=== PATIENT | female | born 1960 | race Caucasian/White ===

== ENCOUNTER 2017-12-20 10:04 | Emergency (ER) | payer MEDICARE, MEDICAID, SELFPAY ==
[2017-12-20 10:05] VITALS: BP 147/84; PULSE 77; RESP 14; TEMP 36.7; O2SAT 94; BMI 29.2
--- NOTE | 2017-12-20 10:15 | RAD_ITS ---
STUDY: X-RAY CHEST REASON FOR EXAM: Female, 57 years old. Chest and back pain TECHNIQUE: Single AP portable view of the chest. COMPARISON: 07/24/2016 FINDINGS: Cardiac monitoring leads overlie the chest. The lungs are clear and expanded. There is no demonstrated pleural abnormality. Normal size heart. Normal mediastinum and jigna. Normal visualized pulmonary arteries. Normal visualized aortic arch and descending thoracic aorta. There are diffuse degenerative changes of the visualized thoracic spine. Normal visualized ribs, clavicles, and shoulders. There is no demonstrated abnormality of the visualized soft tissue structures of the upper abdomen. RAD/Chest 1 View (Portable) IMPRESSION: Degenerative changes, as described above. No demonstrated acute cardiopulmonary process. Electronically Signed: Dante Smith DO at 11:38 EDT Tel , Service support ,
--- NOTE | 2017-12-20 10:21 | ED.VISSUMM ---
- ER Visit Summary Date of Service: 12/20/17 Chief Complaint: Chest pain History of Present Illness: The patient is a 57 F who presents with chest pain. She states that in the middle the night she had pain that is in the right side of her chest. She states that nothing made it worse but she took a couple of aspirin and made the pain better. She has no pain at this time. Denies any shortness of breath, nausea or vomiting. She has no cardiac history or risk factors. She has schizoaffective disorder. She then told me that she called the counseling center and told them about her pain and that she should call 911. She then tells me that somebody she knows and that made her more upset. Physical Examination: Vital signs reviewed. HEENT exam unremarkable. Heart is regular rate and rhythm without murmurs. Lungs are clear to auscultation. Abdomen is soft and nontender. Extremities reveal no edema. Peripheral pulses are equal. Skin exam normal. Neurologic exam normal. Test Results: EKG, labs and chest x-ray are all unremarkable Emergency Department Course and Treatment: Patient had no pain at this time. I feel she can be discharged home. She will need to follow-up with her PCP Treatment Plan: [] Disposition: Discharge Impression: Chest pain, resolved This note was generated with AVdirect dictation software. It may contain incorrect words, spelling, and punctuation that were not noted in review of the chart prior to signing ED Disposition - Plan for ED Patient: Chief Complaint: Chest Pain Referrals: Antonio Irwin MD [Primary Care Provider] -
[2017-12-20 10:28] LABS: Absolute Neutrophil Count 2.7 X10^3/uL (2.0-7.7); Basophil# 0.03 X10^3/uL; Basophil% 0.6 % (0-1); Eosinophil# 0.16 X10^3/uL; Eosinophils% 3.3 % (0-5); Hematocrit 41.1 % (37-47); Hemoglobin 13.7 g/dl (12.0-15.0); Lymphocyte % 32.7 % (19-41); Mean Corp Hgb Conc 33.3 g/gl (32-36); Mean Corpuscular Hgb 30.4 pg (27.0-32.0); Mean Corpuscular Volume 91.3 fL (81-99); Mean Platelet Vol. 10.6 fl (6.2-12.0); Monocyte# 0.36 X10^3/uL; Monocyte% 7.4 % (0-10); Neutrophil # 2.73 X10^3/uL (2.7-7.7); Neutrophil % 55.8 % (47-70); Platelet Count 224 K/mm3 (150-450); RBC Distribution Width CV 12.4 % (11.6-14.6); RBC Distribution Width SD 40.7 fl (35.1-43.9); White Blood Count 4.9 K/mm3 (4.4-11.0)
[2017-12-20 10:34] LABS: POSITIVE COUNT NO; POSITIVE DIFFERENTIAL NO; POSITIVE MORPHOLOGY NO
[2017-12-20 10:41] LABS: Anion Gap 7 (5-15); BUN 16 mg/dL (7-18); BUN/Creat Ratio 25.8 RATIO (10-20); Calcium,Total 8.4 mg/dL (8.5-10.1); Chloride 107 mmol/L (98-107); Creatinine, Serum 0.62 mg/dL (0.55-1.02); EST Glomerular Filtration Rate 105 mL/min (>60); Est Glom Filt Rate - Afr Amer 128 mL/min (>60); Estimated Creatinine Clearance 93.72 ml/min; Glucose 112 mg/dL (74-106); Potassium 3.6 mmol/L (3.5-5.1); Sodium Level 141 mmol/L (136-145)
[2017-12-20 10:52] VITALS: BP 125/79; PULSE 67; RESP 13; O2SAT 94
[2017-12-20 11:21] VITALS: BP 137/99; PULSE 63; RESP 20; O2SAT 94
--- NOTE | 2017-12-20 11:43 | ED.DEP ---
ED Disposition - Plan for ED Patient: Disposition: Home or Assisted Living Chief Complaint: Chest Pain Instructions: ED Chest Pain NonCardiac Referrals: Antonio Irwin MD [Primary Care Provider] -
[2017-12-20 11:54] VITALS: BP 154/90; PULSE 66; RESP 16; O2SAT 99
== END 2017-12-20 12:00 | disposition home or self-care (01) ==
PROVIDERS: Emergency Provider Emergency Medicine; Family Provider Family Medicine; PCP Family Medicine
DX: R07.9 Chest pain, unspecified (principal); F25.9 Schizoaffective disorder, unspecified; Z79.899 Other long term (current) drug therapy
CPT/HCPCS: 36415; 71045; 80048; 84484; 85025; 93005; 99285; J7030; A4216

== ENCOUNTER 2018-07-16 10:30 | Day surgery (SDC) | payer MEDICARE, MEDICAID, SELFPAY ==
[2018-07-16 11:18] VITALS: BP 127/93; PULSE 64; RESP 16; TEMP 36.6; O2SAT 94; BMI 30.4
--- NOTE | 2018-07-16 12:30 | COLBX_PTH ---
PATIENT: GINNY CASTRO LOC: EN U#:[id number] AGE/SX: 58/F ROOM: RE07/16/[address]: Dr. Nini Ribera MD : 1960 BED: DIS: 07/16/2018 SPEC #: [id number] RECD: 07/16/18 13:25 STATUS: KAMINI KAIT #: [id number] ALBER: 07/16/18 12:[address]: Nini Ribera DEPT: SURGICAL PATHOLOGY RECD BY: Pipo Artis ENTERED: 07/16/18 14:23 SP TYPE: COLON BX OTHR DR: Dr. Yovany Omalley MD Tissues: A - Gastric mucous membrane B - COLON BIOPSY C - Transverse colon Procedures: Surgery Specimen Level IV HEADER OPERATION: [place] [place] DIAGNOSIS: Abdomen bloating and positive IFOBT, diarrhea TISSUE SUBMITTED: A - Antrum for H. pylori and path, B - Random colon biopsies, C - Transverse colon polyp MICROSCOPIC DIAGNOSIS A. Gastric antrum, biopsy: Mild chronic gastritis. See comment. B. Colon, random biopsy: No pathologic diagnosis. See comment. C. Transverse colon polyp, biopsy: Fragments of tubular adenoma. AM:linda 07/17/18 COMMENT A. The results of immunohistochemistry for Helicobacter pylori will be reported separately ([id number]). B. Mild architectural change is identified. MICROSCOPIC DESCRIPTION Slides are reviewed. GROSS DESCRIPTION A - Received in fixative is one container labeled with the patient's name and designated antrum biopsy. The specimen consists of one irregular fragment of light mahmood soft tissue that measures 0.2 x 0.2 x .1 cm. The specimen is totally submitted in one cassette. B - Received in fixative is one container labeled with the patient's name and designated random colon biopsy. The specimen consists of multiple irregular fragments of light mahmood soft tissue that in aggregate measure 2 x 0.7 x 0.1 cm. The specimen is totally submitted in one cassette. C - Received in fixative is one container labeled with the patient's name and designated transverse colon polyp. The specimen consists of multiple irregular fragments of light mahmood soft tissue that in aggregate measure 1 x 0.3 x 0.1 cm. The specimen is totally submitted in one cassette. / BOLIVAR:linda 07/16/18 TC:5 CPT: 08029 x3
--- NOTE | 2018-07-16 12:30 | IMM_PTH ---
PATIENT: GINNY CASTRO LOC: EN U#:[id number] AGE/SX: 58/F ROOM: RE07/16/[address]: Dr. Nini Ribera MD : 1960 BED: DIS: 07/16/2018 SPEC #: [id number] RECD: 07/16/18 14:42 STATUS: KAMINI REBrigette #: [id number] ALBER: 07/16/18 12:[address]: Nini Ribera DEPT: IMMUNOHISTOCHEMISTRY RECD BY: Kathryn Tovar ENTERED: 07/16/18 14:42 SP TYPE: IMMUNO OTHR DR: Dr. Yovany Omalley MD Tissues: A - Stomach, NOS Procedures: H Pylori (initial) PHYSICIAN & INSTITUTION [place] [address] SPECIMEN INFORMATION: Tissue Source: A - Antrum biopsy Clinical Info: Abdomen bloating and positive IFOBT, diarrhea Specimen Number: [id number] CPT code: 12016 METHODOLOGY: Deparaffinized sections of prefer/formalin-fixed tissue or PAP/DQ stained slides are incubated with monoclonal/polyclonal antibodies/oligonucleotide probes. Localization is made via biotin free immunoperoxidase method. Appropriate controls are performed and reacted as expected. Results on target cell population are indicated in the following table: RESULTS: ANTIBODY / CLONE RESULT Block A H Pylori (polyclonal) negative These tests were developed and their performance characteristics determined by [facility]. They may not have been cleared or approved by the U.S. Food and Drug Administration. The FDA has determined that such clearance or approval is not necessary. INTERPRETATION: A. Antrum, biopsy: Negative for Helicobacter pylori organisms. AM:linda 07/18/18
--- NOTE | 2018-07-16 12:53 | OP.ENDO_ITS ---
07/16/2018 Antonio Irwin [address] [place] [address] Re : Upper GI endoscopy procedure for Lisa Sherrie Dear Dr. Irwin This procedure was performed on Monday, July 16, 2018. My impressions and recommendations are as follows: Impressions : - Normal esophagus. - Normal stomach. Biopsied. - Normal first portion of the duodenum and second portion of the duodenum. Recommendations : - Discharge patient to home (ambulatory). - Resume previous diet. - Continue present medications. - Await pathology results. - Follow up with GI medicine in 1-2 weeks for results. My findings are described in the full procedure note, which is enclosed. If I can be of further assistance, please feel free to contact me at Doctor phone number(s): , Work: . Sincerely, MD Nini Campbell MD 07/16/2018 12:52:55 PM This report has been signed electronically.
[2018-07-16 13:16] VITALS: BP 127/98; BP 148/89; PULSE 69; RESP 18; TEMP 36.4; O2SAT 96
--- NOTE | 2018-07-16 13:16 | OP.ENDO_ITS ---
07/16/2018 Antonio Irwin [address] [place] [address] Re : Colonoscopy procedure for Lisa Balderas Dear Dr. Irwin This procedure was performed on Monday, July 16, 2018. My impressions and recommendations are as follows: Impressions : - One 5 to 10 mm polyp in the transverse colon, removed with a cold snare. Resected and retrieved. - Biopsies were taken with a cold forceps from the entire colon for evaluation of microscopic colitis. Recommendations : - Discharge patient to home (ambulatory). - Resume previous diet. - Continue present medications. - My office will telephone with pathology results in 1-2 weeks - Repeat colonoscopy is recommended per protocol. The colonoscopy date will be determined after pathology results from today's exam become available for review. My findings are described in the full procedure note, which is enclosed. If I can be of further assistance, please feel free to contact me at Doctor phone number(s): , Work: . Sincerely, MD Nini Campbell MD 07/16/2018 1:16:35 PM This report has been signed electronically.
[2018-07-16 13:20] VITALS: BP 127/98; BP 154/90; PULSE 68; RESP 16; O2SAT 96
[2018-07-16 13:25] VITALS: BP 127/98; BP 146/82; PULSE 66; RESP 16; O2SAT 94
[2018-07-16 13:30] VITALS: BP 127/98; BP 144/74; PULSE 63; RESP 16; O2SAT 96
[2018-07-16 13:35] VITALS: BP 127/98; BP 154/93; PULSE 63; RESP 16; TEMP 36.4; O2SAT 96
== END 2018-07-16 14:19 | disposition home or self-care (01) ==
LOC: EN 10:31 → AC 10:40
PROVIDERS: Family Provider Family Medicine; PCP Family Medicine; Referring Provider Surgery; Visit Provider Surgery
PROC: 0DJD8ZZ Inspection of Lower Intestinal Tract, Via Natural or Artificial Opening Endoscopic (ICD-10-PCS; CPT 45378; principal; 2018-07-16 12:25)
DX: K29.50 Unspecified chronic gastritis without bleeding (principal); D12.3 Benign neoplasm of transverse colon; E03.9 Hypothyroidism, unspecified; K76.0 Fatty (change of) liver, not elsewhere classified; E78.2 Mixed hyperlipidemia; F25.9 Schizoaffective disorder, unspecified; F41.9 Anxiety disorder, unspecified; F32.9 Major depressive disorder, single episode, unspecified; Z79.899 Other long term (current) drug therapy; Z87.891 Personal history of nicotine dependence
CPT/HCPCS: 43239; 45380; 88305; 88342; J7120; J2405

== ENCOUNTER → 2018-10-24 | Outpatient (CLI) | payer MEDICARE, MEDICAID, SELFPAY ==
[2018-10-24 15:13] LABS: Hematocrit 42.2 % (37-47); Mean Corp Hgb Conc 33.2 g/gl (32-36); Mean Corpuscular Volume 90.6 fL (81-99); Mean Platelet Vol. 10.4 fl (6.2-12.0); Platelet Count 252 K/mm3 (150-450); RBC Distribution Width CV 13.4 % (11.6-14.6); RBC Distribution Width SD 43.6 fl (35.1-43.9); Red Blood Count 4.66 M/mm3 (4.2-5.4); White Blood Count 6.6 K/mm3 (4.4-11.0)
[2018-10-24 15:19] LABS: Scan Indicated on CBC? Y/N NO
[2018-10-24 15:37] LABS: Hemoglobin A1c 5.4 % (4.2-6.3)
[2018-10-24 15:42] LABS: ALB/GLOB Ratio 0.8 RATIO (0.9-2.4); AST(SGOT) 98 U/L (15-37); Alanine Aminotransfer ALT/SGPT 224 U/L (13-56); Albumin, Serum 3.4 g/dL (3.2-5.0); Alkaline Phosphatase 147 U/L (45-117); Anion Gap 1 (5-15); BUN 15 mg/dL (7-18); BUN/Creat Ratio 23.7 RATIO (10-20); Calcium,Total 8.7 mg/dL (8.5-10.1); Chloride 106 mmol/L (98-107); Creatinine, Serum 0.63 mg/dL (0.55-1.02); EST Glomerular Filtration Rate 102 mL/min (>60); Est Glom Filt Rate - Afr Amer 124 mL/min (>60); Globulin 4.1 g/dL (2.2-4.2); Glucose 92 mg/dL (74-106); Prolactin 9.1 ng/mL; Protein, Total 7.5 g/dL (6.4-8.2); Sodium Level 137 mmol/L (136-145); Thyroid Stim Hormone (TSH) 1.11 uIU/mL (0.358-3.74)
== END | disposition home or self-care (01) ==
PROVIDERS: Family Provider Family Medicine; PCP Family Medicine; Referring Provider Psychiatry & Neurology Psychiatry; Visit Provider Psychiatry & Neurology Psychiatry
DX: Z79.899 Other long term (current) drug therapy (principal)
CPT/HCPCS: 80053; 82140; 83036; 84146; 84443; 85027

== ENCOUNTER → 2018-10-29 | Outpatient (CLI) | payer MEDICARE, MEDICAID, SELFPAY | END | disposition home or self-care (01) | LOC: LAB 11:37 | PROVIDERS: Family Provider Family Medicine; PCP Family Medicine; Referring Provider Psychiatry & Neurology Psychiatry; Visit Provider Psychiatry & Neurology Psychiatry | DX: Z79.899 Other long term (current) drug therapy (principal) | CPT/HCPCS: 36415 ==

== ENCOUNTER 2019-03-13 09:24 | Emergency (ER) | payer MEDICARE, MEDICAID, SELFPAY ==
[2019-03-13 09:25] VITALS: BP 113/84; PULSE 87; RESP 16; TEMP 36.4; O2SAT 96; BMI 28.3
--- NOTE | 2019-03-13 09:45 | ED.VISSUMM ---
- ER Visit Summary Date of Service: 03/13/19 Chief Complaint: Nausea, vomiting, diarrhea History of Present Illness: The patient is a 58 F who presents with nausea, vomiting, and diarrhea that began yesterday. Patient states she had several episodes of vomiting yesterday. Patient denies any vomiting today. Patient states her diarrhea is loose and watery. Patient denies any melena or hematochezia. Patient denies any abdominal pain. Patient denies any dysuria or hematuria. Patient states she does feel lightheaded when she stands up. Patient denies any shortness of breath or cough. Patient denies any chest pain. Physical Examination: Vital signs are stable. Patient is afebrile. Patient is in no acute distress. Oral mucosa is pink and moist. Neck is supple. Trachea is midline. There is no JVD noted. Heart was regular rate and rhythm. Lungs are clear and equal bilaterally. Abdomen is soft. Bowel sounds are normal. There is no tenderness. There is no guarding noted. Skin is warm dry. Cranial nerves II through XII are intact. There are no focal motor or sensory deficits noted. Test Results: CBC showed a mild leukocytosis of 12.4. BUN and creatinine were slightly elevated at 19 and 1.19. Urinalysis does not show any evidence of urinary tract infection. Emergency Department Course and Treatment: Patient was given IV fluids and Zofran here. Patient was feeling better on reevaluation. Patient was advised that this is most likely a viral gastroenteritis. Patient was instructed to start with liquids and advance her diet as tolerated. Patient was instructed to follow-up with her primary care physician in 5 to 7 days. Patient understood and was agreeable with the plan. All questions were answered. Disposition: Discharge home Impression: 1. Nausea, vomiting, and diarrhea This note was generated with F[employer] Sk[employer] dictation software. It may contain incorrect words, spelling, and punctuation that were not noted in review of the chart prior to signing ED Disposition - Plan for ED Patient: Disposition: Home or Assisted Living Diagnosis: Nausea, vomiting, and diarrhea Instructions: DIET, Vomiting or Diarrhea [6yr-Adult] Referrals: Yovany Omalley MD [Primary Care Provider] - 5-7 Days
[2019-03-13] MEDS: Ondansetron 4 MG/2 ML Vial IV (09:57)
[2019-03-13] MEDS: 0.9% Normal Saline 1,000 ML 1000 ML IV ×2 (09:57→11:30)
[2019-03-13 10:02] LABS: Absolute Lymphocyte Count 2.31 X10^3/uL (0.83-4.51); Absolute Neutrophil Count 8.8 X10^3/uL (2.0-7.7); Basophil# 0.04 X10^3/uL; Basophil% 0.3 % (0-1); Eosinophil# 0.57 X10^3/uL; Eosinophils% 4.6 % (0-5); Hemoglobin 14.9 g/dL (12.0-15.0); Lymphocyte # 2.31 X10^3/ul (4.0); Lymphocyte % 18.6 % (19-41); Mean Corp Hgb Conc 32.4 g/dL (32-36); Mean Corpuscular Hgb 30.2 pg (27.0-32.0); Mean Corpuscular Volume 93.3 fL (81-99); Mean Platelet Vol. 10.7 fl (6.2-12.0); Monocyte# 0.69 X10^3/uL; Monocyte% 5.5 % (0-10); NRBC Flagged by Analyzer 0 % (0-5); Neutrophil # 8.79 X10^3/uL (2.7-7.7); Neutrophil % 70.7 % (47-70); Platelet Count 271 K/mm3 (150-450); RBC Distribution Width CV 12.9 % (11.6-14.6); RBC Distribution Width SD 44.6 fl (35.1-43.9); Red Blood Count 4.93 M/mm3 (4.2-5.4); White Blood Count 12.4 K/mm3 (4.4-11.0)
--- NOTE | 2019-03-13 10:07 | ED.RN ---
Steady gait to bathroom.
[2019-03-13 10:17] LABS: AST(SGOT) 20 U/L (15-37); Alanine Aminotransfer ALT/SGPT 46 U/L (13-56); Alkaline Phosphatase 111 U/L (45-117); Anion Gap 9 (5-15); BUN 19 mg/dL (7-18); Chloride 113 mmol/L (98-107); Creatinine, Serum 1.19 mg/dL (0.55-1.02); EST Glomerular Filtration Rate 49 mL/min (>60); Est Glom Filt Rate - Afr Amer 60 mL/min (>60); Estimated Creatinine Clearance 46.37 ml/min; Glucose 116 mg/dL (74-106); Lipase 137 U/L (73-393); Potassium 3.5 mmol/L (3.5-5.1); Sodium Level 142 mmol/L (136-145)
[2019-03-13 11:35] VITALS: BP 128/67; PULSE 68; RESP 15; O2SAT 96
[2019-03-13 11:43] LABS: Mucous, Urine 0 SEEN /hpf (<or=2+)
[2019-03-13 11:56] LABS: Color, Urine Yellow (Yellow); Glucose, Dipstick Normal (Normal); Ketone-Dipstick 5 mg/dl (Negative); Leukocyte Esterase-Dipstick 25 /ul (Negative); Nitrite-Dipstick Negative (Negative); Occult Blood-Urine 25 /ul (Negative); Protein-Dipstick 100 mg/dl (Negative); Urine Clarity Sl. Cloudy (Clear); Urine Urobilinogen Normal (Normal)
[2019-03-13 11:59] LABS: Urine Bilirubin Dipstick 1 mg/dL (Negative)
[2019-03-13 12:05] LABS: Bacteria 1+ /hpf (None Seen); Hyaline Cast 0-5 SEEN /lpf (0-5); Red Blood Cells-Urine 0-5 SEEN /hpf (0-5); Squamous Epithelial Cells - UA 0-5 SEEN /hpf (5-10); White Blood Cells 0-5 SEEN /hpf (0-5)
[2019-03-13 12:33] VITALS: BP 115/76; PULSE 83; RESP 14; O2SAT 97
== END 2019-03-13 12:34 | disposition home or self-care (01) ==
PROVIDERS: Emergency Provider Emergency Medicine; Family Provider Family Medicine; PCP Family Medicine
DX: R19.7 Diarrhea, unspecified (principal); R11.2 Nausea with vomiting, unspecified; E03.9 Hypothyroidism, unspecified; E78.00 Pure hypercholesterolemia, unspecified; Z79.899 Other long term (current) drug therapy
CPT/HCPCS: 80053; 81001; 83690; 85025; 96361; 96374; 99285; J7030; A4216; J2405

== ENCOUNTER 2019-06-13 10:00 | Emergency (ER) | payer MEDICARE, MEDICAID, SELFPAY ==
[2019-06-13 10:03] VITALS: BP 129/69; PULSE 95; RESP 16; TEMP 37.2; O2SAT 93; BMI 28.9
[2019-06-13 10:06] VITALS: BP 129/69; PULSE 95; RESP 16; TEMP 37.2; O2SAT 93
--- NOTE | 2019-06-13 11:05 | EKG12_ITS ---
Test Reason : GENERAL ILLNESS Blood Pressure : / mmHG Vent. Rate : 085 BPM Atrial Rate : 085 BPM P-R Int : 168 ms QRS Dur : 096 ms QT Int : 392 ms P-R-T Axes : 028 -05 010 degrees QTc Int : 466 ms Normal sinus rhythm Incomplete right bundle branch block Poor R-wave progression Borderline ECG Confirmed by BRISEIDA XAVIER, JAMIE ([id number]), video editor NICHOLAS BAZZI ([id number]) on 06/18/2019 7:56:38 AM Referred By: CHIQUITA Confirmed By:JAMIE GOINS MD
--- NOTE | 2019-06-13 11:05 | RAD_ITS ---
STUDY: X-RAY CHEST REASON FOR EXAM: Female, 59 years old. CHEST PAIN X YESTERDAY. TECHNIQUE: Single AP portable view of the chest. COMPARISON: Comparison is made with prior study dated December 20, 2017. FINDINGS: EKG electrodes are seen. The lungs are clear and expanded. There is no demonstrated pleural abnormality. Normal size heart. Normal mediastinum and jigna. Normal visualized pulmonary arteries. Normal visualized aortic arch and descending thoracic aorta. There are diffuse degenerative changes of the visualized thoracic spine. Normal visualized ribs, clavicles, and shoulders. There is no demonstrated abnormality of the visualized soft tissue structures of the upper abdomen. RAD/Chest 1 View (Portable) IMPRESSION: No acute abnormality is present. Electronically Signed: Jeremy Mittal, at 12:05 EST , Service support ,
--- NOTE | 2019-06-13 11:06 | ED.DCSUM_ITS ---
- ER Visit Summary Date of Service: 06/13/19 Chief Complaint: Chest pain and diarrhea History of Present Illness: The patient is a 59 F history of underlying mental illness. Patient states that she has had diarrhea last several days. Took Imodium. States after taking 1 of the Imodium she had 5 an episode of chest pain. Midsternal. Did not radiate. Lasted 5 minutes resolved. This occurred last night. No history of cardiac disease or chest pain. No history of DVT or PE. No recent travel, surgery or immobilization. No leg pain or swelling. No hemoptysis. Is not pleuritic. Patient denies recent exertional chest pain or exertional dyspnea. Currently she is pain-free and symptom-free. Physical Examination: Middle-aged female no acute distress vital signs are stable. She is afebrile. H EENT exam unremarkable. Also is 90% room air no signs hypoxia. H EENT exam unremarkable. Neck nontender. Lungs clear to auscultation. Heart regular rhythm no murmur. Abdomen soft nontender normal bowel sounds no peritoneal signs. Extremities moves all 4. Calves are nonte nder without edema or cords. Equal symmetrical radial pulses. Back nontender. Chest wall nontender. Neurologically she is awake and alert with no focal motor deficits. Test Results: CBC white count of 12. Hemoglobin 15. Chemistries unremarkable normal creatinine and gap. Troponin normal. EKG normal sinus rhythm rate 85 no signs of IL or ischemia. Incomplete right bundle branch block. Chest x-ray portable 1 view read by myself the radiologist shows no acute abnormality. Normal cardiac silhouette mediastinum. Emergency Department Course and Treatment: Patient with atypical nonexertional presentation of chest pain lasted 5 minutes. She undergo cardiac work-up but clinically I doubt this is cardiac. If her work-up is negative she will be discharged home with outpatient follow-up. Zackary exam at 1533 patient is doing well. To be discharged to home. Treatment Plan: Return if worse. Follow-up with your doctor. Disposition: Discharge Impression: Acute transient chest pain resolved of uncertain etiology This note was generated with ThirdSpaceLearningation software. It may contain incorrect words, spelling, and punctuation that were not noted in review of the chart prior to signing ED Disposition - Plan for ED Patient: Referrals: Yovany Omalley MD [Primary Care Provider] -
[2019-06-13 11:41] LABS: Absolute Lymphocyte Count 0.33 X10^3/uL (0.83-4.51); Absolute Neutrophil Count 11.4 X10^3/uL (2.0-7.7); Basophil# 0.02 X10^3/uL; Basophil% 0.2 % (0-1); Eosinophil# 0.01 X10^3/uL; Eosinophils% 0.1 % (0-5); Hematocrit 44.9 % (37-47); Hemoglobin 15.2 g/dL (12.0-15.0); Lymphocyte # 0.33 X10^3/ul (4.0); Lymphocyte % 2.7 % (19-41); Mean Corp Hgb Conc 33.9 g/dL (32-36); Mean Corpuscular Volume 91.4 fL (81-99); Mean Platelet Vol. 10.1 fl (6.2-12.0); Monocyte# 0.26 X10^3/uL; Monocyte% 2.2 % (0-10); NRBC Flagged by Analyzer 0 % (0-5); Neutrophil # 11.41 X10^3/uL (2.7-7.7); Neutrophil % 94.5 % (47-70); POSITIVE DIFFERENTIAL YES; Platelet Count 261 K/mm3 (150-450); RBC Distribution Width CV 12.7 % (11.6-14.6); RBC Distribution Width SD 42.2 fl (35.1-43.9); Red Blood Count 4.91 M/mm3 (4.2-5.4); White Blood Count 12.1 K/mm3 (4.4-11.0)
[2019-06-13 11:46] LABS: Differential Indicated SCAN CRITERIA MET
[2019-06-13 11:58] LABS: Anion Gap 5 (5-15); BUN 21 mg/dL (7-18); BUN/Creat Ratio 23.9 RATIO (10-20); Calcium,Total 9.3 mg/dL (8.5-10.1); Chloride 107 mmol/L (98-107); Creatinine, Serum 0.88 mg/dL (0.55-1.02); EST Glomerular Filtration Rate 70 mL/min (>60); Est Glom Filt Rate - Afr Amer 85 mL/min (>60); Estimated Creatinine Clearance 61.94 ml/min; Glucose 110 mg/dL (74-106); Potassium 4.4 mmol/L (3.5-5.1); Sodium Level 139 mmol/L (136-145)
[2019-06-13 12:11] VITALS: BP 120/72; PULSE 91; RESP 20; O2SAT 95
[2019-06-13 14:15] VITALS: BP 119/69; PULSE 81; RESP 18; O2SAT 97
--- NOTE | 2019-06-13 15:34 | ED.DEP ---
ED Disposition - Plan for ED Patient: Disposition: Home or Assisted Living Diagnosis: Chest pain Instructions: CHEST PAIN, Uncertain Cause Referrals: Yovany Omalley MD [Primary Care Provider] - 3-5 Days if not improving
[2019-06-13 15:41] VITALS: BP 107/61; PULSE 79; RESP 16; O2SAT 99
== END 2019-06-13 15:41 | disposition home or self-care (01) ==
PROVIDERS: Emergency Provider Emergency Medicine; PCP Family Medicine
DX: R07.9 Chest pain, unspecified (principal); E78.00 Pure hypercholesterolemia, unspecified; Z79.899 Other long term (current) drug therapy
CPT/HCPCS: 36415; 71045; 80048; 84484; 85025; 93005; 99285; A4216

== ENCOUNTER → 2019-10-29 | Outpatient (CLI) | payer MEDICARE, MEDICAID, SELFPAY ==
--- NOTE | 2019-10-29 14:42 | STRESSREP_ITS ---
Stress Test Report Date: 10-29-2019 Procedure: Exercise tolerance test Indications: Chest pain Consent: Per the patient Procedure: The patient exercised on a Kofi protocol for 3 minutes completing Stage I achieving a peak heart rate of 122 bpm (75 % predicted maximal heart rate) with a peak blood pressure 164/84 mmHg and a peak MET capacity of approximately 4 mET's. The baseline ECG demonstrated normal sinus rhythm; low voltage QRS; poor R wave progression. The peak exercise ECG demonstrated no obvious ECG changes. There were no cardiac dysrhythmias pretest, during exercise, or recovery. The functional capacity was considered decreased. The patient had no complaint of chest discomfort during exercise or recovery. The examination was discontinued secondary to dyspnea. Impression: 1. Technically adequate (percent predicted maximal heart rate greater than 85%) exercise tolerance test 2. Peak exercise ECG with no obvious ECG changes 3. There were no cardiac dysrhythmias during exercise or recovery This note was generated with i-Nalysisation software. It may contain incorrect words, spelling, and punctuation that were not noted in checking the note before signing.
--- OUTSIDE RECORDS SUMMARY | 2020-03-01 14:14 | XMS RPT_ITS | CCD ---
:1960 External Reference #:[id number] Author Organization [facility] Care Team Providers Name Role Phone [facility] Castle Primary Care Provider Allergies Reported Allergen Reaction(s) Severity Date of Onset Location atorvastatin Other: See Comments Low 10-08-2014 - [facility] ([id number]) Caffeine Other: See Comments Low 03-04-2009 [facility] ([id number]) Certain Deordorants Unknown Low 09-11-2008 [facility] [Other] (13001) Chocolate Other: See Comments Low 03-04-2009 [facility] ([id number]) Fragrances Rash Low 08-30-2005 - [facility] ([id number]) gabapentin Rash Low 07-11-2006 [facility] ([id number]) Haloperidol Other: See Comments Moderate 05-31-2018 - [facility] (24949) lamoTRIgine Intolerance Low 10-25-2006 - [facility] (40908) levETIRAcetam Rash Low 07-11-2006 [facility] (03239) peanut Itching Low 09-11-2008 [facility] (34982) Phenergan Plain Unknown Low 03-04-2009 - [facility] (34365) Phenytoin Rash Low 07-11-2006 [facility] (81354) Medications Medication Name Sig Date Prescriber Location ARIPiprazole lauroxil ARISTADA 662 mg/2.4 05-31-2018 Yovany mae [facility] mL injection 2.4 mL (17627) q 4 WEEKS. [facility] 0 05/31/2018 Active Comment: 2.4 mL q 4 WEEKS. Per [facility] Benztropine benztropine (COGENTIN) 1 05-31-2018 Yovany Castle [facility] mg tablet Take 1 tablet (441 95) by mouth once daily. [facility] 0 05/31/2018 Active Comment: Take 1 tablet by mouth once daily. [facility] Chlorhexidine Chlorhexidine Gluconate 02-22-2019 [facility] Provider [facility] (PERIDEX) 0.12 % (55162) solution Citalopram citalopram (CELEXA) 20 05-31-2018 Yovany Castle [facility] mg tablet Take 1 tablet (441 95) by mouth once daily. [facility] 0 05/31/2018 Active Comment: Take 1 tablet by mouth once daily. [facility] fluticasone fluticasone (FLONASE) 50 08-08-2019 Anju Campos [facility] mcg/actuation nasal Loyd (92748) spray Use 2 Sprays in each nostril once daily. Rinse mouth after use. 1 Bottle 11 08/08/2019 Active Comment: Use 2 Sprays in each nostril once daily. Rinse mouth after use. levothyroxine levothyroxine 11-25-2019 [facility] (SYNTHROID) 75 mcg Loyd (97460) tablet Take 1 tablet by mouth once daily. 90 tablet 1 11/25/2019 Active Comment: Take 1 tablet by mouth once daily. LORazepam LORazepam (ATIVAN) 1 mg 05-31-2018 Yovany Avila Shahram [facility] tablet Indications: Schizo ( 14250) affective schizophrenia (HCC) Take 1 tablet by mouth once daily for 30 days. Twice daily, [facility]. 30 tablet 0 05/31/2018 Active Comment: Take 1 tablet by mouth once daily for 30 days. Twice daily, [facility]. miSOPROStol miSOPROStol (CYTOTEC) 02-17-2020 - Sagrario (Cnm) [facility] 200 mcg tablet Insert 02-25-2020 [facility] (97081 ) one tablet vaginally the night before procedure. Take one tablet orally the morning of procedure. 2 tablet 0 02/17/2020 02/25/2020 Discontinued Comment: Insert one tablet vaginally the night before procedure. Take one tablet orally the morning of proced ure. risperiDONE risperiDONE (RISPERDAL) 05-31-2018 Yovany Castle [facility] 4 mg tablet Take 1 (59574) tablet by mouth once daily. [facility] 0 05/31/2018 Active Comment: Take 1 tablet by mouth once daily. Per [facility] Center Problems Active Problems Category Problem Name Status Date Location Anxiety disorders Obsessive-compulsive Active [facility] disorder (97616) Conduction disorders Right bundle branch Active 02-21-2019 - [facility] block (63754) Disorders of lipid Mixed hyperlipidemia Active 06-28-2005 [facility] metabolism (62232) Genitourinary symptoms Female stress Active 02-19-2010 - [facility] and ill-defined incontinence (98781) conditions Menopausal disorders Postmenopausal bleeding Active [facility] (35219) Mood disorders Bipolar I disorder Active [facility] (83787) Other liver diseases Steatosis of liver Active 06-01-2018 [facility] (48351) Schizophrenia and other Schizoaffective Active 12-16-2014 [facility] psychotic disorders schizophrenia (20854) Thyroid disorders Acquired hypothyroidism Active 06-28-2005 - [facility] (29560) Unclassified Patient encounter status Active 05-19-2015 - [facility] (25989) Unclassified History of clinical Active 08-15-2005 - [facility] finding in subject (44171) Past or Other Problems Category Problem Name Status Date Location Other diseases of Other specified Completed 02-19-2010 - [facility] bladder and urethra disorders of urethra (83720) Other infections; History of sexually Completed 04-03-2014 - [facility] including parasitic transmitted disease ( 01523) Other nutritional; H/O: endocrine Completed 03-10-2009 - [facility] endocrine; and disorder (94462) metabolic disorders Other screening for Liver function tests Completed 10-29-2018 - [facility] suspected conditions abnormal (62967) (not mental disorders or infectious disease) Screening and history Ex-smoker Completed 05-31-2018 - [facility] of mental health and (66735) substance abuse codes Results Result Name Value Range Unit Interpretation Flag Date Location [facility] on 2020-02-28 CNPN Telephone (OBGYWM) Normal 02-28-2020 [facility] LISA CASTRO ([id number]) 1960 [facility] Date Time Provider Department ([id number]) 02/28/20 MARY VALDES ([facility]) OBGYWJose During your visit today, we recorded the following informati on about you: Mary Valdes APRN.CNP 02/28/2020 11:22 AM Signed Please let the pt know that her EMB was normal. If she has anymore bleeding she will need to see one of the doctors for an Endosee. MOY Benites RN 02/28/2020 11:27 AM Signed Patient notified. Voiced understanding. Nona Reich RN Allergies As of Date: 02/28/2020 Noted Allergy Reaction HALDOL (HALOPERIDOL LACTATE) 05/31/2018 14 - Other: See Comm ents Comments: seizures CAFFEINE 03/04/2009 14 - Other: See Comments Comments: Patient states can have in moderation. Excess amou nts can cause seizures. Certain Deordorants [Other] 09/11/2008 16 - Unknown CHOCOLATE 03/04/2009 14 - Other: See Comments Comments: Patient states she can have in moderation. DILANTIN (PHENYTOIN SODIUM EXTEND*07/11/2006 2 - Rash Comments: GI upset FRAGRANCES 08/30/2005 2 - Rash GABAPENTIN 07/11/2006 2 - Rash Comments: GI upset KEPPRA (LEVETIRACETAM) 07/11/2006 2 - Rash Comments: GI upset LAMICTAL (LAMOTRIGINE) 10/25/2006 5 - Intolerance Comments: too drowsey LIPITOR (ATORVASTATIN) 10/08/2014 14 - Other: See Comments Comments: Dry mouth, upset stomach, elevated LFT's PEANUTS 09/11/2008 9 - Itching PHENERGAN PLAIN 03/04/2009 16 - Unknown Date Reviewed: 02/25/2020 Reviewed by: Eboni Carter LPN - Fully Assessed Reason for Visit: Results [95] Prescriptions as of 02/28/2020 Sig: LEVOTHYROXINE 75 MCG TABLET Take 1 tablet by mouth once d* FLUTICASONE PROPIONATE 50 MCG* Use 2 Sprays in each nostril * CHLORHEXIDINE GLUCONATE 0.12 * LORAZEPAM 1 MG TABLET Take 1 tablet by mouth once d* BENZTROPINE 1 MG TABLET Take 1 tablet by mouth once d* RISPERIDONE 4 MG TABLET Take 1 tablet by mouth once d* CITALOPRAM 20 MG TABLET Take 1 tablet by mouth once d* ARISTADA 662 MG/2.4 ML SUSPEN* 2.4 mL q 4 WEEKS. Per [employer] * Problem List As Of Date 02/28/2020 Noted Resolved Acquired hypothyroidism [E03.9] 06/28/2005 Mixed hyperlipidemia [E78.2] 06/28/2005 History of seizures [Z87.898] 08/15/2005 More... Sebaceous cyst [L72.3] 07/17/2006 10/21/2010 Other Fall [R29.6] 06/07/2007 07/17/2009 History of hyperprolactinemia [Z86.39] 03/10/2009 Urethrocele(618.03) [N36.8] 02/19/2010 Female stress incontinence [N39.3] 02/19/2010 Screening for colon cancer [Z12.11] 06/01/2010 10/21/2010 Herpes [B00.9] 06/14/2010 06/14/2010 Sebaceous cyst [L72.3] 11/03/2010 09/13/2014 History of herpes genitalis [Z86.19] 04/03/2014 Schizo affective schizophrenia (HCC) [F25.9] 12/16/2014 More... Encounter for screening mammogram for breast ca*05/19/2015 Bipolar 1 disorder (HCC) [F31.9] OCD (obsessive compulsive disorder) [F42.9] Ex-smoker [Z87.891] 05/31/2018 More... Encounter for gynecological examination [Z01.41*05/31/2018 More... Colon cancer screening [Z12.11] 05/31/2018 Medicare annual wellness visit, subsequent [Z00*05/31/2018 More... Fatty liver [K76.0] 06/01/2018 More... Elevated LFTs [R79.89] 10/29/2018 More... RBBB [I45.10] 02/21/2019 Encounter Status:Closed by NONA REICH RN on 02/28/20 surgical pathology on 2020-02-25 SURGICAL Specimen originated from [facility] Normal 02-25-2020 [facility] Specimen #: [id number] Clinic Submitting Physician: MARY VALDES [facility]ell[facility] ([id number]) FINAL DIAGNOSIS Endometrium, biopsy - Superficial sample of inactive endomet rium. KD/teodoro 02/26/2020 Ceci Vazquez MD (Electronic Signature) SPECIMEN SUBMITTED A: ENDOMETRIAL LINING, BIOPSY CLINICAL DATA POSTMENOPAUSAL GROSS DESCRIPTION A. Received in formalin are multiple mahmood, soft feathery segm ents of tissue admixed with gelatinous material aggregating to 2.0 x 1.0 x 0.1 cm. Totally submitted in one cassette. Gross examination performed at [facility], [address] [place] [address] 02/25/2020 10:12:44 PM Date of Report: 02/26/2020 Date of Procedure: 02/25/2020 Date of Receipt: 02/25/2020 Submitted by: MARY VALDES Location: [facility] Diagnostic interpretation performed at [place] [address]. CLIA Number: [id number] progress on 2020-02 PROGRESS HNO ID: [id number] Normal 02-25-2020 [facility] Author: aMry Castellano ([id number]) Service: ? Author Type: Nurse Practitioner Type: Progress Notes Filed: 02/25/2020 1:47 PM Note Text: Lisa Castro is a 59 year old female who presents today f or an endometrial biopsy for post menopausal bleeding. test: n/a UNIVERSAL PROTOCOL / SAFETY CHECKLIST Procedure to be performed: EMB Sign in Communication: Completed Time Out: Team Confirms the Correct Patient, Correct Procedu re, Correct Site and Site Marking, Correct Position (if applicable), Pre p and Dry Time (if applicable). Time: 1335 Affirmation of Time Out: YES Sign Out Discussion: Completed PROCEDURE: EXTERNAL GENITALIA: Normal in appearance without lesions VAGINA: Normal in appearance without lesions BIOPSY: Speculum placed into the vagina with excellent visua lization of the cervix. Cervix cleaned with betadine. Anterior lip of ce rvix grasped with single toothed tenaculum. Uterus sounded to 6.5 cm. Pip geoff inserted into the uterus without difficulty and endometrial biopsy ob tained. Specimen labeled and sent to pathology. Hemostasis achieved. Procedure Summary: Patient tolerated procedure well. ASSESSMENT: post menopausal bleeding PLAN: Specimens labeled and sent to Pathology. Will notify patient of results in 1-2 weeks. Post-procedure instructions reviewed and writt en material given to the patient. Mary Valdes APRN.RALPH watson on 2020-02-25 RALPHN Telephone (OBGYWM) Normal 02-25-2020 [facility] LISA CASTRO ([id number]) 1960 [facility] Time Provider Department ([id number]) 02/25/20 MARY VALDES ([facility]) OBGYWM During your visit today, we recorded the following informati on about you: Alize Newby RN 02/25/2020 4:48 PM Signed Patient calling regarding bleeding. States she started aga in this afternoon after EMB. Advised this can be normal. She is not currently wearing a pad, only noticed a little on underwear. Encouraged to wea r maxi pad and reviewed heavy bleeding precautions with her. She also was ques tioning hysterectomy. Advised once results come back from EMB we will call her with those and recommendations at that point. Patient agreed. FYI. Alize Newby RN Allergies As of Date: 02/25/2020 Noted Allergy Reaction HALDOL (HALOPERIDOL LACTATE) 05/31/2018 14 - Other: See Comm ents Comments: seizures CAFFEINE 03/04/2009 14 - Other: See Comments Comments: Patient states can have in moderation. Excess amou nts can cause seizures. Certain Deordorants [Other] 09/11/2008 16 - Unknown CHOCOLATE 03/04/2009 14 - Other: See Comments Comments: Patient states she can have in moderation. DILANTIN (PHENYTOIN SODIUM EXTEND*07/11/2006 2 - Rash Comments: GI upset FRAGRANCES 08/30/2005 2 - Rash GABAPENTIN 07/11/2006 2 - Rash Comments: GI upset KEPPRA (LEVETIRACETAM) 07/11/2006 2 - Rash Comments: GI upset LAMICTAL (LAMOTRIGINE) 10/25/2006 5 - Intolerance Comments: too drowsey LIPITOR (ATORVASTATIN) 10/08/2014 14 - Other: See Comments Comments: Dry mouth, upset stomach, elevated LFT's PEANUTS 09/11/2008 9 - Itching PHENERGAN PLAIN 03/04/2009 16 - Unknown Date Reviewed: 02/25/2020 Reviewed by: Eboni Carter LPN - Fully Assessed Reason for Visit: Patient Update [1234] Prescriptions as of 02/25/2020 Sig: LEVOTHYROXINE 75 MCG TABLET Take 1 tablet by mouth once d* FLUTICASONE PROPIONATE 50 MCG* Use 2 Sprays in each nostril * CHLORHEXIDINE GLUCONATE 0.12 * LORAZEPAM 1 MG TABLET Take 1 tablet by mouth once d* BENZTROPINE 1 MG TABLET Take 1 tablet by mouth once d* RISPERIDONE 4 MG TABLET Take 1 tablet by mouth once d* CITALOPRAM 20 MG TABLET Take 1 tablet by mouth once d* ARISTADA 662 MG/2.4 ML SUSPEN* 2.4 mL q 4 WEEKS. Per [employer] * Problem List As Of Date 02/25/2020 Noted Resolved Acquired hypothyroidism [E03.9] 06/28/2005 Mixed hyperlipidemia [E78.2] 06/28/2005 History of seizures [Z87.898] 08/15/2005 More... Sebaceous cyst [L72.3] 07/17/2006 10/21/2010 Other Fall [R29.6] 06/07/2007 07/17/2009 History of hyperprolactinemia [Z86.39] 03/10/2009 Urethrocele(618.03) [N36.8] 02/19/2010 Female stress incontinence [N39.3] 02/19/2010 Screening for colon cancer [Z12.11] 06/01/2010 10/21/2010 Herpes [B00.9] 06/14/2010 06/14/2010 Sebaceous cyst [L72.3] 11/03/2010 09/13/2014 History of herpes genitalis [Z86.19] 04/03/2014 Schizo affective schizophrenia (HCC) [F25.9] 12/16/2014 More... Encounter for screening mammogram for breast ca*05/19/2015 Bipolar 1 disorder (HCC) [F31.9] OCD (obsessive compulsive disorder) [F42.9] Ex-smoker [Z87.891] 05/31/2018 More... Encounter for gynecological examination [Z01.41*05/31/2018 More... Colon cancer screening [Z12.11] 05/31/2018 Medicare annual wellness visit, subsequent [Z00*05/31/2018 More... Fatty liver [K76.0] 06/01/2018 More... Elevated LFTs [R79.89] 10/29/2018 More... RBBB [I45.10] 02/21/2019 Encounter Status:Closed by ALIZE NEWBY RN on 02/27/20 cnov on 2020-02-25 CNOV Office Visit (OBGYWM) Normal 02-25-[address] [place] [address] LISA Garcia ([id number]) 1960 F [facility] Date Time Provider Department ([id number]) 02/25/20 1:30 PM MARY VALDES ([facility]) OBGYWM During your visit today, we recorded the following informati on about you: Blood pressure Weight 120/78 84.2 kg Mary Valdes APRN.RALPH 02/25/2020 1:47 PM Signed Lisa Castro is a 59 year old female who pres ents today for an endometrial biopsy for post menopausal bleeding. test: n/a UNIVERSAL PROTOCOL / SAFETY CHECKLIST Procedure to be performed: EMB Sign in Communication: Completed Time Out: Team Confirms the Correct Patient, Correct P rocedure, Correct Site and Site Marking, Correct Position (if applicable), Prep and Dry Time (if applicable). Time: 1335 Affirmation of Time Out: YES Sign Out Discussion: Completed PROCEDURE: EXTERNAL GENITALIA: Normal in appearance without lesions VAGINA: Normal in appearance without lesions BIOPSY: Speculum placed into the vagina with excellent vis ualization of the cervix. Cervix cleaned with betadine. Anterior lip of cervix grasped with single toothed tenaculum. Uterus sounded to 6.5 cm. Pipelle inserted into the uterus without difficulty an d endometrial biopsy obtained. Specimen labeled and sent to pathology. Hemostasis achieved. Procedure Summary: Patient tolerated procedure well. ASSESSMENT: post menopausal bleeding PLAN: Specimens labeled and sent to Pathology. Will notify patient of results in 1-2 weeks. Post-procedure instructions reviewed and written material given to the patient. MOY Benites LPN 02/25/2020 1:17 PM Signed YOUR RECOVERY After your biopsy you may have: ? Vaginal bleeding (less than a normal menstrual period) ? Mild cramping Do NOT put anything in the vagina for 1 week after your en dometrial biopsy. This includes: ? tampons ? douches ? and refraining from having sexual intercourse If you have any discomfort, you may take an over the c ounter pain medication (motrin, advil, ibuprofen, tylenol, etc). If this does not r elieve your discomfort, contact the office. It is okay to wear a sanitary pad until the discharge and sp otting stops. RISKS Although problems seldom occur with endometrial biopsies, there can be some complications. You may feel faint during and shortly after the procedure as well as have some bleeding after the procedure. There is als o a risk of infection after the procedure. These complicatio ns are rare and can be easily treated. You should contact you doctor is you have any of the followi ng: ? Heavy bleeding (more than your normal period) ? Bleeding with clots ? Severe abdominal pain ? Fever (more than 100.4F) ? Foul smelling vaginal discharge RESULTS We will have the results of your biopsy in 1-2 weeks. If you do not hear the results of your biopsy after 2 weeks, please contact the off ice for the results. If you have any additional questions or concerns please do n ot hesitate to contact the office. Referring Provider: SELF [[id number]] Allergies As of Date: 02/25/2020 Noted Allergy Reaction HALDOL (HALOPERIDOL LACTATE) 05/31/2018 14 - Other: See Comm ents Comments: seizures CAFFEINE 03/04/2009 14 - Other: See Comments Comments: Patient states can have in moderation. Excess amou nts can cause seizures. Certain Deordorants [Other] 09/11/2008 16 - Unknown CHOCOLATE 03/04/2009 14 - Other: See Comments Comments: Patient states she can have in moderation. DILANTIN (PHENYTOIN SODIUM EXTEND*07/11/2006 2 - Rash Comments: GI upset FRAGRANCES 08/30/2005 2 - Rash GABAPENTIN 07/11/2006 2 - Rash Comments: GI upset KEPPRA (LEVETIRACETAM) 07/11/2006 2 - Rash Comments: GI upset LAMICTAL (LAMOTRIGINE) 10/25/2006 5 - Intolerance Comments: too drowsey LIPITOR (ATORVASTATIN) 10/08/2014 14 - Other: See Comments Comments: Dry mouth, upset stomach, elevated LFT's PEANUTS 09/11/2008 9 - Itching PHENERGAN PLAIN 03/04/2009 16 - Unknown Date Reviewed: 02/25/2020 Reviewed by: Eboni Carter LPN - Fully Assessed Reason for Visit: Endometrial Biopsy [7501] Primary Visit Diagnosis:Postmenopausal bleeding [N95.0] Order(s):ENDOMETRIAL BIOPSY [2368723] Order #: [id number] SURGICAL PATHOLOGY [8203059] Order #: [id number] Prescriptions as of 02/25/2020 Sig: LEVOTHYROXINE 75 MCG TABLET Take 1 tablet by mouth once d* FLUTICASONE PROPIONATE 50 MCG* Use 2 Sprays in each nostril * CHLORHEXIDINE GLUCONATE 0.12 * LORAZEPAM 1 MG TABLET Take 1 tablet by mouth once d* BENZTROPINE 1 MG TABLET Take 1 tablet by mouth once d* RISPERIDONE 4 MG TABLET Take 1 tablet by mouth once d* CITALOPRAM 20 MG TABLET Take 1 tablet by mouth once d* ARISTADA 662 MG/2.4 ML SUSPEN* 2.4 mL q 4 WEEKS. Per [employer] Technician * Problem List As Of Date 02/25/2020 Noted Resolved Acquired hypothyroidism [E03.9] 06/28/2005 Mixed hyperlipidemia [E78.2] 06/28/2005 History of seizures [Z87.898] 08/15/2005 More... Sebaceous cyst [L72.3] 07/17/2006 10/21/2010 Other Fall [R29.6] 06/07/2007 07/17/2009 History of hyperprolactinemia [Z86.39] 03/10/2009 Urethrocele(618.03) [N36.8] 02/19/2010 Female stress incontinence [N39.3] 02/19/2010 Screening for colon cancer [Z12.11] 06/01/2010 10/21/2010 Herpes [B00.9] 06/14/2010 06/14/2010 Sebaceous cyst [L72.3] 11/03/2010 09/13/2014 History of herpes genitalis [Z86.19] 04/03/2014 Schizo affective schizophrenia (HCC) [F25.9] 12/16/2014 More... Encounter for screening mammogram for breast ca*05/19/2015 Bipolar 1 disorder (HCC) [F31.9] OCD (obsessive compulsive disorder) [F42.9] Ex-smoker [Z87.891] 05/31/2018 More... Encounter for gynecological examination [Z01.41*05/31/2018 More... Colon cancer screening [Z12.11] 05/31/2018 Medicare annual wellness visit, subsequent [Z00*05/31/2018 More... Fatty liver [K76.0] 06/01/2018 More... Elevated LFTs [R79.89] 10/29/2018 More... RBBB [I45.10] 02/21/2019 Other instructions from your clinician: YOUR RECOVERY After your biopsy you may have: ? Vaginal bleeding (less than a normal menstrual period) ? Mild cramping Do NOT put anything in the vagina for 1 week after your endo metrial biopsy. This includes: ? tampons ? douches ? and refraining from having sexual intercourse If you have any discomfort, you may take an over the counter pain medication (motrin, advil, ibuprofen, tylenol, etc). If this does not relieve your discomfort, contact the office. It is okay to wear a sanitary pad until the discharge and sp otting stops. RISKS Although problems seldom occur with endometrial biopsies, th ere can be some complications. You may feel faint during and shortly af ter the procedure as well as have some bleeding after the procedure. There is also a risk of infection after the procedure. These complica tions are rare and can be easily treated. You should contact you doctor is you have any of the followi ng: ? Heavy bleeding (more than your normal period) ? Bleeding with clots ? Severe abdominal pain ? Fever (more than 100.4F) ? Foul smelling vaginal discharge RESULTS We will have the results of your biopsy in 1-2 weeks. If you do not hear the results of your biopsy after 2 weeks, please contact the office for the results. If you have any additional questions or concerns please do n ot hesitate to contact the office. Medications Discontinued During This Encounter Prescriptions - miSOPROStol (CYTOTEC) 200 mcg tablet (Discontinued) Reported on 02/25/2020 Disposition: Return if symptoms worsen or fail to improve, f or Will Follow Up Results By Phone Call. Follow-up and Disposition History Recorded Encounter Status:Closed by [facility] Telephone (OBGYWM) Normal 02-17-2020 [facility] LISA Garcia ([id number]) 1960 F [facility] Date Time Provider Department ([id number]) 02/17/20 SAGRARIO CABELLO (KELL[facility]) OBGYWM During your visit today, we recorded the following informati on about you: Alize Newby RN 02/17/2020 9:24 AM Signed Patient of . [facility] 02/14/20 because she had some spotting with wiping once. Last saw RM 01/13/20 for PMB. Had u/s on 01/23/20 an RM stated after the u/s No need currently for any follow-up unless she has more episodes of bleedingspotting. If that does occur she will need an EMB along with Cytotec prior to procedure. She has not had any further bleeding sin ce Monday. ER records to [facility] to review. Please advise in RM absence. Alize Cabello APRN.CNM 02/17/2020 2:46 PM Signed Records reviewed. Please mirella edule patient for EMB with Mary upon her return if she wishes to have done with her. Please assist in scheduling. Cytotec 200mcg intravaginally the night before procedure and 200mcg PO the morning of procedure. Unable to send Rx, no pharmac y listed. Please find out pharmacy and I can send medication. Thank you, Sagrario Cabello APRN.ESTELA Carter LPN 02/17/2020 3:32 PM Signed Pt is scheduled for 02/25/20 with . Pt uses pharmacy listed below. Call only if problems. Eboni Cabello APRN.CNM 02/17/2020 3:39 PM Signed Order signed. Thank you, Sagrario Cabello APRN.ESTELA Carter LPN 02/17/2020 3:39 PM Signed Noted. Eboni Carter LPN Allergies As of Date: 02/17/2020 Noted Allergy Reaction HALDOL (HALOPERIDOL LACTATE) 05/31/2018 14 - Other: See Comm ents Comments: seizures CAFFEINE 03/04/2009 14 - Other: See Comments Comments: Patient states can have in moderation. Excess amou nts can cause seizures. Certain Deordorants [Other] 09/11/2008 16 - Unknown CHOCOLATE 03/04/2009 14 - Other: See Comments Comments: Patient states she can have in moderation. DILANTIN (PHENYTOIN SODIUM EXTEND*07/11/2006 2 - Rash Comments: GI upset FRAGRANCES 08/30/2005 2 - Rash GABAPENTIN 07/11/2006 2 - Rash Comments: GI upset KEPPRA (LEVETIRACETAM) 07/11/2006 2 - Rash Comments: GI upset LAMICTAL (LAMOTRIGINE) 10/25/2006 5 - Intolerance Comments: too drowsey LIPITOR (ATORVASTATIN) 10/08/2014 14 - Other: See Comments Comments: Dry mouth, upset stomach, elevated LFT's PEANUTS 09/11/2008 9 - Itching PHENERGAN PLAIN 03/04/2009 16 - Unknown Date Reviewed: 01/13/2020 Reviewed by: Eboni Carter LPN - Fully Assessed Reason for Visit: ER F/U [41] Primary Visit Diagnosis:Postmenopausal bleeding [N95.0] Order(s):miSOPROStol (CYTOTEC) 200 mcg tabletInsert on e tablet vaginally the night before procedure. Take one tablet orally the morning o f procedure.Disp: 2 tabletRfl: 0 ENDOMETRIAL BIOPSY [[id number]] Order #: [id number] Prescriptions as of 02/17/2020 Sig: MISOPROSTOL 200 MCG TABLET Insert one tablet vaginally t* LEVOTHYROXINE 75 MCG TABLET Take 1 tablet by mouth once d* FLUTICASONE PROPIONATE 50 MCG* Use 2 Sprays in each nostril * CHLORHEXIDINE GLUCONATE 0.12 * LORAZEPAM 1 MG TABLET Take 1 tablet by mouth once d* BENZTROPINE 1 MG TABLET Take 1 tablet by mouth once d* RISPERIDONE 4 MG TABLET Take 1 tablet by mouth once d* CITALOPRAM 20 MG TABLET Take 1 tablet by mouth once d* ARISTADA 662 MG/2.4 ML SUSPEN* 2.4 mL q 4 WEEKS. Per Internetworking Technician * Problem List As Of Date 02/17/2020 Noted Resolved Acquired hypothyroidism [E03.9] 06/28/2005 Mixed hyperlipidemia [E78.2] 06/28/2005 History of seizures [Z87.898] 08/15/2005 More... Sebaceous cyst [L72.3] 07/17/2006 10/21/2010 Other Fall [R29.6] 06/07/2007 07/17/2009 History of hyperprolactinemia [Z86.39] 03/10/2009 Urethrocele(618.03) [N36.8] 02/19/2010 Female stress incontinence [N39.3] 02/19/2010 Screening for colon cancer [Z12.11] 06/01/2010 10/21/2010 Herpes [B00.9] 06/14/2010 06/14/2010 Sebaceous cyst [L72.3] 11/03/2010 09/13/2014 History of herpes genitalis [Z86.19] 04/03/2014 Schizo affective schizophrenia (HCC) [F25.9] 12/16/2014 More... Encounter for screening mammogram for breast ca*05/19/2015 Bipolar 1 disorder (HCC) [F31.9] OCD (obsessive compulsive disorder) [F42.9] Ex-smoker [Z87.891] 05/31/2018 More... Encounter for gynecological examination [Z01.41*05/31/2018 More... Colon cancer screening [Z12.11] 05/31/2018 Medicare annual wellness visit, subsequent [Z00*05/31/2018 More... Fatty liver [K76.0] 06/01/2018 More... Elevated LFTs [R79.89] 10/29/2018 More... RBBB [I45.10] 02/21/2019 Prescriptions ordered this encounter Disp Refills Start End MISOPROSTOL 200 MCG TABLET 2 ta* 0 02/17/2020 Sig: Insert one tablet vaginally the night before proc edure. Take one tablet orally the morning of procedure. Encounter Status:Closed by EBONI CARTER LPN on 02/17/20 shirley on 2020-01-24 RALPHN Telephone (OBGYWM) Normal 01-24-2020 [place] LISA Garcia ([id number]) 1960 F [place] Date Time Provider Department ([id number]) 01/24/20 MARY VALDES (RALPH) OBGYWJose During your visit today, we recorded the following informati on about you: Mary Valdes APRN.CNP 01/24/2020 10:58 AM Signed Please let the patient know that her ultrasound shows a ut erine fibroid. No need currently for any follow-up unless she has more episode s of bleedingspotting. If that does occur she will need an EMB along with Cytotec prior to procedure. Mary Valdes APRN.RALPH Gtz RN 01/24/2020 11:05 AM Signed Patient notified of results, verbalizes understanding of ins tructions. Calista Gtz RN Allergies As of Date: 01/24/2020 Noted Allergy Reaction HALDOL (HALOPERIDOL LACTATE) 05/31/2018 14 - Other: See Comm ents Comments: seizures CAFFEINE 03/04/2009 14 - Other: See Comments Comments: Patient states can have in moderation. Excess amou nts can cause seizures. Certain Deordorants [Other] 09/11/2008 16 - Unknown CHOCOLATE 03/04/2009 14 - Other: See Comments Comments: Patient states she can have in moderation. DILANTIN (PHENYTOIN SODIUM EXTEND*07/11/2006 2 - Rash Comments: GI upset FRAGRANCES 08/30/2005 2 - Rash GABAPENTIN 07/11/2006 2 - Rash Comments: GI upset KEPPRA (LEVETIRACETAM) 07/11/2006 2 - Rash Comments: GI upset LAMICTAL (LAMOTRIGINE) 10/25/2006 5 - Intolerance Comments: too drowsey LIPITOR (ATORVASTATIN) 10/08/2014 14 - Other: See Comments Comments: Dry mouth, upset stomach, elevated LFT's PEANUTS 09/11/2008 9 - Itching PHENERGAN PLAIN 03/04/2009 16 - Unknown Date Reviewed: 01/13/2020 Reviewed by: Eboni Carter LPN - Fully Assessed Reason for Visit: Results [95] Prescriptions as of 01/24/2020 Sig: LEVOTHYROXINE 75 MCG TABLET Take 1 tablet by mouth once d* FLUTICASONE PROPIONATE 50 MCG* Use 2 Sprays in each nostril * CHLORHEXIDINE GLUCONATE 0.12 * LORAZEPAM 1 MG TABLET Take 1 tablet by mouth once d* BENZTROPINE 1 MG TABLET Take 1 tablet by mouth once d* RISPERIDONE 4 MG TABLET Take 1 tablet by mouth once d* CITALOPRAM 20 MG TABLET Take 1 tablet by mouth once d* ARISTADA 662 MG/2.4 ML SUSPEN* 2.4 mL q 4 WEEKS. Per Internetworking Technician * Problem List As Of Date 01/24/2020 Noted Resolved Acquired hypothyroidism [E03.9] 06/28/2005 Mixed hyperlipidemia [E78.2] 06/28/2005 History of seizures [Z87.898] 08/15/2005 More... Sebaceous cyst [L72.3] 07/17/2006 10/21/2010 Other Fall [R29.6] 06/07/2007 07/17/2009 History of hyperprolactinemia [Z86.39] 03/10/2009 Urethrocele(618.03) [N36.8] 02/19/2010 Female stress incontinence [N39.3] 02/19/2010 Screening for colon cancer [Z12.11] 06/01/2010 10/21/2010 Herpes [B00.9] 06/14/2010 06/14/2010 Sebaceous cyst [L72.3] 11/03/2010 09/13/2014 History of herpes genitalis [Z86.19] 04/03/2014 Schizo affective schizophrenia (HCC) [F25.9] 12/16/2014 More... Encounter for screening mammogram for breast ca*05/19/2015 Bipolar 1 disorder (HCC) [F31.9] OCD (obsessive compulsive disorder) [F42.9] Ex-smoker [Z87.891] 05/31/2018 More... Encounter for gynecological examination [Z01.41*05/31/2018 More... Colon cancer screening [Z12.11] 05/31/2018 Medicare annual wellness visit, subsequent [Z00*05/31/2018 More... Fatty liver [K76.0] 06/01/2018 More... Elevated LFTs [R79.89] 10/29/2018 More... RBBB [I45.10] 02/21/2019 Encounter Status:Closed by CALISTA GTZ RN on 01/24/20 female pelvis transvag on 2020-01-23 FEMALE PELVIS * * *Final Report* * * Normal 01-23-2020 [facility] TRANSVAG DATE OF EXAM: Jan 23 2020 2:13PM [place] ([id number]) WRU [id number] - US FEMALE PELVIS TRANSVAG / PROCEDURE REASON: PMB (postmenopausal bleeding) * * * * Physician Interpretation * * * * EXAM TITLE: US FEMALE PELVIS TRANSVAG HISTORY: Postmenopausal bleeding. TECHNIQUE: Sonography of the pelvis was performed by transva ginal and transabdominal (limited) techniques. Images were obtained an d stored in a permanent archive. MQ: UFP_1 COMPARISON: None RESULT: Uterus size: 6.4 x 4.0 x 3.0 cm -Orientation: Anteverted -Myometrium: There is a 1.8 x 1.8 x 1.4 cm fundal fibroid, previously 1.3 x 1.6 x 1.0 cm. Also seen is a 3 x 5 x 7 mm o void hypoechoic area anterior to the endometrial canal. -Endometrial echo complex: 2 mm Right ovary: 2.0 x 1.8 x 1.5 cm Normal sonographic appearance. Left ovary: 2.0 x 1.5 x 1.5 cm Normal sonographic appearance. Pelvis free fluid: No significant free fluid in the cul-de-s ac. IMPRESSION: Interval increase in size of uterine fibroid. Subcentimeter hypoechoic area anterior to the endometrial ca nal. Consider follow-up. Warehouse Record Clerk: PSCJimmy Transcribe Date/Time: Jan 23 2020 3:45P Dictated by : MOHSEN DODGE MD This examination was interpreted and the report reviewed and electronically signed by: MOHSEN DODGE MD on Jan 23 2020 3:49PM EST [id number] progress on 2020-01 PROGRESS HNO ID: [id number] Normal 01-23-2020 [facility] Author: Sagrario ([facility]) Lydia [place]ena ([id number]) Service: ? Author Type: Tester Armature Or Fields Type: Progress Notes Filed: 01/23/2020 2:15 PM Note Text: Radiology Service Progress Note PATIENT NAME: Lisa Castro DATE OF SERVICE: January 23, 2020 TIME: 2:14 PM PATIENT IDENTITY VERIFICATION COMPLETED USING TWO (2) IDENTI FIERS: Name and Date of confirmed by patient verbally. FALL SCREENING: Has the patient had 2 falls in the last year or 1 fall with injury or currently using an Ambulatory Assistive Devic e (Walker, Cane, Wheelchair, Crutches, etc.)? No PATIENT GENDER DATA: Female. status: : No status: N/A PATIENT RELEVANT IMPLANT DATA REVIEWED: Not Applicable RADIOLOGY DEPARTMENT: Ultrasound PERIPHERAL IV DATA: Not applicable SIGNED BY: SAGRARIO CAPONE RDMS RVSarah January 23, 2020 2:14 PM No panel information on 2020-01-23 [facility] ([id number]) progress on 2019-12 PROGRESS HNO ID: [id number] Normal 01-13-2020 [facility] Author: Mary (Ralph) Reynaldo Castellano ([id number]) Service: ? Author Type: Nurse Practitioner Type: Progress Notes Filed: 01/13/2020 2:49 PM Note Text: Lisa Castro is a 59 year old female who presents for pro blem visit PMB x 2 episodes. HPI: pt states that a few weeks ago she noticed some spottin g when wiping and a small amount on her underwear. Then had another episod e last week. She states that she does not have any concerns for STD today , she has not been with anyone. Pt denies any pain. PAST MEDICAL HISTORY Diagnosis Date - Acquired hypothyroidism 06/28/2005 - Bipolar 1 disorder (HCC) - Elevated LFTs 10/29/2018 - [facility] - Ex-smoker 05/31/2018 Started at age 20 up to 3-4 cigs a day. Quit in early 20's ( september of smoked 1-2 yrs only. - Fatty liver 06/01/2018 Elevated LFT's - Female stress incontinence 02/19/2010 - History of herpes genitalis 04/03/2014 - History of hyperprolactinemia 03/10/2009 - History of seizures 08/15/2005 Has not had an episode since and felt to be related t o the haldol she was on. - Hoarseness of voice 05/31/2018 - Medicare annual wellness visit, subsequent 05/31/2018 Medicare Part B: 08/13/2005 Last Done: 06/06/2019 - Mixed hyperlipidemia 06/28/2005 - OCD (obsessive compulsive disorder) - RBBB 02/21/2019 - Schizo affective schizophrenia (HCC) 12/16/2014 - Urethrocele(618.03) 02/19/2010 PAST SURGICAL HISTORY Procedure Laterality Date - COLONOSCOP W/ OR W/O BRSH SPEC 07/02/10 - COLONOSCOPY 07/16/2018 - EGD 07/16/2018 - EXERCISE ECG STRESS TEST 10/29/2019 negative - LIGATE FALLOPIAN TUBE Tubal ligation - REM LESIO TRUNK,ARM,LEG 1.1 -2.0CM 09/13/06 Exc. 4 separate chad cysts - REM LESION FACE,EAR,EYE 0.6-1CM 11/03/10 FAMILY HISTORY Problem Relation Age of Onset - Coronary Artery Disease Mother - Breast Cancer Sister - Diabetes Sister - Diabetes Paternal Grandmother - Colon Cancer No Family History - Ovarian cancer No Family History - Uterine Cancer No Family History - Prostate Cancer No Family History - Hypertension No Family History - Hyperlipidemia No Family History - Kidney Disease No Family History - Seizures No Family History - Stroke No Family History Social History Tobacco Use - Smoking status: Former Smoker - Smokeless tobacco: Never Used - Tobacco comment: Quit in Substance Use Topics - Alcohol use: No - Drug use: No Current Outpatient Medications Medication Sig - levothyroxine (SYNTHROID) 75 mcg tablet Take 1 tablet by m outh once daily. - fluticasone (FLONASE) 50 mcg/actuation nasal spray Use 2 S prays in each nostril once daily. Rinse mouth after use. - Chlorhexidine Gluconate (PERIDEX) 0.12 % solution - LORazepam (ATIVAN) 1 mg tablet Take 1 tablet by mouth once daily for 30 days. Twice daily, [facility] - benztropine (COGENTIN) 1 mg tablet Take 1 tablet by mouth once daily. [facility] - risperiDONE (RISPERDAL) 4 mg tablet Take 1 tablet by mouth once daily. [facility] - citalopram (CELEXA) 20 mg tablet Take 1 tablet by mouth on ce daily. [facility] - ARISTADA 662 mg/2.4 mL injection 2.4 mL q 4 WEEKS. Per [facility] No current facility-administered medications for this visit. Allergies As of Date: 01/13/2020 Allergen Noted Reaction HALDOL [HALOPERIDOL LACTATE] 05/31/2018 Other: See Comments CAFFEINE 03/04/2009 Other: See Comments CERTAIN DEORDORANTS [OTHER] 09/11/2008 Unknown CHOCOLATE 03/04/2009 Other: See Comments DILANTIN [PHENYTOIN SODIUM EXTEND*07/11/2006 Rash FRAGRANCES 08/30/2005 Rash GABAPENTIN 07/11/2006 Rash KEPPRA [LEVETIRACETAM] 07/11/2006 Rash LAMICTAL [LAMOTRIGINE] 10/25/2006 Intolerance LIPITOR [ATORVASTATIN] 10/08/2014 Other: See Comments PEANUTS 09/11/2008 Itching PHENERGAN PLAIN 03/04/2009 Unknown Fully Assessed 01/13/2020 REVIEW OF SYSTEMS Abdomen: No bloating, early satiety, indigestion, or increas ed flatulence. No abdominal pain, nausea, vomiting, diarrhea, or constipati on. Bladder: No dysuria, gross hematuria, urinary frequency, uri nary urgency, or incontinence. Expanded ROS: N/A Allergies and current medication updated:Yes EXAM: Wt 176 lb 9.6 oz (80.1kg) LMP 01/31/2012 GENERAL: pleasant, female in no apparent distress HEENT: Normocephalic, atraumatic, mucus membranes moist and no lesions CHEST: Normal inspiratory effort ABDOMEN: soft, non-tender and no masses PELVIC: external genitalia normal, normal Bartholin's glands , urethra, Williamson's glands, no vulvar lesions, no cervical lesions, phys iologic discharge present, normal appearing perineal body and perian al region, atrophic changes BIMANUAL: uterus normal size, shape and consistency, no adne xal masses, non-tender and no cervical motion tenderness NEURO: alert and oriented x3,exam grossly non-focal EXTREMITIES: normal ASSESSMENT/PLAN: 1. PMB (postmenopausal bleeding) - ICD9: 627.1, ICD10: N95.0 - US FEMALE PELVIS TRANSVAG Mary Valdes APRN.WELL TENDER PROGRESS HNO ID: [id number] Normal 01-13-2020 [facility] Author: Maggie Steele ([facility] ([id number]) Service: ? Author Type: Radio Time Buyer Type: Progress Notes Filed: 01/13/2020 1:33 PM Note Text: Radiology Service Progress Note PATIENT NAME: Lisa Castro DATE OF SERVICE: January 13, 2020 TIME: 1:18 PM PATIENT IDENTITY VERIFICATION COMPLETED USING TWO (2) IDENTI FIERS: Name and Date of confirmed by patient verbally. FALL SCREENING: Has the patient had 2 falls in the last year or 1 fall with injury or currently using an Ambulatory Assistive Devic e (Walker, Cane, Wheelchair, Crutches, etc.)? No PATIENT GENDER DATA: Female. status: : No status: NO. PATIENT RELEVANT IMPLANT DATA REVIEWED: Not Applicable RADIOLOGY DEPARTMENT: Mammography PERIPHERAL IV DATA: Not applicable SIGNED BY: Ga York January 13, 2020 1:18 PM freddie screening on 01-01-31 [facility] SCREENING * * *Final Report* * * Normal [facility] DATE OF EXAM: Jan 13 2020 1:40PM [place] ([id number]) WRW [id number] - [facility] SCREENING / PROCEDURE REASON: Screening mammogram, encounter for * * * * Physician Interpretation * * * * RESULT: #[id number] - [facility] SCREENING BILATERAL DIGITAL SCREENING MAMMOGRAM WITH CAD: 01/13/2020 HISTORY: Screening Mammogram, Encounter For /Screening Mammo gram-patient reports no symptoms. /priors available for comparison. RESULT: TECHNIQUE: The study was acquired using full field digital t echnology and interpreted from soft copy. Current study was also evaluated with a Computer Aided Detec tion (CAD). Comparison is made to exams dated: 01/11/2019 mammogram, 01/08 mammogram, 06/09/2016 mammogram, and 06/08/2015 mammogram - [facility]. There are scattered fibroglandular elements i n both breasts. No significant masses, calcifications, or other findings are seen in either breast. There has been no significant interval change. IMPRESSION: NEGATIVE There is no mammographic evidence of malignancy. A 1 year sc reening mammogram is recommended. Nanette avilez/linda:01/13/2020 15:43:31 Casing Wringer Operator(s): RT Keiht(R)(M), [facility] letter sent: Normal over 40 Mammogram BI-RADS: 1 Negative Multiple national specialty organizations have released aliya st cancer screening guidelines for women at average risk for developin g breast cancer - guidelines that are based on both evidence and opin ion, yet differ on when to start and how often to screen for breast c ancer. With representation from Breast Imaging, Internal Medicine, Women 's Health, Family Medicine, and Medical/Surgical Oncology, the [facility] has carefully reviewed the data and reached the following consen michelle: 1) All women should engage in shared decision-making with eir providers to decide when to start and how often to screen; 2) All women should have the opportunity to start screening mammography at age 40; 3) For women ages 45-55, we recommend annual screening mammo grams; 4) For women ages 55 and over, we support both the transitio n from an annual to a biennial interval if this aligns more with patie nt's values and preferences, or continuation with annual screening; 5) All women should discuss with their providers when to sto p screening mammograms. Warehouse Record Clerk: Linda Transcribe Date/Time: Jan 13 2020 1:23P Dictated by: NANETTE DONNELLY MD This examination was interpreted and the report reviewed and electronically signed by: NANETTE DONNELLY MD on Jan 13 2020 3:43PM EST [id number] [facility] Normal 01-13-2020 [facility] LISA CASTRO ([id number]) 1960 [facility] Date Time Provider Department ([id number]) 01/13/20 [facility] your visit today, we recorded the following informati on about you: Caitlin Alejandro LPN 01/13/2020 3:53 PM Signed Patient got an over the coun ter medication Neuriva which is a brain performance enhancer. She would like to know your opinion on this. Please advise patient. Caitlin Castle MD 01/13/2020 4:19 PM Signed Let patient know I do not kn ow anything in particular about this med especially if it works or if it doesn't. I have a few patient's that ta ke it and they feel it has been beneficial. I have no idea if this may interact with the prescript ion meds she takes and would therefore advise her to review this with a pharmacis t at the pharmacy where she gets her prescription meds. Melisa Lermamarcelo Vazquez 01/14/2020 8:44 AM Signed Patient was notified Melisa Mayberry Taylor Allergies As of Date: 01/13/2020 Noted Allergy Reaction HALDOL (HALOPERIDOL LACTATE) 05/31/2018 14 - Other: See Comm ents Comments: seizures CAFFEINE 03/04/2009 14 - Other: See Comments Comments: Patient states can have in moderation. Excess amou nts can cause seizures. Certain Deordorants [Other] 09/11/2008 16 - Unknown CHOCOLATE 03/04/2009 14 - Other: See Comments Comments: Patient states she can have in moderation. DILANTIN (PHENYTOIN SODIUM EXTEND*07/11/2006 2 - Rash Comments: GI upset FRAGRANCES 08/30/2005 2 - Rash GABAPENTIN 07/11/2006 2 - Rash Comments: GI upset KEPPRA (LEVETIRACETAM) 07/11/2006 2 - Rash Comments: GI upset LAMICTAL (LAMOTRIGINE) 10/25/2006 5 - Intolerance Comments: too drowsey LIPITOR (ATORVASTATIN) 10/08/2014 14 - Other: See Comments Comments: Dry mouth, upset stomach, elevated LFT's PEANUTS 09/11/2008 9 - Itching PHENERGAN PLAIN 03/04/2009 16 - Unknown Date Reviewed: 01/13/2020 Reviewed by: Eboni Carter LPN - Fully Assessed Reason for Visit: Medication Question [1478] Prescriptions as of 01/13/2020 Sig: LEVOTHYROXINE 75 MCG TABLET Take 1 tablet by mouth once d* FLUTICASONE PROPIONATE 50 MCG* Use 2 Sprays in each nostril * CHLORHEXIDINE GLUCONATE 0.12 * BENZTROPINE 1 MG TABLET Take 1 tablet by mouth once d* RISPERIDONE 4 MG TABLET Take 1 tablet by mouth once d* CITALOPRAM 20 MG TABLET Take 1 tablet by mouth once d* ARISTADA 662 MG/2.4 ML SUSPEN* 2.4 mL q 4 WEEKS. Per Internetworking Technician * Problem List As Of Date 01/13/2020 Noted Resolved Acquired hypothyroidism [E03.9] 06/28/2005 Mixed hyperlipidemia [E78.2] 06/28/2005 History of seizures [Z87.898] 08/15/2005 More... Sebaceous cyst [L72.3] 07/17/2006 10/21/2010 Other Fall [R29.6] 06/07/2007 07/17/2009 History of hyperprolactinemia [Z86.39] 03/10/2009 Urethrocele(618.03) [N36.8] 02/19/2010 Female stress incontinence [N39.3] 02/19/2010 Screening for colon cancer [Z12.11] 06/01/2010 10/21/2010 Herpes [B00.9] 06/14/2010 06/14/2010 Sebaceous cyst [L72.3] 11/03/2010 09/13/2014 History of herpes genitalis [Z86.19] 04/03/2014 Schizo affective schizophrenia (HCC) [F25.9] 12/16/2014 More... Encounter for screening mammogram for breast ca*05/19/2015 Bipolar 1 disorder (HCC) [F31.9] OCD (obsessive compulsive disorder) [F42.9] Ex-smoker [Z87.891] 05/31/2018 More... Encounter for gynecological examination [Z01.41*05/31/2018 More... Colon cancer screening [Z12.11] 05/31/2018 Medicare annual wellness visit, subsequent [Z00*05/31/2018 More... Fatty liver [K76.0] 06/01/2018 More... Elevated LFTs [R79.89] 10/29/2018 More... RBBB [I45.10] 02/21/2019 Encounter Status:Closed by MELISA MAYBERRY MA on 01/14/20 CNPN Telephone ([facility]) Normal 01-13-2020 [place] LISA Garcia ([id number]) 1960 [facility] Date Time Provider Department ([id number]) 01/13/20 YOVANY CASTLE During your visit today, we recorded the following informati on about you: Yovany Castle MD 01/13/2020 4:30 PM Signed Let patient know mammogram was normal. Allergies As of Date: 01/13/2020 Noted Allergy Reaction HALDOL (HALOPERIDOL LACTATE) 05/31/2018 14 - Other: See Comm ents Comments: seizures CAFFEINE 03/04/2009 14 - Other: See Comments Comments: Patient states can have in moderation. Excess amou nts can cause seizures. Certain Deordorants [Other] 09/11/2008 16 - Unknown CHOCOLATE 03/04/2009 14 - Other: See Comments Comments: Patient states she can have in moderation. DILANTIN (PHENYTOIN SODIUM EXTEND*07/11/2006 2 - Rash Comments: GI upset FRAGRANCES 08/30/2005 2 - Rash GABAPENTIN 07/11/2006 2 - Rash Comments: GI upset KEPPRA (LEVETIRACETAM) 07/11/2006 2 - Rash Comments: GI upset LAMICTAL (LAMOTRIGINE) 10/25/2006 5 - Intolerance Comments: too drowsey LIPITOR (ATORVASTATIN) 10/08/2014 14 - Other: See Comments Comments: Dry mouth, upset stomach, elevated LFT's PEANUTS 09/11/2008 9 - Itching PHENERGAN PLAIN 03/04/2009 16 - Unknown Date Reviewed: 01/13/2020 Reviewed by: Eboni Carter LPN - Fully Assessed Reason for Visit: Results [95] Prescriptions as of 01/13/2020 Sig: LEVOTHYROXINE 75 MCG TABLET Take 1 tablet by mouth once d* FLUTICASONE PROPIONATE 50 MCG* Use 2 Sprays in each nostril * CHLORHEXIDINE GLUCONATE 0.12 * LORAZEPAM 1 MG TABLET Take 1 tablet by mouth once d* BENZTROPINE 1 MG TABLET Take 1 tablet by mouth once d* RISPERIDONE 4 MG TABLET Take 1 tablet by mouth once d* CITALOPRAM 20 MG TABLET Take 1 tablet by mouth once d* ARISTADA 662 MG/2.4 ML SUSPEN* 2.4 mL q 4 WEEKS. Per Internetworking Technician * Problem List As Of Date 01/13/2020 Noted Resolved Acquired hypothyroidism [E03.9] 06/28/2005 Mixed hyperlipidemia [E78.2] 06/28/2005 History of seizures [Z87.898] 08/15/2005 More... Sebaceous cyst [L72.3] 07/17/2006 10/21/2010 Other Fall [R29.6] 06/07/2007 07/17/2009 History of hyperprolactinemia [Z86.39] 03/10/2009 Urethrocele(618.03) [N36.8] 02/19/2010 Female stress incontinence [N39.3] 02/19/2010 Screening for colon cancer [Z12.11] 06/01/2010 10/21/2010 Herpes [B00.9] 06/14/2010 06/14/2010 Sebaceous cyst [L72.3] 11/03/2010 09/13/2014 History of herpes genitalis [Z86.19] 04/03/2014 Schizo affective schizophrenia (HCC) [F25.9] 12/16/2014 More... Encounter for screening mammogram for breast ca*05/19/2015 Bipolar 1 disorder (HCC) [F31.9] OCD (obsessive compulsive disorder) [F42.9] Ex-smoker [Z87.891] 05/31/2018 More... Encounter for gynecological examination [Z01.41*05/31/2018 More... Colon cancer screening [Z12.11] 05/31/2018 Medicare annual wellness visit, subsequent [Z00*05/31/2018 More... Fatty liver [K76.0] 06/01/2018 More... Elevated LFTs [R79.89] 10/29/2018 More... RBBB [I45.10] 02/21/2019 Encounter Status:Closed by YOVANY CASTLE on 01/13/20 cnkathrine on 2020-01-13 CNOV Office Visit (OBGYWM) Normal 01-13-[address] [place] [address] Clinic LISA CASTRO ([id number]) 1960 F [place] Date Time Provider Department ([id number]) 01/13/20 4:00 PM MARY VALDES (RALPH) OBGYWJose During your visit today, we recorded the following informati on about you: Blood pressure Weight 140/60 80.1 kg Mary Valdes APRN.CNP 01/13/2020 2:49 PM Signed Lisa Castro is a 59 year old female who presents for problem visit PMB x 2 episodes. HPI: pt states that a few we eks ago she noticed some spotting when wiping and a small amount on her underwear. Then had another episode last week. She states that she does not have any concerns for STD today, she has n ot been with anyone. Pt denies any pain. PAST MEDICAL HISTORY Diagnosis Date - Acquired hypothyroidism 06/28/2005 - Bipolar 1 disorder (HCC) - Elevated LFTs 10/29/2018 - [facility] - Ex-smoker 05/31/2018 Started at age 20 up to 3-4 cigs a day. Quit in early ' (september of smoked 1-2 yrs only. - Fatty liver 06/01/2018 Elevated LFT's - Female stress incontinence 02/19/2010 - History of herpes genitalis 04/03/2014 - History of hyperprolactinemia 03/10/2009 - History of seizures 08/15/2005 Has not had an episode since and felt to be rel ated to the haldol she was on. - Hoarseness of voice 05/31/2018 - Medicare annual wellness visit, subsequent 05/31/2018 Medicare Part B: 08/13/2005 Last Done: 06/06/2019 - Mixed hyperlipidemia 06/28/2005 - OCD (obsessive compulsive disorder) - RBBB 02/21/2019 - Schizo affective schizophrenia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 states can have in moderation. Excess amou nts can cause seizures. Certain Deordorants [Other] 09/11/2008 16 - Unknown CHOCOLATE 03/04/2009 14 - Other: See Comments Comments: Patient states she can have in moderation. DILANTIN (PHENYTOIN SODIUM EXTEND*07/11/2006 2 - Rash Comments: GI upset FRAGRANCES 08/30/2005 2 - Rash GABAPENTIN 07/11/2006 2 - Rash Comments: GI upset KEPPRA (LEVETIRACETAM) 07/11/2006 2 - Rash Comments: GI upset LAMICTAL (LAMOTRIGINE) 10/25/2006 5 - Intolerance Comments: too drowsey LIPITOR (ATORVASTATIN) 10/08/2014 14 - Other: See Comments Comments: Dry mouth, upset stomach, elevated LFT's PEANUTS 09/11/2008 9 - Itching PHENERGAN PLAIN 03/04/2009 16 - Unknown Date Reviewed: 11/19/2019 Reviewed by: Mary Leon) Reynaldo - Fully Assessed Reason for Visit: Refill Request [94] Order(s):levothyroxine (SYNTHROID) 75 mcg tabletTake 1 tab let by mouth once daily.Disp: 90 tabletRfl: 1 Prescriptions as of 11/25/2019 Sig: LEVOTHYROXINE 75 MCG TABLET Take 1 tablet by mouth once d* FLUTICASONE PROPIONATE 50 MCG* Use 2 Sprays in each nostril * CHLORHEXIDINE GLUCONATE 0.12 * LORAZEPAM 1 MG TABLET Take 1 tablet by mouth once d* BENZTROPINE 1 MG TABLET Take 1 tablet by mouth once d* RISPERIDONE 4 MG TABLET Take 1 tablet by mouth once d* CITALOPRAM 20 MG TABLET Take 1 tablet by mouth once d* ARISTADA 662 MG/2.4 ML SUSPEN* 2.4 mL q 4 WEEKS. Per Internetworking Technician * Problem List As Of Date 11/25/2019 Noted Resolved Acquired hypothyroidism [E03.9] 06/28/2005 Mixed hyperlipidemia [E78.2] 06/28/2005 History of seizures [Z87.898] 08/15/2005 More... Sebaceous cyst [L72.3] 07/17/2006 10/21/2010 Other Fall [R29.6] 06/07/2007 07/17/2009 History of hyperprolactinemia [Z86.39] 03/10/2009 Urethrocele(618.03) [N36.8] 02/19/2010 Female stress incontinence [N39.3] 02/19/2010 Screening for colon cancer [Z12.11] 06/01/2010 10/21/2010 Herpes [B00.9] 06/14/2010 06/14/2010 Sebaceous cyst [L72.3] 11/03/2010 09/13/2014 History of herpes genitalis [Z86.19] 04/03/2014 Schizo affective schizophrenia (HCC) [F25.9] 12/16/2014 More... Encounter for screening mammogram for breast ca*05/19/2015 Bipolar 1 disorder (HCC) [F31.9] OCD (obsessive compulsive disorder) [F42.9] Ex-smoker [Z87.891] 05/31/2018 More... Encounter for gynecological examination [Z01.41*05/31/2018 More... Colon cancer screening [Z12.11] 05/31/2018 Medicare annual wellness visit, subsequent [Z00*05/31/2018 More... Hoarseness of voice [R49.0] 05/31/2018 Fatty liver [K76.0] 06/01/2018 More... Elevated LFTs [R79.89] 10/29/2018 More... RBBB [I45.10] 02/21/2019 Prescriptions ordered this encounter Disp Refills Start End LEVOTHYROXINE 75 MCG TABLET 90 t* 1 11/25/2019 Route: ORAL Sig: Take 1 tablet by mouth once daily. Medications Discontinued During This Encounter levothyroxine (SYNTHROID) 75 mcg tab* 90 t* 1 05/16/20192019 Route: ORAL Sig: Take 1 tablet by mouth once daily. Disc: Reason for discontinue is not on file. Encounter Status:Closed by ANJU CORTES on 11/25/19 progress on 2019-11 PROGRESS HNO ID: [id number] Normal 11-19-2019 [facility] Author: Mary Leon) Reynaldo Castellano ([id number]) Service: ? Author Type: Nurse Practitioner Type: Progress Notes Filed: 11/19/2019 1:07 PM Note Text: Lisa Castro is a 59 year old female who presents for pro blem visit Vulvar lump for few week(s). HPI: Patient states that she noticed a lump on her labia a f ew weeks ago. States that it was slightly tender and swollen but has not s een any drainage from the lump. States that the lump has gotten smal ler but just concerned and thought she should have it checked out. PAST MEDICAL HISTORY Diagnosis Date - Acquired hypothyroidism 06/28/2005 - Bipolar 1 disorder (HCC) - Elevated LFTs 10/29/2018 - Encounter for gynecological examination 05/31/2018 [facility]. - Ex-smoker 05/31/2018 Started at age 20 up to 3-4 cigs a day. Quit in early ( september of smoked 1-2 yrs only. - Fatty liver 06/01/2018 Elevated LFT's - Female stress incontinence 02/19/2010 - History of herpes genitalis 04/03/2014 - History of hyperprolactinemia 03/10/2009 - History of seizures 08/15/2005 Has not had an episode since and felt to be related t o the haldol she was on. - Medicare annual wellness visit, subsequent 05/31/2018 Medicare Part B: 08/13/2005 Last Done: 06/06/2019 - Mixed hyperlipidemia 06/28/2005 - OCD (obsessive compulsive disorder) - Schizo affective schizophrenia (HCC) 12/16/2014 - Urethrocele(618.03) 02/19/2010 PAST SURGICAL HISTORY Procedure Laterality Date - COLONOSCOP W/ OR W/O [facility] SPEC 07/02/10 - COLONOSCOPY 07/16/2018 - EGD 07/16/2018 - EXERCISE ECG STRESS TEST 10/29/2019 negative - LIGATE FALLOPIAN TUBE Tubal ligation - REM LESIO TRUNK,ARM,LEG 1.1 -2.0CM 09/13/06 Exc. 4 separate chad cysts - REM LESION FACE,EAR,EYE 0.6-1CM 11/03/10 FAMILY HISTORY Problem Relation Age of Onset - Coronary Artery Disease Mother - Breast Cancer Sister - Diabetes Sister - Diabetes Paternal Grandmother - Colon Cancer No Family History - Ovarian cancer No Family History - Uterine Cancer No Family History - Prostate Cancer No Family History - Hypertension No Family History - Hyperlipidemia No Family History - Kidney Disease No Family History - Seizures No Family History - Stroke No Family History Social History Tobacco Use - Smoking status: Former Smoker - Smokeless tobacco: Never Used - Tobacco comment: Quit in Substance Use Topics - Alcohol use: No - Drug use: No Current Outpatient Medications Medication Sig - fluticasone (FLONASE) 50 mcg/actuation nasal spray Use 2 S prays in each nostril once daily. Rinse mouth after use. - levothyroxine (SYNTHROID) 75 mcg tablet Take 1 tablet by m outh once daily. - Chlorhexidine Gluconate (PERIDEX) 0.12 % solution - LORazepam (ATIVAN) 1 mg tablet Take 1 tablet by mouth once daily for 30 days. Twice daily, Per [facility]. - benztropine (COGENTIN) 1 mg tablet Take 1 tablet by mouth once daily. Per [facility] - risperiDONE (RISPERDAL) 4 mg tablet Take 1 tablet by mouth once daily. Per [facility] - citalopram (CELEXA) 20 mg tablet Take 1 tablet by mouth on ce daily. Per [facility] - ARISTADA 662 mg/2.4 mL injection 2.4 mL q 4 WEEKS. Per [facility] No current facility-administered medications for this visit. Allergies As of Date: 11/19/2019 Allergen Noted Reaction HALDOL [HALOPERIDOL LACTATE] 05/31/2018 Other: See Comments CAFFEINE 03/04/2009 Other: See Comments CERTAIN DEORDORANTS [OTHER] 09/11/2008 Unknown CHOCOLATE 03/04/2009 Other: See Comments DILANTIN [PHENYTOIN SODIUM EXTEND*07/11/2006 Rash FRAGRANCES 08/30/2005 Rash GABAPENTIN 07/11/2006 Rash KEPPRA [LEVETIRACETAM] 07/11/2006 Rash LAMICTAL [LAMOTRIGINE] 10/25/2006 Intolerance LIPITOR [ATORVASTATIN] 10/08/2014 Other: See Comments PEANUTS 09/11/2008 Itching PHENERGAN PLAIN 03/04/2009 Unknown Fully Assessed 10/18/2019 REVIEW OF SYSTEMS Abdomen: No bloating, early satiety, indigestion, or increas ed flatulence. No abdominal pain, nausea, vomiting, diarrhea, or constipati on. Bladder: No dysuria, gross hematuria, urinary frequency, uri nary urgency, or incontinence. Expanded ROS: N/A Allergies and current medication updated:Yes EXAM: LMP 01/31/2012 GENERAL: pleasant, female in no apparent distress HEENT: Normocephalic, atraumatic, mucus membranes moist and no lesions CHEST: Normal inspiratory effort PELVIC: external genitalia normal, normal Bartholin's glands , urethra, Williamson's glands, physiologic discharge present, normal appear ing perineal body and perianal region, resolving ingrown hair on the left labia majora NEURO: alert and oriented x3,exam grossly non-focal EXTREMITIES: normal ASSESSMENT/PLAN: 1. Ingrown hair - ICD9: 704.8, ICD10: L73.1 - Continue with warm compresses to area - Follow up if any changes MOY Benites on 2019-11-19 CNOV Office Visit (OBGYWM) Normal 11-19-19 [facility] LISA CASTRO ([id number]) 1960 [facility] Date Time Provider Department ([id number]) 11/19/19 12:45 PM MARY VALDES (RALPH) OBGYWM During your visit today, we recorded the following informati on about you: Blood pressure Weight 120/80 80.5 kg Mary Valdes APRN.CNP 11/19/2019 1:07 PM Signed Lisa Castro is a 59 year old female who pres ents for problem visit Vulvar lump for few week(s). HPI: Patient states that she noticed a lump on her labia a f ew weeks ago. States that it was slightly tender and swollen but has not seen any drainage from the lump. States that the lump has gotten s maller but just concerned and thought she should have it checked out. PAST MEDICAL HISTORY Diagnosis Date - Acquired hypothyroidism 06/28/2005 - Bipolar 1 disorder (HCC) - Elevated LFTs 10/29/2018 - Encounter for gynecological examination 05/31/2018 [facility] - Ex-smoker 05/31/2018 Started at age 20 up to 3-4 cigs a day. Quit in early (september of smoked 1-2 yrs only. - Fatty liver 06/01/2018 Elevated LFT's - Female stress incontinence 02/19/2010 - History of herpes genitalis 04/03/2014 - History of hyperprolactinemia 03/10/2009 - History of seizures 08/15/2005 Has not had an episode since s and felt to be rel ated to the haldol she was on. - Medicare annual wellness visit, subsequent 05/31/2018 Medicare Part B: 08/13/2005 Last Done: 06/06/2019 - Mixed hyperlipidemia 06/28/2005 - OCD (obsessive compulsive disorder) - Schizo affective schizophrenia (HCC) 12/16/2014 - Urethrocele(618.03) 02/19/2010 PAST SURGICAL HISTORY Procedure Laterality Date - COLONOSCOP W/ OR W/O [facility] SPEC 07/02/10 - COLONOSCOPY 07/16/2018 - EGD 07/16/2018 - EXERCISE ECG STRESS TEST 10/29/2019 negative - LIGATE FALLOPIAN TUBE Tubal ligation - REM LESIO TRUNK,ARM,LEG 1.1 -2.0CM 09/13/06 Exc. 4 separate chad cysts - REM LESION FACE,EAR,EYE 0.6-1CM 11/03/10 FAMILY HISTORY Problem Relation Age of Onset - Coronary Artery Disease Mother - Breast Cancer Sister - Diabetes Sister - Diabetes Paternal Grandmother - Colon Cancer No Family History - Ovarian cancer No Family History - Uterine Cancer No Family History - Prostate Cancer No Family History - Hypertension No Family History - Hyperlipidemia No Family History - Kidney Disease No Family History - Seizures No Family History - Stroke No Family History Social History Tobacco Use - Smoking status: Former Smoker - Smokeless tobacco: Never Used - Tobacco comment: Quit in Substance Use Topics - Alcohol use: No - Drug use: No Current Outpatient Medications Medication Sig - fluticasone (FLONASE) 50 mcg/actuation nasal spray Use 2 S prays in each nostril once daily. Rinse mouth after use. - levothyroxine (SYNTHROID) 75 mcg tablet Take 1 table t by mouth once daily. - Chlorhexidine Gluconate (PERIDEX) 0.12 % solution - LORazepam (ATIVAN) 1 mg ta blet Take 1 tablet by mouth once daily for 30 days. Twice daily, Per [facility]. - benztropine (COGENTIN) 1 mg tablet Take 1 tablet by mout h once daily. [facility] - risperiDONE (RISPERDAL) 4 mg tablet Take 1 tablet by mouth once daily. [facility] - citalopram (CELEXA) 20 mg tablet Take 1 tablet by mouth on ce daily. Per [facility] - ARISTADA 662 mg/2.4 mL injection 2.4 mL q 4 WEEKS. Per [facility] No current facility-administered medications for this visit. Allergies As of Date: 11/19/2019 Allergen Noted Reaction HALDOL [HALOPERIDOL LACTATE] 05/31/2018 Other: See Comments CAFFEINE 03/04/2009 Other: See Comments CERTAIN DEORDORANTS [OTHER] 09/11/2008 Unknown CHOCOLATE 03/04/2009 Other: See Comments DILANTIN [PHENYTOIN SODIUM EXTEND*07/11/2006 Rash FRAGRANCES 08/30/2005 Rash GABAPENTIN 07/11/2006 Rash KEPPRA [LEVETIRACETAM] 07/11/2006 Rash LAMICTAL [LAMOTRIGINE] 10/25/2006 Intolerance LIPITOR [ATORVASTATIN] 10/08/2014 Other: See Comments PEANUTS 09/11/2008 Itching PHENERGAN PLAIN 03/04/2009 Unknown Fully Assessed 10/18/2019 REVIEW OF SYSTEMS Abdomen: No bloating, early satiety, indigestion , or increased flatulence. No abdominal pain, nausea, vomiting, diarrhea, or constipation. Bladder: No dysuria, gross hematuria, urinary frequenc y, urinary urgency, or incontinence. Expanded ROS: N/A Allergies and current medication updated:Yes EXAM: LMP 01/31/2012 GENERAL: pleasant, female in no apparent distress HEENT: Normocephalic, atraumatic, mucus membranes moist and no lesions CHEST: Normal inspiratory effort PELVIC: external genitalia normal, majo l Bartholin's glands, urethra, Williamson's glands, physiologic discharge present, normal appearing tim jose body and perianal region, resolving ingrown hair on the left labia ma suhail NEURO: alert and oriented x3,exam grossly non-focal EXTREMITIES: normal ASSESSMENT/PLAN: 1. Ingrown hair - ICD9: 704.8, ICD10: L73.1 - Continue with warm compresses to area - Follow up if any changes Mary Valdes APRN.WELL TENDER Referring Provider: SELF [[id number]] Allergies As of Date: 11/19/2019 Noted Allergy Reaction HALDOL (HALOPERIDOL LACTATE) 05/31/2018 14 - Other: See Comm ents Comments: seizures CAFFEINE 03/04/2009 14 - Other: See Comments Comments: Patient states can have in moderation. Excess amou nts can cause seizures. Certain Deordorants [Other] 09/11/2008 16 - Unknown CHOCOLATE 03/04/2009 14 - Other: See Comments Comments: Patient states she can have in moderation. DILANTIN (PHENYTOIN SODIUM EXTEND*07/11/2006 2 - Rash Comments: GI upset FRAGRANCES 08/30/2005 2 - Rash GABAPENTIN 07/11/2006 2 - Rash Comments: GI upset KEPPRA (LEVETIRACETAM) 07/11/2006 2 - Rash Comments: GI upset LAMICTAL (LAMOTRIGINE) 10/25/2006 5 - Intolerance Comments: too drowsey LIPITOR (ATORVASTATIN) 10/08/2014 14 - Other: See Comments Comments: Dry mouth, upset stomach, elevated LFT's PEANUTS 09/11/2008 9 - Itching PHENERGAN PLAIN 03/04/2009 16 - Unknown Date Reviewed: 11/19/2019 Reviewed by: Mary ([facility]) Reynaldo - Fully Assessed Reason for Visit: Vaginal Problem [117] Primary Visit Diagnosis:Ingrown hair [L73.1] Prescriptions as of 11/19/2019 Sig: FLUTICASONE PROPIONATE 50 MCG* Use 2 Sprays in each nostril * LEVOTHYROXINE 75 MCG TABLET Take 1 tablet by mouth once d* CHLORHEXIDINE GLUCONATE 0.12 * BENZTROPINE 1 MG TABLET Take 1 tablet by mouth once d* RISPERIDONE 4 MG TABLET Take 1 tablet by mouth once d* CITALOPRAM 20 MG TABLET Take 1 tablet by mouth once d* ARISTADA 662 MG/2.4 ML SUSPEN* 2.4 mL q 4 WEEKS. Per [employer]working Technician * LORAZEPAM 1 MG TABLET Take 1 tablet by mouth once d* Problem List As Of Date 11/19/2019 Noted Resolved Acquired hypothyroidism [E03.9] 06/28/2005 Mixed hyperlipidemia [E78.2] 06/28/2005 History of seizures [Z87.898] 08/15/2005 More... Sebaceous cyst [L72.3] 07/17/2006 10/21/2010 Other Fall [R29.6] 06/07/2007 07/17/2009 History of hyperprolactinemia [Z86.39] 03/10/2009 Urethrocele(618.03) [N36.8] 02/19/2010 Female stress incontinence [N39.3] 02/19/2010 Screening for colon cancer [Z12.11] 06/01/2010 10/21/2010 Herpes [B00.9] 06/14/2010 06/14/2010 Sebaceous cyst [L72.3] 11/03/2010 09/13/2014 History of herpes genitalis [Z86.19] 04/03/2014 Schizo affective schizophrenia (HCC) [F25.9] 12/16/2014 More... Encounter for screening mammogram for breast ca*05/19/2015 Bipolar 1 disorder (HCC) [F31.9] OCD (obsessive compulsive disorder) [F42.9] Ex-smoker [Z87.891] 05/31/2018 More... Encounter for gynecological examination [Z01.41*05/31/2018 More... Colon cancer screening [Z12.11] 05/31/2018 Medicare annual wellness visit, subsequent [Z00*05/31/2018 More... Hoarseness of voice [R49.0] 05/31/2018 Fatty liver [K76.0] 06/01/2018 More... Elevated LFTs [R79.89] 10/29/2018 More... RBBB [I45.10] 02/21/2019 Encounter Status:Closed by MARY VALDES on 11/19/19 cnpn on 2019-11-11 CNPN Telephone (FAMPWS) Normal 11-11-2019 [facility] LISA CASTRO ([id number]) 1960 [facility] Date Time Provider Department ([id number]) 11/11/19 ANJU LOYD) FAMJorge LWS During your visit today, we recorded the following informati on about you: ANJU LOYD PA-C 11/11/2019 9:40 AM Signed Hepatitis negative. WHITNEY Cho Ma 11/11/2019 11:11 AM Signed Patient notified and voiced understanding. Ashlee Hathaway Ma Allergies As of Date: 11/11/2019 Noted Allergy Reaction HALDOL (HALOPERIDOL LACTATE) 05/31/2018 14 - Other: See Comm ents Comments: seizures CAFFEINE 03/04/2009 14 - Other: See Comments Comments: Patient states can have in moderation. Excess amou nts can cause seizures. Certain Deordorants [Other] 09/11/2008 16 - Unknown CHOCOLATE 03/04/2009 14 - Other: See Comments Comments: Patient states she can have in moderation. DILANTIN (PHENYTOIN SODIUM EXTEND*07/11/2006 2 - Rash Comments: GI upset FRAGRANCES 08/30/2005 2 - Rash GABAPENTIN 07/11/2006 2 - Rash Comments: GI upset KEPPRA (LEVETIRACETAM) 07/11/2006 2 - Rash Comments: GI upset LAMICTAL (LAMOTRIGINE) 10/25/2006 5 - Intolerance Comments: too drowsey LIPITOR (ATORVASTATIN) 10/08/2014 14 - Other: See Comments Comments: Dry mouth, upset stomach, elevated LFT's PEANUTS 09/11/2008 9 - Itching PHENERGAN PLAIN 03/04/2009 16 - Unknown Date Reviewed: 10/18/2019 [facility]ed by: [facility] - Fully Assessed Reason for Visit: Results [95] Prescriptions as of 11/11/2019 Sig: FLUTICASONE PROPIONATE 50 MCG* Use 2 Sprays in each nostril * LEVOTHYROXINE 75 MCG TABLET Take 1 tablet by mouth once d* CHLORHEXIDINE GLUCONATE 0.12 * LORAZEPAM 1 MG TABLET Take 1 tablet by mouth once d* BENZTROPINE 1 MG TABLET Take 1 tablet by mouth once d* RISPERIDONE 4 MG TABLET Take 1 tablet by mouth once d* CITALOPRAM 20 MG TABLET Take 1 tablet by mouth once d* ARISTADA 662 MG/2.4 ML SUSPEN* 2.4 mL q 4 WEEKS. Per [employer] Technician * Problem List As Of Date 11/11/2019 Noted Resolved Acquired hypothyroidism [E03.9] 06/28/2005 Mixed hyperlipidemia [E78.2] 06/28/2005 History of seizures [Z87.898] 08/15/2005 More... Sebaceous cyst [L72.3] 07/17/2006 10/21/2010 Other Fall [R29.6] 06/07/2007 07/17/2009 History of hyperprolactinemia [Z86.39] 03/10/2009 Urethrocele(618.03) [N36.8] 02/19/2010 Female stress incontinence [N39.3] 02/19/2010 Screening for colon cancer [Z12.11] 06/01/2010 10/21/2010 Herpes [B00.9] 06/14/2010 06/14/2010 Sebaceous cyst [L72.3] 11/03/2010 09/13/2014 History of herpes genitalis [Z86.19] 04/03/2014 Schizo affective schizophrenia (HCC) [F25.9] 12/16/2014 More... Encounter for screening mammogram for breast ca*05/19/2015 Bipolar 1 disorder (HCC) [F31.9] OCD (obsessive compulsive disorder) [F42.9] Ex-smoker [Z87.891] 05/31/2018 More... Encounter for gynecological examination [Z01.41*05/31/2018 More... Colon cancer screening [Z12.11] 05/31/2018 Medicare annual wellness visit, subsequent [Z00*05/31/2018 More... Hoarseness of voice [R49.0] 05/31/2018 Fatty liver [K76.0] 06/01/2018 More... Elevated LFTs [R79.89] 10/29/2018 More... RBBB [I45.10] 02/21/2019 Encounter Status:Closed by ASHLEE HATHAWAY MA on 11/11/19 hepatitis acute rna on 2019-11-08 HBsAg Negative Negative Normal 11-08-2019 [facility] ([id number]) Comment: Performed By: #### HACRNA ## ##[facility] [address] [place], [place] [phone] Hep B Core Ab, IgM Negative Negative Normal 11-08-2019 [facility] ([id number]) Comment: Performed By: #### HACRNA ## ##[facility] [address] [place], [place] [phone] Hepatitis A Ab IgM Negative Negative Normal 11-08-2019 [facility] ([id number]) Comment: Performed By: #### HACRNA ## ##[facility] [address] [place], [place] [phone] Hepatitis C RNA HCV RNA not detected by Normal 11-08-2019 [facility] PCR. [place] ([id number]) Comment: Result Comment: Reference Ra nge: Negative for HCV RNA The Linear Range of this ass ay is 15 IU/mL to 100,000,000 IU/mL. Performed By: #### HACRNA ## ##[facility] [address] [place], [place] [phone] cnpn on 2019-11-07 CNPN Telephone (FAMPWS) Normal 11-07-2019 [facility] LISA CASTRO ([id number]) 1960 [facility] Date Time Provider Department ([id number]) [facility]07[facility] visit today, we recorded the following informati on about you: Oly Montiel LPN 11/07/2019 1:19 PM Signed Pt calls to report that a few women where she lives sn eak into her place and use her personal things. Pt is asking to be tested for Hep B and C because she is not sure what all they us e and she is nervous she could contact that through their use of her things. Please review and advise. Oly Castle MD 11/07/2019 4:22 PM Signed Lab order placed for hepatitis olvin Vera LPN 11/07/2019 4:41 PM Signed Patient notified with understanding. States she heard people talking about breaking in and using her things such as lipstick, toothbrus h, clippers, tweezers and makeup, she nev er found people in her apartment actually using her personal items. States she has called e police but they dont do anything: Allergies As of Date: 11/07/2019 Noted Allergy Reaction HALDOL (HALOPERIDOL LACTATE) 05/31/2018 14 - Other: See Comm ents Comments: seizures CAFFEINE 03/04/2009 14 - Other: See Comments Comments: Patient states can have in moderation. Excess amou nts can cause seizures. Certain Deordorants [Other] 09/11/2008 16 - Unknown CHOCOLATE 03/04/2009 14 - Other: See Comments Comments: Patient states she can have in moderation. DILANTIN (PHENYTOIN SODIUM EXTEND*07/11/2006 2 - Rash Comments: GI upset FRAGRANCES 08/30/2005 2 - Rash GABAPENTIN 07/11/2006 2 - Rash Comments: GI upset KEPPRA (LEVETIRACETAM) 07/11/2006 2 - Rash Comments: GI upset LAMICTAL (LAMOTRIGINE) 10/25/2006 5 - Intolerance Comments: too drowsey LIPITOR (ATORVASTATIN) 10/08/2014 14 - Other: See Comments Comments: Dry mouth, upset stomach, elevated LFT's PEANUTS 09/11/2008 9 - Itching PHENERGAN PLAIN 03/04/2009 16 - Unknown Date Reviewed: 10/18/2019 Reviewed by: Jeanie GuptaManager IntelShon Rodriguez - Fully Assessed Reason for Visit: Lab Orders [0518] Primary Visit Diagnosis:Exposure to hepatitis [Z20.5] Order(s):HEP ACUTE PANEL/RNA [SQHACRNA] Order #: [id number] FUTURE Prescriptions as of 11/07/2019 Sig: FLUTICASONE PROPIONATE 50 MCG* Use 2 Sprays in each nostril * LEVOTHYROXINE 75 MCG TABLET Take 1 tablet by mouth once d* CHLORHEXIDINE GLUCONATE 0.12 * LORAZEPAM 1 MG TABLET Take 1 tablet by mouth once d* BENZTROPINE 1 MG TABLET Take 1 tablet by mouth once d* RISPERIDONE 4 MG TABLET Take 1 tablet by mouth once d* CITALOPRAM 20 MG TABLET Take 1 tablet by mouth once d* ARISTADA 662 MG/2.4 ML SUSPEN* 2.4 mL q 4 WEEKS. Per Internetworking Technician * Problem List As Of Date 11/07/2019 Noted Resolved Acquired hypothyroidism [E03.9] 06/28/2005 Mixed hyperlipidemia [E78.2] 06/28/2005 History of seizures [Z87.898] 08/15/2005 More... Sebaceous cyst [L72.3] 07/17/2006 10/21/2010 Other Fall [R29.6] 06/07/2007 07/17/2009 History of hyperprolactinemia [Z86.39] 03/10/2009 Urethrocele(618.03) [N36.8] 02/19/2010 Female stress incontinence [N39.3] 02/19/2010 Screening for colon cancer [Z12.11] 06/01/2010 10/21/2010 Herpes [B00.9] 06/14/2010 06/14/2010 Sebaceous cyst [L72.3] 11/03/2010 09/13/2014 History of herpes genitalis [Z86.19] 04/03/2014 Schizo affective schizophrenia (HCC) [F25.9] 12/16/2014 More... Encounter for screening mammogram for breast ca*05/19/2015 Bipolar 1 disorder (HCC) [F31.9] OCD (obsessive compulsive disorder) [F42.9] Ex-smoker [Z87.891] 05/31/2018 More... Encounter for gynecological examination [Z01.41*05/31/2018 More... Colon cancer screening [Z12.11] 05/31/2018 Medicare annual wellness visit, subsequent [Z00*05/31/2018 More... Hoarseness of voice [R49.0] 05/31/2018 Fatty liver [K76.0] 06/01/2018 More... Elevated LFTs [R79.89] 10/29/2018 More... RBBB [I45.10] 02/21/2019 Encounter Status:Closed by MAURICE VERA LPN on 11/07/19 shirley on 2019-11-04 CNPN Telephone (FAMPWS) Normal 11-04-2019 Gray LISA Garcia ([id number]) 1960 [facility] Date Time Provider Department ([id number]) 11/04/19 YOVANY CASTLE During your visit today, we recorded the following informati on about you: Yovany Castle MD 11/04/2019 12:46 PM Signed Let patient know her stress test was normal. Lisa Pierson MA, TAYLOR 11/04/2019 12:49 PM Signed Patient informed of results, verbalized understanding. Lisa Pierson MA Allergies As of Date: 11/04/2019 Noted Allergy Reaction HALDOL (HALOPERIDOL LACTATE) 05/31/2018 14 - Other: See Comm ents Comments: seizures CAFFEINE 03/04/2009 14 - Other: See Comments Comments: Patient states can have in moderation. Excess amou nts can cause seizures. Certain Deordorants [Other] 09/11/2008 16 - Unknown CHOCOLATE 03/04/2009 14 - Other: See Comments Comments: Patient states she can have in moderation. DILANTIN (PHENYTOIN SODIUM EXTEND*07/11/2006 2 - Rash Comments: GI upset FRAGRANCES 08/30/2005 2 - Rash GABAPENTIN 07/11/2006 2 - Rash Comments: GI upset KEPPRA (LEVETIRACETAM) 07/11/2006 2 - Rash Comments: GI upset LAMICTAL (LAMOTRIGINE) 10/25/2006 5 - Intolerance Comments: too drowsey LIPITOR (ATORVASTATIN) 10/08/2014 14 - Other: See Comments Comments: Dry mouth, upset stomach, elevated LFT's PEANUTS 09/11/2008 9 - Itching PHENERGAN PLAIN 03/04/2009 16 - Unknown Date Reviewed: 10/18/2019 Reviewed by: Jeanie GuptaTruesdale HospitalShon Rodriguez - Fully Assessed Reason for Visit: Results [95] Prescriptions as of 11/04/2019 Sig: FLUTICASONE PROPIONATE 50 MCG* Use 2 Sprays in each nostril * LEVOTHYROXINE 75 MCG TABLET Take 1 tablet by mouth once d* CHLORHEXIDINE GLUCONATE 0.12 * LORAZEPAM 1 MG TABLET Take 1 tablet by mouth once d* BENZTROPINE 1 MG TABLET Take 1 tablet by mouth once d* RISPERIDONE 4 MG TABLET Take 1 tablet by mouth once d* CITALOPRAM 20 MG TABLET Take 1 tablet by mouth once d* ARISTADA 662 MG/2.4 ML SUSPEN* 2.4 mL q 4 WEEKS. Per Internetworking Technician * Problem List As Of Date 11/04/2019 Noted Resolved Acquired hypothyroidism [E03.9] 06/28/2005 Mixed hyperlipidemia [E78.2] 06/28/2005 History of seizures [Z87.898] 08/15/2005 More... Sebaceous cyst [L72.3] 07/17/2006 10/21/2010 Other Fall [R29.6] 06/07/2007 07/17/2009 History of hyperprolactinemia [Z86.39] 03/10/2009 Urethrocele(618.03) [N36.8] 02/19/2010 Female stress incontinence [N39.3] 02/19/2010 Screening for colon cancer [Z12.11] 06/01/2010 10/21/2010 Herpes [B00.9] 06/14/2010 06/14/2010 Sebaceous cyst [L72.3] 11/03/2010 09/13/2014 History of herpes genitalis [Z86.19] 04/03/2014 Schizo affective schizophrenia (HCC) [F25.9] 12/16/2014 More... Encounter for screening mammogram for breast ca*05/19/2015 Bipolar 1 disorder (HCC) [F31.9] OCD (obsessive compulsive disorder) [F42.9] Ex-smoker [Z87.891] 05/31/2018 More... Encounter for gynecological examination [Z01.41*05/31/2018 More... Colon cancer screening [Z12.11] 05/31/2018 Medicare annual wellness visit, subsequent [Z00*05/31/2018 More... Hoarseness of voice [R49.0] 05/31/2018 Fatty liver [K76.0] 06/01/2018 More... Elevated LFTs [R79.89] 10/29/2018 More... RBBB [I45.10] 02/21/2019 Encounter Status:Closed by LISA PIERSON on 11/04/19 cnpn on 2019-10-22 CNPN Telephone (FAMPWS) Normal 10-22-2019 [facility] LISA CASTRO ([id number]) 1960 [facility] Date Time Provider Department ([id number]) 10/22/19 YOVANY CASTLE During your visit today, we recorded the following informati on about you: Maurice Lyons, RN, RN 10/22/2019 9:06 AM Signed Pt calls, stating she had sharp chest pain yesterday t hat lasted approx 5-10 minutes and then resolved. Pt states she had intermittent SO B during this time. States pain was in the left chest and middle chest. De nies any radiation or numbness to arms. Pt reports this has happene d before. Has not yet had a stress test done yet due to having to schedule in [place]. Pt states she feels well now. Does PCP want to see pt? Yovany Castle MD 10/22/2019 10:53 AM Signed No I do not need to see her in the office. I need her to get her stress test completed. My suspicion is this is anxie ty related but still need stress trest to r/o heart issues. If pain is brought on by activity and not resolving in 5-10 min needs to go to ER. Melisa Mayberry Ma 10/22/2019 11:30 AM Signed Spoke to patient and faxed stress test order to [facility] Transferred patient to them and gave number fo scheduling Melisa Mayberry Ma Allergies As of Date: 10/22/2019 Noted Allergy Reaction HALDOL (HALOPERIDOL LACTATE) 05/31/2018 14 - Other: See Comm ents Comments: seizures CAFFEINE 03/04/2009 14 - Other: See Comments Comments: Patient states can have in moderation. Excess amou nts can cause seizures. Certain Deordorants [Other] 09/11/2008 16 - Unknown CHOCOLATE 03/04/2009 14 - Other: See Comments Comments: Patient states she can have in moderation. DILANTIN (PHENYTOIN SODIUM EXTEND*07/11/2006 2 - Rash Comments: GI upset FRAGRANCES 08/30/2005 2 - Rash GABAPENTIN 07/11/2006 2 - Rash Comments: GI upset KEPPRA (LEVETIRACETAM) 07/11/2006 2 - Rash Comments: GI upset LAMICTAL (LAMOTRIGINE) 10/25/2006 5 - Intolerance Comments: too drowsey LIPITOR (ATORVASTATIN) 10/08/2014 14 - Other: See Comments Comments: Dry mouth, upset stomach, elevated LFT's PEANUTS 09/11/2008 9 - Itching PHENERGAN PLAIN 03/04/2009 16 - Unknown Date Reviewed: 10/18/2019 Reviewed by: Jeanie GuptaTruesdale HospitalShon Rodriguez - Fully Assessed Reason for Visit: Chest Pain Yesterday [Other] Prescriptions as of 10/22/2019 Sig: FLUTICASONE PROPIONATE 50 MCG* Use 2 Sprays in each nostril * LEVOTHYROXINE 75 MCG TABLET Take 1 tablet by mouth once d* CHLORHEXIDINE GLUCONATE 0.12 * LORAZEPAM 1 MG TABLET Take 1 tablet by mouth once d* BENZTROPINE 1 MG TABLET Take 1 tablet by mouth once d* RISPERIDONE 4 MG TABLET Take 1 tablet by mouth once d* CITALOPRAM 20 MG TABLET Take 1 tablet by mouth once d* ARISTADA 662 MG/2.4 ML SUSPEN* 2.4 mL q 4 WEEKS. Per Internetworking Technician * Problem List As Of Date 10/22/2019 Noted Resolved Acquired hypothyroidism [E03.9] 06/28/2005 Mixed hyperlipidemia [E78.2] 06/28/2005 History of seizures [Z87.898] 08/15/2005 More... Sebaceous cyst [L72.3] 07/17/2006 10/21/2010 Other Fall [R29.6] 06/07/2007 07/17/2009 History of hyperprolactinemia [Z86.39] 03/10/2009 Urethrocele(618.03) [N36.8] 02/19/2010 Female stress incontinence [N39.3] 02/19/2010 Screening for colon cancer [Z12.11] 06/01/2010 10/21/2010 Herpes [B00.9] 06/14/2010 06/14/2010 Sebaceous cyst [L72.3] 11/03/2010 09/13/2014 History of herpes genitalis [Z86.19] 04/03/2014 Schizo affective schizophrenia (HCC) [F25.9] 12/16/2014 More... Encounter for screening mammogram for breast ca*05/19/2015 Bipolar 1 disorder (HCC) [F31.9] OCD (obsessive compulsive disorder) [F42.9] Ex-smoker [Z87.891] 05/31/2018 More... Encounter for gynecological examination [Z01.41*05/31/2018 More... Colon cancer screening [Z12.11] 05/31/2018 Medicare annual wellness visit, subsequent [Z00*05/31/2018 More... Hoarseness of voice [R49.0] 05/31/2018 Fatty liver [K76.0] 06/01/2018 More... Elevated LFTs [R79.89] 10/29/2018 More... RBBB [I45.10] 02/21/2019 Encounter Status:Closed by MELISA MAYBERRY MA on 10/22/19 progress on 2019-10 PROGRESS HNO ID: [id number] Normal 10-18-2019 [facility] Author: Jeanie (Manager Intel) Marianne Castellano ([id number]) Service: ? Author Type: Nurse Practitioner Type: Progress Notes Filed: 10/18/2019 1:31 PM Note Text: Lisa Castro is a 59 year old who presents for [facility] annual gynecologic exam without complaints. Doing well, plans to do a lot of reading this summer. Edgardo Stoddard book. Postmenopausal: Yes since age 50 HRT use: No. Last Pap: 06/24/2017 normal HPV: 08/12/2008 N/A History of abnormal pap: No Last mammogram: 2018 normal History of abnormal mammogram: Yes Sexually active: no OB History T1 L1 SAB0 TAB0 Ectopic0 Multiple0 Live Births0 Comment: 1 vaginal delivery PAST MEDICAL HISTORY Diagnosis Date - Acquired hypothyroidism 06/28/2005 - Bipolar 1 disorder (HCC) - Elevated LFTs 10/29/2018 - Encounter for gynecological examination 05/31/2018 [facility]. - Ex-smoker 05/31/2018 Started at age 20 up to 3-4 cigs a day. Quit in early ( september of smoked 1-2 yrs only. - Fatty liver 06/01/2018 Elevated LFT's - Female stress incontinence 02/19/2010 - History of herpes genitalis 04/03/2014 - History of hyperprolactinemia 03/10/2009 - History of seizures 08/15/2005 Has not had an episode since and felt to be related t o the haldol she was on. - Medicare annual wellness visit, subsequent 05/31/2018 Medicare Part B: 08/13/2005 Last Done: 06/06/2019 - Mixed hyperlipidemia 06/28/2005 - OCD (obsessive compulsive disorder) - Schizo affective schizophrenia (HCC) 12/16/2014 - Urethrocele(618.03) 02/19/2010 PAST SURGICAL HISTORY Procedure Laterality Date - COLONOSCOP W/ OR W/O [facility] SPEC 07/02/10 - COLONOSCOPY 07/16/2018 - EGD 07/16/2018 - LIGATE FALLOPIAN TUBE Tubal ligation - REM LESIO TRUNK,ARM,LEG 1.1 -2.0CM 09/13/06 Exc. 4 separate chad cysts - REM LESION FACE,EAR,EYE 0.6-1CM 11/03/10 FAMILY HISTORY Problem Relation Age of Onset - Coronary Artery Disease Mother - Breast Cancer Sister - Diabetes Sister - Diabetes Paternal Grandmother - Colon Cancer No Family History - Ovarian cancer No Family History - Uterine Cancer No Family History - Prostate Cancer No Family History - Hypertension No Family History - Hyperlipidemia No Family History - Kidney Disease No Family History - Seizures No Family History - Stroke No Family History SOCIAL HISTORY Social History Tobacco Use - Smoking status: Former Smoker - Smokeless tobacco: Never Used - Tobacco comment: Quit in Substance Use Topics - Alcohol use: No - Drug use: No REVIEW OF SYSTEMS Abdomen: No abdominal pain, nausea, vomiting, diarrhea, or c onstipation. No bloating, early satiety, indigestion, or increased flatul ence. Bladder: No dysuria, gross hematuria, urinary frequency, uri nary urgency, or incontinence Breast: No breast lumps, nipple d/c, overlying skin changes, redness or skin retraction Allergies and current medication updated:Yes EXAM: BP 126/80 Ht 5' 5 (1.65m) Wt 180 lb 3.2 oz (81.7k g) LMP 01/31/2012 BMI 29.99 kg/(m2). GENERAL: pleasant, female in no apparent distress HEENT: Normocephalic, atraumatic, mucus membranes moist and no lesions NECK: Supple, full range of motion, no adenopathy and thyroi d normal DERMATOLOGY: Normal, without lesions, non-icteric and non-hi rsute BREAST: soft, non-tender, symmetric, no dominant mass, majo l nipple-areolar complex, no lymphadenopathy and no nipple dis charge CHEST: Normal inspiratory effort ABDOMEN: soft, non-tender and no masses PELVIC: external genitalia normal, normal Bartholin's glands , urethra, Williamson's glands, no vulvar lesions, no cervical lesions, good vaginal support, physiologic discharge present, normal appearing per ineal body and perianal region BIMANUAL: uterus normal size, shape and consistency, no adne xal masses and non-tender RECTOVAGINAL: deferred. NEURO: alert and oriented x3,exam grossly non-focal EXTREMITIES: normal ASSESSMENT/PLAN: 1) Health maintenance: Pap/HPV up to date. Mammogram ordered Mammogram up to date Nutrition, exercise and routine health maintenance exams rev iewed. Calcium/Vitamin D supplementation information provided. Colon cancer screening: up to date with screening 2) Follow up one year or sooner as needed Jeanie Rodriguez APRN.CNP cnov on 2019-10-18 CNOV Office Visit (OBGYWM) Normal 10-18-19 [facility] LISA CASTRO ([id number]) [address] [facility] Time Provider Department ([id number]) 10/18/19 1:15 PM JEANIE RODRIGUEZ (RALPH) OBGYWM During your visit today, we recorded the following informati on about you: Blood pressure Weight Height 126/80 81.7 kg 1.651 m Jeanie Rodriguez APRN.CNP 10/18/2019 1:31 PM Zheng Sloan Gloria is a 59 year old who presents for [facility] annual gynecologic exam without complaints. Doing well, plans to do a lot of reading this summer. Edgardo Stoddard book. Postmenopausal: Yes since age 50 HRT use: No. Last Pap: 06/24/2017 normal HPV: 08/12/2008 N/A History of abnormal pap: No Last mammogram: 2018 normal History of abnormal mammogram: Yes Sexually active: no OB History T1 L1 SAB0 TAB0 Ectopic0 Multiple0 Live Births0 Comment: 1 vaginal delivery PAST MEDICAL HISTORY Diagnosis Date - Acquired hypothyroidism 06/28/2005 - Bipolar 1 disorder (HCC) - Elevated LFTs 10/29/2018 - Encounter for gynecological examination 05/31/2018 [facility]. - Ex-smoker 05/31/2018 Started at age 20 up to 3-4 cigs a day. Quit in early (september of smoked 1-2 yrs only. - Fatty liver 06/01/2018 Elevated LFT's - Female stress incontinence 02/19/2010 - History of herpes genitalis 04/03/2014 - History of hyperprolactinemia 03/10/2009 - History of seizures 08/15/2005 Has not had an episode since and felt to be rel ated to the haldol she was on. - Medicare annual wellness visit, subsequent 05/31/2018 Medicare Part B: 08/13/2005 Last Done: 06/06/2019 - Mixed hyperlipidemia 06/28/2005 - OCD (obsessive compulsive disorder) - Schizo affective schizophrenia (HCC) 12/16/2014 - Urethrocele(618.03) 02/19/2010 PAST SURGICAL HISTORY Procedure Laterality Date - COLONOSCOP W/ OR W/O [facility] SPEC 07/02/10 - COLONOSCOPY 07/16/2018 - EGD 07/16/2018 - LIGATE FALLOPIAN TUBE Tubal ligation - REM LESIO TRUNK,ARM,LEG 1.1 -2.0CM 09/13/06 Exc. 4 separate hcad cysts - REM LESION FACE,EAR,EYE 0.6-1CM 11/03/10 FAMILY HISTORY Problem Relation Age of Onset - Coronary Artery Disease Mother - Breast Cancer Sister - Diabetes Sister - Diabetes Paternal Grandmother - Colon Cancer No Family History - Ovarian cancer No Family History - Uterine Cancer No Family History - Prostate Cancer No Family History - Hypertension No Family History - Hyperlipidemia No Family History - Kidney Disease No Family History - Seizures No Family History - Stroke No Family History SOCIAL HISTORY Social History Tobacco Use - Smoking status: Former Smoker - Smokeless tobacco: Never Used - Tobacco comment: Quit in Substance Use Topics - Alcohol use: No - Drug use: No REVIEW OF SYSTEMS Abdomen: No abdominal pain, nausea, vomiting, diarrhea, or constipation. No bloating, early satiety, indigestion, or increased flatulenc e. Bladder: No dysuria, gross hematuria, urinary frequenc y, urinary urgency, or incontinence Breast: No breast lumps, nipple d/c, overlying skin ch anges, redness or skin retraction Allergies and current medication updated:Yes EXAM: BP 126/80 Ht 5' 5 ( 1.65m) Wt 180 lb 3.2 oz (81.7kg) LMP 01/31/2012 BMI 29.99 kg/(m2). GENERAL: pleasant, female in no apparent distress HEENT: Normocephalic, atraumatic, mucus membranes moist and no lesions NECK: Supple, full range of motion, no adenopathy and thyroi d normal DERMATOLOGY: Normal, without lesions, non-icteric and non-hi rsute BREAST: soft, non-tender, symmetric, no dominant mass, normal nipple-areolar complex, no lymphadenopathy and no nipple discharge CHEST: Normal inspiratory effort ABDOMEN: soft, non-tender and no masses PELVIC: external genitalia normal, majo l Bartholin's glands, urethra, Williamson's glands, no vulvar lesions, no cervical lesions, good vaginal support, physiologic discharge present, normal appearing perineal bod y and perianal region BIMANUAL: uterus normal size, shape and consistency, no adne xal masses and non-tender RECTOVAGINAL: deferred. NEURO: alert and oriented x3,exam grossly non-focal EXTREMITIES: normal ASSESSMENT/PLAN: 1) Health maintenance: Pap/HPV up to date. Mammogram ordered Mammogram up to date Nutrition, exercise and routine health maintenance exams rev iewed. Calcium/Vitamin D supplementation information provided. Colon cancer screening: up to date with screening 2) Follow up one year or sooner as needed Jeanie Rodriguez APRN.WELL TENDER Referring Provider: SELF [[id number]] Allergies As of Date: 10/18/2019 Noted Allergy Reaction HALDOL (HALOPERIDOL LACTATE) 05/31/2018 14 - Other: See Comm ents Comments: seizures CAFFEINE 03/04/2009 14 - Other: See Comments Comments: Patient states can have in moderation. Excess amou nts can cause seizures. Certain Deordorants [Other] 09/11/2008 16 - Unknown CHOCOLATE 03/04/2009 14 - Other: See Comments Comments: Patient states she can have in moderation. DILANTIN (PHENYTOIN SODIUM EXTEND*07/11/2006 2 - Rash Comments: GI upset FRAGRANCES 08/30/2005 2 - Rash GABAPENTIN 07/11/2006 2 - Rash Comments: GI upset KEPPRA (LEVETIRACETAM) 07/11/2006 2 - Rash Comments: GI upset LAMICTAL (LAMOTRIGINE) 10/25/2006 5 - Intolerance Comments: too drowsey LIPITOR (ATORVASTATIN) 10/08/2014 14 - Other: See Comments Comments: Dry mouth, upset stomach, elevated LFT's PEANUTS 09/11/2008 9 - Itching PHENERGAN PLAIN 03/04/2009 16 - Unknown Date Reviewed: 10/18/2019 Reviewed by: Jeanie GuptaTruesdale HospitalShon Rodriguez - Fully Assessed Reason for Visit: Yearly Exam [187] Primary Visit Diagnosis:Encounter for routine gynecologic ex amination in Medicare patient [Z01.419] Other Visit Diagnosis:Encounter for screening mammogram for breast cancer [Z12.31] Order(s):[facility] SCREENING [[id number]] Order #: [id number] FUTURE Prescriptions as of 10/18/2019 Sig: FLUTICASONE PROPIONATE 50 MCG* Use 2 Sprays in each nostril * LEVOTHYROXINE 75 MCG TABLET Take 1 tablet by mouth once d* CHLORHEXIDINE GLUCONATE 0.12 * LORAZEPAM 1 MG TABLET Take 1 tablet by mouth once d* BENZTROPINE 1 MG TABLET Take 1 tablet by mouth once d* RISPERIDONE 4 MG TABLET Take 1 tablet by mouth once d* CITALOPRAM 20 MG TABLET Take 1 tablet by mouth once d* ARISTADA 662 MG/2.4 ML SUSPEN* 2.4 mL q 4 WEEKS. Per Internetworking Technician * Problem List As Of Date 10/18/2019 Noted Resolved Acquired hypothyroidism [E03.9] 06/28/2005 Mixed hyperlipidemia [E78.2] 06/28/2005 History of seizures [Z87.898] 08/15/2005 More... Sebaceous cyst [L72.3] 07/17/2006 10/21/2010 Other Fall [R29.6] 06/07/2007 07/17/2009 History of hyperprolactinemia [Z86.39] 03/10/2009 Urethrocele(618.03) [N36.8] 02/19/2010 Female stress incontinence [N39.3] 02/19/2010 Screening for colon cancer [Z12.11] 06/01/2010 10/21/2010 Herpes [B00.9] 06/14/2010 06/14/2010 Sebaceous cyst [L72.3] 11/03/2010 09/13/2014 History of herpes genitalis [Z86.19] 04/03/2014 Schizo affective schizophrenia (HCC) [F25.9] 12/16/2014 More... Encounter for screening mammogram for breast ca*05/19/2015 Bipolar 1 disorder (HCC) [F31.9] OCD (obsessive compulsive disorder) [F42.9] Ex-smoker [Z87.891] 05/31/2018 More... Encounter for gynecological examination [Z01.41*05/31/2018 More... Colon cancer screening [Z12.11] 05/31/2018 Medicare annual wellness visit, subsequent [Z00*05/31/2018 More... Hoarseness of voice [R49.0] 05/31/2018 Fatty liver [K76.0] 06/01/2018 More... Elevated LFTs [R79.89] 10/29/2018 More... RBBB [I45.10] 02/21/2019 Disposition: Return in 1 year (on 10/17/2020) for Annual Exam. Follow-up and Disposition History Recorded Encounter Status:Closed by JEANIE RODRIGUEZ on 10/18/19 shirley on 2019-09-05 CNPN Telephone (FAMPWS) Normal 09-05-2019 [facility] LISA CASTRO ([id number]) 1960 [facility] Date Time Provider Department ([id number]) 09/05/19 YOVANY CASTLE During your visit today, we recorded the following informati on about you: Caitlin Alejandro LPN 09/05/2019 4:32 PM Signed Ronna with [facility] calling to see if you want patient to take s omething else instead of Ranitidine. Please advise. Caitlin Castle MD 09/05/2019 9:17 PM Signed Advise Ronna that the script of Zantac was a one time script for a short period. Does not need to sat on a acid inspector precision assembly. Melisa Mayberry Ma 09/06/2019 8:40 AM Signed Ronna was notified and verbalized understanding Melisa Mayberry Ma Allergies As of Date: 09/05/2019 Noted Allergy Reaction HALDOL (HALOPERIDOL LACTATE) 05/31/2018 14 - Other: See Comm ents Comments: seizures CAFFEINE 03/04/2009 14 - Other: See Comments Comments: Patient states can have in moderation. Excess amou nts can cause seizures. Certain Deordorants [Other] 09/11/2008 16 - Unknown CHOCOLATE 03/04/2009 14 - Other: See Comments Comments: Patient states she can have in moderation. DILANTIN (PHENYTOIN SODIUM EXTEND*07/11/2006 2 - Rash Comments: GI upset FRAGRANCES 08/30/2005 2 - Rash GABAPENTIN 07/11/2006 2 - Rash Comments: GI upset KEPPRA (LEVETIRACETAM) 07/11/2006 2 - Rash Comments: GI upset LAMICTAL (LAMOTRIGINE) 10/25/2006 5 - Intolerance Comments: too drowsey LIPITOR (ATORVASTATIN) 10/08/2014 14 - Other: See Comments Comments: Dry mouth, upset stomach, elevated LFT's PEANUTS 09/11/2008 9 - Itching PHENERGAN PLAIN 03/04/2009 16 - Unknown Date Reviewed: 06/18/2019 Reviewed by: Mary Leon) Reynaldo - Fully Assessed Reason for Visit: medication [Other] Cmt: question on znatac Prescriptions as of 09/05/2019 Sig: FLUTICASONE PROPIONATE 50 MCG* Use 2 Sprays in each nostril * LEVOTHYROXINE 75 MCG TABLET Take 1 tablet by mouth once d* CHLORHEXIDINE GLUCONATE 0.12 * LORAZEPAM 1 MG TABLET Take 1 tablet by mouth once d* BENZTROPINE 1 MG TABLET Take 1 tablet by mouth once d* RISPERIDONE 4 MG TABLET Take 1 tablet by mouth once d* CITALOPRAM 20 MG TABLET Take 1 tablet by mouth once d* ARISTADA 662 MG/2.4 ML SUSPEN* 2.4 mL q 4 WEEKS. Per Internetworking Technician * Problem List As Of Date 09/05/2019 Noted Resolved Acquired hypothyroidism [E03.9] 06/28/2005 Mixed hyperlipidemia [E78.2] 06/28/2005 History of seizures [Z87.898] 08/15/2005 More... Sebaceous cyst [L72.3] 07/17/2006 10/21/2010 Other Fall [R29.6] 06/07/2007 07/17/2009 History of hyperprolactinemia [Z86.39] 03/10/2009 Urethrocele(618.03) [N36.8] 02/19/2010 Female stress incontinence [N39.3] 02/19/2010 Screening for colon cancer [Z12.11] 06/01/2010 10/21/2010 Herpes [B00.9] 06/14/2010 06/14/2010 Sebaceous cyst [L72.3] 11/03/2010 09/13/2014 History of herpes genitalis [Z86.19] 04/03/2014 Schizo affective schizophrenia (HCC) [F25.9] 12/16/2014 More... Encounter for screening mammogram for breast ca*05/19/2015 Bipolar 1 disorder (HCC) [F31.9] OCD (obsessive compulsive disorder) [F42.9] Ex-smoker [Z87.891] 05/31/2018 More... Encounter for gynecological examination [Z01.41*05/31/2018 More... Colon cancer screening [Z12.11] 05/31/2018 Medicare annual wellness visit, subsequent [Z00*05/31/2018 More... Hoarseness of voice [R49.0] 05/31/2018 Fatty liver [K76.0] 06/01/2018 More... Elevated LFTs [R94.5] 10/29/2018 More... RBBB [I45.10] 02/21/2019 Encounter Status:Closed by MELISA MAYBERRY MA on 09/06/19 cnpn on 2019-08-16 CNPN Telephone (FAMPWS) Normal 08-16-2019 [place] [facility] LISA CASTRO ([id number]) 1960 [facility] Date Time Provider Department ([id number]) 08/16/19 YOVANY CASTLE FAMWS During your visit today, we recorded the following informati on about you: Zach Wolff RN 08/16/2019 3:31 PM Signed Telephone Nurse Triage for Flu-like symptoms Patient evaluated by telephone nursing triage. Lisa Castro is a female who presents with week days of symptoms that are staying the same.. Symptoms include: Lisa is unable to speak in complete sentences due to obvio us respiratory distress or audible wheezing No Lisa sounds very sick or weak to the triage nurse No If yes to any two of the above, send pat ient to the ED and assess need to call 911. Fever No Cough Yes slight Are you more out of breath or winded than usual? No Diarrhea No High Risk Category: No high risk factors FEVER (>100.4) must be present AND an additional sympt om above AND high risk category route to PCP/Provider pool for follow up. Body aches No Congestion / runny nose Yes- regardless Sore throat No If only symptoms are runny nose and sore throat, and body aches provide usual self-care advice and route to PCP for follow up. Other sick contacts: Strep: No Influenza: No Disposition/Patient Instructions: CARE ADVICE FOR COUGH: ? Drink warm fluids. Inhale warm mist. (Reason: both relax t he airway and loosen up the phlegm) ? Suck on cough drops or hard candy to coat the irritated th roat. OTC COUGH DROPS: Cough drops can help a lot, goldy ecially for mild coughs. They reduce coughing by soothing your irritated throat and removi ng that tickle sensation in the back of the throat. Cough drops also have the advantage of portability - you can carry them with you. HOME REMEDY - HARD CANDY: Hard candy works just as wel l as medicine-flavored OTC cough drops. People who have diabetes should use sugar-f ree candy. HOME REMEDY - HONEY: This old home remedy has been shown to help decrease coughing at night. The adult dosage is 2 teaspoons (10 ml) at bedtime. Honey should not be given to infants under one year of age. HUMIDIFIER: If the air is dry, use a humidifier in the bedroom. (Reason: dry air makes coughs worse) AVOID TOBACCO SMOKE: Smoking or being exposed to smoke makes coughs much worse. SORE THROAT For relief of sore throat: ? Sip warm chicken broth or apple juice ? Suck on hard candy or a throat lozenge (OTC) ? Gargle with warm salt water four times a day To make salt water, put 1/2 teaspoon of salt in 8 oz ( 240 ml) of warm water. ? Avoid cigarette smoke CALL BACK IF: ? Difficulty breathing occurs ? You develop any new or worsening symptoms ? You have any questions or concerns SIGNATURE: Zach Wolff RN PATIENT NAME: Lisa Castro DATE: August 16, 2019 TIME: 3:23 PM Allergies As of Date: 08/16/2019 Noted Allergy Reaction HALDOL (HALOPERIDOL LACTATE) 05/31/2018 14 - Other: See Comm ents Comments: seizures CAFFEINE 03/04/2009 14 - Other: See Comments Comments: Patient states can have in moderation. Excess amou nts can cause seizures. Certain Deordorants [Other] 09/11/2008 16 - Unknown CHOCOLATE 03/04/2009 14 - Other: See Comments Comments: Patient states she can have in moderation. DILANTIN (PHENYTOIN SODIUM EXTEND*07/11/2006 2 - Rash Comments: GI upset FRAGRANCES 08/30/2005 2 - Rash GABAPENTIN 07/11/2006 2 - Rash Comments: GI upset KEPPRA (LEVETIRACETAM) 07/11/2006 2 - Rash Comments: GI upset LAMICTAL (LAMOTRIGINE) 10/25/2006 5 - Intolerance Comments: too drowsey LIPITOR (ATORVASTATIN) 10/08/2014 14 - Other: See Comments Comments: Dry mouth, upset stomach, elevated LFT's PEANUTS 09/11/2008 9 - Itching PHENERGAN PLAIN 03/04/2009 16 - Unknown Date Reviewed: 06/18/2019 Reviewed by: Mary ([facility]) Reynaldo - Fully Assessed Reason for Visit: Covid19 Concern [3881] Prescriptions as of 08/16/2019 Sig: FLUTICASONE PROPIONATE 50 MCG* Use 2 Sprays in each nostril * LEVOTHYROXINE 75 MCG TABLET Take 1 tablet by mouth once d* CHLORHEXIDINE GLUCONATE 0.12 * LORAZEPAM 1 MG TABLET Take 1 tablet by mouth once d* BENZTROPINE 1 MG TABLET Take 1 tablet by mouth once d* RISPERIDONE 4 MG TABLET Take 1 tablet by mouth once d* CITALOPRAM 20 MG TABLET Take 1 tablet by mouth once d* ARISTADA 662 MG/2.4 ML SUSPEN* 2.4 mL q 4 WEEKS. Per Internetworking Technician * Problem List As Of Date 08/16/2019 Noted Resolved Acquired hypothyroidism [E03.9] 06/28/2005 Mixed hyperlipidemia [E78.2] 06/28/2005 History of seizures [Z87.898] 08/15/2005 More... Sebaceous cyst [L72.3] 07/17/2006 10/21/2010 Other Fall [R29.6] 06/07/2007 07/17/2009 History of hyperprolactinemia [Z86.39] 03/10/2009 Urethrocele(618.03) [N36.8] 02/19/2010 Female stress incontinence [N39.3] 02/19/2010 Screening for colon cancer [Z12.11] 06/01/2010 10/21/2010 Herpes [B00.9] 06/14/2010 06/14/2010 Sebaceous cyst [L72.3] 11/03/2010 09/13/2014 History of herpes genitalis [Z86.19] 04/03/2014 Schizo affective schizophrenia (HCC) [F25.9] 12/16/2014 More... Encounter for screening mammogram for breast ca*05/19/2015 Bipolar 1 disorder (HCC) [F31.9] OCD (obsessive compulsive disorder) [F42.9] Ex-smoker [Z87.891] 05/31/2018 More... Encounter for gynecological examination [Z01.41*05/31/2018 More... Colon cancer screening [Z12.11] 05/31/2018 Medicare annual wellness visit, subsequent [Z00*05/31/2018 More... Hoarseness of voice [R49.0] 05/31/2018 Fatty liver [K76.0] 06/01/2018 More... Elevated LFTs [R94.5] 10/29/2018 More... RBBB [I45.10] 02/21/2019 Encounter Status:Closed by ZACH WOLFF RN on 08/16/19 progress on 2019-07 PROGRESS HNO ID: [id number] Normal 08-08-2019 [facility] Author: Anita) Evert Castellano ([id number]) Service: ? Author Type: Physician Business Applications Manager Type: Progress Notes Filed: 08/08/2019 10:16 AM Note Text: DISTANCE HEALTH VISIT This Team Access Model visit is a phone encounter. It requir ed patient-provider interaction for the medical decision making as documented below. Lisa Castro is a 59 year old female seen via telephone f or dry cough. Patient states that she developed the cough on Monday. Cough is dry. But she states she otherwise feels fine. No fever or chills. She said some shortness of breath but this is stable for her chronically. Denies known exposure or recent travel She does report sinus symptoms. She has allergies. Shes no longer on flonase due to running out. Denies Sore throat. Denies GI symptoms. HISTORY REVIEWED (electronic chart updated): - medical history - medications - allergies REVIEW OF SYSTEMS: As noted in HPI PHYSICAL EXAMINATION: VIDEO EXAM: (if done, performed via video enabled technology ) GENERAL: cannot fully address over phone however pt sounds w ell and in good spirits. NAD RESPIRATORY: breathing non-labored and talking in full sente nces. ASSESSMENT: (R05) Cough (primary encounter diagnosis) PLAN: ASSESSMENT/PLAN: 1. Cough - ICD9: 786.2, ICD10: R05 May be allergy induced. Cannot rule out covid however withou t other symptoms, this is a low risk case. Recommend that if patient has to leave house, she wear a mas k. She is to monitor symptoms and call us back if worsening or changing. ANJU LOYD PA-C Patient Instructions Follow up as needed if not improving. ANJU LOYD PA-C Time with patient was 8 min cnpn on 2019-08-08 CNPN Telephone (OBGYWM) Normal 08-08-2019 [facility] LISA CASTRO ([id number]) 1960 [place] Date Time Provider Department ([id number]) 08/08/19 JEANIE RODRIGUEZ ([facility]) OBGYWM During your visit today, we recorded the following informati on about you: Alize Newby RN 08/08/2019 8:08 AM Signed Patient noticed dysuria and spotting with wiping first morni ng void today. Patient need appointment or is lab orders for ulysses de los santos to leave specimen okay? Alize Rodriguez APRN.RALPH 08/08/2019 8:30 AM Signed Orders signed - pt can go directly to lab. Jeanie Rodriguez APRN .RALPH Reich RN 08/08/2019 8:40 AM Signed Patient notified. Nona Reich RN Allergies As of Date: 08/08/2019 Noted Allergy Reaction HALDOL (HALOPERIDOL LACTATE) 05/31/2018 14 - Other: See Comm ents Comments: seizures CAFFEINE 03/04/2009 14 - Other: See Comments Comments: Patient states can have in moderation. Excess amou nts can cause seizures. Certain Deordorants [Other] 09/11/2008 16 - Unknown CHOCOLATE 03/04/2009 14 - Other: See Comments Comments: Patient states she can have in moderation. DILANTIN (PHENYTOIN SODIUM EXTEND*07/11/2006 2 - Rash Comments: GI upset FRAGRANCES 08/30/2005 2 - Rash GABAPENTIN 07/11/2006 2 - Rash Comments: GI upset KEPPRA (LEVETIRACETAM) 07/11/2006 2 - Rash Comments: GI upset LAMICTAL (LAMOTRIGINE) 10/25/2006 5 - Intolerance Comments: too drowsey LIPITOR (ATORVASTATIN) 10/08/2014 14 - Other: See Comments Comments: Dry mouth, upset stomach, elevated LFT's PEANUTS 09/11/2008 9 - Itching PHENERGAN PLAIN 03/04/2009 16 - Unknown Date Reviewed: 06/18/2019 Reviewed by: Mary ([facility]) Belden - Fully Assessed Reason for Visit: Patient Question [1477] Primary Visit Diagnosis:Dysuria [R30.0] Order(s):URINE CULTURE [SQURCUL] Order #: [id number] FUTURE URINALYSIS WITH MICROSCOPIC [SQUAWMIC] Order #: [id number] F UTURE Prescriptions as of 08/08/2019 Sig: LEVOTHYROXINE 75 MCG TABLET Take 1 tablet by mouth once d* CHLORHEXIDINE GLUCONATE 0.12 * LORAZEPAM 1 MG TABLET Take 1 tablet by mouth once d* BENZTROPINE 1 MG TABLET Take 1 tablet by mouth once d* RISPERIDONE 4 MG TABLET Take 1 tablet by mouth once d* CITALOPRAM 20 MG TABLET Take 1 tablet by mouth once d* ARISTADA 662 MG/2.4 ML SUSPEN* 2.4 mL q 4 WEEKS. Per Internetworking Technician * Problem List As Of Date 08/08/2019 Noted Resolved Acquired hypothyroidism [E03.9] 06/28/2005 Mixed hyperlipidemia [E78.2] 06/28/2005 History of seizures [Z87.898] 08/15/2005 More... Sebaceous cyst [L72.3] 07/17/2006 10/21/2010 Other Fall [R29.6] 06/07/2007 07/17/2009 History of hyperprolactinemia [Z86.39] 03/10/2009 Urethrocele(618.03) [N36.8] 02/19/2010 Female stress incontinence [N39.3] 02/19/2010 Screening for colon cancer [Z12.11] 06/01/2010 10/21/2010 Herpes [B00.9] 06/14/2010 06/14/2010 Sebaceous cyst [L72.3] 11/03/2010 09/13/2014 History of herpes genitalis [Z86.19] 04/03/2014 Schizo affective schizophrenia (HCC) [F25.9] 12/16/2014 More... Encounter for screening mammogram for breast ca*05/19/2015 Bipolar 1 disorder (HCC) [F31.9] OCD (obsessive compulsive disorder) [F42.9] Ex-smoker [Z87.891] 05/31/2018 More... Encounter for gynecological examination [Z01.41*05/31/2018 More... Colon cancer screening [Z12.11] 05/31/2018 Medicare annual wellness visit, subsequent [Z00*05/31/2018 More... Hoarseness of voice [R49.0] 05/31/2018 Fatty liver [K76.0] 06/01/2018 More... Elevated LFTs [R94.5] 10/29/2018 More... RBBB [I45.10] 02/21/2019 Encounter Status:Closed by NONA REICH RN on 08/08/19 progress on 2019-07 PROGRESS HNO ID: [id number] Normal 08-05-2019 [facility] Author: Yovany Castle [place] ([id number]) Service: ? Author Type: Physician Type: Progress Notes Filed: 08/05/2019 2:29 PM Note Text: This Team Access Model visit is a phone encounter. It requir ed patient-provider interaction for the medical decision making as documented below. Chief Complaint No chief complaint on file. HPI Lisa Castro is a 59 year old female who presents here to day for Complaint(s) of stomach and fatigue. Patient has felt warm and nauseated this AM. But not feeling this way any longer. Does not have a thermometer so can not take a temp. Right now says she feels great and no longer having the nausea, fatigu e or feeling warm. She did not go for her Aristada shot today and feels t his maybe the reason. Past medical history, appointments, medications, allergies r eviewed. Previous Medical History PAST MEDICAL HISTORY Diagnosis Date - Acquired hypothyroidism 06/28/2005 - Bipolar 1 disorder (HCC) - Elevated LFTs 10/29/2018 - Encounter for gynecological examination 05/31/2018 [facility]. - Ex-smoker 05/31/2018 Started at age 20 up to 3-4 cigs a day. Quit in early ( september of smoked 1-2 yrs only. - Fatty liver 06/01/2018 Elevated LFT's - Female stress incontinence 02/19/2010 - History of herpes genitalis 04/03/2014 - History of hyperprolactinemia 03/10/2009 - History of seizures 08/15/2005 Has not had an episode since and felt to be related t o the haldol she was on. - Medicare annual wellness visit, subsequent 05/31/2018 Medicare Part B: 08/13/2005 Last Done: 06/06/2019 - Mixed hyperlipidemia 06/28/2005 - OCD (obsessive compulsive disorder) - Schizo affective schizophrenia (HCC) 12/16/2014 - Urethrocele(618.03) 02/19/2010 Previous Surgical History PAST SURGICAL HISTORY Procedure Laterality Date - COLONOSCOP W/ OR W/O [facility] SPEC 07/02/10 - COLONOSCOPY 07/16/2018 - EGD 07/16/2018 - LIGATE FALLOPIAN TUBE Tubal ligation - REM LESIO TRUNK,ARM,LEG 1.1 -2.0CM 09/13/06 Exc. 4 separate chad cysts - REM LESION FACE,EAR,EYE 0.6-1CM 11/03/10 Family History FAMILY HISTORY Problem Relation Age of Onset - Coronary Artery Disease Mother - Breast Cancer Sister - Diabetes Sister - Diabetes Paternal Grandmother - Colon Cancer No Family History - Ovarian cancer No Family History - Uterine Cancer No Family History - Prostate Cancer No Family History - Hypertension No Family History - Hyperlipidemia No Family History - Kidney Disease No Family History - Seizures No Family History - Stroke No Family History Patient Allergies ALLERGIES Allergen Reactions - Haldol [Haloperidol* Other: See Comments seizures - Caffeine Other: See Comments Patient states can have in moderation. Excess amounts can ca use seizures. - Certain Deordorants* Unknown - Chocolate Other: See Comments Patient states she can have in moderation. - Dilantin [Phenytoin* Rash GI upset - Fragrances Rash - Gabapentin Rash GI upset - Keppra [Levetiracet* Rash GI upset - Lamictal [Lamotrigi* Intolerance too drowsey - Lipitor [Atorvastat* Other: See Comments Dry mouth, upset stomach, elevated LFT's - Peanuts Itching - Phenergan Plain Unknown Current Medications Current Outpatient Medications on File Prior to Visit Medication Sig - levothyroxine (SYNTHROID) 75 mcg tablet Take 1 tablet by m outh once daily. - Chlorhexidine Gluconate (PERIDEX) 0.12 % solution - fluticasone (FLONASE) 50 mcg/actuation nasal spray Use 1 S pray in each nostril once daily. - LORazepam (ATIVAN) 1 mg tablet Take 1 tablet by mouth once daily for 30 days. Twice daily, [facility] - benztropine (COGENTIN) 1 mg tablet Take 1 tablet by mouth once daily. [facility] - risperiDONE (RISPERDAL) 4 mg tablet Take 1 tablet by mouth once daily. [facility] - citalopram (CELEXA) 20 mg tablet Take 1 tablet by mouth on ce daily. Per [facility] - ARISTADA 662 mg/2.4 mL injection 2.4 mL q 4 WEEKS. Per [facility] No current facility-administered medications on file prior t o visit. Social History Social History Tobacco Use - Smoking status: Former Smoker - Smokeless tobacco: Never Used - Tobacco comment: Quit in Substance Use Topics - Alcohol use: No - Drug use: No Review of Symptoms REVIEW OF SYSTEMS See HPI EXAM: LMP 01/31/2012 Telephone encounter. Health Maintenance List SHINGRIX VACCINE(1 of 2) due on 2010 HPV TESTING due on 08/08/2013 MAMMOGRAM due on 01/12/2020 ANNUAL PCP TEAM CHRONIC DISEASE VISIT due on 06/12/2020 DTAP,TDAP,TD(2 - Td) due on 04/22/2021 DIABETES SCREEN due on 06/06/2022 PAP TESTING due on 06/13/2022 LIPID SCREEN due on 06/06/2024 COLORECTAL CANCER SCREENING,SEE MODIFIER due on 07/16/2028 HEPATITIS C SCREENING Completed HIV SCREENING Completed INFLUENZA Completed Data reviewed ASSESSMENT/PLAN: 1. Nausea - ICD9: 787.02, ICD10: R11.0 - This along with feeling fatigued and warm have resolved an d she is currently feeling good. Suggested this may have nothing to d o with the Aristada unless a withdraw like symptom since due for next s hot. Also it sounds like she has been on this medication for the past 3-4 years without issues. Advised her to discuss with her psychiatrist. Patient to call back if symptoms return. Time on phone was 7 min and 35 sec. MD shirley Cadena on 2019-07-31 RALPHN Telephone (FAMPWS) Normal 07-31-2019 [facility] LISA CASTRO ([id number]) 1960 [facility] Date Time Provider Department ([id number]) 07/31/19 12:20 PM [facility]AN[facility]RALPH[facility] During your visit today, we recorded the following informati on about you: Brian Dang DNP.RALPH, DIRECTOR OF STUDENT FINANCIAL AID.WELL TENDER 07/31/2019 1:00 PM Signed Chief Complaint Dry cough and shortness of breath This Team Access Model visit is a phone encounter. It requir ed patient-provider interaction for the medical decision making as documented below. Concerned about the brizuela virus HPI Lisa Castro is a 59 year old female who is contacted tokenna hassan for a telemedicine visit. This is an established patie nt of Dr. Yovany Castle MD. States a one-week history of dry cough t hat is intermittent and some shortness of breath when she is walking up to her dad's house. He li ves on a hill and she gets short of breath when she walks up to [facility] home. Denies any chest pain or difficulty breathing. States she has to walk 3 flights of stairs for her apartment and typically will get short of breath during th at time also. She states this is normal for her and has not changed. She ortiz s not exercise on regular basis. She is overweight. She has not coughed any today. Cough is not productive . No fever. No chills. No nausea vomiting or diarrhea. No sore throat or runn y nose. No earaches or sinus pain or pressure. He has not taken anythin g for her symptoms. No use of any skqi-kuc-[id number] cough medicines. Travel outside of the [place] in the past 14 days: no Known Exposure within the past 14 days t o a confirmed case of the COVID-19: no High Risk age >60 or <36 months and/or chronic medical condi tion: no Past medical history, appointments, medications, allergies reviewed 07/31/2019 Previous Medical History PAST MEDICAL HISTORY Diagnosis Date - Acquired hypothyroidism 06/28/2005 - Bipolar 1 disorder (HCC) - Elevated LFTs 10/29/2018 - Ex-smoker 05/31/2018 Started at age 20 up to 3-4 cigs a day. Quit in early (september of smoked 1-2 yrs only. - Fatty liver 06/01/2018 Elevated LFT's - Female stress incontinence 02/19/2010 - History of herpes genitalis 04/03/2014 - History of hyperprolactinemia 03/10/2009 - History of seizures 08/15/2005 Has not had an episode since and felt to be rel ated to the haldol she was on. - Mixed hyperlipidemia 06/28/2005 - OCD (obsessive compulsive disorder) - Petit mal seizures - Schizo affective schizophrenia (HCC) 12/16/2014 - Urethrocele(618.03) 02/19/2010 Previous Surgical History PAST SURGICAL HISTORY Procedure Laterality Date - COLONOSCOP W/ OR W/O [facility] SPEC 07/02/10 - COLONOSCOPY 07/16/2018 - EGD 07/16/2018 - LIGATE FALLOPIAN TUBE Tubal ligation - REM LESIO TRUNK,ARM,LEG 1.1 -2.0CM 09/13/06 Exc. 4 separate chad cysts - REM LESION FACE,EAR,EYE 0.6-1CM 11/03/10 Family History FAMILY HISTORY Problem Relation Age of Onset - Coronary Artery Disease Mother - Breast Cancer Sister - Diabetes Sister - Diabetes Paternal Grandmother - Colon Cancer No Family History - Ovarian cancer No Family History - Uterine Cancer No Family History - Prostate Cancer No Family History - Hypertension No Family History - Hyperlipidemia No Family History - Kidney Disease No Family History - Seizures No Family History - Stroke No Family History Patient Allergies ALLERGIES Allergen Reactions - Haldol [Haloperidol* Other: See Comments seizures - Caffeine Other: See Comments Patient states can have in moderation. Excess amounts can ca use seizures. - Certain Deordorants* Unknown - Chocolate Other: See Comments Patient states she can have in moderation. - Dilantin [Phenytoin* Rash GI upset - Fragrances Rash - Gabapentin Rash GI upset - Keppra [Levetiracet* Rash GI upset - Lamictal [Lamotrigi* Intolerance too drowsey - Lipitor [Atorvastat* Other: See Comments Dry mouth, upset stomach, elevated LFT's - Peanuts Itching - Phenergan Plain Unknown Current Medications Current Outpatient Medications on File Prior to Visit Medication Sig - levothyroxine (SYNTHROID) 75 mcg tablet Take 1 table t by mouth once daily. - Chlorhexidine Gluconate (PERIDEX) 0.12 % solution - fluticasone (FLONASE) 50 mcg/actuation nasal spray Use 1 S pray in each nostril once daily. - LORazepam (ATIVAN) 1 mg ta blet Take 1 tablet by mouth once daily for 30 days. Twice daily, [facility]. - benztropine (COGENTIN) 1 mg tablet Take 1 tablet by mout h once daily. [facility] - risperiDONE (RISPERDAL) 4 mg tablet Take 1 tablet by mouth once daily. [facility] - citalopram (CELEXA) 20 mg tablet Take 1 tablet by mouth on ce daily. [facility] - ARISTADA 662 mg/2.4 mL injection 2.4 mL q 4 WEEKS. Per [facility] No current facility-administered medications on file prior t o visit. Social History Social History Tobacco Use - Smoking status: Former Smoker - Smokeless tobacco: Never Used - Tobacco comment: Quit in Substance Use Topics - Alcohol use: No - Drug use: No Review of Symptoms GENERAL: No weight loss. No malaise or fevers HEENT: Negative for headaches No eye discharge or redness No earaches or drainage No sore throat Nose NEG for congestion and nasal discharge RESPIRATORY: No wheezing. + SOB. No Difficulty breathing. Dr kath blas CARDIOVASCULAR: Negative for chest pain GI: No nausea, vomiting, or diarrhea MUSCULOSKELETAL: Negative for muscle aches or bodyaches EXAM: [facility] 01/31/2012 Deferred physical exam as visit was completed over the phone . Health Maintenance List SHINGRIX VACCINE(1 of 2) due on 2010 HPV TESTING due on 08/08/2013 MAMMOGRAM due on 01/12/2020 ANNUAL PCP TEAM CHRONIC DISEASE VISIT due on 06/12/2020 DTAP,TDAP,TD(2 - Td) due on 04/22/2021 DIABETES SCREEN due on 06/06/2022 PAP TESTING due on 06/13/2022 LIPID SCREEN due on 06/06/2024 COLORECTAL CANCER SCREENING,SEE MODIFIER due on 07/16/2028 HEPATITIS C SCREENING Completed HIV SCREENING Completed INFLUENZA Completed Data reviewed Last 5 Encounter BP Readings: Date: BP: 06/18/2019 90/60 06/12/2019 122/78 06/06/2019 122/89 04/05/2019 132/88 03/15/2019 132/94 BMI Readings from Last 5 Encounters: 06/18/19 : 28.12 kg/m? 06/12/19 : 28.49 kg/m? 06/06/19 : 28.12 kg/m? 04/05/19 : 28.65 kg/m? 03/15/19 : 28.05 kg/m? Last 5 Encounter Wt Readings: Date: Wt: 06/18/2019 76.7 kg (169 lb) 06/12/2019 77.7 kg (171 lb 3.2 oz) 06/06/2019 76.7 kg (169 lb) 04/05/2019 78.9 kg (174 lb) 03/15/2019 77.3 kg (170 lb 6.4 oz) Medication and allergy list reviewed, reconciled and updated 07/31/2019 ASSESSMENT/PLAN: 1. Cough - ICD9: 786.2, ICD10: R05 (primary diagnosis) Cough is improving. Provided reassurance and reviewed coronavirus virus symptoms with patient. Reviewed coronavirus preventive strategies for home. Return to the clinic or seek care at [facility] for any worsening signs or symptoms: Patient verbalizes understanding of instr uctions. 2. SOB (shortness of breath) - ICD9: 786.05, ICD10: R06.02 Stable. Low risk for ACS. No chest pain. Symptoms more consi stent with deconditioning. Patient will seek care in the emergency room for the f ollowing: Any concerns of chest pain pressure or palpitations; any chest pain that changes in severity, quality or location; chest pain that is associated with lightheadedness, dizziness, indigestion and/or shortness o f breath, or that radiates to the jaw, neck, or back. The patient is instructed to call 911 for transport via EMS or head directly to the ER. The patient ve rbalizes understanding. Total appointment time on phone with patient = 15 minutes Brian Dang DNP.RALPH This note was completed with [employer] n software. Note was reviewed for accuracy. There may be minor misspellings or gramm ar miscues with [employer]. [place] [id number] Referring Provider: SELF [[id number]] Allergies As of Date: 07/31/2019 Noted Allergy Reaction HALDOL (HALOPERIDOL LACTATE) 05/31/2018 14 - Other: See Comm ents Comments: seizures CAFFEINE 03/04/2009 14 - Other: See Comments Comments: Patient states can have in moderation. Excess amou nts can cause seizures. Certain Deordorants [Other] 09/11/2008 16 - Unknown CHOCOLATE 03/04/2009 14 - Other: See Comments Comments: Patient states she can have in moderation. DILANTIN (PHENYTOIN SODIUM EXTEND*07/11/2006 2 - Rash Comments: GI upset FRAGRANCES 08/30/2005 2 - Rash GABAPENTIN 07/11/2006 2 - Rash Comments: GI upset KEPPRA (LEVETIRACETAM) 07/11/2006 2 - Rash Comments: GI upset LAMICTAL (LAMOTRIGINE) 10/25/2006 5 - Intolerance Comments: too drowsey LIPITOR (ATORVASTATIN) 10/08/2014 14 - Other: See Comments Comments: Dry mouth, upset stomach, elevated LFT's PEANUTS 09/11/2008 9 - Itching PHENERGAN PLAIN 03/04/2009 16 - Unknown Date Reviewed: 06/18/2019 Reviewed by: Mary (Ralph) Reynaldo - Fully Assessed Reason for Visit: Telemedicine [[id number]] Primary Visit Diagnosis:Cough [R05] Other Visit Diagnosis:SOB (shortness of breath) [R06.02] Prescriptions as of 07/31/2019 Sig: LEVOTHYROXINE 75 MCG TABLET Take 1 tablet by mouth once d* CHLORHEXIDINE GLUCONATE 0.12 * FLUTICASONE PROPIONATE 50 MCG* Use 1 [place] in each nostril o * LORAZEPAM 1 MG TABLET Take 1 tablet by mouth once d* BENZTROPINE 1 MG TABLET Take 1 tablet by mouth once d* RISPERIDONE 4 MG TABLET Take 1 tablet by mouth once d* CITALOPRAM 20 MG TABLET Take 1 tablet by mouth once d* ARISTADA 662 MG/2.4 ML SUSPEN* 2.4 mL q 4 WEEKS. Per Internetworking Technician * Problem List As Of Date 07/31/2019 Noted Resolved Acquired hypothyroidism [E03.9] 06/28/2005 Mixed hyperlipidemia [E78.2] 06/28/2005 History of seizures [Z87.898] 08/15/2005 More... Sebaceous cyst [L72.3] 07/17/2006 10/21/2010 Other Fall [R29.6] 06/07/2007 07/17/2009 History of hyperprolactinemia [Z86.39] 03/10/2009 Urethrocele(618.03) [N36.8] 02/19/2010 Female stress incontinence [N39.3] 02/19/2010 Screening for colon cancer [Z12.11] 06/01/2010 10/21/2010 Herpes [B00.9] 06/14/2010 06/14/2010 Sebaceous cyst [L72.3] 11/03/2010 09/13/2014 History of herpes genitalis [Z86.19] 04/03/2014 Schizo affective schizophrenia (HCC) [F25.9] 12/16/2014 More... Breast screening [Z12.39] 05/19/2015 Bipolar 1 disorder (HCC) [F31.9] OCD (obsessive compulsive disorder) [F42.9] Ex-smoker [Z87.891] 05/31/2018 More... Encounter for gynecological examination [Z01.41*05/31/2018 More... Colon cancer screening [Z12.11] 05/31/2018 Medicare annual wellness visit, subsequent [Z00*05/31/2018 More... Hoarseness of voice [R49.0] 05/31/2018 Fatty liver [K76.0] 06/01/2018 More... Elevated LFTs [R94.5] 10/29/2018 More... RBBB [I45.10] 02/21/2019 Encounter Status:Closed by BRIAN DANG DNP WELL TENDER on 07/31/19 trich vaginalis ampl on 2019-06-18 T vag Amplification Negative for Trichomonas Majo l 06-18-2019 [facility] vaginalis by Lele willard ([id number]) amplification Comment: Performed By: #### TRVAMP ## ##[address] [phone] Trich vag Amp Source Cervix Normal 0 [facility] ([id number]) Comment: Performed By: #### TRVAMP ## ##[address] [phone] syphilis ttl w/reflx on 2019-06-18 Syphilis Interp Cannot exclude recent Normal [facility] Treponemal infection if [place] ([id number]) specimen collected within 7 to 10 days after appearance of suspect lesions or 2 to 3 weeks after an exposure. Clinical correlation is required. Comment: Performed By: #### SYPHTX ## ##[address] [phone] Syphilis Screen Non Reactive Non Reactive Normal 06-18-19 20 [facility] ([id number] Comment: Performed By: #### SYPHTX ## ##[address] [phone] progress on 2019-06 PROGRESS HNO ID: [id number] Normal 06-18-2019 [facility] Author: Mary (Ralph) Reynaldo Castellano ([id number]) Service: ? Author Type: Nurse Practitioner Type: Progress Notes Filed: 06/18/2019 11:53 AM Note Text: Lisa Castro is a 59 year old female who presents for pro ble visit STD testing. HPI: High risk sexually behavior. She believes that she had a possible exposure to a STD. Denies any vaginal discharge or odor. PAST MEDICAL HISTORY Diagnosis Date - Acquired hypothyroidism 06/28/2005 - Bipolar 1 disorder (HCC) - Elevated LFTs 10/29/2018 - Ex-smoker 05/31/2018 Started at age 20 up to 3-4 cigs a day. Quit in early ( september of smoked 1-2 yrs only. - Fatty liver 06/01/2018 Elevated LFT's - Female stress incontinence 02/19/2010 - History of herpes genitalis 04/03/2014 - History of hyperprolactinemia 03/10/2009 - History of seizures 08/15/2005 Has not had an episode since and felt to be related t o the haldol she was on. - Mixed hyperlipidemia 06/28/2005 - OCD (obsessive compulsive disorder) - Petit mal seizures - Schizo affective schizophrenia (HCC) 12/16/2014 - Urethrocele(618.03) 02/19/2010 PAST SURGICAL HISTORY Procedure Laterality Date - COLONOSCOP W/ OR W/O [facility] SPEC 07/02/10 - COLONOSCOPY 07/16/2018 - EGD 07/16/2018 - LIGATE FALLOPIAN TUBE Tubal ligation - REM LESIO TRUNK,ARM,LEG 1.1 -2.0CM 09/13/06 Exc. 4 separate chad cysts - REM LESION FACE,EAR,EYE 0.6-1CM 11/03/10 FAMILY HISTORY Problem Relation Age of Onset - Coronary Artery Disease Mother - Breast Cancer Sister - Diabetes Sister - Diabetes Paternal Grandmother - Colon Cancer No Family History - Ovarian cancer No Family History - Uterine Cancer No Family History - Prostate Cancer No Family History - Hypertension No Family History - Hyperlipidemia No Family History - Kidney Disease No Family History - Seizures No Family History - Stroke No Family History Social History Tobacco Use - Smoking status: Former Smoker - Smokeless tobacco: Never Used - Tobacco comment: Quit in Substance Use Topics - Alcohol use: No - Drug use: No Current Outpatient Medications Medication Sig - levothyroxine (SYNTHROID) 75 mcg tablet Take 1 tablet by m outh once daily. - Chlorhexidine Gluconate (PERIDEX) 0.12 % solution - fluticasone (FLONASE) 50 mcg/actuation nasal spray Use 1 S pray in each nostril once daily. - LORazepam (ATIVAN) 1 mg tablet Take 1 tablet by mouth once daily for 30 days. Twice daily, [facility] - benztropine (COGENTIN) 1 mg tablet Take 1 tablet by mouth once daily. [facility] - risperiDONE (RISPERDAL) 4 mg tablet Take 1 tablet by mouth once daily. [facility] - citalopram (CELEXA) 20 mg tablet Take 1 tablet by mouth on ce daily. Per [facility] - ARISTADA 662 mg/2.4 mL injection 2.4 mL q 4 WEEKS. Per [facility] No current facility-administered medications for this visit. Allergies As of Date: 06/18/2019 Allergen Noted Reaction HALDOL [HALOPERIDOL LACTATE] 05/31/2018 Other: See Comments CAFFEINE 03/04/2009 Other: See Comments CERTAIN DEORDORANTS [OTHER] 09/11/2008 Unknown CHOCOLATE 03/04/2009 Other: See Comments DILANTIN [PHENYTOIN SODIUM EXTEND*07/11/2006 Rash FRAGRANCES 08/30/2005 Rash GABAPENTIN 07/11/2006 Rash KEPPRA [LEVETIRACETAM] 07/11/2006 Rash LAMICTAL [LAMOTRIGINE] 10/25/2006 Intolerance LIPITOR [ATORVASTATIN] 10/08/2014 Other: See Comments PEANUTS 09/11/2008 Itching PHENERGAN PLAIN 03/04/2009 Unknown Fully Assessed 06/18/2019 REVIEW OF SYSTEMS Abdomen: No bloating, early satiety, indigestion, or increas ed flatulence. No abdominal pain, nausea, vomiting, diarrhea, or constipati on. Bladder: No dysuria, gross hematuria, urinary frequency, uri nary urgency, or incontinence. Expanded ROS: N/A Allergies and current medication updated:Yes EXAM: Wt 169 lb (76.7kg) LMP 01/31/2012 GENERAL: pleasant, female in no apparent distress HEENT: Normocephalic, atraumatic, mucus membranes moist and no lesions CHEST: Normal inspiratory effort PELVIC: external genitalia normal, normal Bartholin's glands , urethra, Williamson's glands, no vulvar lesions, no cervical lesions, phys iologic discharge present, normal appearing perineal body and perian al region BIMANUAL: uterus normal size, shape and consistency, no adne xal masses and non-tender NEURO: alert and oriented x3,exam grossly non-focal EXTREMITIES: normal ASSESSMENT/PLAN: 1. Screen for STD (sexually transmitted disease) - ICD9: V74 .5, ICD10: Z11.3 - SYPHILIS TOTAL W/REFLEX - GC/CHLAMYDIA DNA DET - T VAGINALIS AMPLIFICATION 2. High risk heterosexual behavior - ICD9: V69.2, ICD10: Z72 .51 - SYPHILIS TOTAL W/REFLEX - GC/CHLAMYDIA DNA DET - T VAGINALIS AMPLIFICATION Mary Valdes APRN.WELL TENDER gc/chlamydia amplif on 2019-06-18 Chlamydia Amplif Negative for Chlamydia Normal 06-18-2019 [facility] trachomatis by James sin ([id number]) amplification. Comment: Result Comment: For screenin g asymptomatic women, a vaginal swab specimen (APTIMA vaginal swab [id number]) is optimal. Urine specimens have reduced sensitivity for Chlamydia trachomatis or Neisseria gonorrh oeae infection in female pat ients without symptoms. This test was developed and its performance characteristics determined by [facility]'s [facility] Walker [facility] [place] ([facility]). It has not been cleared or a pproved by the FDA. [facility] is regulated under CLIA as qualified to perform high complexity testing. This test is used for clinical purposes. It should not be regarded as inv estigational or for research . Performed By: #### GCCT #### [address] [phone] GC Amplification Negative for Neisseria Normal 06-18-2019 [facility] gonorrhoeae by James sin ([id number]) amplification. Comment: Performed By: #### GCCT #### [address] [phone] GC/Chlam Amp Source Urine Normal 06-18-2019 [facility] ([id number]) Comment: Performed By: #### GCCT #### [address] [phone] cnov on 2019-06-18 CNOV Office Visit (WOOB) Normal 06-18-2019 [place] L[place] Garcia ([id number]) 1960 F [place] Date Time Provider Department ([id number]) 06/18/19 11:30 AM MARY VALDES (RALPH) WOOB During your visit today, we recorded the following informati on about you: Blood pressure Weight 90/60 76.7 kg Mary Valdes APRN.CNP 06/18/2019 11:53 AM Signed Lisa Castro is a 59 year old female who presents for pro blem visit STD testing. HPI: High risk sexually beha vior. She believes that she had a possible exposure to a STD. Denies any vaginal discharge or odor. PAST MEDICAL HISTORY Diagnosis Date - Acquired hypothyroidism 06/28/2005 - Bipolar 1 disorder (HCC) - Elevated LFTs 10/29/2018 - Ex-smoker 05/31/2018 Started at age 20 up to 3-4 cigs a day. Quit in early (september of smoked 1-2 yrs only. - Fatty liver 06/01/2018 Elevated LFT's - Female stress incontinence 02/19/2010 - History of herpes genitalis 04/03/2014 - History of hyperprolactinemia 03/10/2009 - History of seizures 08/15/2005 Has not had an episode since and felt to be rel ated to the haldol she was on. - Mixed hyperlipidemia 06/28/2005 - OCD (obsessive compulsive disorder) - Petit mal seizures - Schizo affective schizophrenia (HCC) 12/16/2014 - Urethrocele(618.03) 02/19/2010 PAST SURGICAL HISTORY Procedure Laterality Date - COLONOSCOP W/ OR W/O [facility] SPEC 07/02/10 - COLONOSCOPY 07/16/2018 - EGD 07/16/2018 - LIGATE FALLOPIAN TUBE Tubal ligation - REM LESIO TRUNK,ARM,LEG 1.1 -2.0CM 09/13/06 Exc. 4 separate chad cysts - REM LESION FACE,EAR,EYE 0.6-1CM 11/03/10 FAMILY HISTORY Problem Relation Age of Onset - Coronary Artery Disease Mother - Breast Cancer Sister - Diabetes Sister - Diabetes Paternal Grandmother - Colon Cancer No Family History - Ovarian cancer No Family History - Uterine Cancer No Family History - Prostate Cancer No Family History - Hypertension No Family History - Hyperlipidemia No Family History - Kidney Disease No Family History - Seizures No Family History - Stroke No Family History Social History Tobacco Use - Smoking status: Former Smoker - Smokeless tobacco: Never Used - Tobacco comment: Quit in Substance Use Topics - Alcohol use: No - Drug use: No Current Outpatient Medications Medication Sig - levothyroxine (SYNTHROID) 75 mcg tablet Take 1 table t by mouth once daily. - Chlorhexidine Gluconate (PERIDEX) 0.12 % solution - fluticasone (FLONASE) 50 mcg/actuation nasal spray Use 1 S pray in each nostril once daily. - LORazepam (ATIVAN) 1 mg ta blet Take 1 tablet by mouth once daily for 30 days. Twice daily, [facility] - benztropine (COGENTIN) 1 mg tablet Take 1 tablet by mout h once daily. [facility] - risperiDONE (RISPERDAL) 4 mg tablet Take 1 tablet by mouth once daily. [facility] - citalopram (CELEXA) 20 mg tablet Take 1 tablet by mouth on ce daily. [facility] - ARISTADA 662 mg/2.4 mL injection 2.4 mL q 4 WEEKS. Per [facility] No current facility-administered medications for this visit. Allergies As of Date: 06/18/2019 Allergen Noted Reaction HALDOL [HALOPERIDOL LACTATE] 05/31/2018 Other: See Comments CAFFEINE 03/04/2009 Other: See Comments CERTAIN DEORDORANTS [OTHER] 09/11/2008 Unknown CHOCOLATE 03/04/2009 Other: See Comments DILANTIN [PHENYTOIN SODIUM EXTEND*07/11/2006 Rash FRAGRANCES 08/30/2005 Rash GABAPENTIN 07/11/2006 Rash KEPPRA [LEVETIRACETAM] 07/11/2006 Rash LAMICTAL [LAMOTRIGINE] 10/25/2006 Intolerance LIPITOR [ATORVASTATIN] 10/08/2014 Other: See Comments PEANUTS 09/11/2008 Itching PHENERGAN PLAIN 03/04/2009 Unknown Fully Assessed 06/18/2019 REVIEW OF SYSTEMS Abdomen: No bloating, early satiety, indigestion , or increased flatulence. No abdominal pain, nausea, vomiting, diarrhea, or constipation. Bladder: No dysuria, gross hematuria, urinary frequenc y, urinary urgency, or incontinence. Expanded ROS: N/A Allergies and current medication updated:Yes EXAM: Wt 169 lb (76.7kg) LMP 01/31/2012 GENERAL: pleasant, female in no apparent distress HEENT: Normocephalic, atraumatic, mucus membranes moist and no lesions CHEST: Normal inspiratory effort PELVIC: external genitalia normal, majo l Bartholin's glands, urethra, Williamson's glands, no vulvar lesions, no cervical l esions, physiologic discharge present, normal appearing perineal body and perianal region BIMANUAL: uterus normal size, shape and consistency, no adne xal masses and non-tender NEURO: alert and oriented x3,exam grossly non-focal EXTREMITIES: normal ASSESSMENT/PLAN: 1. Screen for STD (sexually transmitted disease) - ICD 9: V74.5, ICD10: Z11.3 - SYPHILIS TOTAL W/REFLEX - GC/CHLAMYDIA DNA DET - T VAGINALIS AMPLIFICATION 2. High risk heterosexual behavior - ICD9: V69.2, ICD10: Z72 .51 - SYPHILIS TOTAL W/REFLEX - GC/CHLAMYDIA DNA DET - T VAGINALIS AMPLIFICATION Mary Valdes, DIRECTOR OF STUDENT FINANCIAL AID.WELL TENDER Referring Provider: SELF [200] Allergies As of Date: 06/18/2019 Noted Allergy Reaction HALDOL (HALOPERIDOL LACTATE) 05/31/2018 14 - Other: See Comm ents Comments: seizures CAFFEINE 03/04/2009 14 - Other: See Comments Comments: Patient states can have in moderation. Excess amou nts can cause seizures. Certain Deordorants [Other] 09/11/2008 16 - Unknown CHOCOLATE 03/04/2009 14 - Other: See Comments Comments: Patient states she can have in moderation. DILANTIN (PHENYTOIN SODIUM EXTEND*07/11/2006 2 - Rash Comments: GI upset FRAGRANCES 08/30/2005 2 - Rash GABAPENTIN 07/11/2006 2 - Rash Comments: GI upset KEPPRA (LEVETIRACETAM) 07/11/2006 2 - Rash Comments: GI upset LAMICTAL (LAMOTRIGINE) 10/25/2006 5 - Intolerance Comments: too drowsey LIPITOR (ATORVASTATIN) 10/08/2014 14 - Other: See Comments Comments: Dry mouth, upset stomach, elevated LFT's PEANUTS 09/11/2008 9 - Itching PHENERGAN PLAIN 03/04/2009 16 - Unknown Date Reviewed: 06/18/2019 Reviewed by: Mary Leon) Reynaldo - Fully Assessed Reason for Visit: STD testing [Other] Visit Diagnoses:Screen for STD (sexually transmitted disease ) [Z11.3] High risk heterosexual behavior [Z72.51] Order(s):SYPHILIS TOTAL W/REFLEX [SQSYPHTX] Order #: [id number] FUTURE GC/CHLAMYDIA DNA DET [SQGCCAMP] Order #: [id number] T VAGINALIS AMPLIFICATION [SQTRVAMP] Order #: [id number] FUT URE Prescriptions as of 06/18/2019 Sig: LEVOTHYROXINE 75 MCG TABLET Take 1 tablet by mouth once d* CHLORHEXIDINE GLUCONATE 0.12 * FLUTICASONE PROPIONATE 50 MCG* Use 1 [place] in each nostril o * LORAZEPAM 1 MG TABLET Take 1 tablet by mouth once d* BENZTROPINE 1 MG TABLET Take 1 tablet by mouth once d* RISPERIDONE 4 MG TABLET Take 1 tablet by mouth once d* CITALOPRAM 20 MG TABLET Take 1 tablet by mouth once d* ARISTADA 662 MG/2.4 ML SUSPEN* 2.4 mL q 4 WEEKS. Per Internetworking Technician * Problem List As Of Date 06/18/2019 Noted Resolved Acquired hypothyroidism [E03.9] 06/28/2005 Mixed hyperlipidemia [E78.2] 06/28/2005 History of seizures [Z87.898] 08/15/2005 More... Sebaceous cyst [L72.3] 07/17/2006 10/21/2010 Other Fall [R29.6] 06/07/2007 07/17/2009 History of hyperprolactinemia [Z86.39] 03/10/2009 Urethrocele(618.03) [N36.8] 02/19/2010 Female stress incontinence [N39.3] 02/19/2010 Screening for colon cancer [Z12.11] 06/01/2010 10/21/2010 Herpes [B00.9] 06/14/2010 06/14/2010 Sebaceous cyst [L72.3] 11/03/2010 09/13/2014 History of herpes genitalis [Z86.19] 04/03/2014 Schizo affective schizophrenia (HCC) [F25.9] 12/16/2014 More... Breast screening [Z12.39] 05/19/2015 Bipolar 1 disorder (HCC) [F31.9] OCD (obsessive compulsive disorder) [F42.9] Ex-smoker [Z87.891] 05/31/2018 More... Encounter for gynecological examination [Z01.41*05/31/2018 More... Colon cancer screening [Z12.11] 05/31/2018 Medicare annual wellness visit, subsequent [Z00*05/31/2018 More... Hoarseness of voice [R49.0] 05/31/2018 Fatty liver [K76.0] 06/01/2018 More... Elevated LFTs [R94.5] 10/29/2018 More... RBBB [I45.10] 02/21/2019 Encounter Status:Closed by MARY VALDES on 06/18/19 progress on 2019-05 PROGRESS HNO ID: [id number] Normal 06-12-2019 [facility] Author: Daniel Irwin [place] ([id number]) Service: ? Author Type: Physician Type: Progress Notes Filed: 06/12/2019 11:31 AM Note Text: This Team Access Model visit is a same day encounter. It req uired patient-provider interaction for the medical decision making as documented below. Chief Complaint Patient presents with: Headache HPI Lisa Castro is a 59 year old female who presents here to day for a same day appointment. Pt PCP is Dr. Castle. Headache - Started 1 day ago and located on left side of a d to top. Pain described as a dull throbbing pain, constant and rated a 1-2 /10. Unsure if there while sleeping. She also states that it hurts behind h er eye, but she got make up in her eye a while ago. Contributes headache s to stress and working. Hasn't tried taking it with anything as she ortiz sn't want to mix her medications with anything. She thinks it could be we ather related. Denies any cold symptoms, speech or facial problems. She was able to sleep, didn't wake her up. Is able to see floaters at times, concerned about glaucoma despite having cataracts removed. ENT - Has seen ENT in the past, no thyroid cancer, despite h oarse voice. Past medical history, appointments, medications, allergies r esperanzawed. Previous Medical History PAST MEDICAL HISTORY Diagnosis Date - Acquired hypothyroidism 06/28/2005 - Bipolar 1 disorder (HCC) - Elevated LFTs 10/29/2018 - Ex-smoker 05/31/2018 Started at age 20 up to 3-4 cigs a day. Quit in early ( september of smoked 1-2 yrs only. - Fatty liver 06/01/2018 Elevated LFT's - Female stress incontinence 02/19/2010 - History of herpes genitalis 04/03/2014 - History of hyperprolactinemia 03/10/2009 - History of seizures 08/15/2005 Has not had an episode since and felt to be related t o the haldol she was on. - Mixed hyperlipidemia 06/28/2005 - OCD (obsessive compulsive disorder) - Petit mal seizures - Schizo affective schizophrenia (HCC) 12/16/2014 - Urethrocele(618.03) 02/19/2010 Previous Surgical History PAST SURGICAL HISTORY Procedure Laterality Date - COLONOSCOP W/ OR W/O [facility] SPEC 07/02/10 - COLONOSCOPY 07/16/2018 - EGD 07/16/2018 - LIGATE FALLOPIAN TUBE Tubal ligation - REM LESIO TRUNK,ARM,LEG 1.1 -2.0CM 09/13/06 Exc. 4 separate chad cysts - REM LESION FACE,EAR,EYE 0.6-1CM 11/03/10 Family History FAMILY HISTORY Problem Relation Age of Onset - Coronary Artery Disease Mother - Breast Cancer Sister - Diabetes Sister - Diabetes Paternal Grandmother - Colon Cancer No Family History - Ovarian cancer No Family History - Uterine Cancer No Family History - Prostate Cancer No Family History - Hypertension No Family History - Hyperlipidemia No Family History - Kidney Disease No Family History - Seizures No Family History - Stroke No Family History Patient Allergies ALLERGIES Allergen Reactions - Haldol [Haloperidol* Other: See Comments seizures - Caffeine Other: See Comments Patient states can have in moderation. Excess amounts can ca use seizures. - Certain Deordorants* Unknown - Chocolate Other: See Comments Patient states she can have in moderation. - Dilantin [Phenytoin* Rash GI upset - Fragrances Rash - Gabapentin Rash GI upset - Keppra [Levetiracet* Rash GI upset - Lamictal [Lamotrigi* Intolerance too drowsey - Lipitor [Atorvastat* Other: See Comments Dry mouth, upset stomach, elevated LFT's - Peanuts Itching - Phenergan Plain Unknown Current Medications Current Outpatient Medications on File Prior to Visit Medication Sig - levothyroxine (SYNTHROID) 75 mcg tablet Take 1 tablet by m outh once daily. - Chlorhexidine Gluconate (PERIDEX) 0.12 % solution - fluticasone (FLONASE) 50 mcg/actuation nasal spray Use 1 S pray in each nostril once daily. (Patient not taking: Reported on 06/06/19 20 ) - LORazepam (ATIVAN) 1 mg tablet Take 1 tablet by mouth once daily for 30 days. Twice daily, [facility] - benztropine (COGENTIN) 1 mg tablet Take 1 tablet by mouth once daily. [facility] - risperiDONE (RISPERDAL) 4 mg tablet Take 1 tablet by mouth once daily. [facility] - citalopram (CELEXA) 20 mg tablet Take 1 tablet by mouth on ce daily. Per [facility] - ARISTADA 662 mg/2.4 mL injection 2.4 mL q 4 WEEKS. Per [facility] No current facility-administered medications on file prior t o visit. Social History Social History Tobacco Use - Smoking status: Former Smoker - Smokeless tobacco: Never Used - Tobacco comment: Quit in Substance Use Topics - Alcohol use: No - Drug use: No EXAM: BP 122/78 (BP Site: Right Arm, BP Position: Sitting, BP Cuff Size: Regular Adult) Pulse 80 Resp 16 Wt 77.7 kg (171 lb 3.2 oz) L MP 01/31/2012 BMI 28.49 kg/m? General Appearance: Well appearing, alert, in no acute distr ess, well-hydrated, well nourished. Head: No pain in neck. Head tenderness top/left area Ears: External ears normal, canals clear. Oropharynx: Lips, mucosa, and tongue normal, teeth and gums normal, oropharynx normal. Neck: Supple, no adenopathy; thyroid symmetric, normal size, no bruits. Lungs: lungs clear to auscultation. No wheezing, rhonchi, ra les. Heart: RRR without murmur, gallop, or rubs. No ectopy. Health Maintenance List SHINGRIX VACCINE(1 of 2) due on 2010 HPV TESTING due on 08/08/2013 MAMMOGRAM due on 01/12/2020 ANNUAL PCP TEAM CHRONIC DISEASE VISIT due on 06/06/2020 DTAP,TDAP,TD(2 - Td) due on 04/22/2021 DIABETES SCREEN due on 06/06/2022 PAP TESTING due on 06/13/2022 LIPID SCREEN due on 06/06/2024 COLORECTAL CANCER SCREENING,SEE MODIFIER due on 07/16/2028 HEPATITIS C SCREENING Completed INFLUENZA Completed Data reviewed Appointment on 06/11/2019 Component Date Value - Potassium 06/11/2019 3.8 Appointment on 06/06/2019 Component Date Value - Protein, Total 06/06/2019 7.7 - Albumin 06/06/2019 4.6 - Calcium 06/06/2019 9.6 - Bilirubin, Total 06/06/2019 0.5 - Alkaline Phosphatase 06/06/2019 102 - AST 06/06/2019 27 - Glucose 06/06/2019 82 - BUN 06/06/2019 13 - Creatinine 06/06/2019 0.70 - Sodium 06/06/2019 138 - Potassium 06/06/2019 3.6* - Chloride 06/06/2019 99 - CO2 06/06/2019 27 - Anion Gap 06/06/2019 12 - ALT 06/06/2019 27 - eGFR- 06/06/2019 >60 - eGFR-All Other Races 06/06/2019 >60 - Color 06/06/2019 Yellow - Clarity 06/06/2019 Cloudy* - Glucose, Urine 06/06/2019 Negative - Bilirubin, Urine 06/06/2019 Negative - Ketones, Urine 06/06/2019 Negative - Specific [place], Ur 06/06/2019 1.020 - Hemoglobin/Blood,Ur 06/06/2019 Negative - pH, Urine 06/06/2019 5.0 - Protein, Urine 06/06/2019 Negative - Urobilinogen 06/06/2019 Normal - Nitrites 06/06/2019 Negative - Leukest 06/06/2019 1+* - Comment 06/06/2019 SEE COMMENT - Urine Shiv Comment 06/06/2019 SEE COMMENT - WBC, Urine 06/06/2019 0-5 - RBC, Urine 06/06/2019 0-3 - Cast 06/06/2019 SEE COMMENT* - Epithelial Cells 06/06/2019 SEE COMMENT - TSH 06/06/2019 1.160 - Total Cholesterol, Nonfa* 06/06/2019 249* - Triglycerides, Nonfasting 06/06/2019 169* - HDL Cholesterol, Nonfast* 06/06/2019 56 - LDL Cholesterol, Nonfast* 06/06/2019 159* - Non HDL Cholesterol, Non* 06/06/2019 193* - VLDL Cholesterol, Nonfas* 06/06/2019 34* - Total Chol/HDL Ratio, No* 06/06/2019 4.45 - LDL/HDL Ratio, Nonfasting 06/06/2019 2.84* ASSESSMENT/PLAN: 1. Tension headache - ICD9: 307.81, ICD10: G44.209 - cold compress - Aspirin prn Follow up PRN. I agree with the Chief Complaint, ROS, and Past Histories in dependently gathered by the clinical business support coordinator and the remaining scr ibed note accurately describes my personal service to the patient. Daniel Irwin MD The documentation for this note was completed by Soco correa MA acting as scribe for Daniel Irwin MD. June 12, 2019 11:05 AM. Soco An MA cnov on 2019-06-12 CNOV Office Visit (FAMPWS) Normal 06-12-[address] [place] [address] Clinic LISA CASTRO ([id number]) 1960 [facility] Date Time Provider Department ([id number]) 06/12/19 11:40 AM DANIEL IRWIN During your visit today, we recorded the following informati on about you: Pulse Respiration Blood pressure Weight 80/minute 16/minute 122/78 77.7 kg Daniel Irwin MD 06/12/2019 11:31 AM Signed This Team Access Model visit is a same day encounter. It req uired patient-provider interaction for the medical decision making as documented below. Chief Complaint Patient presents with: Headache HPI Lisa Castro is a 59 year old female who presents here today for a same day appointment. Pt PCP is Dr. Castle. Headache - Started 1 day ago and located on left side of a d to top. Pain described as a dull throbbing pain, constant and rated a 1-2 /10. Unsure if there while sleeping. She al so states that it hurts behind her eye, but she got make up in her eye a while ago. Contributes headaches to stress and working. Hasn't tried taking it with anything as she doesn't want to mix her medications with anything. She thinks it could be weather related. Denie s any cold symptoms, speech or facial p roblems. She was able to sleep, didn't wake her up. Is able to see floaters at times, concerned about glaucoma d espite having cataracts removed. ENT - Has seen ENT in the past, no thyroid cancer, despite h oarse voice. Past medical history, appointments, medications, allergies r julio. Previous Medical History PAST MEDICAL HISTORY Diagnosis Date - Acquired hypothyroidism 06/28/2005 - Bipolar 1 disorder (HCC) - Elevated LFTs 10/29/2018 - Ex-smoker 05/31/2018 Started at age 20 up to 3-4 cigs a day. Quit in early (september of smoked 1-2 yrs only. - Fatty liver 06/01/2018 Elevated LFT's - Female stress incontinence 02/19/2010 - History of herpes genitalis 04/03/2014 - History of hyperprolactinemia 03/10/2009 - History of seizures 08/15/2005 Has not had an episode since s and felt to be rel ated to the haldol she was on. - Mixed hyperlipidemia 06/28/2005 - OCD (obsessive compulsive disorder) - Petit mal seizures - Schizo affective schizophrenia (HCC) 12/16/2014 - Urethrocele(618.03) 02/19/2010 Previous Surgical History PAST SURGICAL HISTORY Procedure Laterality Date - COLONOSCOP W/ OR W/O [facility] SPEC 07/02/10 - COLONOSCOPY 07/16/2018 - EGD 07/16/2018 - LIGATE FALLOPIAN TUBE Tubal ligation - REM LESIO TRUNK,ARM,LEG 1.1 -2.0CM 09/13/06 Exc. 4 separate chad cysts - REM LESION FACE,EAR,EYE 0.6-1CM 11/03/10 Family History FAMILY HISTORY Problem Relation Age of Onset - Coronary Artery Disease Mother - Breast Cancer Sister - Diabetes Sister - Diabetes Paternal Grandmother - Colon Cancer No Family History - Ovarian cancer No Family History - Uterine Cancer No Family History - Prostate Cancer No Family History - Hypertension No Family History - Hyperlipidemia No Family History - Kidney Disease No Family History - Seizures No Family History - Stroke No Family History Patient Allergies ALLERGIES Allergen Reactions - Haldol [Haloperidol* Other: See Comments seizures - Caffeine Other: See Comments Patient states can have in moderation. Excess amounts can ca use seizures. - Certain Deordorants* Unknown - Chocolate Other: See Comments Patient states she can have in moderation. - Dilantin [Phenytoin* Rash GI upset - Fragrances Rash - Gabapentin Rash GI upset - Keppra [Levetiracet* Rash GI upset - Lamictal [Lamotrigi* Intolerance too drowsey - Lipitor [Atorvastat* Other: See Comments Dry mouth, upset stomach, elevated LFT's - Peanuts Itching - Phenergan Plain Unknown Current Medications Current Outpatient Medications on File Prior to Visit Medication Sig - levothyroxine (SYNTHROID) 75 mcg tablet Take 1 table t by mouth once daily. - Chlorhexidine Gluconate (PERIDEX) 0.12 % solution - fluticasone (FLONASE) 50 mcg/actuation nasal spray Use 1 S pray in each nostril once daily. (Patient not taking: Reported on 06/06/19 20 ) - LORazepam (ATIVAN) 1 mg ta blet Take 1 tablet by mouth once daily for 30 days. Twice daily, [facility]. - benztropine (COGENTIN) 1 mg tablet Take 1 tablet by mout h once daily. Per [facility] - risperiDONE (RISPERDAL) 4 mg tablet Take 1 tablet by mouth once daily. Per [facility] - citalopram (CELEXA) 20 mg tablet Take 1 tablet by mouth on ce daily. Per [facility] - ARISTADA 662 mg/2.4 mL injection 2.4 mL q 4 WEEKS. Per [facility] No current facility-administered medications on file prior t o visit. Social History Social History Tobacco Use - Smoking status: Former Smoker - Smokeless tobacco: Never Used - Tobacco comment: Quit in Substance Use Topics - Alcohol use: No - Drug use: No EXAM: BP 122/78 (BP Site: Right Arm, BP Position: Sitting, BP Cuff Size: Regular Adult) Pulse 80 Resp 16 Wt 77.7 kg (171 lb 3.2 oz) L MP 01/31/2012 BMI 28.49 kg/m? General Appearance: Well tanesha earing, alert, in no acute distress, well-hydrated, well nourished. Head: No pain in neck. Head tenderness top/left area Ears: External ears normal, canals clear. Oropharynx: Lips, mucosa, and tongue nor mal, teeth and gums normal, oropharynx normal. Neck: Supple, no adenopathy; thyroid symmetric, normal size, no bruits. Lungs: lungs clear to auscultation. No wheezing, rhonchi, ra les. Heart: RRR without murmur, gallop, or rubs. No ectopy. Health Maintenance List SHINGRIX VACCINE(1 of 2) due on 2010 HPV TESTING due on 08/08/2013 MAMMOGRAM due on 01/12/2020 ANNUAL PCP TEAM CHRONIC DISEASE VISIT due on 06/06/2020 DTAP,TDAP,TD(2 - Td) due on 04/22/2021 DIABETES SCREEN due on 06/06/2022 PAP TESTING due on 06/13/2022 LIPID SCREEN due on 06/06/2024 COLORECTAL CANCER SCREENING,SEE MODIFIER due on 07/16/2028 HEPATITIS C SCREENING Completed INFLUENZA Completed Data reviewed Appointment on 06/11/2019 Component Date Value - Potassium 06/11/2019 3.8 Appointment on 06/06/2019 Component Date Value - Protein, Total 06/06/2019 7.7 - Albumin 06/06/2019 4.6 - Calcium 06/06/2019 9.6 - Bilirubin, Total 06/06/2019 0.5 - Alkaline Phosphatase 06/06/2019 102 - AST 06/06/2019 27 - Glucose 06/06/2019 82 - BUN 06/06/2019 13 - Creatinine 06/06/2019 0.70 - Sodium 06/06/2019 138 - Potassium 06/06/2019 3.6* - Chloride 06/06/2019 99 - CO2 06/06/2019 27 - Anion Gap 06/06/2019 12 - ALT 06/06/2019 27 - eGFR- 06/06/2019 >60 - eGFR-All Other Races 06/06/2019 >60 - Color 06/06/2019 Yellow - Clarity 06/06/2019 Cloudy* - Glucose, Urine 06/06/2019 Negative - Bilirubin, Urine 06/06/2019 Negative - Ketones, Urine 06/06/2019 Negative - Specific [place], Ur 06/06/2019 1.020 - Hemoglobin/Blood,Ur 06/06/2019 Negative - pH, Urine 06/06/2019 5.0 - Protein, Urine 06/06/2019 Negative - Urobilinogen 06/06/2019 Normal - Nitrites 06/06/2019 Negative - Leukest 06/06/2019 1+* - Comment 06/06/2019 SEE COMMENT - Urine Shiv Comment 06/06/2019 SEE COMMENT - WBC, Urine 06/06/2019 0-5 - RBC, Urine 06/06/2019 0-3 - Cast 06/06/2019 SEE COMMENT* - Epithelial Cells 06/06/2019 SEE COMMENT - TSH 06/06/2019 1.160 - Total Cholesterol, Nonfa* 06/06/2019 249* - Triglycerides, Nonfasting 06/06/2019 169* - HDL Cholesterol, Nonfast* 06/06/2019 56 - LDL Cholesterol, Nonfast* 06/06/2019 159* - Non HDL Cholesterol, Non* 06/06/2019 193* - VLDL Cholesterol, Nonfas* 06/06/2019 34* - Total Chol/HDL Ratio, No* 06/06/2019 4.45 - LDL/HDL Ratio, Nonfasting 06/06/2019 2.84* ASSESSMENT/PLAN: 1. Tension headache - ICD9: 307.81, ICD10: G44.209 - cold compress - Aspirin prn Follow up PRN. I agree with the Chief Complaint, ROS, and Past Histories in dependently gathered by the clinical business support coordinator and the remaining scr ibed note accurately describes my personal service to the patient. Daniel Irwin MD The documentation for this note was completed by Soco correa MA acting as scribe for Daniel Irwin MD. June 12, 2019 11:05 AM. Soco An MA Referring Provider: SELF [[id number]] Allergies As of Date: 06/12/2019 Noted Allergy Reaction HALDOL (HALOPERIDOL LACTATE) 05/31/2018 14 - Other: See Comm ents Comments: seizures CAFFEINE 03/04/2009 14 - Other: See Comments Comments: Patient states can have in moderation. Excess amou nts can cause seizures. Certain Deordorants [Other] 09/11/2008 16 - Unknown CHOCOLATE 03/04/2009 14 - Other: See Comments Comments: Patient states she can have in moderation. DILANTIN (PHENYTOIN SODIUM EXTEND*07/11/2006 2 - Rash Comments: GI upset FRAGRANCES 08/30/2005 2 - Rash GABAPENTIN 07/11/2006 2 - Rash Comments: GI upset KEPPRA (LEVETIRACETAM) 07/11/2006 2 - Rash Comments: GI upset LAMICTAL (LAMOTRIGINE) 10/25/2006 5 - Intolerance Comments: too drowsey LIPITOR (ATORVASTATIN) 10/08/2014 14 - Other: See Comments Comments: Dry mouth, upset stomach, elevated LFT's PEANUTS 09/11/2008 9 - Itching PHENERGAN PLAIN 03/04/2009 16 - Unknown Date Reviewed: 06/12/2019 Reviewed by: Soco An MA - Fully Assessed Reason for Visit: Headache [52] Cmt: x1 day Reason For Visit History Recorded Primary Visit Diagnosis:Tension headache [G44.209] Prescriptions as of 06/12/2019 Sig: LEVOTHYROXINE 75 MCG TABLET Take 1 tablet by mouth once d* CHLORHEXIDINE GLUCONATE 0.12 * FLUTICASONE PROPIONATE 50 MCG* Use 1 [place] in each nostril o * LORAZEPAM 1 MG TABLET Take 1 tablet by mouth once d* BENZTROPINE 1 MG TABLET Take 1 tablet by mouth once d* RISPERIDONE 4 MG TABLET Take 1 tablet by mouth once d* CITALOPRAM 20 MG TABLET Take 1 tablet by mouth once d* ARISTADA 662 MG/2.4 ML SUSPEN* 2.4 mL q 4 WEEKS. Per [employer]ician * Problem List As Of Date 06/12/2019 Noted Resolved Acquired hypothyroidism [E03.9] 06/28/2005 Mixed hyperlipidemia [E78.2] 06/28/2005 History of seizures [Z87.898] 08/15/2005 More... Sebaceous cyst [L72.3] 07/17/2006 10/21/2010 Other Fall [R29.6] 06/07/2007 07/17/2009 History of hyperprolactinemia [Z86.39] 03/10/2009 Urethrocele(618.03) [N36.8] 02/19/2010 Female stress incontinence [N39.3] 02/19/2010 Screening for colon cancer [Z12.11] 06/01/2010 10/21/2010 Herpes [B00.9] 06/14/2010 06/14/2010 Sebaceous cyst [L72.3] 11/03/2010 09/13/2014 History of herpes genitalis [Z86.19] 04/03/2014 Schizo affective schizophrenia (HCC) [F25.9] 12/16/2014 More... Breast screening [Z12.39] 05/19/2015 Bipolar 1 disorder (HCC) [F31.9] OCD (obsessive compulsive disorder) [F42.9] Ex-smoker [Z87.891] 05/31/2018 More... Encounter for gynecological examination [Z01.41*05/31/2018 More... Colon cancer screening [Z12.11] 05/31/2018 Medicare annual wellness visit, subsequent [Z00*05/31/2018 More... Hoarseness of voice [R49.0] 05/31/2018 Fatty liver [K76.0] 06/01/2018 More... Elevated LFTs [R94.5] 10/29/2018 More... RBBB [I45.10] 02/21/2019 Disposition: Return if symptoms worsen or fail to improve. Follow-up and Disposition History Recorded Encounter Status:Closed by DANIEL IRWIN MD on 06/12/19 potassium on 06-11 Potassium [Moles/Vol] 3.8 3.7-5.1 mmol/L Normal 06-11-19 [facility] ([id number]) Comment: Performed By: #### K1 ####Cl [facility] [place], [place] [phone] urinalysis with microscopic on 2019-06-06 Bilirubin, Urine Negative Negative Normal 06-06-2019 [facility] ([id number]) Comment: Performed By: #### UAWMIC ## ##[facility] [place], [place] [phone] Cast SEE COMMENT 0 Critically abnormal 06-06-19 [facility] ([id number]) Comment: Result Comment: 1-3 Hyaline Cast Performed By: #### UAWMIC ## ##[facility] [place], [place] [phone] Clarity (U) Cloudy Clear Critically abnormal 06-06-19 [facility] ([id number]) Comment: Performed By: #### UAWMIC ## ##[facility], [place] [phone] Color (U) Yellow Yellow Normal 06-06-2019 [facility] ([id number]) Comment: Performed By: #### UAWMIC ## ##[place] [address] [address] [phone] Comments SEE COMMENT Normal 06-06-2019 [facility] ([id number]) Comment: Result Comment: N/A Performed By: #### ODILONMIC ## ##[place] [address] [address] [place], [place] [phone]- [phone] Epithelial cells LM.HPF SEE COMMENT Normal 05-16 [facility] (Urine sed) [#/Area] [place] (74670) Comment: Result Comment: Few Squamous Epithelial Cells Performed By: #### UAWMIC ## ##[place] [address] [address] [place] [phone] Glucose Ql (U) Negative Negative Normal 06-06-2019 [facility] (55791) Comment: Performed By: #### UAWMIC ## ##[place] [address], [place] [phone]- [phone] Hemoglobin/Blood,Ur Negative Negative Normal 06-06-2019 [facility] (50788) Comment: Performed By: #### UAWMIC ## ##[facility] [address], [place] [phone]- [phone] Ketones Ql (U) Negative Negative Normal 06-06-2019 [facility] (55242) Comment: Performed By: #### UAWMIC ## ##[place] [id number], [place] [phone] Leukest 1+ Negative Critically abnormal 06-06-2019 [facility] ([id number]) Comment: Performed By: #### UAWMIC ## ##[facility], [place] [phone]- [phone] Nitrite Ql (U) Negative Negative Normal 06-06-2019 [facility] (83464) Comment: Performed By: #### UAWMIC ## ##[place] [address] [address], [place] [phone]- [phone] pH (Bld) 5.0 4.5-8.0 Normal 06-06-2019 [facility] (13108) Comment: Performed By: #### UAWMIC ## ##[place] [address] [address], [place] [phone]- [phone] Protein (U) [Mass/Vol] Negative Negative mg/dL Normal [facility] (07936) Comment: Performed By: #### UAWMIC ## ##[place] [address] [address], [place] [phone]- [phone] RBC (U) [#/Vol] 0-3 0-3 Normal 06-06-2019 [facility] ([id number]) Comment: Performed By: #### UAWMIC ## ##[place] [address] [address], [place] [phone]- [phone] Specific [place], Ur 1.020 1.005-1.030 Normal 020 [facility] (36775) Comment: Performed By: #### UAWMIC ## ##[place] [address] [address], [place] [phone]- [phone] Urine Shiv Comment SEE COMMENT Normal 06-06-2019 [facility] ([id number]) Comment: Result Comment: Result reche cked. Performed By: #### UAWMIC ## ##[place] [id number], [place] [phone] Urobilinogen Qn (U) Normal Normal Normal 06-06-2019 [facility] (47750) Comment: Performed By: #### UAWMIC ## ##[facility] [address] [place], [place] [phone] WBC (Bld) [#/Vol] 0-5 0-5 Normal 06-06-2019 [facility] (30973) Comment: Performed By: #### UAWMIC ## ##[facility] [address] [place], [place] [phone] tsh on 2019-06-06 TSH Qn 1.160 0.270-4.200 uU/mL Normal 06-06-2019 [facility] ([id number]) Comment: Performed By: #### LIPNF, CM P, TSH ####[place] [id number] [place], [place] [address] [phone] progress on 2019-05 PROGRESS HNO ID: [id number] Normal 06-06-2019 [facility] Author: Anita) Evert Castellano ([id number]) Service: ? Author Type: Physician Business Applications Manager Type: Progress Notes Filed: 06/06/2019 1:18 PM Note Text: Welcome To Medicare Visit Medical B eligibility date 08/13/2005 Date of last exam 05/31/2018 PAST MEDICAL HISTORY Diagnosis Date - Acquired hypothyroidism 06/28/2005 - Bipolar 1 disorder (HCC) - Elevated LFTs 10/29/2018 - Ex-smoker 05/31/2018 Started at age 20 up to 3-4 cigs a day. Quit in early ' ( september of smoked 1-2 yrs only. - Fatty liver 06/01/2018 Elevated LFT's - Female stress incontinence 02/19/2010 - History of herpes genitalis 04/03/2014 - History of hyperprolactinemia 03/10/2009 - History of seizures 08/15/2005 Has not had an episode since and felt to be related t o the haldol she was on. - Mixed hyperlipidemia 06/28/2005 - OCD (obsessive compulsive disorder) - Petit mal seizures - Schizo affective schizophrenia (HCC) 12/16/2014 - Urethrocele(618.03) 02/19/2010 PAST SURGICAL HISTORY Procedure Laterality Date - COLONOSCOP W/ OR W/O [facility] SPEC 07/02/10 - COLONOSCOPY 07/16/2018 - EGD 07/16/2018 - LIGATE FALLOPIAN TUBE Tubal ligation - REM LESIO TRUNK,ARM,LEG 1.1 -2.0CM 09/13/06 Exc. 4 separate chad cysts - REM LESION FACE,EAR,EYE 0.6-1CM 11/03/10 Haldol [Haloperidol Lactate]; Caffeine; Certain Deordorants [Other]; Chocolate; Dilantin [Phenytoin Sodium Extended]; Fragrances; Gabapentin; Keppra [Levetiracetam]; Lamictal [Lamotrigine]; Lipitor [Arnaldo rvastatin]; Peanuts; Phenergan Plain Medications reviewed: Yes FAMILY HISTORY Problem Relation Age of Onset - Coronary Artery Disease Mother - Diabetes Paternal Grandmother - Colon Cancer No Family History - Breast Cancer No Family History - Ovarian cancer No Family History - Uterine Cancer No Family History - Prostate Cancer No Family History - Hypertension No Family History - Hyperlipidemia No Family History - Kidney Disease No Family History - Seizures No Family History - Stroke No Family History SOCIAL HISTORY: Social History Tobacco Use - Smoking status: Former Smoker - Smokeless tobacco: Never Used - Tobacco comment: Quit in Substance Use Topics - Alcohol use: No - Drug use: No Lisa gets minimal exercise. She watches her diet for sodiu m, low fat and low cholesterol some of the time. List of current specialists seen: [facility] Psych- Dr. Sanchez End of Live Planning discussed including patients advanced d irective wishes: Yes I am willing to follow Lisa's advanced directives. PHQ-2 / Depression screen She in the past two weeks admits to having felt down, depres sed, hopeless or with little interest or pleasure in doing things. Sees psych. Functional Ability/Safety Screen 1. Was the patient's timed Up and Go test unsteady or longer than 30 seconds? No 2. Does the patient need help with the phone, transportation , shopping,preparing meals, housework, laundry, medications or managing money? Some yes. However does have a outpatient case manager/case manage r and a guardian that helps manage her money. She is also is afraid to drive so needs transportation. 3. Does your home have rugs in the hallway, lack of grab bar s in the bathroom, lack of handrails on the stairs or have poor light ing? No Hearing Evaluation: normal PHYSICAL EXAM BP 122/89 (BP Site: Left Arm, BP Position: Sitting, BP Cuff Size: Regular Adult) Pulse 88 Resp 14 Ht 165.1 cm (5' 5) Wt 76.7 kg (169 lb) LMP 01/31/2012 BMI 28.12 kg/m? Alert and oriented X 3: YES Body mass index is 28.12 kg/m?. Visual acuity: sees Ophthalmology ASSESSMENT/PLAN: 59 year old female The following prevention plan was discussed during the offic e visit and provided to the patient: See below. ANJU LOYD PA-C Chief Complaint Patient presents with: Physical HPI Lisa Castro is a 59 year old female who presents here to day for extensive exam. Patient with hx of Hypothyroidism, Bipolar 1 disorder, schiz ophrenia, and fatty liver. Patient still seeing counseling center. Questions whether e is on the right medications. Past medical history, appointments, medications, allergies r eviewed. Previous Medical History PAST MEDICAL HISTORY Diagnosis Date - Acquired hypothyroidism 06/28/2005 - Bipolar 1 disorder (HCC) - Elevated LFTs 10/29/2018 - Ex-smoker 05/31/2018 Started at age 20 up to 3-4 cigs a day. Quit in early 's ( september of smoked 1-2 yrs only. - Fatty liver 06/01/2018 Elevated LFT's - Female stress incontinence 02/19/2010 - History of herpes genitalis 04/03/2014 - History of hyperprolactinemia 03/10/2009 - History of seizures 08/15/2005 Has not had an episode since and felt to be related t o the haldol she was on. - Mixed hyperlipidemia 06/28/2005 - OCD (obsessive compulsive disorder) - Petit mal seizures - Schizo affective schizophrenia (HCC) 12/16/2014 - Urethrocele(618.03) 02/19/2010 Previous Surgical History PAST SURGICAL HISTORY Procedure Laterality Date - COLONOSCOP W/ OR W/O [facility] SPEC 07/02/10 - COLONOSCOPY 07/16/2018 - EGD 07/16/2018 - LIGATE FALLOPIAN TUBE Tubal ligation - REM LESIO TRUNK,ARM,LEG 1.1 -2.0CM 09/13/06 Exc. 4 separate chad cysts - REM LESION FACE,EAR,EYE 0.6-1CM 11/03/10 Family History FAMILY HISTORY Problem Relation Age of Onset - Coronary Artery Disease Mother - Diabetes Paternal Grandmother - Colon Cancer No Family History - Breast Cancer No Family History - Ovarian cancer No Family History - Uterine Cancer No Family History - Prostate Cancer No Family History - Hypertension No Family History - Hyperlipidemia No Family History - Kidney Disease No Family History - Seizures No Family History - Stroke No Family History Patient Allergies ALLERGIES Allergen Reactions - Haldol [Haloperidol* Other: See Comments seizures - Caffeine Other: See Comments Patient states can have in moderation. Excess amounts can ca use seizures. - Certain Deordorants* Unknown - Chocolate Other: See Comments Patient states she can have in moderation. - Dilantin [Phenytoin* Rash GI upset - Fragrances Rash - Gabapentin Rash GI upset - Keppra [Levetiracet* Rash GI upset - Lamictal [Lamotrigi* Intolerance too drowsey - Lipitor [Atorvastat* Other: See Comments Dry mouth, upset stomach, elevated LFT's - Peanuts Itching - Phenergan Plain Unknown Current Medications Current Outpatient Medications on File Prior to Visit Medication Sig - levothyroxine (SYNTHROID) 75 mcg tablet Take 1 tablet by m outh once daily. - Chlorhexidine Gluconate (PERIDEX) 0.12 % solution - benztropine (COGENTIN) 1 mg tablet Take 1 tablet by mouth once daily. [facility] - risperiDONE (RISPERDAL) 4 mg tablet Take 1 tablet by mouth once daily. Per [facility] - citalopram (CELEXA) 20 mg tablet Take 1 tablet by mouth on ce daily. Per [facility] - ARISTADA 662 mg/2.4 mL injection 2.4 mL q 4 WEEKS. Per [facility] - fluticasone (FLONASE) 50 mcg/actuation nasal spray Use 1 S pray in each nostril once daily. (Patient not taking: Reported on 06/06/19 ) - LORazepam (ATIVAN) 1 mg tablet Take 1 tablet by mouth once daily for 30 days. Twice daily, Per [facility]. No current facility-administered medications on file prior t o visit. Social History Social History Tobacco Use - Smoking status: Former Smoker - Smokeless tobacco: Never Used - Tobacco comment: Quit in Substance Use Topics - Alcohol use: No - Drug use: No Review of Symptoms REVIEW OF SYSTEMS GENERAL: No weight loss, malaise or fevers HEENT: Negative for frequent or significant headaches, No ch anges in hearing or vision, no nose bleeds or other nasal problems NECK: Negative for lumps, goiter, pain and significant neck swelling RESPIRATORY: some sob with walking inclines. Negative for co ugh, hemoptysis, wheezing, COPD, dyspnea. CARDIOVASCULAR:pt had cp a few months ago but not since. EKG had showed RBBB but hasn't done stress test yet. Negative for chest art n, leg swelling, CHF or palpitations GI: No nausea, vomiting, or diarrhea and No heartburn or ref lux symptoms : No history of dysuria, frequency or incontinence MUSCULOSKELETAL: +intermittent left knee pian. Negative for joint pain or swelling, back pain or muscle pain SKIN: Negative for lesions, rash, and itching PSYCH: See HPI HEMATOLOGY/LYMPHOLOGY: Negative for prolonged bleeding, brui sing easily or swollen nodes ENDOCRINE: Negative for cold or heat intolerance, polyuria, polydipsia and goiter NEURO:+seizures but not since stopping haldol. No history of headaches, syncope, paralysis, or tremors EXAM: BP 122/89 (BP Site: Left Arm, BP Position: Sitting, BP Cuff Size: Regular Adult) Pulse 88 Resp 14 Ht 165.1 cm (5' 5) Wt 76.7 kg (169 lb) LMP 01/31/2012 BMI 28.12 kg/m? General Appearance: Well appearing, alert, in no acute distr ess, well-hydrated, well nourished.. Skin: Skin color, texture, turgor normal, no suspicious rash es or lesions. Head: Normocephalic, no masses, lesions, tenderness or abnor malities. Eyes: Anicteric sclera. Pupils are equally round and reactiv e to light. Extraocular movements are intact. . Ears: External ears normal, canals clear, TMs pearly hoffman. . Nose/Sinuses: Nares normal, septum midline, mucosa normal, n o drainage or sinus tenderness. Oropharynx: Lips, mucosa, and tongue normal, teeth and gums normal, oropharynx normal. Neck: Supple, no adenopathy; thyroid symmetric, normal size, no bruits. Lungs: lungs clear to auscultation. No wheezing, rhonchi, ra les. Heart: RRR without murmur, gallop, or rubs. No ectopy. Abdomen: Normal abdominal exam, Abdomen soft, non-tender. Gilmer wel sounds normal. No masses, organomegaly. Extremities: No deformities, edema, skin discoloration, club douglas or cyanosis. Good capillary refill. . Peripheral Pulses: Normal. Neurologic: Gait normal. Reflexes normal and symmetric. Sens ation grossly intact.. Health Maintenance List SHINGRIX VACCINE(1 of 2) due on 2010 HPV TESTING due on 08/08/2013 MAMMOGRAM due on 01/12/2020 ANNUAL PCP TEAM CHRONIC DISEASE VISIT due on 04/05/2020 DTAP,TDAP,TD(2 - Td) due on 04/22/2021 DIABETES SCREEN due on 11/21/2021 PAP TESTING due on 06/13/2022 LIPID SCREEN due on 11/06/2023 COLORECTAL CANCER SCREENING,SEE MODIFIER due on 07/16/2028 HEPATITIS C SCREENING Completed INFLUENZA Completed Data reviewed Component Latest Ref Rng AND Units 11/05/2018 11/21/2018 019 04/05/2019 WBC 3.70 - 11.00 k/uL 3.33 (L) RBC 3.90 - 5.20 m/uL 4.65 Hemoglobin 11.5 - 15.5 g/dL 13.8 Hematocrit 36.0 - 46.0 % 43.2 MCV 80.0 - 100.0 fL 92.9 MCH 26.0 - 34.0 pG 29.7 MCHC 30.5 - 36.0 g/dL 31.9 RDW-CV 11.5 - 15.0 % 13.2 Platelet Count 150 - 400 k/uL 174 MPV 9.0 - 12.7 fL 11.0 Neut% % 72.0 Abs Neut (ANC) 1.45 - 7.50 k/uL 2.40 Lymph% % 21.0 Abs Lymph 1.00 - 4.00 k/uL 0.70 (L) Kemper% % 5.0 Abs Kemper <0.87 k/uL 0.17 Eosin% % 0.0 Abs Eosin <0.46 k/uL 0.00 Baso% % 1.0 Abs Baso <0.11 k/uL 0.03 ANC(includeSEG+BAND) k/uL 2.40 Myelo% % 1.0 Left Shift Present Ovalocytes Few Polychromasia Slight Diff Type Manual Diff Protein, Total 6.3 - 8.0 g/dL 7.6 7.3 Albumin 3.9 - 4.9 g/dL 4.1 4.2 Calcium 8.5 - 10.2 mg/dL 9.1 Bilirubin, Total 0.2 - 1.3 mg/dL 0.6 0.3 Alkaline Phosphatase 34 - 123 U/L 163 (H) 93 AST 13 - 35 U/L 156 (H) 28 Glucose 74 - 99 mg/dL 81 BUN 7 - 21 mg/dL 10 Creatinine 0.58 - 0.96 mg/dL 0.69 Sodium 136 - 144 mmol/L 138 Potassium 3.7 - 5.1 mmol/L 3.7 Chloride 97 - 105 mmol/L 96 (L) CO2 22 - 30 mmol/L 27 Anion Gap 9 - 18 mmol/L 15 ALT 7 - 38 U/L 238 (H) 31 eGFR- >60 eGFR-All Other Races . >60 Cholesterol, Total <200 mg/dL 235 (H) Triglyceride <150 mg/dL 100 HDL Cholesterol >39 mg/dL 54 LDL Cholesterol <100 mg/dL 161 (H) Non HDL Cholesterol <130 mg/dL 181 (H) Fasting Time hrs 2 VLDL Cholesterol <30 mg/dL 20 TC:HDL Ratio <5.10 4.35 LDL:HDL Ratio <2.54 2.98 (H) Bilirubin, Conjug <0.2 mg/dL <0.2 TSH 0.270 - 4.200 uU/mL 1.750 Free T4 0.9 - 1.7 ng/dL 1.5 ASSESSMENT/PLAN: 1. Medicare annual wellness visit, subsequent - ICD9: V70.0, ICD10: Z00.00 (primary diagnosis) - Encouraged monthly Breast Self Exam - Follow up for annual exam in one year. 2. Mixed hyperlipidemia - ICD9: 272.2, ICD10: E78.2 - to be determined upon return of lab results - Encouraged following a low carbohydrate, healthy oil intak e diet. - Continue current therapy. 3. RBBB - ICD9: 426.4, ICD10: I45.10 Patient to reschedule stress test 4. Acquired hypothyroidism - ICD9: 244.9, ICD10: E03.9 - Instructed patient on importance of taking on an empty sto mach either first thing in the morning or at bedtime. - check TSH today 5. Schizo affective schizophrenia (HCC) - ICD9: 295.70, ICD1 0: F25.9 Continue with psych 6. Bipolar 1 disorder (HCC) - ICD9: 296.7, ICD10: F31.9 Continue with psych. Patient to get labs. F/u in 6 months. ANJU LOYD PA-C lipid panel, nonfast on 2019-06-06 Cholesterol [Mass/Vol] 249 <200 mg/dL High 020 [facility] ([id number]) Comment: Result Comment: <200 mg/dL, Desirable 200-239 mg/dL, Borderline hi gh >239 mg/dL, High Performed By: #### LIPNF, CM P, TSH ####[facility] [place] [address] [phone] Cholesterol in 2.84 <2.54 mg/dL High 06-06-2019 [facility] LDL/Cholesterol in HDL [Mass [place] (09150) ratio] Comment: Result Comment: Reference: 1. National Cholesterol Educ ation Program ATP III Guideline At-A-Glance Quick Desk Reference: National Heart, Lung, and Blood [place]. National Institutes of Health. 2001: NIH Publication No. 01-3305. 2. An International Atherosc lerosis Society position paper: global recommendations for the management of dyslipidemia: executive summary, Atherosclerosis. 2014: 232(2):410-413. Performed By: #### LIPNF, CM P, TSH ####[facility] [address] [place] [address] [phone] Cholesterol.total/Cholesterol in 4.45 <5.10 mg/dL Normal 06-06-2019 [place] [facility] [Mass ratio] Cli dam[facility] ([id number]) Comment: Performed By: #### LIPNF, CM P, TSH ####[facility] [place] [address] [phone] HDL Cholesterol, NF 56 >39 mg/dL Normal 06-06-2019 [facility] ([id number]) Comment: Result Comment: 40-59 mg/dL, Acceptable >59 mg/dL, High: Negative ri sk factor for coronary heart disease <40 mg/dL, Low: Positive ris k factor for coronary heart disease Performed By: #### LIPSHAHNAZ, CM P, TSH ####[facility] [place] [address] [phone] LDL Cholesterol, NF 159 <100 mg/dL High 06-06-2019 [facility] ([id number]) Comment: Result Comment: <100 mg/dL, Optimal 100-129 mg/dL, Near optimal/ above optimal 130-159 mg/dL, Borderline hi gh 160-189 mg/dL, High >189 mg/dL, Very high Secondary prevention optimal LDL Cholesterol levels are recommended to be < 70 mg/dL Performed By: #### LIPSHAHNAZ, CM P, TSH ####[address] [place] [address] [phone] Non HDL Chol, NF 193 <130 mg/dL High 06-06-2019 Cl [facility] ([id number]) Comment: Result Comment: <130 mg/dL, Optimal 130-159 mg/dL, Near optimal/ above optimal 160-189 mg/dL, Borderline hi gh 190-219 mg/dL, High >219 mg/dL, Very high Secondary prevention optimal non HDL Cholesterol levels are recommended to be < 100 mg/dL Performed By: #### LIPSHAHNAZ, CM P, TSH ####[place] [id number] [place] [address] Triglycerides, NF 169 <150 mg/dL High 06-06-2019 C [facility] ([id number]) Comment: Result Comment: <150 mg/dL, Normal 150-199 mg/dL, Borderline hi gh 200-499 mg/dL, High >499 mg/dL, Very high Performed By: #### LIPNF, CM P, TSH ####[place] [id number] [place] [address] VLDL Cholesterol, NF 34 <30 mg/dL High 0 [facility] ([id number]) Comment: Performed By: #### LIPNF, CM P, TSH ####[facility] [place] [address] [phone] comp metabolic panel on 2019-06-06 Albumin [Mass/Vol] 4.6 3.9-4.9 g/dL Normal 06-06-2019 [facility] ([id number]) Comment: Performed By: #### LIPNF, CM P, TSH ####[place] [address] [address] [place] [address] [phone] ALP [Catalytic activity/Vol] 102 34-123 U/L Normal 0 06-06-2019 [facility] ([id number]) Comment: Performed By: #### LIPNF, CM P, TSH ####[address] [place] [address] [phone] ALT [Catalytic activity/Vol] 27 7-38 U/L Normal 0 06-06-2019 [facility] ([id number]) Comment: Performed By: #### LIPNF, CM P, TSH ####[place] [address] [phone] Anion gap [Moles/Vol] 12 9-18 mmol/L Normal 06-06-19 [facility] ([id number]) Comment: Performed By: #### LIPNF, CM P, TSH ####[place] [address] [phone] AST [Catalytic activity/Vol] 27 13-35 U/L Normal 0 06-06-2019 [facility] ([id number]) Comment: Performed By: #### LIPNF, CM P, TSH ####[place] [id number] [place] [address] [phone] Bilirubin [Mass/Vol] 0.5 0.2-1.3 mg/dL Normal 0 [facility] ([id number]) Comment: Performed By: #### LIPNF, CM P, TSH ####[place] [id number] [place] [address] [phone] Calcium [Mass/Vol] 9.6 8.5-10.2 mg/dL Normal 06-06-2019 [facility] ([id number]) Comment: Performed By: #### LIPNF, CM P, TSH ####[facility] [id number] [place] [address] [phone] Chloride [Moles/Vol] 99 97-105 mmol/L Normal 0 [facility] (88151) Comment: Performed By: #### LIPNF, CM P, TSH ####[facility] [place] [address] CO2 [Moles/Vol] 27 22-30 mmol/L Normal 06-06-2019 [facility] (40420) Comment: Performed By: #### LIPNF, CM P, TSH ####[facility] [address] [phone] Creatinine [Mass/Vol] 0.70 0.58-0.96 mg/dL Normal 06-06-19 20 [facility] ([id number]) Comment: Performed By: #### LIPNF, CM P, TSH ####[facility] [place] [address] [phone] eGFR- Amer. >60 Normal 06-06-2019 [facility] ([id number]) Comment: Performed By: #### LIPNF, CM P, TSH ####[place] [id number] [place] [address] [phone] GFR/1.73 sq M predicted >60 mL/min/{1.73_m2} Normal 06-06-2019 [facility] among non-blacks [facility] ([id number]) (S/P/Bld) [Vol rate/Area] Comment: Result Comment: eGFR (Estima bobby GFR) Units of measure: mL/min/1.73 meters squared eGFR is derived from the ree xpressed MDRD Study equation using the following parameters: serum creatinine, age, gender and race. The creatinine assay has been calibrated to be traceable to IDMS. An eGFR <60 mL/min/1.73m2 fo r >3 months is consistent with chronic kidney disease. Refer to KDOQI guidelines for clinical interpretation. In patients with unstable re nal function, e.g. those with acute kidney injury, the eGFR may not accurately reflect actual GFR. Performed By: #### AUGUST HAIRSTON, TSH ####[facility] [place] [address] [phone] Glucose [Mass/Vol] 82 74-99 mg/dL Normal 06-06-2019 [facility] (61985) Comment: Result Comment: The [place] Diabetes Association (ADA) provides guidance for cutoff values for fasting glucose and random glucose. The ADA defines fasting as no caloric intake for at least 8 hours. Fas ting plasma glucose results between 100 to 125 mg/dL indicate increased risk for diabetes (prediabetes). Fasting plasma glucose resul ts greater than or equal to 126 mg/dL meet the criteria for diagnosis of diabetes. In the absence of unequivocal hyperglycemia, results should be confirmed by repeat testing. In a patient with classic s ymptoms of hyperglycemia or hyperglycemic crisis, random plasma glucose results greater than or equal to 200 mg/dL meet the criteria for diagnosis of diabetes. Reference: Standards of [facility] Care in Diabetes 2016, [place] Diabetes Association. Diabetes Care. 2016.39(Suppl 1). Performed By: #### AUGUST HAIRSTON, TSH ####[facility] [place] [address] [phone] Potassium [Moles/Vol] 3.6 3.7-5.1 mmol/L Low 06-06-19 [facility] (35404) Comment: Performed By: #### AUGUST HAIRSTON, TSH ####[facility] [id number] [place] [address] [phone] Protein [Mass/Vol] 7.7 6.3-8.0 g/dL Normal 06-06-2019 [facility] (45107) Comment: Performed By: #### AUGUST HAIRSTON, TSH ####[facility] [place] [address] [phone] Sodium [Moles/Vol] 138 136-144 mmol/L Normal 06-06-2019 [facility] (14870) Comment: Performed By: #### LIPNF, CM P, TSH ####[facility] [id number] [place] [address] [phone] Urea nitrogen [Mass/Vol] 13 7-21 mg/dL Normal 06-06 [facility] ([id number]) Comment: Performed By: #### LIPNF, CM P, TSH ####[facility] [id number] [place] [address] [phone] cnov on 2019-06-06 CNOV Office Visit (FAMPWS) Normal 06-06-19 [facility] LISA CASTRO ([id number]) 1960 [facility] Date Time Provider Department ([id number]) 06/06/19 12:20 PM ANITA LOYD) FAMPWS During your visit today, we recorded the following informati on about you: Pulse Respiration Blood pressure Weight 88/minute 14/minute 122/89 76.7 kg Height 1.651 m ANJU LOYD PA-C 06/06/2019 1:18 PM Signed Welcome To Medicare Visit Medical B eligibility date 08/13/2005 Date of last exam 05/31/2018 PAST MEDICAL HISTORY Diagnosis Date - Acquired hypothyroidism 06/28/2005 - Bipolar 1 disorder (HCC) - Elevated LFTs 10/29/2018 - Ex-smoker 05/31/2018 Started at age 20 up to 3-4 cigs a day. Quit in early (september of smoked 1-2 yrs only. - Fatty liver 06/01/2018 Elevated LFT's - Female stress incontinence 02/19/2010 - History of herpes genitalis 04/03/2014 - History of hyperprolactinemia 03/10/2009 - History of seizures 08/15/2005 Has not had an episode since and felt to be rel ated to the haldol she was on. - Mixed hyperlipidemia 06/28/2005 - OCD (obsessive compulsive disorder) - Petit mal seizures - Schizo affective schizophrenia (HCC) 12/16/2014 - Urethrocele(618.03) 02/19/2010 PAST SURGICAL HISTORY Procedure Laterality Date - COLONOSCOP W/ OR W/O [facility] SPEC 07/02/10 - COLONOSCOPY 07/16/2018 - EGD 07/16/2018 - LIGATE FALLOPIAN TUBE Tubal ligation - REM LESIO TRUNK,ARM,LEG 1.1 -2.0CM 09/13/06 Exc. 4 separate chad cysts - REM LESION FACE,EAR,EYE 0.6-1CM 11/03/10 Haldol [Haloperidol Lactate] ; Caffeine; Certain Deordorants [Other]; Chocolate; Dilantin [Phenytoin Sodium Extended]; Fragrances; Gabapentin ; Keppra [Levetiracetam]; Lamictal [Lamotrigine]; Lipitor [Atorvastat in]; Peanuts; Phenergan Plain Medications reviewed: Yes FAMILY HISTORY Problem Relation Age of Onset - Coronary Artery Disease Mother - Diabetes Paternal Grandmother - Colon Cancer No Family History - Breast Cancer No Family History - Ovarian cancer No Family History - Uterine Cancer No Family History - Prostate Cancer No Family History - Hypertension No Family History - Hyperlipidemia No Family History - Kidney Disease No Family History - Seizures No Family History - Stroke No Family History SOCIAL HISTORY: Social History Tobacco Use - Smoking status: Former Smoker - Smokeless tobacco: Never Used - Tobacco comment: Quit in Substance Use Topics - Alcohol use: No - Drug use: No Lisa gets minimal exercise. She watche s her diet for sodium, low fat and low cholesterol some of the time. List of current specialists seen: [facility] Psych- Dr. Sanchez End of Live Planning discuss ed including patients advanced directive wishes: Yes I am willing to follow Lisa's advanced directives. PHQ-2 / Depression screen She in the past two weeks admits to having felt down, depressed, hopeless or with little interest or pleasure in doing things. Sees psych. Functional Ability/Safety Screen 1. Was the patient's timed Up and Go test unstea dy or longer than 30 seconds? No 2. Does the patient need help with the phone, transportation , shopping,preparing meals, housework, laundry, medicati ons or managing money? Some yes. However does have a outpatient case manager/outpatient case manager and a guardian that helps manage her money. She is also is afraid to drive so needs transportation. 3. Does your home have rugs in the hallw ay, lack of grab bars in the bathroom, lack of handrails on the stairs or have poor lighting? No Hearing Evaluation: normal PHYSICAL EXAM BP 122/89 (BP Site: Left Arm, BP Position: Sitting, BP Cuff Size: Regular Adult) Pulse 88 Resp 14 Ht 165.1 cm (5' 5) Wt 76.7 kg (169 lb) LMP 01/31/2012 BMI 28.12 kg/m? Alert and oriented X 3: YES Body mass index is 28.12 kg/m?. Visual acuity: sees Ophthalmology ASSESSMENT/PLAN: 59 year old female The following prevention plan was discussed during the offic e visit and provided to the patient: See below. ANJU LOYD PA-C Chief Complaint Patient presents with: Physical HPI Lisa Castro is a 59 year old female who pres ents here today for extensive exam. Patient with hx of Hypothyro idism, Bipolar 1 disorder, schizophrenia, and fatty liver. Patient still seeing counseling center. Question s whether she is on the right medications. Past medical history, appointments, medications, allergies r julio. Previous Medical History PAST MEDICAL HISTORY Diagnosis Date - Acquired hypothyroidism 06/28/2005 - Bipolar 1 disorder (HCC) - Elevated LFTs 10/29/2018 - Ex-smoker 05/31/2018 Started at age 20 up to 3-4 cigs a day. Quit in early ' (september of smoked 1-2 yrs only. - Fatty liver 06/01/2018 Elevated LFT's - Female stress incontinence 02/19/2010 - History of herpes genitalis 04/03/2014 - History of hyperprolactinemia 03/10/2009 - History of seizures 08/15/2005 Has not had an episode since and felt to be rel ated to the haldol she was on. - Mixed hyperlipidemia 06/28/2005 - OCD (obsessive compulsive disorder) - Petit mal seizures - Schizo affective schizophrenia (HCC) 12/16/2014 - Urethrocele(618.03) 02/19/2010 Previous Surgical History PAST SURGICAL HISTORY Procedure Laterality Date - COLONOSCOP W/ OR W/O [facility] SPEC 07/02/10 - COLONOSCOPY 07/16/2018 - EGD 07/16/2018 - LIGATE FALLOPIAN TUBE Tubal ligation - REM LESIO TRUNK,ARM,LEG 1.1 -2.0CM 09/13/06 Exc. 4 separate chad cysts - REM LESION FACE,EAR,EYE 0.6-1CM 11/03/10 Family History FAMILY HISTORY Problem Relation Age of Onset - Coronary Artery Disease Mother - Diabetes Paternal Grandmother - Colon Cancer No Family History - Breast Cancer No Family History - Ovarian cancer No Family History - Uterine Cancer No Family History - Prostate Cancer No Family History - Hypertension No Family History - Hyperlipidemia No Family History - Kidney Disease No Family History - Seizures No Family History - Stroke No Family History Patient Allergies ALLERGIES Allergen Reactions - Haldol [Haloperidol* Other: See Comments seizures - Caffeine Other: See Comments Patient states can have in moderation. Excess amounts can ca use seizures. - Certain Deordorants* Unknown - Chocolate Other: See Comments Patient states she can have in moderation. - Dilantin [Phenytoin* Rash GI upset - Fragrances Rash - Gabapentin Rash GI upset - Keppra [Levetiracet* Rash GI upset - Lamictal [Lamotrigi* Intolerance too drowsey - Lipitor [Atorvastat* Other: See Comments Dry mouth, upset stomach, elevated LFT's - Peanuts Itching - Phenergan Plain Unknown Current Medications Current Outpatient Medications on File Prior to Visit Medication Sig - levothyroxine (SYNTHROID) 75 mcg tablet Take 1 table t by mouth once daily. - Chlorhexidine Gluconate (PERIDEX) 0.12 % solution - benztropine (COGENTIN) 1 mg tablet Take 1 tablet by mout h once daily. Per Counseling [facility] - risperiDONE (RISPERDAL) 4 mg tablet Take 1 tablet by mouth once daily. Per [facility] - citalopram (CELEXA) 20 mg tablet Take 1 tablet by mouth on ce daily. Per [facility] - ARISTADA 662 mg/2.4 mL injection 2.4 mL q 4 WEEKS. Per [facility] - fluticasone (FLONASE) 50 mcg/actuation nasal spray Use 1 S pray in each nostril once daily. (Patient not taking: Reported on 06/06/19 20 ) - LORazepam (ATIVAN) 1 mg ta blet Take 1 tablet by mouth once daily for 30 days. Twice daily, Per Counseling Center. No current facility-administered medications on file prior t o visit. Social History Social History Tobacco Use - Smoking status: Former Smoker - Smokeless tobacco: Never Used - Tobacco comment: Quit in Substance Use Topics - Alcohol use: No - Drug use: No Review of Symptoms REVIEW OF SYSTEMS GENERAL: No weight loss, malaise or fevers HEENT: Negative for frequent or significant headaches, No changes in hearing or vision, no nose bleeds or other nasal problems NECK: Negative for lumps, goiter, pain and significant neck swelling RESPIRATORY: some sob with walking inclines. Negative for cough, hemoptysis, wheezing, COPD, dyspnea. CARDIOVASCULAR:pt had cp a few months ago but not sinc e. EKG had showed RBBB but hasn't done stress test yet. Negativ e for chest pain, leg swelling, CHF or palpitations GI: No nausea, vomiting, or diarrhea and No heartburn or ref lux symptoms : No history of dysuria, frequency or incontinence MUSCULOSKELETAL: +intermittent left knee pian. Negative for joint pain or swelling, back pain or muscle pain SKIN: Negative for lesions, rash, and itching PSYCH: See HPI HEMATOLOGY/LYMPHOLOGY: Negative for prolonged bleeding, brui sing easily or swollen nodes ENDOCRINE: Negative for cold or heat intolerance, polyuria, polydipsia and goiter NEURO:+seizures but not since stopping haldol. No history of headaches, syncope, paralysis, or tremors EXAM: BP 122/89 (BP Site: Left Arm, BP Position: Sitting, BP Cuff Size: Regular Adult) Pulse 88 Resp 14 Ht 165.1 cm (5' 5) Wt 76.7 kg (169 lb) LMP 01/31/2012 BMI 28.12 kg/m? General Appearance: Well tanesha earing, alert, in no acute distress, well-hydrated, well nourished.. Skin: Skin color, texture, turgor normal, no suspicious rash es or lesions. Head: Normocephalic, no masses, lesions, tenderness or abnor malities. Eyes: Anicteric sclera. Pupils are equally round and reactiv e to light. Extraocular movements are intact. . Ears: External ears normal, canals clear, TMs pearly hoffman. . Nose/Sinuses: Nares normal, septum midline, mucosa normal, no drainage or sinus tenderness. Oropharynx: Lips, mucosa, and tongue nor mal, teeth and gums normal, oropharynx normal. Neck: Supple, no adenopathy; thyroid symmetric, normal size, no bruits. Lungs: lungs clear to auscultation. No wheezing, rhonchi, ra les. Heart: RRR without murmur, gallop, or rubs. No ectopy. Abdomen: Normal abdominal exam, Abdomen soft, non-tender. Bowel sounds normal. No masses, organomegaly. Extremities: No deformities, edema, skin discolo ration, clubbing or cyanosis. Good capillary refill. . Peripheral Pulses: Normal. Neurologic: Gait normal. Reflexes normal and symmetric. Sens ation grossly intact.. Health Maintenance List SHINGRIX VACCINE(1 of 2) due on 2010 HPV TESTING due on 08/08/2013 MAMMOGRAM due on 01/12/2020 ANNUAL PCP TEAM CHRONIC DISEASE VISIT due on 04/05/2020 DTAP,TDAP,TD(2 - Td) due on 04/22/2021 DIABETES SCREEN due on 11/21/2021 PAP TESTING due on 06/13/2022 LIPID SCREEN due on 11/06/2023 COLORECTAL CANCER SCREENING,SEE MODIFIER due on 07/16/2028 HEPATITIS C SCREENING Completed INFLUENZA Completed Data reviewed Component Latest Ref Rng AND Units 11/05/2018 11/21/2018 019 04/05/2019 WBC 3.70 - 11.00 k/uL 3.33 (L) RBC 3.90 - 5.20 m/uL 4.65 Hemoglobin 11.5 - 15.5 g/dL 13.8 Hematocrit 36.0 - 46.0 % 43.2 MCV 80.0 - 100.0 fL 92.9 MCH 26.0 - 34.0 pG 29.7 MCHC 30.5 - 36.0 g/dL 31.9 RDW-CV 11.5 - 15.0 % 13.2 Platelet Count 150 - 400 k/uL 174 MPV 9.0 - 12.7 fL 11.0 Neut% % 72.0 Abs Neut (ANC) 1.45 - 7.50 k/uL 2.40 Lymph% % 21.0 Abs Lymph 1.00 - 4.00 k/uL 0.70 (L) Kemper% % 5.0 Abs Kemper <0.87 k/uL 0.17 Eosin% % 0.0 Abs Eosin <0.46 k/uL 0.00 Baso% % 1.0 Abs Baso <0.11 k/uL 0.03 ANC(includeSEG+BAND) k/uL 2.40 Myelo% % 1.0 Left Shift Present Ovalocytes Few Polychromasia Slight Diff Type Manual Diff Protein, Total 6.3 - 8.0 g/dL 7.6 7.3 Albumin 3.9 - 4.9 g/dL 4.1 4.2 Calcium 8.5 - 10.2 mg/dL 9.1 Bilirubin, Total 0.2 - 1.3 mg/dL 0.6 0.3 Alkaline Phosphatase 34 - 123 U/L 163 (H) 93 AST 13 - 35 U/L 156 (H) 28 Glucose 74 - 99 mg/dL 81 BUN 7 - 21 mg/dL 10 Creatinine 0.58 - 0.96 mg/dL 0.69 Sodium 136 - 144 mmol/L 138 Potassium 3.7 - 5.1 mmol/L 3.7 Chloride 97 - 105 mmol/L 96 (L) CO2 22 - 30 mmol/L 27 Anion Gap 9 - 18 mmol/L 15 ALT 7 - 38 U/L 238 (H) 31 eGFR- >60 eGFR-All Other Races . >60 Cholesterol, Total <200 mg/dL 235 (H) Triglyceride <150 mg/dL 100 HDL Cholesterol >39 mg/dL 54 LDL Cholesterol <100 mg/dL 161 (H) Non HDL Cholesterol <130 mg/dL 181 (H) Fasting Time hrs 2 VLDL Cholesterol <30 mg/dL 20 TC:HDL Ratio <5.10 4.35 LDL:HDL Ratio <2.54 2.98 (H) Bilirubin, Conjug <0.2 mg/dL <0.2 TSH 0.270 - 4.200 uU/mL 1.750 Free T4 0.9 - 1.7 ng/dL 1.5 ASSESSMENT/PLAN: 1. Medicare annual wellness visit, subsequent - ICD9: V70.0, ICD10: Z00.00 (primary diagnosis) - Encouraged monthly Breast Self Exam - Follow up for annual exam in one year. 2. Mixed hyperlipidemia - ICD9: 272.2, ICD10: E78.2 - to be determined upon return of lab results - Encouraged following a low carbohydrate, healthy oil intak e diet. - Continue current therapy. 3. RBBB - ICD9: 426.4, ICD10: I45.10 Patient to reschedule stress test 4. Acquired hypothyroidism - ICD9: 244.9, ICD10: E03.9 - Instructed patient on importance of taking on an empty stomach either first thing in the morning or at bedtime. - check TSH today 5. Schizo affective schizophrenia (HCC) - ICD9: 295.70, ICD1 0: F25.9 Continue with psych 6. Bipolar 1 disorder (HCC) - ICD9: 296.7, ICD10: F31.9 Continue with psych. Patient to get labs. F/u in 6 months. ANJU LOYD PA-C Referring Provider: YOVANY CASTLE [[id number]] Allergies As of Date: 06/06/2019 Noted Allergy Reaction HALDOL (HALOPERIDOL LACTATE) 05/31/2018 14 - Other: See Comm ents Comments: seizures CAFFEINE 03/04/2009 14 - Other: See Comments Comments: Patient states can have in moderation. Excess amou nts can cause seizures. Certain Deordorants [Other] 09/11/2008 16 - Unknown CHOCOLATE 03/04/2009 14 - Other: See Comments Comments: Patient states she can have in moderation. DILANTIN (PHENYTOIN SODIUM EXTEND*07/11/2006 2 - Rash Comments: GI upset FRAGRANCES 08/30/2005 2 - Rash GABAPENTIN 07/11/2006 2 - Rash Comments: GI upset KEPPRA (LEVETIRACETAM) 07/11/2006 2 - Rash Comments: GI upset LAMICTAL (LAMOTRIGINE) 10/25/2006 5 - Intolerance Comments: too drowsey LIPITOR (ATORVASTATIN) 10/08/2014 14 - Other: See Comments Comments: Dry mouth, upset stomach, elevated LFT's PEANUTS 09/11/2008 9 - Itching PHENERGAN PLAIN 03/04/2009 16 - Unknown Date Reviewed: 06/06/2019 Reviewed by: Ashlee Hathaway Ma - Fully Assessed Reason for Visit: Physical [83] Primary Visit Diagnosis:Medicare annual wellness visit, petty bsequent [Z00.00] Other Visit Diagnoses:Mixed hyperlipidemia [E78.2] RBBB [I45.10] Acquired hypothyroidism [E03.9] Schizo affective schizophrenia (HCC) [F25.9] Bipolar 1 disorder (HCC) [F31.9] Prescriptions as of 06/06/2019 Sig: LEVOTHYROXINE 75 MCG TABLET Take 1 tablet by mouth once d* CHLORHEXIDINE GLUCONATE 0.12 * BENZTROPINE 1 MG TABLET Take 1 tablet by mouth once d* RISPERIDONE 4 MG TABLET Take 1 tablet by mouth once d* CITALOPRAM 20 MG TABLET Take 1 tablet by mouth once d* ARISTADA 662 MG/2.4 ML SUSPEN* 2.4 mL q 4 WEEKS. Per Internetworking Technician * FLUTICASONE PROPIONATE 50 MCG* Use 1 [place] in each nostril o * Patient not taking: Reported on 06/06/2019 LORAZEPAM 1 MG TABLET Take 1 tablet by mouth once d* Problem List As Of Date 06/06/2019 Noted Resolved Acquired hypothyroidism [E03.9] 06/28/2005 Mixed hyperlipidemia [E78.2] 06/28/2005 History of seizures [Z87.898] 08/15/2005 More... Sebaceous cyst [L72.3] 07/17/2006 10/21/2010 Other Fall [R29.6] 06/07/2007 07/17/2009 History of hyperprolactinemia [Z86.39] 03/10/2009 Urethrocele(618.03) [N36.8] 02/19/2010 Female stress incontinence [N39.3] 02/19/2010 Screening for colon cancer [Z12.11] 06/01/2010 10/21/2010 Herpes [B00.9] 06/14/2010 06/14/2010 Sebaceous cyst [L72.3] 11/03/2010 09/13/2014 History of herpes genitalis [Z86.19] 04/03/2014 Schizo affective schizophrenia (HCC) [F25.9] 12/16/2014 More... Breast screening [Z12.39] 05/19/2015 Bipolar 1 disorder (HCC) [F31.9] OCD (obsessive compulsive disorder) [F42.9] Ex-smoker [Z87.891] 05/31/2018 More... Encounter for gynecological examination [Z01.41*05/31/2018 More... Colon cancer screening [Z12.11] 05/31/2018 Medicare annual wellness visit, subsequent [Z00*05/31/2018 More... Hoarseness of voice [R49.0] 05/31/2018 Fatty liver [K76.0] 06/01/2018 More... Elevated LFTs [R94.5] 10/29/2018 More... RBBB [I45.10] 02/21/2019 Disposition: Return in about 6 months (around 12/05/2019) for routine OV. Dr. Castle. . Follow-up and Disposition History Recorded Encounter Status:Closed by ANJU CORTES on 06/06/19 obsolete on 2019-05 OBSOLETE Refill (FAMEMERITA) Normal 05-16-2019 [facility] LISA CASTRO ([id number]) 1960 [facility] Time Provider Department ([id number]) 05/16/19 YOVANY CASTLE During your visit today, we recorded the following informati on about you: Ashlee Hathaway Ma 05/16/2019 1:14 PM Signed Patient has been identified by name and date of : Yes Pending Prescriptions Disp Refills LEVOTHYROXINE 75 MCG TABLET 90 tablet 1 Sig: Take 1 tablet by mouth once daily. YINKA: No RX INSTRUCTIONS: Patient aware RX will be sent to pharmacy. No need to notify patient. Ashlee Hathaway Ma Last ov: 03/2019 Last refill; 03/2019 nov: 05/2019 Allergies As of Date: 05/16/2019 Noted Allergy Reaction HALDOL (HALOPERIDOL LACTATE) 05/31/2018 14 - Other: See Comm ents Comments: seizures CAFFEINE 03/04/2009 14 - Other: See Comments Comments: Patient states can have in moderation. Excess amou nts can cause seizures. Certain Deordorants [Other] 09/11/2008 16 - Unknown CHOCOLATE 03/04/2009 14 - Other: See Comments Comments: Patient states she can have in moderation. DILANTIN (PHENYTOIN SODIUM EXTEND*07/11/2006 2 - Rash Comments: GI upset FRAGRANCES 08/30/2005 2 - Rash GABAPENTIN 07/11/2006 2 - Rash Comments: GI upset KEPPRA (LEVETIRACETAM) 07/11/2006 2 - Rash Comments: GI upset LAMICTAL (LAMOTRIGINE) 10/25/2006 5 - Intolerance Comments: too drowsey LIPITOR (ATORVASTATIN) 10/08/2014 14 - Other: See Comments Comments: Dry mouth, upset stomach, elevated LFT's PEANUTS 09/11/2008 9 - Itching PHENERGAN PLAIN 03/04/2009 16 - Unknown Date Reviewed: 04/05/2019 Reviewed by: Yovany Castle - Fully Assessed Reason for Visit: Refill Request [94] Order(s):levothyroxine (SYNTHROID) 75 mcg tabletTake 1 tab let by mouth once daily.Disp: 90 tabletRfl: 1 Prescriptions as of 05/16/2019 Sig: LEVOTHYROXINE 75 MCG TABLET Take 1 tablet by mouth once d* CHLORHEXIDINE GLUCONATE 0.12 * FLUTICASONE PROPIONATE 50 MCG* Use 1 [place] in each nostril o * LORAZEPAM 1 MG TABLET Take 1 tablet by mouth once d* BENZTROPINE 1 MG TABLET Take 1 tablet by mouth once d* RISPERIDONE 4 MG TABLET Take 1 tablet by mouth once d* CITALOPRAM 20 MG TABLET Take 1 tablet by mouth once d* ARISTADA 662 MG/2.4 ML SUSPEN* 2.4 mL q 4 WEEKS. Per Internetworking Technician * Problem List As Of Date 05/16/2019 Noted Resolved Acquired hypothyroidism [E03.9] 06/28/2005 Mixed hyperlipidemia [E78.2] 06/28/2005 History of seizures [Z87.898] 08/15/2005 More... Sebaceous cyst [L72.3] 07/17/2006 10/21/2010 Other Fall [R29.6] 06/07/2007 07/17/2009 History of hyperprolactinemia [Z86.39] 03/10/2009 Urethrocele(618.03) [N36.8] 02/19/2010 Female stress incontinence [N39.3] 02/19/2010 Screening for colon cancer [Z12.11] 06/01/2010 10/21/2010 Herpes [B00.9] 06/14/2010 06/14/2010 Sebaceous cyst [L72.3] 11/03/2010 09/13/2014 History of herpes genitalis [Z86.19] 04/03/2014 Schizo affective schizophrenia (HCC) [F25.9] 12/16/2014 More... Breast screening [Z12.39] 05/19/2015 Bipolar 1 disorder (HCC) [F31.9] OCD (obsessive compulsive disorder) [F42.9] Ex-smoker [Z87.891] 05/31/2018 More... Encounter for gynecological examination [Z01.41*05/31/2018 More... Colon cancer screening [Z12.11] 05/31/2018 Medicare annual wellness visit, subsequent [Z00*05/31/2018 More... Hoarseness of voice [R49.0] 05/31/2018 Fatty liver [K76.0] 06/01/2018 More... Elevated LFTs [R94.5] 10/29/2018 More... RBBB [I45.10] 02/21/2019 Prescriptions ordered this encounter Disp Refills Start End LEVOTHYROXINE 75 MCG TABLET 90 t* 1 05/16/2019 Route: ORAL Sig: Take 1 tablet by mouth once daily. Medications Discontinued During This Encounter levothyroxine (SYNTHROID) 75 mcg tab* 90 t* 1 03/26/201905/16 Route: ORAL Sig: Take 1 tablet by mouth once daily. Disc: Reason for discontinue is not on file. Encounter Status:Closed by ANJU CORTES on 05/16/19 progress on 2019-04 PROGRESS HNO ID: [id number] Normal 04-18-2019 [facility] Author: Cherry (Dorian) DORIAN Cardona ([id number]) Service: ? Author Type: Registered Nurse Type: Progress Notes Filed: 04/19/2019 8:03 AM Note Text: PRIMARY CARE COORDINATION DISCHARGE Patient has been identified by name and date of : Yes Patient discharged from Primary Care Coordination: YES Active Goals - Current status as of 04/18/2019 at 2:41 PM - Address all appropriate HM and disease care gaps Goals met declined care coordination Goals not met Patient engagement has not occurred despite ongoing educatio n provided regarding the importance of following the physician plan of treatment Patient requested that PCC not call again Patient knowledgeable and confident in contacting Health Car e Providers for questions or concerns: YES Reinforced with patient and/or caregiver that Primary Care C oordination may be reinitiated if a change in status warrants navigation readmission: YES Discussed with: Patient What was the Focus/Challenges addressed in Care Coordination ? Declined any addtional assistance. Pt verbalized she could go to the doc tor any time Disposition: Follow up with PCP Care Team Tab - End: YES Pt declined any need for Care Coordination. Cherry Cardona RN [email or web address] on 201 01-24-05 CNPTOUTRCARA Patient Outreach (FAMPWS) Normal 1 06-19-2018 [facility] LISA CASTRO ([id number]) 1960 [facility] Date Time Provider Department ([id number]) 04/18/19 CHERRY CARDONA (RN) FAMPWS During your visit today, we recorded the following informati on about you: Cherry Cardona RN, RN 04/19/2019 8:03 AM Signed PRIMARY CARE COORDINATION DISCHARGE Patient has been identified by name and date of : Yes Patient discharged from Primary Care Coordination: YES Active Goals - Current status as of 04/18/2019 at 2:41 PM - Address all appropriate HM and disease care gaps Goals met declined care coordination Goals not met Patient engagement has not occurred despite ongoing educatio n provided regarding the importance of following the physician plan of treatment Patient requested that PCC not call again Patient knowledgeable and confident in contacting Health C are Providers for questions or concerns: YES Reinforced with patient and/or caregiver that Primary Care Coordination may be reinitiated if a change in status warrants navigation readmi ssion: YES Discussed with: Patient What was the Focus/Challenges addressed in Care Coordination ? Declined any addtional assistance. Pt verbalized she could go to the doc tor any time Disposition: Follow up with PCP Care Team Tab - End: YES Pt declined any need for Care Coordination. Cherry Cardona RN Allergies As of Date: 04/18/2019 Noted Allergy Reaction HALDOL (HALOPERIDOL LACTATE) 05/31/2018 14 - Other: See Comm ents Comments: seizures CAFFEINE 03/04/2009 14 - Other: See Comments Comments: Patient states can have in moderation. Excess amou nts can cause seizures. Certain Deordorants [Other] 09/11/2008 16 - Unknown CHOCOLATE 03/04/2009 14 - Other: See Comments Comments: Patient states she can have in moderation. DILANTIN (PHENYTOIN SODIUM EXTEND*07/11/2006 2 - Rash Comments: GI upset FRAGRANCES 08/30/2005 2 - Rash GABAPENTIN 07/11/2006 2 - Rash Comments: GI upset KEPPRA (LEVETIRACETAM) 07/11/2006 2 - Rash Comments: GI upset LAMICTAL (LAMOTRIGINE) 10/25/2006 5 - Intolerance Comments: too drowsey LIPITOR (ATORVASTATIN) 10/08/2014 14 - Other: See Comments Comments: Dry mouth, upset stomach, elevated LFT's PEANUTS 09/11/2008 9 - Itching PHENERGAN PLAIN 03/04/2009 16 - Unknown Date Reviewed: 04/05/2019 Reviewed by: Yovany Castle - Fully Assessed Reason for Visit: Sail Repairer Chronic [facility] [[id number]] Prescriptions as of 04/18/2019 Sig: LEVOTHYROXINE 75 MCG TABLET Take 1 tablet by mouth once d* CHLORHEXIDINE GLUCONATE 0.12 * FLUTICASONE PROPIONATE 50 MCG* Use 1 [place] in each nostril o * BENZTROPINE 1 MG TABLET Take 1 tablet by mouth once d* RISPERIDONE 4 MG TABLET Take 1 tablet by mouth once d* CITALOPRAM 20 MG TABLET Take 1 tablet by mouth once d* ARISTADA 662 MG/2.4 ML SUSPEN* 2.4 mL q 4 WEEKS. Per Internetworking Technician * Problem List As Of Date 04/18/2019 Noted Resolved Acquired hypothyroidism [E03.9] 06/28/2005 Mixed hyperlipidemia [E78.2] 06/28/2005 History of seizures [Z87.898] 08/15/2005 More... Sebaceous cyst [L72.3] 07/17/2006 10/21/2010 Other Fall [R29.6] 06/07/2007 07/17/2009 History of hyperprolactinemia [Z86.39] 03/10/2009 Urethrocele(618.03) [N36.8] 02/19/2010 Female stress incontinence [N39.3] 02/19/2010 Screening for colon cancer [Z12.11] 06/01/2010 10/21/2010 Herpes [B00.9] 06/14/2010 06/14/2010 Sebaceous cyst [L72.3] 11/03/2010 09/13/2014 History of herpes genitalis [Z86.19] 04/03/2014 Schizo affective schizophrenia (HCC) [F25.9] 12/16/2014 More... Breast screening [Z12.39] 05/19/2015 Bipolar 1 disorder (HCC) [F31.9] OCD (obsessive compulsive disorder) [F42.9] Ex-smoker [Z87.891] 05/31/2018 More... Encounter for gynecological examination [Z01.41*05/31/2018 More... Colon cancer screening [Z12.11] 05/31/2018 Medicare annual wellness visit, subsequent [Z00*05/31/2018 More... Hoarseness of voice [R49.0] 05/31/2018 Fatty liver [K76.0] 06/01/2018 More... Elevated LFTs [R94.5] 10/29/2018 More... RBBB [I45.10] 02/21/2019 Encounter Status:Closed by CHERRY CARDONA on 04/19/19 tsh on 2019-04-05 TSH Qn 1.750 0.270-4.200 uU/mL Normal 04-05-2019 [facility] ([id number]) Comment: Performed By: #### FT4, TSH ####[facility] [id number] [place], [place] [id number]- [phone] progress on 2019-03 PROGRESS HNO ID: [id number] Normal 04-05-2019 [facility] Author: Yovany Castle [place] ([id number]) Service: ? Author Type: Physician Type: Progress Notes Filed: 04/05/2019 1:53 PM Note Text: This Team Access Model visit is a walk in encounter. It requ ired patient-provider interaction for the medical decision making as documented below. Chief Complaint Patient presents with: Hair Loss: x 3 months HPI Lisa Castro is a 59 year old female who presents here to day for Above Complaints.. Patient is under the impression that her hair has become thi nner over the past 3 months especially her bangs. Past medical history, appointments, medications, allergies r julio. Previous Medical History PAST MEDICAL HISTORY Diagnosis Date - Acquired hypothyroidism 06/28/2005 - Bipolar 1 disorder (HCC) - Elevated LFTs 10/29/2018 - Ex-smoker 05/31/2018 Started at age 20 up to 3-4 cigs a day. Quit in early ( september of smoked 1-2 yrs only. - Fatty liver 06/01/2018 Elevated LFT's - Female stress incontinence 02/19/2010 - History of herpes genitalis 04/03/2014 - History of hyperprolactinemia 03/10/2009 - History of seizures 08/15/2005 Has not had an episode since and felt to be related t o the haldol she was on. - Mixed hyperlipidemia 06/28/2005 - OCD (obsessive compulsive disorder) - Petit mal seizures - Schizo affective schizophrenia (HCC) 12/16/2014 - Urethrocele(618.03) 02/19/2010 Previous Surgical History PAST SURGICAL HISTORY Procedure Laterality Date - COLONOSCOP W/ OR W/O [facility] SPEC 07/02/10 - COLONOSCOPY 07/16/2018 - EGD 07/16/2018 - LIGATE FALLOPIAN TUBE Tubal ligation - REM LESIO TRUNK,ARM,LEG 1.1 -2.0CM 09/13/06 Exc. 4 separate chad cysts - REM LESION FACE,EAR,EYE 0.6-1CM 11/03/10 Family History FAMILY HISTORY Problem Relation Age of Onset - Coronary Artery Disease Mother - Diabetes Paternal Grandmother - Colon Cancer No Family History - Breast Cancer No Family History - Ovarian cancer No Family History - Uterine Cancer No Family History - Prostate Cancer No Family History - Hypertension No Family History - Hyperlipidemia No Family History - Kidney Disease No Family History - Seizures No Family History - Stroke No Family History Patient Allergies ALLERGIES Allergen Reactions - Haldol [Haloperidol* Other: See Comments seizures - Caffeine Other: See Comments Patient states can have in moderation. Excess amounts can ca use seizures. - Certain Deordorants* Unknown - Chocolate Other: See Comments Patient states she can have in moderation. - Dilantin [Phenytoin* Rash GI upset - Fragrances Rash - Gabapentin Rash GI upset - Keppra [Levetiracet* Rash GI upset - Lamictal [Lamotrigi* Intolerance too drowsey - Lipitor [Atorvastat* Other: See Comments Dry mouth, upset stomach, elevated LFT's - Peanuts Itching - Phenergan Plain Unknown Current Medications Current Outpatient Medications on File Prior to Visit Medication Sig - levothyroxine (SYNTHROID) 75 mcg tablet Take 1 tablet by m outh once daily. - fluticasone (FLONASE) 50 mcg/actuation nasal spray Use 1 S pray in each nostril once daily. - LORazepam (ATIVAN) 1 mg tablet Take 1 tablet by mouth once daily for 30 days. Twice daily, [facility]. - benztropine (COGENTIN) 1 mg tablet Take 1 tablet by mouth once daily. Per [facility] - risperiDONE (RISPERDAL) 4 mg tablet Take 1 tablet by mouth once daily. Per [facility] - citalopram (CELEXA) 20 mg tablet Take 1 tablet by mouth on ce daily. Per [facility] - ARISTADA 662 mg/2.4 mL injection 2.4 mL q 4 WEEKS. Per [facility] - Chlorhexidine Gluconate (PERIDEX) 0.12 % solution No current facility-administered medications on file prior t o visit. Social History Social History Tobacco Use - Smoking status: Former Smoker - Smokeless tobacco: Never Used - Tobacco comment: Quit in Substance Use Topics - Alcohol use: No - Drug use: No Review of Symptoms REVIEW OF SYSTEMS GENERAL: No weight loss, malaise or fevers, or significant w eight gain NECK: Negative for lumps, goiter, pain and significant neck swelling CARDIOVASCULAR: no palpitations, chest pains or rapid HR. GI: patient has been having some constipation and diarrhea o ff and on. ENDOCRINE: Negative for cold or heat intolerance. NEURO: No history of headaches. EXAM: BP 132/88 Pulse 88 Resp 12 Wt 78.9 kg (174 lb) LMP 0 01/31/2012 BMI 28.65 kg/m? Last 5 Encounter Wt Readings: Date: Wt: 04/05/2019 78.9 kg (174 lb) 03/15/2019 77.3 kg (170 lb 6.4 oz) 03/06/2019 77.1 kg (170 lb) 02/21/2019 76.7 kg (169 lb) 12/31/2018 77.3 kg (170 lb 8 oz) General Appearance: Well appearing, alert, in no acute distr ess, well-hydrated, well nourished.. Head: Normocephalic, no masses, lesions, tenderness or abnor malities, there appears to be no real thinning of her hair and when lo oking at her drivers license Pic her bangs look similar to today.. Neck: Supple, no adenopathy; thyroid symmetric, normal size, no bruits. Lungs: lungs clear to auscultation. No wheezing, rhonchi, ra les. Heart: RRR without murmur, gallop, or rubs. No ectopy. Abdomen: Normal abdominal exam, Abdomen soft, non-tender. Gilmer wel sounds normal. No masses, organomegaly. Extremities: No deformities, edema, skin discoloration. Health Maintenance List HPV TESTING due on 08/08/2013 MAMMOGRAM due on 01/12/2020 ANNUAL PCP TEAM CHRONIC DISEASE VISIT due on 03/15/2020 DTAP,TDAP,TD(2 - Td) due on 04/22/2021 DIABETES SCREEN due on 11/21/2021 PAP TESTING due on 06/13/2022 LIPID SCREEN due on 11/06/2023 COLORECTAL CANCER SCREENING,SEE MODIFIER due on 07/16/2028 HEPATITIS C SCREENING Completed INFLUENZA Completed Data reviewed A/P ASSESSMENT/PLAN: 1. Acquired hypothyroidism - ICD9: 244.9, ICD10: E03.9 (prim kike diagnosis) - Instructed patient on importance of taking on an empty sto mach either first thing in the morning or at bedtime. - continue current dose of Synthroid Check - TSH BLD - T4 FREE/FREE THYROX 2. Hair loss - ICD9: 704.00, ICD10: L65.9 Check - TSH BLD - T4 FREE/FREE THYROX F/u prn Yovany Castle MD free t4 on Free T4 [Mass/Vol] 1.5 0.9-1.7 ng/dL Normal 04-05-2019 [facility] ([id number]) Comment: Performed By: #### FT4, TSH ####[facility] [id number] [place], [place] [phone] cnov on 2019-04-05 CNOV Office Visit (FAMPWS) Normal 04-05-20 [facility] LISA CASTRO ([id number]) 1960 [address] [place] Date Time Provider Department ([id number]) 04/05/19 1:40 PM [facility] your visit today, we recorded the following informati on about you: Pulse Respiration Blood pressure Weight 88/minute 12/minute 132/88 78.9 kg Yovany Castle MD 04/05/2019 1:53 PM Signed This Team Access Model visit is a walk in encounter. It requ ired patient-provider interaction for the medical decision making as documented below. Chief Complaint Patient presents with: Hair Loss: x 3 months HPI Lisa Castro is a 59 year old female who presents here to day for Above Complaints.. Patient is under the impression that her hair has become thinner over the past 3 months especially her bangs. Past medical history, appointments, medications, allergies r eviewed. Previous Medical History PAST MEDICAL HISTORY Diagnosis Date - Acquired hypothyroidism 06/28/2005 - Bipolar 1 disorder (HCC) - Elevated LFTs 10/29/2018 - Ex-smoker 05/31/2018 Started at age 20 up to 3-4 cigs a day. Quit in early (september of smoked 1-2 yrs only. - Fatty liver 06/01/2018 Elevated LFT's - Female stress incontinence 02/19/2010 - History of herpes genitalis 04/03/2014 - History of hyperprolactinemia 03/10/2009 - History of seizures 08/15/2005 Has not had an episode since and felt to be rel ated to the haldol she was on. - Mixed hyperlipidemia 06/28/2005 - OCD (obsessive compulsive disorder) - Petit mal seizures - Schizo affective schizophrenia (HCC) 12/16/2014 - Urethrocele(618.03) 02/19/2010 Previous Surgical History PAST SURGICAL HISTORY Procedure Laterality Date - COLONOSCOP W/ OR W/O [facility] SPEC 07/02/10 - COLONOSCOPY 07/16/2018 - EGD 07/16/2018 - LIGATE FALLOPIAN TUBE Tubal ligation - REM LESIO TRUNK,ARM,LEG 1.1 -2.0CM 09/13/06 Exc. 4 separate chad cysts - REM LESION FACE,EAR,EYE 0.6-1CM 11/03/10 Family History FAMILY HISTORY Problem Relation Age of Onset - Coronary Artery Disease Mother - Diabetes Paternal Grandmother - Colon Cancer No Family History - Breast Cancer No Family History - Ovarian cancer No Family History - Uterine Cancer No Family History - Prostate Cancer No Family History - Hypertension No Family History - Hyperlipidemia No Family History - Kidney Disease No Family History - Seizures No Family History - Stroke No Family History Patient Allergies ALLERGIES Allergen Reactions - Haldol [Haloperidol* Other: See Comments seizures - Caffeine Other: See Comments Patient states can have in moderation. Excess amounts can ca use seizures. - Certain Deordorants* Unknown - Chocolate Other: See Comments Patient states she can have in moderation. - Dilantin [Phenytoin* Rash GI upset - Fragrances Rash - Gabapentin Rash GI upset - Keppra [Levetiracet* Rash GI upset - Lamictal [Lamotrigi* Intolerance too drowsey - Lipitor [Atorvastat* Other: See Comments Dry mouth, upset stomach, elevated LFT's - Peanuts Itching - Phenergan Plain Unknown Current Medications Current Outpatient Medications on File Prior to Visit Medication Sig - levothyroxine (SYNTHROID) 75 mcg tablet Take 1 table t by mouth once daily. - fluticasone (FLONASE) 50 mcg/actuation nasal spray Use 1 S pray in each nostril once daily. - LORazepam (ATIVAN) 1 mg ta blet Take 1 tablet by mouth once daily for 30 days. Twice daily, [facility] - benztropine (COGENTIN) 1 mg tablet Take 1 tablet by mout h once daily. Per [facility] - risperiDONE (RISPERDAL) 4 mg tablet Take 1 tablet by mouth once daily. [facility] - citalopram (CELEXA) 20 mg tablet Take 1 tablet by mouth on ce daily. Per [facility] - ARISTADA 662 mg/2.4 mL injection 2.4 mL q 4 WEEKS. Per [facility] - Chlorhexidine Gluconate (PERIDEX) 0.12 % solution No current facility-administered medications on file prior t o visit. Social History Social History Tobacco Use - Smoking status: Former Smoker - Smokeless tobacco: Never Used - Tobacco comment: Quit in Substance Use Topics - Alcohol use: No - Drug use: No Review of Symptoms REVIEW OF SYSTEMS GENERAL: No weight loss, malaise or fevers, or significant w eight gain NECK: Negative for lumps, goiter, pain and significant neck swelling CARDIOVASCULAR: no palpitations, chest pains or rapid HR. GI: patient has been having some constipation and diarrhea o ff and on. ENDOCRINE: Negative for cold or heat intolerance. NEURO: No history of headaches. EXAM: BP 132/88 Pulse 88 Resp 12 Wt 78.9 kg (174 lb) LMP 0 01/31/2012 BMI 28.65 kg/m? Last 5 Encounter Wt Readings: Date: Wt: 04/05/2019 78.9 kg (174 lb) 03/15/2019 77.3 kg (170 lb 6.4 oz) 03/06/2019 77.1 kg (170 lb) 02/21/2019 76.7 kg (169 lb) 12/31/2018 77.3 kg (170 lb 8 oz) General Appearance: Well tanesha earing, alert, in no acute distress, well-hydrated, well nourished.. Head: Normocephalic, no masses, lesions, tenderness or abn ormalities, there appears to be no real thinning of her hair and when looking at her drivers license Pic her bangs look similar to today.. Neck: Supple, no adenopathy; thyroid symmetric, normal size, no bruits. Lungs: lungs clear to auscultation. No wheezing, rhonchi, ra les. Heart: RRR without murmur, gallop, or rubs. No ectopy. Abdomen: Normal abdominal exam, Abdomen soft, non-tender. Bowel sounds normal. No masses, organomegaly. Extremities: No deformities, edema, skin discoloration. Health Maintenance List HPV TESTING due on 08/08/2013 MAMMOGRAM due on 01/12/2020 ANNUAL PCP TEAM CHRONIC DISEASE VISIT due on 03/15/2020 DTAP,TDAP,TD(2 - Td) due on 04/22/2021 DIABETES SCREEN due on 11/21/2021 PAP TESTING due on 06/13/2022 LIPID SCREEN due on 11/06/2023 COLORECTAL CANCER SCREENING,SEE MODIFIER due on 07/16/2028 HEPATITIS C SCREENING Completed INFLUENZA Completed Data reviewed A/P ASSESSMENT/PLAN: 1. Acquired hypothyroidism - ICD9: 244.9, ICD10: E03.9 (prim kike diagnosis) - Instructed patient on importance of taking on an empty stomach either first thing in the morning or at bedtime. - continue current dose of Synthroid Check - TSH BLD - T4 FREE/FREE THYROX 2. Hair loss - ICD9: 704.00, ICD10: L65.9 Check - TSH BLD - T4 FREE/FREE THYROX F/u prn Yovany Castle MD Referring Provider: SELF [200] Allergies As of Date: 04/05/2019 Noted Allergy Reaction HALDOL (HALOPERIDOL LACTATE) 05/31/2018 14 - Other: See Comm ents Comments: seizures CAFFEINE 03/04/2009 14 - Other: See Comments Comments: Patient states can have in moderation. Excess amou nts can cause seizures. Certain Deordorants [Other] 09/11/2008 16 - Unknown CHOCOLATE 03/04/2009 14 - Other: See Comments Comments: Patient states she can have in moderation. DILANTIN (PHENYTOIN SODIUM EXTEND*07/11/2006 2 - Rash Comments: GI upset FRAGRANCES 08/30/2005 2 - Rash GABAPENTIN 07/11/2006 2 - Rash Comments: GI upset KEPPRA (LEVETIRACETAM) 07/11/2006 2 - Rash Comments: GI upset LAMICTAL (LAMOTRIGINE) 10/25/2006 5 - Intolerance Comments: too drowsey LIPITOR (ATORVASTATIN) 10/08/2014 14 - Other: See Comments Comments: Dry mouth, upset stomach, elevated LFT's PEANUTS 09/11/2008 9 - Itching PHENERGAN PLAIN 03/04/2009 16 - Unknown Date Reviewed: 04/05/2019 Reviewed by: Yovany Castle - Fully Assessed Reason for Visit: Hair Loss [933] Cmt: x 3 months Primary Visit Diagnosis:Acquired hypothyroidism [E03.9] Other Visit Diagnosis:Hair loss [L65.9] Order(s):TSH BLD [SQTSH] Order #: [id number] FUTURE T4 FREE/FREE THYROX [SQFT4] Order #: [id number] FUTURE Prescriptions as of 04/05/2019 Sig: LEVOTHYROXINE 75 MCG TABLET Take 1 tablet by mouth once d* FLUTICASONE PROPIONATE 50 MCG* Use 1 [place] in each nostril o * LORAZEPAM 1 MG TABLET Take 1 tablet by mouth once d* BENZTROPINE 1 MG TABLET Take 1 tablet by mouth once d* RISPERIDONE 4 MG TABLET Take 1 tablet by mouth once d* CITALOPRAM 20 MG TABLET Take 1 tablet by mouth once d* ARISTADA 662 MG/2.4 ML SUSPEN* 2.4 mL q 4 WEEKS. Per Internetworking Technician * CHLORHEXIDINE GLUCONATE 0.12 * Problem List As Of Date 04/05/2019 Noted Resolved Acquired hypothyroidism [E03.9] 06/28/2005 Mixed hyperlipidemia [E78.2] 06/28/2005 History of seizures [Z87.898] 08/15/2005 More... Sebaceous cyst [L72.3] 07/17/2006 10/21/2010 Other Fall [R29.6] 06/07/2007 07/17/2009 History of hyperprolactinemia [Z86.39] 03/10/2009 Urethrocele(618.03) [N36.8] 02/19/2010 Female stress incontinence [N39.3] 02/19/2010 Screening for colon cancer [Z12.11] 06/01/2010 10/21/2010 Herpes [B00.9] 06/14/2010 06/14/2010 Sebaceous cyst [L72.3] 11/03/2010 09/13/2014 History of herpes genitalis [Z86.19] 04/03/2014 Schizo affective schizophrenia (HCC) [F25.9] 12/16/2014 More... Breast screening [Z12.39] 05/19/2015 Bipolar 1 disorder (HCC) [F31.9] OCD (obsessive compulsive disorder) [F42.9] Ex-smoker [Z87.891] 05/31/2018 More... Encounter for gynecological examination [Z01.41*05/31/2018 More... Colon cancer screening [Z12.11] 05/31/2018 Medicare annual wellness visit, subsequent [Z00*05/31/2018 More... Hoarseness of voice [R49.0] 05/31/2018 Fatty liver [K76.0] 06/01/2018 More... Elevated LFTs [R94.5] 10/29/2018 More... RBBB [I45.10] 02/21/2019 Medications Discontinued During This Encounter ranitidine (ZANTAC) 150 mg tablet 60 t* 0 11/21/2018 04/05/20 Route: ORAL Sig: Take 1 tablet by mouth twice daily. Disc: Discontinued by Patient Encounter Status:Closed by YOVANY CASTLE on 04/05/19 progress on 2019-03 PROGRESS HNO ID: [id number] [place] 03-27-2019 [facility] Author: Yovany Castle Castellano ([id number]) Service: ? Author Type: Physician Type: Progress Notes Filed: 03/27/2019 6:46 PM Note Text: Noted. PROGRESS HNO ID: [id number] [place] 03-27-2019 [facility] Author: Cherry GuptaRn) DORIAN Cardona [place] ([id number]) Service: ? Author Type: Registered Nurse Type: Progress Notes Filed: 03/27/2019 6:46 PM Note Text: PRIMARY CARE COORDINATION QUICK NOTE Provider Action/FYI Called to check on the resul ts of well check. Per dispatch, she was ok Want me to follow up later this week just to check on her? Patient identified by name and date . Called to check on the results of well check. Per dispatch, she was ok PROGRESS HNO ID: [id number] [place] 03-27-2019 [facility] Author: Yovany Castle Castellano ([id number]) Service: ? Author Type: Physician Type: Progress Notes Filed: 03/27/2019 6:46 PM Note Text: Cherry I would also call the local police for a safety check PROGRESS HNO ID: [id number] [place] 03-27-2019 [facility] Author: Cherry GuptaRn) DORIAN Cardonaveland ([id number]) Service: ? Author Type: Registered Nurse Type: Progress Notes Filed: 03/27/2019 6:46 PM Note Text: PRIMARY CARE COORDINATION QUICK NOTE Provider Action/FYI Called for well check. Patient identified by name and date . Notified [place] [employer] requesting a well check. PRIMARY CARE COORDINATION QUICK NOTE Provider Action/FYI Pt called with concerns with will be doing something to her. Left message for return call from [facility]. Patient identified by name and date . Received call from pt. States this is Shanti Gloria, you can't do anything to me and the police know it too. Forget my name. Good bye phone disconnected on other end. Called to counseling center to see if pt had recent follow u p and left message for return call. clare on 201 01-23-13 CNPTOUTREACH Patient Outreach (FAMPWS) Normal 1 05-27-2018 [place] LISA Garcia ([id number]) 1960 [facility] Date Time Provider Department ([id number]) 03/27/19 [facility] During your visit today, we recorded the following informati on about you: Cherry Cardona RN, RN 03/27/2019 6:46 PM Signed PRIMARY CARE COORDINATION QUICK NOTE Provider Action/FYI Called for well check. Patient identified by name and date . Notified [place] [employer] requesting a well check. PRIMARY CARE COORDINATION QUICK NOTE Provider Action/FYI Pt called with concerns with will be doing somet ingrid to her. Left message for return call from [facility] center. Patient identified by name and date . Received call from pt. States this is P am Gloria, you can't do anything to me and the police know it too. Forget my name. Good bye phon e disconnected on other end. Called to counseling center to see if pt had recent follow up and left message for return call. Yovany Castle MD 03/27/2019 6:46 PM Signed Cherry I would also call the local police for a safety check Cherry Cardona RN, RN 03/27/2019 6:46 PM Signed PRIMARY CARE COORDINATION QUICK NOTE Provider Action/FYI Called to check on the results of well check. Per dispatch, she was ok Want me to follow up later this week just to check on her? Patient identified by name and date . Called to check on the results of well check. Per dispatch, she was ok Yovany Castle MD 03/27/2019 6:46 PM Signed Noted. Allergies As of Date: 03/27/2019 Noted Allergy Reaction HALDOL (HALOPERIDOL LACTATE) 05/31/2018 14 - Other: See Comm ents Comments: seizures CAFFEINE 03/04/2009 14 - Other: See Comments Comments: Patient states can have in moderation. Excess amou nts can cause seizures. Certain Deordorants [Other] 09/11/2008 16 - Unknown CHOCOLATE 03/04/2009 14 - Other: See Comments Comments: Patient states she can have in moderation. DILANTIN (PHENYTOIN SODIUM EXTEND*07/11/2006 2 - Rash Comments: GI upset FRAGRANCES 08/30/2005 2 - Rash GABAPENTIN 07/11/2006 2 - Rash Comments: GI upset KEPPRA (LEVETIRACETAM) 07/11/2006 2 - Rash Comments: GI upset LAMICTAL (LAMOTRIGINE) 10/25/2006 5 - Intolerance Comments: too drowsey LIPITOR (ATORVASTATIN) 10/08/2014 14 - Other: See Comments Comments: Dry mouth, upset stomach, elevated LFT's PEANUTS 09/11/2008 9 - Itching PHENERGAN PLAIN 03/04/2009 16 - Unknown Date Reviewed: 03/15/2019 Reviewed by: Leah Helm Ma - Fully Assessed Reason for Visit: Sail Repairer - Patient Initiated [3614] Prescriptions as of 03/27/2019 Sig: LEVOTHYROXINE 75 MCG TABLET Take 1 tablet by mouth once d* CHLORHEXIDINE GLUCONATE 0.12 * FLUTICASONE PROPIONATE 50 MCG* Use 1 [place] in each nostril o * RANITIDINE 150 MG TABLET Take 1 tablet by mouth twice * LORAZEPAM 1 MG TABLET Take 1 tablet by mouth once d* BENZTROPINE 1 MG TABLET Take 1 tablet by mouth once d* RISPERIDONE 4 MG TABLET Take 1 tablet by mouth once d* CITALOPRAM 20 MG TABLET Take 1 tablet by mouth once d* ARISTADA 662 MG/2.4 ML SUSPEN* 2.4 mL q 4 WEEKS. Per [employer] Techn[facility] * Problem List As Of Date 03/27/2019 Noted Resolved Acquired hypothyroidism [E03.9] 06/28/2005 Mixed hyperlipidemia [E78.2] 06/28/2005 History of seizures [Z87.898] 08/15/2005 More... Sebaceous cyst [L72.3] 07/17/2006 10/21/2010 Other Fall [R29.6] 06/07/2007 07/17/2009 History of hyperprolactinemia [Z86.39] 03/10/2009 Urethrocele(618.03) [N36.8] 02/19/2010 Female stress incontinence [N39.3] 02/19/2010 Screening for colon cancer [Z12.11] 06/01/2010 10/21/2010 Herpes [B00.9] 06/14/2010 06/14/2010 Sebaceous cyst [L72.3] 11/03/2010 09/13/2014 History of herpes genitalis [Z86.19] 04/03/2014 Schizo affective schizophrenia (HCC) [F25.0] 12/16/2014 More... Breast screening [Z12.39] 05/19/2015 Bipolar 1 disorder (HCC) [F31.9] OCD (obsessive compulsive disorder) [F42.9] Ex-smoker [Z87.891] 05/31/2018 More... Encounter for gynecological examination [Z01.41*05/31/2018 More... Colon cancer screening [Z12.11] 05/31/2018 Medicare annual wellness visit, subsequent [Z00*05/31/2018 More... Hoarseness of voice [R49.0] 05/31/2018 Fatty liver [K76.0] 06/01/2018 More... Elevated LFTs [R94.5] 10/29/2018 More... RBBB [I45.10] 02/21/2019 Encounter Status:Closed by YOVANY CASTLE on 03/27/19 obsolete on 2019-03 OBSOLETE Refill (FAMPWS) Normal 03-26-2019 [facility] LISA CASTRO ([id number]) 1960 [facility] Date Time Provider Department ([id number]) 03/26/19 YOVANY CASTLE FAMPWS During your visit today, we recorded the following informati on about you: Jose Schmidt RN 03/26/2019 10:12 AM Signed Patient has been identified by name and date of : Yes Pharmacy phones for refill(s): Pending Prescriptions Disp Refills LEVOTHYROXINE 75 MCG TABLET 90 tablet 1 Sig: Take 1 tablet by mouth once daily. YINKA: No Date of last office visit with pcp: 02-21-19. Next appt: Last 2 Encounter Wt Readings: Date: Wt: 03/15/2019 77.3 kg (170 lb 6.4 oz) 03/06/2019 77.1 kg (170 lb) Previous labs/tests for medication: Thyroid: TSH Date Value 10/24/2018 1.11 IU/ml 08/15/2018 1.160 uU/mL Please advise. Thank you. Jose Schmidt RN Allergies As of Date: 03/26/2019 Noted Allergy Reaction HALDOL (HALOPERIDOL LACTATE) 05/31/2018 14 - Other: See Comm ents Comments: seizures CAFFEINE 03/04/2009 14 - Other: See Comments Comments: Patient states can have in moderation. Excess amou nts can cause seizures. Certain Deordorants [Other] 09/11/2008 16 - Unknown CHOCOLATE 03/04/2009 14 - Other: See Comments Comments: Patient states she can have in moderation. DILANTIN (PHENYTOIN SODIUM EXTEND*07/11/2006 2 - Rash Comments: GI upset FRAGRANCES 08/30/2005 2 - Rash GABAPENTIN 07/11/2006 2 - Rash Comments: GI upset KEPPRA (LEVETIRACETAM) 07/11/2006 2 - Rash Comments: GI upset LAMICTAL (LAMOTRIGINE) 10/25/2006 5 - Intolerance Comments: too drowsey LIPITOR (ATORVASTATIN) 10/08/2014 14 - Other: See Comments Comments: Dry mouth, upset stomach, elevated LFT's PEANUTS 09/11/2008 9 - Itching PHENERGAN PLAIN 03/04/2009 16 - Unknown Date Reviewed: 03/15/2019 Reviewed by: Leah Helm Ma - Fully Assessed Reason for Visit: Refill Request [94] Order(s):levothyroxine (SYNTHROID) 75 mcg tabletTake 1 tab let by mouth once daily.Disp: 90 tabletRfl: 1 Prescriptions as of 03/26/2019 Sig: LEVOTHYROXINE 75 MCG TABLET Take 1 tablet by mouth once d* CHLORHEXIDINE GLUCONATE 0.12 * FLUTICASONE PROPIONATE 50 MCG* Use 1 [place] in each nostril o * RANITIDINE 150 MG TABLET Take 1 tablet by mouth twice * LORAZEPAM 1 MG TABLET Take 1 tablet by mouth once d* BENZTROPINE 1 MG TABLET Take 1 tablet by mouth once d* RISPERIDONE 4 MG TABLET Take 1 tablet by mouth once d* CITALOPRAM 20 MG TABLET Take 1 tablet by mouth once d* ARISTADA 662 MG/2.4 ML SUSPEN* 2.4 mL q 4 WEEKS. Per Internetworking Technician * Problem List As Of Date 03/26/2019 Noted Resolved Acquired hypothyroidism [E03.9] 06/28/2005 Mixed hyperlipidemia [E78.2] 06/28/2005 History of seizures [Z87.898] 08/15/2005 More... Sebaceous cyst [L72.3] 07/17/2006 10/21/2010 Other Fall [R29.6] 06/07/2007 07/17/2009 History of hyperprolactinemia [Z86.39] 03/10/2009 Urethrocele(618.03) [N36.8] 02/19/2010 Female stress incontinence [N39.3] 02/19/2010 Screening for colon cancer [Z12.11] 06/01/2010 10/21/2010 Herpes [B00.9] 06/14/2010 06/14/2010 Sebaceous cyst [L72.3] 11/03/2010 09/13/2014 History of herpes genitalis [Z86.19] 04/03/2014 Schizo affective schizophrenia (HCC) [F25.0] 12/16/2014 More... Breast screening [Z12.39] 05/19/2015 Bipolar 1 disorder (HCC) [F31.9] OCD (obsessive compulsive disorder) [F42.9] Ex-smoker [Z87.891] 05/31/2018 More... Encounter for gynecological examination [Z01.41*05/31/2018 More... Colon cancer screening [Z12.11] 05/31/2018 Medicare annual wellness visit, subsequent [Z00*05/31/2018 More... Hoarseness of voice [R49.0] 05/31/2018 Fatty liver [K76.0] 06/01/2018 More... Elevated LFTs [R94.5] 10/29/2018 More... RBBB [I45.10] 02/21/2019 Prescriptions ordered this encounter Disp Refills Start End LEVOTHYROXINE 75 MCG TABLET 90 t* 1 03/26/2019 Route: ORAL Sig: Take 1 tablet by mouth once daily. Medications Discontinued During This Encounter levothyroxine (SYNTHROID) 75 mcg tab* 90 t* 1 10/05/201803/15 Route: ORAL Sig: Take 1 tablet by mouth once daily. Disc: Reason for discontinue is not on file. Encounter Status:Closed by ANJU CORTES on 9 progress on 2019-03 PROGRESS HNO ID: [id number] Normal 03-15-2019 [facility] Author: Cherry (Dorian) DORIAN Cardona ([id number]) Service: ? Author Type: Registered Nurse Type: Progress Notes Filed: 03/15/2019 2:02 PM Note Text: ASIC VERIFICATION ENGINEER EMERGENCY DEPARTMENT FOLLOW UP INITIAL CONTACT Initial contact with patient post discharge, spoke to cherri ramos Patient identified by name and date : YES SUMMARY: -Patient discharged from [facility] ED on 03/14/19. -Follow up appointment on today. -Medication review done by staff. -Presented with: no new complaints CONCERNS: None at this time. She is feeling better and has not had any nausea, vomiting or diarrhea today. She ate breakfast and it stayed down. NEW MEDICATIONS: No changes MEDS HELD/DISCONTINUED: No changes BRIEF ED COURSE: C/o nausea, vomiting, diarrhea. Went to ED due to possible d ehydration. Given IV fluids and sent home Cherry Cardona RN PROGRESS HNO ID: [id number] Normal 03-15-2019 [facility] Author: Gonsalo Grider) Dylan Kruegerveland ([id number]) Service: ? Author Type: Physician Business Applications Manager Type: Progress Notes Filed: 03/18/2019 2:15 PM Note Text: 03/15/2019 Patient presents with: ER F/U: [facility] vomiting AND diarrhea 03/13/19 SUBJECTIVE: This is a 58 year old that is here today for ER Follow Up vomiting and diarrhea. She was seen on 03/13 at [facility] and was given IV fluids and zofran. Today she is much better. No vomiting or diarrhea since yesterday. Denies abdominal pain. PAST MEDICAL HISTORY Diagnosis Date - Acquired hypothyroidism 06/28/2005 - Bipolar 1 disorder (HCC) - Elevated LFTs 10/29/2018 - Ex-smoker 05/31/2018 Started at age 20 up to 3-4 cigs a day. Quit in early ( september of smoked 1-2 yrs only. - Fatty liver 06/01/2018 Elevated LFT's - Female stress incontinence 02/19/2010 - History of herpes genitalis 04/03/2014 - History of hyperprolactinemia 03/10/2009 - History of seizures 08/15/2005 Has not had an episode since and felt to be related t o the haldol she was on. - Mixed hyperlipidemia 06/28/2005 - OCD (obsessive compulsive disorder) - Petit mal seizures - Schizo affective schizophrenia (HCC) 12/16/2014 - Urethrocele(618.03) 02/19/2010 ALLERGIES Haldol [Haloperidol Lactate]; Caffeine; Certain De ordorants [Other]; Chocolate; Dilantin [Phenytoin Sodium Extended]; Fr agrances; Gabapentin; Keppra [Levetiracetam]; Lamictal [Lamotrigine]; Lipitor [Atorvastatin]; Peanuts; Phenergan Plain MEDICATIONS Current Outpatient Medications: Chlorhexidine Gluconate (PERIDEX) 0.12 % solution fluticasone (FLONASE) 50 mcg/actuation nasal spray Use 1 Spr ay in each nostril once daily. ranitidine (ZANTAC) 150 mg tablet Take 1 tablet by mouth twi ce daily. levothyroxine (SYNTHROID) 75 mcg tablet Take 1 tablet by inderjit th once daily. LORazepam (ATIVAN) 1 mg tablet Take 1 tablet by mouth once d aily for 30 days. Twice daily, Per [facility]. benztropine (COGENTIN) 1 mg tablet Take 1 tablet by mouth on ce daily. Per [facility] risperiDONE (RISPERDAL) 4 mg tablet Take 1 tablet by mouth o nce daily. Per [facility] citalopram (CELEXA) 20 mg tablet Take 1 tablet by mouth once daily. Per [facility] ARISTADA 662 mg/2.4 mL injection 2.4 mL q 4 WEEKS. Per [facility] No current facility-administered medications for this visit. SOCIAL HISTORY Social History Socioeconomic History Marital status: Spouse name: Not on file Number of children: 1 Years of education: 12 Highest education level: Not on file Occupational History Occupation: Disability Social Needs Financial resource strain: Not on file Food insecurity: Worry: Not on file Inability: Not on file Transportation needs: Medical: Not on file Non-medical: Not on file Tobacco Use Smoking status: Former Smoker Smokeless tobacco: Never Used Tobacco comment: Quit in Substance and Sexual Activity Alcohol use: No Drug use: No Sexual activity: Yes control/protection: Tubal Ligation Lifestyle Physical activity: Days per week: Not on file Minutes per session: Not on file Stress: Not on file Relationships Social connections: Talks on phone: Not on file Gets together: Not on file Attends mandaen service: Not on file Active member of club or organization: Not on file Attends meetings of clubs or organizations: Not on file Relationship status: Not on file Intimate partner violence: Fear of current or ex partner: Not on file Emotionally abused: Not on file Physically abused: Not on file Forced sexual activity: Not on file Other Topics Concerns: Not on file Social History Narrative Not on file REVIEW OF SYSTEMS See HPI OBJECTIVE: BP 132/94 Pulse 76 Temp 36.7 ?C (98 ?F) (Left Tympanic) Resp 16 Wt 77.3 kg (170 lb 6.4 oz) LMP 01/31/2012 SpO2 98% B UT 28.05 kg/m? APPEARANCE Well appearing, alert, in no acute distress, well -hydrated, well nourished. HEART RRR with normal S1 and S2, LUNG CTA, No wheezing, rhonchi, rales. ABDOMEN bowel sounds normoactive, no bruits, soft, non-tende r, non-distended, without organomegaly or palpable masses, no t enderness to palpation ASSESSMENT/PLAN: 1. Gastroenteritis - ICD9: 558.9, ICD10: K52.9 Resolved [place] diet and good hydration, advance diet as tolerating Reviewed red flags and when to seek care sooner. Return prn The patient indicates understanding of these issues and agre es with the plan. Gonsalo Diaz PA-C cnptoutrdelia on 201 01-23-01 CNPTOUTREACH Patient Outreach (FAMPWS) Normal 1 05-15-2018 [place] LISA Garcia ([id number]) 1960 [facility] Time Provider Department ([id number]) 03/15/19 CHERRY CARDONA (RN) FAMPWS During your visit today, we recorded the following informati on about you: Cherry Cardona RN, RN 03/15/2019 2:02 PM Signed ASIC VERIFICATION ENGINEER EMERGENCY DEPARTMENT FOLLOW UP INITIAL CONTACT Initial contact with patient post discharge, spoke to cherri ramos Patient identified by name and date : YES SUMMARY: -Patient discharged from [facility] ED on 03/14/19. -Follow up appointment on today. -Medication review done by staff. -Presented with: no new complaints CONCERNS: None at this time. She is feeling better and has not had any nausea, vomiting or diarrhea today. She ate breakfast and it stayed down. NEW MEDICATIONS: No changes MEDS HELD/DISCONTINUED: No changes BRIEF ED COURSE: C/o nausea, vomiting, diarrhea. Went to ED due t o possible dehydration. Given IV fluids and sent home Cherry Cardona RN Allergies As of Date: 03/15/2019 Noted Allergy Reaction HALDOL (HALOPERIDOL LACTATE) 05/31/2018 14 - Other: See Comm ents Comments: seizures CAFFEINE 03/04/2009 14 - Other: See Comments Comments: Patient states can have in moderation. Excess amou nts can cause seizures. Certain Deordorants [Other] 09/11/2008 16 - Unknown CHOCOLATE 03/04/2009 14 - Other: See Comments Comments: Patient states she can have in moderation. DILANTIN (PHENYTOIN SODIUM EXTEND*07/11/2006 2 - Rash Comments: GI upset FRAGRANCES 08/30/2005 2 - Rash GABAPENTIN 07/11/2006 2 - Rash Comments: GI upset KEPPRA (LEVETIRACETAM) 07/11/2006 2 - Rash Comments: GI upset LAMICTAL (LAMOTRIGINE) 10/25/2006 5 - Intolerance Comments: too drowsey LIPITOR (ATORVASTATIN) 10/08/2014 14 - Other: See Comments Comments: Dry mouth, upset stomach, elevated LFT's PEANUTS 09/11/2008 9 - Itching PHENERGAN PLAIN 03/04/2009 16 - Unknown Date Reviewed: 03/15/2019 Reviewed by: Leah Helm Ma - Fully Assessed Reason for Visit: Sail Repairer Ed Follow Up [3615] Prescriptions as of 03/15/2019 Sig: CHLORHEXIDINE GLUCONATE 0.12 * FLUTICASONE PROPIONATE 50 MCG* Use 1 [place] in each nostril o * RANITIDINE 150 MG TABLET Take 1 tablet by mouth twice * LEVOTHYROXINE 75 MCG TABLET Take 1 tablet by mouth once d* LORAZEPAM 1 MG TABLET Take 1 tablet by mouth once d* BENZTROPINE 1 MG TABLET Take 1 tablet by mouth once d* RISPERIDONE 4 MG TABLET Take 1 tablet by mouth once d* CITALOPRAM 20 MG TABLET Take 1 tablet by mouth once d* ARISTADA 662 MG/2.4 ML SUSPEN* 2.4 mL q 4 WEEKS. Per Internetworking Technician * Problem List As Of Date 03/15/2019 Noted Resolved Acquired hypothyroidism [E03.9] INVALID FOR* Mixed hyperlipidemia [E78.2] INVALID FOR* History of seizures [Z87.898] INVALID FOR* More... Sebaceous cyst [L72.3] INVALID FOR*10/21/2010 Other Fall [R29.6] INVALID FOR*07/17/2009 History of hyperprolactinemia [Z86.39] INVALID FOR* Urethrocele(618.03) [N36.8] INVALID FOR* Female stress incontinence [N39.3] INVALID FOR* Screening for colon cancer [Z12.11] INVALID FOR*10/21/2010 Herpes [B00.9] INVALID FOR*06/14/2010 Sebaceous cyst [L72.3] INVALID FOR*09/13/2014 History of herpes genitalis [Z86.19] INVALID FOR* Schizo affective schizophrenia (HCC) [F25.0] INVALID FOR* More... Breast screening [Z12.39] INVALID FOR* Bipolar 1 disorder (HCC) [F31.9] OCD (obsessive compulsive disorder) [F42.9] Ex-smoker [Z87.891] INVALID FOR* More... Encounter for gynecological examination [Z01.41*INVALID FOR* More... Colon cancer screening [Z12.11] INVALID FOR* Medicare annual wellness visit, subsequent [Z00*INVALID FOR* More... Hoarseness of voice [R49.0] INVALID FOR* Fatty liver [K76.0] INVALID FOR* More... Elevated LFTs [R94.5] INVALID FOR* More... RBBB [I45.10] INVALID FOR* Encounter Status:Closed by CHERRY CARDONA on 03/15/19 cnov on 2019-03-15 CNOV Office Visit (FAMPWS) Normal 03-15-20 [facility] ([id number]) 1960 F [place] Date Time Provider Department ([id number]) 03/15/19 1:00 PM GONSALO DIAZ) FAMPWS During your visit today, we recorded the following informati on about you: Temperature Pulse Respiration Blood pressure 98 degrees 76/minute 16/minute 132/94 Weight 77.3 kg Gonsalo Diaz PA-C 03/18/2019 2:15 PM Signed 03/15/2019 Patient presents with: ER F/U: [facility] vomiting AND diarrhea 03/13/19 SUBJECTIVE: This is a 58 year old that i s here today for ER Follow Up vomiting and diarrhea. She was seen on 03/13 at [facility] and was given IV fluids and zofran. Today she is much better. No vomiting or diarrhea since yest erday. Denies abdominal pain. PAST MEDICAL HISTORY Diagnosis Date - Acquired hypothyroidism 06/28/2005 - Bipolar 1 disorder (HCC) - Elevated LFTs 10/29/2018 - Ex-smoker 05/31/2018 Started at age 20 up to 3-4 cigs a day. Quit in early (september of smoked 1-2 yrs only. - Fatty liver 06/01/2018 Elevated LFT's - Female stress incontinence 02/19/2010 - History of herpes genitalis 04/03/2014 - History of hyperprolactinemia 03/10/2009 - History of seizures 08/15/2005 Has not had an episode since s and felt to be rel ated to the haldol she was on. - Mixed hyperlipidemia 06/28/2005 - OCD (obsessive compulsive disorder) - Petit mal seizures - Schizo affective schizophrenia (HCC) 12/16/2014 - Urethrocele(618.03) 02/19/2010 ALLERGIES Haldol [Haloperidol Lactate]; Caffeine; Certain Deordorants [Other]; Chocolate; Dilantin [Phenyto in Sodium Extended]; Fragrances; Gabapentin; Keppra [Levetiracetam]; Lamictal [Lamotrigine]; Lipitor [Atorvastat in]; Peanuts; Phenergan Plain MEDICATIONS Current Outpatient Medications: Chlorhexidine Gluconate (PERIDEX) 0.12 % solution fluticasone (FLONASE) 50 mcg/actuation n pierre spray Use 1 [place] in each nostril once daily. ranitidine (ZANTAC) 150 mg tablet Take 1 tablet by mouth twi daily. levothyroxine (SYNTHROID) 75 mcg tablet Take 1 tablet by inderjit once daily. LORazepam (ATIVAN) 1 mg tablet Take 1 tablet by mouth once daily for 30 days. [facility], [facility]. benztropine (COGENTIN) 1 mg tablet Take 1 tablet by mouth on ce daily. [facility] risperiDONE (RISPERDAL) 4 mg tablet Take 1 tablet by mouth o nce daily. [facility] citalopram (CELEXA) 20 mg tablet Take 1 tablet by mouth once daily. [facility] ARISTADA 662 mg/2.4 mL injection 2.4 mL q 4 WEEKS. Per [facility] No current facility-administered medications for this visit. SOCIAL HISTORY Social History Socioeconomic History Marital status: Spouse name: Not on file Number of children: 1 Years of education: 12 Highest education level: Not on file Occupational History Occupation: Disability Social Needs Financial resource strain: Not on file Food insecurity: Worry: Not on file Inability: Not on file Transportation needs: Medical: Not on file Non-medical: Not on file Tobacco Use Smoking status: Former Smoker Smokeless tobacco: Never Used Tobacco comment: Quit in Substance and Sexual Activity Alcohol use: No Drug use: No Sexual activity: Yes control/protection: Tubal Ligation Lifestyle Physical activity: Days per week: Not on file Minutes per session: Not on file Stress: Not on file Relationships Social connections: Talks on phone: Not on file Gets together: Not on file Attends mandaen service: Not on file Active member of club or organization: Not on file Attends meetings of clubs or organizations: Not on file Relationship status: Not on file Intimate partner violence: Fear of current or ex partner: Not on file Emotionally abused: Not on file Physically abused: Not on file Forced sexual activity: Not on file Other Topics Concerns: Not on file Social History Narrative Not on file REVIEW OF SYSTEMS See HPI OBJECTIVE: BP 132/94 Pulse 76 Temp 36.7 ?C (98 ?F) (Left Tympanic) Resp 16 Wt 77.3 kg (170 lb 6.4 oz) LMP 01/31/2012 SpO2 98% BMI 28 .05 kg/m? APPEARANCE Well appearing, alert, in no acute distress, we ll-hydrated, well nourished. HEART RRR with normal S1 and S2, LUNG CTA, No wheezing, rhonchi, rales. ABDOMEN bowel sounds normoactive, no bruits, sof t, non-tender, non-distended, without organomegaly or palpable masses, no tenderness to pa lpation ASSESSMENT/PLAN: 1. Gastroenteritis - ICD9: 558.9, ICD10: K52.9 Resolved [place] diet and good hydration, advance diet as tolerating Reviewed red flags and when to seek care sooner. Return prn The patient indicates understanding of these iss ues and agrees with the plan. Gonsalo Diaz PA-C Referring Provider: SELF [[id number]] Allergies As of Date: 03/15/2019 Noted Allergy Reaction HALDOL (HALOPERIDOL LACTATE) 05/31/2018 14 - Other: See Comm ents Comments: seizures CAFFEINE 03/04/2009 14 - Other: See Comments Comments: Patient states can have in moderation. Excess amou nts can cause seizures. Certain Deordorants [Other] 09/11/2008 16 - Unknown CHOCOLATE 03/04/2009 14 - Other: See Comments Comments: Patient states she can have in moderation. DILANTIN (PHENYTOIN SODIUM EXTEND*07/11/2006 2 - Rash Comments: GI upset FRAGRANCES 08/30/2005 2 - Rash GABAPENTIN 07/11/2006 2 - Rash Comments: GI upset KEPPRA (LEVETIRACETAM) 07/11/2006 2 - Rash Comments: GI upset LAMICTAL (LAMOTRIGINE) 10/25/2006 5 - Intolerance Comments: too drowsey LIPITOR (ATORVASTATIN) 10/08/2014 14 - Other: See Comments Comments: Dry mouth, upset stomach, elevated LFT's PEANUTS 09/11/2008 9 - Itching PHENERGAN PLAIN 03/04/2009 16 - Unknown Date Reviewed: 03/15/2019 Reviewed by: Leah Helm Ma - Fully Assessed Reason for Visit: ER F/U [41] Cmt: [facility] vomiting AND diarrhea 03/13/19 Reason For Visit History Recorded Primary Visit Diagnosis:Gastroenteritis [K52.9] Prescriptions as of 03/15/2019 Sig: CHLORHEXIDINE GLUCONATE 0.12 * FLUTICASONE PROPIONATE 50 MCG* Use 1 [place] in each nostril o * RANITIDINE 150 MG TABLET Take 1 tablet by mouth twice * LEVOTHYROXINE 75 MCG TABLET Take 1 tablet by mouth once d* LORAZEPAM 1 MG TABLET Take 1 tablet by mouth once d* BENZTROPINE 1 MG TABLET Take 1 tablet by mouth once d* RISPERIDONE 4 MG TABLET Take 1 tablet by mouth once d* CITALOPRAM 20 MG TABLET Take 1 tablet by mouth once d* ARISTADA 662 MG/2.4 ML SUSPEN* 2.4 mL q 4 WEEKS. Per Internetworking Technician * Medication notes this encounter FLUTICASONE PROPIONATE 50 MCG/ACTUATION NASAL SPRAY,SUSPENSI ON >> Leah Haumesser Ma 03/15/2019 1:08 PM >> HAUMESSER JONG VAZQUEZMonMar 15, 2019 1:08 PM PRN RANITIDINE 150 MG TABLET >> Leah Haumesser Ma 03/15/2019 1:08 PM >> HAUMESSER LEAH VAZQUEZ MonMar 15, 2019 1:08 PM PRN LORAZEPAM 1 MG TABLET >> Leah Haumesser Ma 03/15/2019 1:08 PM >> HAUMESSER LEAH VAZQUEZ MonMar 15, 2019 1:08 PM PRN >> Leah Haumesser Ma 03/15/2019 1:08 PM >> HAUMESSER LEAH VAZQUEZ MonMar 15, 2019 1:08 PM Problem List As Of Date 03/15/2019 Noted Resolved Acquired hypothyroidism [E03.9] INVALID FOR* Mixed hyperlipidemia [E78.2] INVALID FOR* History of seizures [Z87.898] INVALID FOR* More... Sebaceous cyst [L72.3] INVALID FOR*10/21/2010 Other Fall [R29.6] INVALID FOR*07/17/2009 History of hyperprolactinemia [Z86.39] INVALID FOR* Urethrocele(618.03) [N36.8] INVALID FOR* Female stress incontinence [N39.3] INVALID FOR* Screening for colon cancer [Z12.11] INVALID FOR*10/21/2010 Herpes [B00.9] INVALID FOR*06/14/2010 Sebaceous cyst [L72.3] INVALID FOR*09/13/2014 History of herpes genitalis [Z86.19] INVALID FOR* Schizo affective schizophrenia (HCC) [F25.0] INVALID FOR* More... Breast screening [Z12.39] INVALID FOR* Bipolar 1 disorder (HCC) [F31.9] OCD (obsessive compulsive disorder) [F42.9] Ex-smoker [Z87.891] INVALID FOR* More... Encounter for gynecological examination [Z01.41*INVALID FOR* More... Colon cancer screening [Z12.11] INVALID FOR* Medicare annual wellness visit, subsequent [Z00*INVALID FOR* More... Hoarseness of voice [R49.0] INVALID FOR* Fatty liver [K76.0] INVALID FOR* More... Elevated LFTs [R94.5] INVALID FOR* More... RBBB [I45.10] INVALID FOR* Encounter Status:Closed by GONSALO DIAZ PA-C on 9 progress on 2019-02 PROGRESS HNO ID: [id number] Normal 03-06-2019 [facility] Author: Jeanie ([employer]) Marianne Castellano ([id number]) Service: ? Author Type: Nurse Practitioner Type: Progress Notes Filed: 03/06/2019 10:44 AM Note Text: Lisa Castro is a 58 year old female who presents for pro blem visit Hot flashes HPI: Was watching TV yesterday and Ashwini and Gini were talk ing about chemical changes with menopause and so she thought she shou ld be checked. Post-menopausal since age 52. Feels like my body temperatur e is high especially when the humidity is high. Thinks that she has a n occasional hot flash but I would have to think about how often it happe ns'. Sleeps until 7am - no night sweats. Sleeps more at this time of alida sanchez Requesting information because my stepmother didn't teach me much. PAST MEDICAL HISTORY Diagnosis Date - Acquired hypothyroidism 06/28/2005 - Bipolar 1 disorder (HCC) - Elevated LFTs 10/29/2018 - Ex-smoker 05/31/2018 Started at age 20 up to 3-4 cigs a day. Quit in early 's ( september of smoked 1-2 yrs only. - Fatty liver 06/01/2018 Elevated LFT's - Female stress incontinence 02/19/2010 - History of herpes genitalis 04/03/2014 - History of hyperprolactinemia 03/10/2009 - History of seizures 08/15/2005 Has not had an episode since and felt to be related t o the haldol she was on. - Mixed hyperlipidemia 06/28/2005 - OCD (obsessive compulsive disorder) - Petit mal seizures - Schizo affective schizophrenia (HCC) 12/16/2014 - Urethrocele(618.03) 02/19/2010 PAST SURGICAL HISTORY Procedure Laterality Date - COLONOSCOP W/ OR W/O BRSH SPEC 07/02/10 - COLONOSCOPY 07/16/2018 - EGD 07/16/2018 - LIGATE FALLOPIAN TUBE Tubal ligation - REM LESIO TRUNK,ARM,LEG 1.1 -2.0CM 09/13/06 Exc. 4 separate chad cysts - REM LESION FACE,EAR,EYE 0.6-1CM 11/03/10 FAMILY HISTORY Problem Relation Age of Onset - Coronary Artery Disease Mother - Diabetes Paternal Grandmother - Colon Cancer No Family History - Breast Cancer No Family History - Ovarian cancer No Family History - Uterine Cancer No Family History - Prostate Cancer No Family History - Hypertension No Family History - Hyperlipidemia No Family History - Kidney Disease No Family History - Seizures No Family History - Stroke No Family History Social History Socioeconomic History Marital status: Spouse name: Not on file Number of children: 1 Years of education: 12 Highest education level: Not on file Occupational History Occupation: Disability Social Needs Financial resource strain: Not on file Food insecurity: Worry: Not on file Inability: Not on file Transportation needs: Medical: Not on file Non-medical: Not on file Tobacco Use Smoking status: Former Smoker Smokeless tobacco: Never Used Tobacco comment: Quit in Substance and Sexual Activity Alcohol use: No Drug use: No Sexual activity: Yes control/protection: Tubal Ligation Lifestyle Physical activity: Days per week: Not on file Minutes per session: Not on file Stress: Not on file Relationships Social connections: Talks on phone: Not on file Gets together: Not on file Attends mandaen service: Not on file Active member of club or organization: Not on file Attends meetings of clubs or organizations: Not on file Relationship status: Not on file Intimate partner violence: Fear of current or ex partner: Not on file Emotionally abused: Not on file Physically abused: Not on file Forced sexual activity: Not on file Other Topics Concerns: Not on file Social History Narrative Not on file Current Outpatient Medications: fluticasone (FLONASE) 50 mcg/actuation nasal spray Use 1 Spr ay in each nostril once daily. ranitidine (ZANTAC) 150 mg tablet Take 1 tablet by mouth twi ce daily. levothyroxine (SYNTHROID) 75 mcg tablet Take 1 tablet by inderjit th once daily. benztropine (COGENTIN) 1 mg tablet Take 1 tablet by mouth on ce daily. [facility] risperiDONE (RISPERDAL) 4 mg tablet Take 1 tablet by mouth o nce daily. [facility] citalopram (CELEXA) 20 mg tablet Take 1 tablet by mouth once daily. [facility] ARISTADA 662 mg/2.4 mL injection 2.4 mL q 4 WEEKS. [facility] LORazepam (ATIVAN) 1 mg tablet Take 1 tablet by mouth once d aily for 30 days. Twice daily, [facility]. No current facility-administered medications for this visit. Allergies As of Date: 03/06/2019 Allergen Noted Reaction HALDOL [HALOPERIDOL LACTATE] 05/31/2018 Other: See Comments CAFFEINE 03/04/2009 Other: See Comments CERTAIN DEORDORANTS [OTHER] 09/11/2008 Unknown CHOCOLATE 03/04/2009 Other: See Comments DILANTIN [PHENYTOIN SODIUM EXTEND*07/11/2006 Rash FRAGRANCES 08/30/2005 Rash GABAPENTIN 07/11/2006 Rash KEPPRA [LEVETIRACETAM] 07/11/2006 Rash LAMICTAL [LAMOTRIGINE] 10/25/2006 Intolerance LIPITOR [ATORVASTATIN] 10/08/2014 Other: See Comments PEANUTS 09/11/2008 Itching PHENERGAN PLAIN 03/04/2009 Unknown Fully Assessed 03/06/2019 REVIEW OF SYSTEMS Abdomen: No bloating, early satiety, indigestion, or increas ed flatulence. No abdominal pain, nausea, vomiting, diarrhea, or constipati on. Bladder: No dysuria, gross hematuria, urinary frequency, uri nary urgency, or incontinence. Allergies and current medication updated:Yes EXAM: BP 110/70 Wt 170 lb (77.1kg) LMP 01/31/2012 GENERAL: pleasant, female in no apparent distress CHEST: Normal inspiratory effort NEURO: alert and oriented x3,exam grossly non-focal ASSESSMENT/PLAN: 1. Post-menopausal - ICD9: V49.81, ICD10: Z78.0 - Pt feels warmer as she gets older but no menopausal vasomo tor symptoms. Reassured that if she is not having hot flashes at 6 years a fter LMP, she will most likely not have them and that she is doing great w ith menopause. Explained that her citalopram is also helpful for hot flashe s, if she would have them. Questions answered to pt's satisfaction and written information given. Follow-up as needed. MOY Trejo on 2019-03-06 CNOV Office Visit (WOOB) Normal 03-06-2019 [facility] L[facility] CASTRO ([id number]) 1960 F [place] Date Time Provider Department ([id number]) 03/06/19 9:45 AM JEANIE RODRIGUEZ (RALPH) WOOB During your visit today, we recorded the following informati on about you: Blood pressure Weight 110/70 77.1 kg Jeanie Rodriguez APRN.RALPH 03/06/2019 10:44 AM Signed Lisa Castro is a 58 year old female who presents for pro blem visit Hot flashes HPI: Was watching TV yesterday and Sabrina avila and Gini were talking about chemical changes with menopause and so she thought she should be sunil cked. Post-menopausal since age 52. Feels like my body temperatur e is high especially when the humidity is high. Thinks th at she has an occasional hot flash but I would have to think about how often it happens'. Sleeps until 7am - no night sweats. Sleeps more at this time of year. Reque sting information because my stepmother didn't teach me much. PAST MEDICAL HISTORY Diagnosis Date - Acquired hypothyroidism 06/28/2005 - Bipolar 1 disorder (HCC) - Elevated LFTs 10/29/2018 - Ex-smoker 05/31/2018 Started at age 20 up to 3-4 cigs a day. Quit in early ' (september of smoked 1-2 yrs only. - Fatty liver 06/01/2018 Elevated LFT's - Female stress incontinence 02/19/2010 - History of herpes genitalis 04/03/2014 - History of hyperprolactinemia 03/10/2009 - History of seizures 08/15/2005 Has not had an episode since and felt to be rel ated to the haldol she was on. - Mixed hyperlipidemia 06/28/2005 - OCD (obsessive compulsive disorder) - Petit mal seizures - Schizo affective schizophrenia (HCC) 12/16/2014 - Urethrocele(618.03) 02/19/2010 PAST SURGICAL HISTORY Procedure Laterality Date - COLONOSCOP W/ OR W/O BRSH SPEC 07/02/10 - COLONOSCOPY 07/16/2018 - EGD 07/16/2018 - LIGATE FALLOPIAN TUBE Tubal ligation - REM LESIO TRUNK,ARM,LEG 1.1 -2.0CM 09/13/06 Exc. 4 separate chad cysts - REM LESION FACE,EAR,EYE 0.6-1CM 11/03/10 FAMILY HISTORY Problem Relation Age of Onset - Coronary Artery Disease Mother - Diabetes Paternal Grandmother - Colon Cancer No Family History - Breast Cancer No Family History - Ovarian cancer No Family History - Uterine Cancer No Family History - Prostate Cancer No Family History - Hypertension No Family History - Hyperlipidemia No Family History - Kidney Disease No Family History - Seizures No Family History - Stroke No Family History Social History Socioeconomic History Marital status: Spouse name: Not on file Number of children: 1 Years of education: 12 Highest education level: Not on file Occupational History Occupation: Disability Social Needs Financial resource strain: Not on file Food insecurity: Worry: Not on file Inability: Not on file Transportation needs: Medical: Not on file Non-medical: Not on file Tobacco Use Smoking status: Former Smoker Smokeless tobacco: Never Used Tobacco comment: Quit in Substance and Sexual Activity Alcohol use: No Drug use: No Sexual activity: Yes control/protection: Tubal Ligation Lifestyle Physical activity: Days per week: Not on file Minutes per session: Not on file Stress: Not on file Relationships Social connections: Talks on phone: Not on file Gets together: Not on file Attends mandaen service: Not on file Active member of club or organization: Not on file Attends meetings of clubs or organizations: Not on file Relationship status: Not on file Intimate partner violence: Fear of current or ex partner: Not on file Emotionally abused: Not on file Physically abused: Not on file Forced sexual activity: Not on file Other Topics Concerns: Not on file Social History Narrative Not on file Current Outpatient Medications: fluticasone (FLONASE) 50 mcg/actuation n pierre spray Use 1 [place] in each nostril once daily. ranitidine (ZANTAC) 150 mg tablet Take 1 tablet by mouth twi ce daily. levothyroxine (SYNTHROID) 75 mcg tablet Take 1 tablet by inderjit th once daily. benztropine (COGENTIN) 1 mg tablet Take 1 tablet by mouth on ce daily. [facility] risperiDONE (RISPERDAL) 4 mg tablet Take 1 tablet by mouth o nce daily. [facility] citalopram (CELEXA) 20 mg tablet Take 1 tablet by mouth once daily. [facility] ARISTADA 662 mg/2.4 mL injection 2.4 mL q 4 WEEKS. [facility] LORazepam (ATIVAN) 1 mg tablet Take 1 tablet by mouth once daily for 30 days. Twice daily, [facility]. No current facility-administered medications for this visit. Allergies As of Date: 03/06/2019 Allergen Noted Reaction HALDOL [HALOPERIDOL LACTATE] 05/31/2018 Other: See Comments CAFFEINE 03/04/2009 Other: See Comments CERTAIN DEORDORANTS [OTHER] 09/11/2008 Unknown CHOCOLATE 03/04/2009 Other: See Comments DILANTIN [PHENYTOIN SODIUM EXTEND*07/11/2006 Rash FRAGRANCES 08/30/2005 Rash GABAPENTIN 07/11/2006 Rash KEPPRA [LEVETIRACETAM] 07/11/2006 Rash LAMICTAL [LAMOTRIGINE] 10/25/2006 Intolerance LIPITOR [ATORVASTATIN] 10/08/2014 Other: See Comments PEANUTS 09/11/2008 Itching PHENERGAN PLAIN 03/04/2009 Unknown Fully Assessed 03/06/2019 REVIEW OF SYSTEMS Abdomen: No bloating, early satiety, indigestion , or increased flatulence. No abdominal pain, nausea, vomiting, diarrhea, or constipation. Bladder: No dysuria, gross hematuria, urinary frequenc y, urinary urgency, or incontinence. Allergies and current medication updated:Yes EXAM: BP 110/70 Wt 170 lb (77.1kg) LMP 01/31/2012 GENERAL: pleasant, female in no apparent distress CHEST: Normal inspiratory effort NEURO: alert and oriented x3,exam grossly non-focal ASSESSMENT/PLAN: 1. Post-menopausal - ICD9: V49.81, ICD10: Z78.0 - Pt feels warmer as she gets older but no menopausal vasomo tor symptoms. Reassured that if she is not having hot flashes at 6 years after LMP, she will most likely not have them and that she is doing great with m enopause. Explained that her citalopram is also helpful for hot flas hes, if she would have them. Questions answered to pt's satisfaction and writt en information given. Follow-up as needed. Jeanie Rodriguez APRN.RALPH Rodriguez APRN.RALPH 03/06/2019 9:53 AM Signed Menopause Symptoms Not all women experiences menopause in the same way. F or some, menopause can bring on an array of uncomfortable symptoms. Oth ers may experience few if any discomforts. This information has been prepared to help yo u manage the most common changes associated with the midlife transition. RELIEVING HOT FLASHES * Identify and avoid your hot flash triggers. Common trigger s may include stress, caffeine, alcohol, spicy foods, tight clothing, heat and cigarette smoke. * Keep the bedroom cool. Use fans during the day. Wear light layers of clothes with natural fibers. * Try deep, slow abdominal paced breathing (6 to 8 breaths p er minute). Practice deep breathing for 15 minutes in the morning, 15 mi nutes in the evening and at the onset of hot flashes. * Exercise daily. Walking, s wimming, dancing and bicycling with helmet are good choices along with yoga. * Add soy protein in the for m of food (40-60 mg) to your diet daily in place of animal protein. Promensil and isoflavone tablets have NOT be en shown to significantly help menopausal symptoms * Black cohosh (in the form of Remifemin) can be used for hot flashes and has been approved by [place] Commission [place] for only 6 months of use, however has NOT been well studied in the [place] for rat exterminator effect s and THERE HAVE BEEN REPORTS OF LIVER TOXICITY WITH BLACK COHOSH USE. (Avoid lorene yi, darineriakevin root and beware that most herbal products are NOT regulated in the [place] and some have been associated with liver toxicity) NOTE: HORMONE THERAPY (HT) is the MOST EFFECTIVE treatment and the only FDA approved treatment for menopausal symptoms. Any form of ho rmones, including 'bioidentical' hormones have risks as well as benefits. * Antidepressants like Effexor (venlaflaxine) a NSRI or Jenelle tiq (desvenlafaxine) another agent, Neurontin (gabapentin) may h elp block hot flashes and all have risks and benefits like any prescription or off the shelf medicine. * Use of Bellergal is discouraged as it contains an addictiv e barbiturate. RELIEVING INSOMNIA * Keep the bedroom cool to p revent night sweats. Special chill pillows that are cool are available. * Avoid using sleeping pills. * Exercise daily but not right before bedtime. * Avoid caffeine and alcohol at night. * Take a warm shower at bedtime. COPING WITH MOOD SWINGS, FEARS AND DEPRESSION * Find a self-calming skill to practice, such as yoga, meditation or slow deep breathing. * Avoid tranquilizers, if possible, however pres cription anti-depressants can be very effective. * Engage in a creative outlet that fosters a sense of achiev ement. * Stay connected with your family and community; nurture you r friendships. HELPFUL WEB SITES [email or web address] Referring Provider: SELF [200] Allergies As of Date: 03/06/2019 Noted Allergy Reaction HALDOL (HALOPERIDOL LACTATE) 05/31/2018 14 - Other: See Comm ents Comments: seizures CAFFEINE 03/04/2009 14 - Other: See Comments Comments: Patient states can have in moderation. Excess amou nts can cause seizures. Certain Deordorants [Other] 09/11/2008 16 - Unknown CHOCOLATE 03/04/2009 14 - Other: See Comments Comments: Patient states she can have in moderation. DILANTIN (PHENYTOIN SODIUM EXTEND*07/11/2006 2 - Rash Comments: GI upset FRAGRANCES 08/30/2005 2 - Rash GABAPENTIN 07/11/2006 2 - Rash Comments: GI upset KEPPRA (LEVETIRACETAM) 07/11/2006 2 - Rash Comments: GI upset LAMICTAL (LAMOTRIGINE) 10/25/2006 5 - Intolerance Comments: too drowsey LIPITOR (ATORVASTATIN) 10/08/2014 14 - Other: See Comments Comments: Dry mouth, upset stomach, elevated LFT's PEANUTS 09/11/2008 9 - Itching PHENERGAN PLAIN 03/04/2009 16 - Unknown Date Reviewed: 03/06/2019 Reviewed by: Jeanie Rodriguez - Fully Assessed Reason for Visit: hot flashes [Other] Primary Visit Diagnosis:Post-menopausal [Z78.0] Prescriptions as of 03/06/2019 Sig: FLUTICASONE PROPIONATE 50 MCG* Use 1 [place] in each nostril o * RANITIDINE 150 MG TABLET Take 1 tablet by mouth twice * LEVOTHYROXINE 75 MCG TABLET Take 1 tablet by mouth once d* BENZTROPINE 1 MG TABLET Take 1 tablet by mouth once d* RISPERIDONE 4 MG TABLET Take 1 tablet by mouth once d* CITALOPRAM 20 MG TABLET Take 1 tablet by mouth once d* ARISTADA 662 MG/2.4 ML SUSPEN* 2.4 mL q 4 WEEKS. Per Internetworking Technician * LORAZEPAM 1 MG TABLET Take 1 tablet by mouth once d* Problem List As Of Date 03/06/2019 Noted Resolved Acquired hypothyroidism [E03.9] INVALID FOR* Mixed hyperlipidemia [E78.2] INVALID FOR* History of seizures [Z87.898] INVALID FOR* More... Sebaceous cyst [L72.3] INVALID FOR*10/21/2010 Other Fall [R29.6] INVALID FOR*07/17/2009 History of hyperprolactinemia [Z86.39] INVALID FOR* Urethrocele(618.03) [N36.8] INVALID FOR* Female stress incontinence [N39.3] INVALID FOR* Screening for colon cancer [Z12.11] INVALID FOR*10/21/2010 Herpes [B00.9] INVALID FOR*06/14/2010 Sebaceous cyst [L72.3] INVALID FOR*09/13/2014 History of herpes genitalis [Z86.19] INVALID FOR* Schizo affective schizophrenia (HCC) [F25.0] INVALID FOR* More... Breast screening [Z12.39] INVALID FOR* Bipolar 1 disorder (HCC) [F31.9] OCD (obsessive compulsive disorder) [F42.9] Ex-smoker [Z87.891] INVALID FOR* More... Encounter for gynecological examination [Z01.41*INVALID FOR* More... Colon cancer screening [Z12.11] INVALID FOR* Medicare annual wellness visit, subsequent [Z00*INVALID FOR* More... Hoarseness of voice [R49.0] INVALID FOR* Fatty liver [K76.0] INVALID FOR* More... Elevated LFTs [R94.5] INVALID FOR* More... RBBB [I45.10] INVALID FOR* Other instructions from your clinician: Menopause Symptoms Not all women experiences menopause in the same way. For jared e, menopause can bring on an array of uncomfortable symptoms. Others may experience few if any discomforts. This information has been prepared to he lp you manage the most common changes associated with the midlife transiti on. RELIEVING HOT FLASHES * Identify and avoid your hot flash triggers. Common trigger s may include stress, caffeine, alcohol, spicy foods, tight clothing, heat and cigarette smoke. * Keep the bedroom cool. Use fans during the day. Wear light layers of clothes with natural fibers. * Try deep, slow abdominal paced breathing (6 to 8 breaths p er minute). Practice deep breathing for 15 minutes in the morning, 15 mi nutes in the evening and at the onset of hot flashes. * Exercise daily. Walking, swimming, dancing and bicycling w ith helmet are good choices along with yoga. * Add soy protein in the form of food (40-60 mg) to your t daily in place of animal protein. Promensil and isoflavone tablets paz ve NOT been shown to significantly help menopausal symptoms * Black cohosh (in the form of Remifemin) can be used for ho t flashes and has been approved by [place] [employer] [place] for only 6 months o f use, however has NOT been well studied in the [place] for rat exterminator effects an d THERE HAVE BEEN REPORTS OF LIVER TOXICITY WITH BLACK COHOSH USE. (Avoid kava kava, valerian root and beware that most herbal products are NOT r egulated in the [place] and some have been associated with liver toxicity) NOTE: HORMONE THERAPY (HT) is the MOST EFFECTIVE treatment a nd the only FDA approved treatment for menopausal symptoms. Any form of hormones, including 'bioidentical' hormones have risks as well as bene fits. * Antidepressants like Effexor (venlaflaxine) a NSRI or Jenelle tiq (desvenlafaxine) another agent, Neurontin (gabapentin) may h elp block hot flashes and all have risks and benefits like any prescriptio n or off the shelf medicine. * Use of Bellergal is discouraged as it contains an addictiv e barbiturate. RELIEVING INSOMNIA * Keep the bedroom cool to prevent night sweats. Special chi ll pillows that are cool are available. * Avoid using sleeping pills. * Exercise daily but not right before bedtime. * Avoid caffeine and alcohol at night. * Take a warm shower at bedtime. COPING WITH MOOD SWINGS, FEARS AND DEPRESSION * Find a self-calming skill to practice, such as yoga, medit ation or slow deep breathing. * Avoid tranquilizers, if possible, however prescription ant i-depressants can be very effective. * Engage in a creative outlet that fosters a sense of achiev ement. * Stay connected with your family and community; nurture you r friendships. HELPFUL WEB SITES [email or web address] Encounter Status:Closed by JEANIE RODRIGUEZ [facility]06/[id number] 1960 F ([id number]) Date Time Provider Department 03/01/19 KIARRA TORRES (RN) [facility] During your visit today, we recorded the following informati on about you: Kiarra Torres RN, RN 03/01/2019 2:16 PM Signed Spoke with patient regarding reminder for stress test on Mon and given instructions Allergies As of Date: 03/01/2019 Noted Allergy Reaction HALDOL (HALOPERIDOL LACTATE) 05/31/2018 14 - Other: See Comm ents Comments: seizures CAFFEINE 03/04/2009 14 - Other: See Comments Comments: Patient states can have in moderation. Excess amou nts can cause seizures. Certain Deordorants [Other] 09/11/2008 16 - Unknown CHOCOLATE 03/04/2009 14 - Other: See Comments Comments: Patient states she can have in moderation. DILANTIN (PHENYTOIN SODIUM EXTEND*07/11/2006 2 - Rash Comments: GI upset FRAGRANCES 08/30/2005 2 - Rash GABAPENTIN 07/11/2006 2 - Rash Comments: GI upset KEPPRA (LEVETIRACETAM) 07/11/2006 2 - Rash Comments: GI upset LAMICTAL (LAMOTRIGINE) 10/25/2006 5 - Intolerance Comments: too drowsey LIPITOR (ATORVASTATIN) 10/08/2014 14 - Other: See Comments Comments: Dry mouth, upset stomach, elevated LFT's PEANUTS 09/11/2008 9 - Itching PHENERGAN PLAIN 03/04/2009 16 - Unknown Date Reviewed: 02/21/2019 Reviewed by: Yovany Castle - Fully Assessed Reason for Visit: Reminder Call [[id number]] Prescriptions as of 03/01/2019 Sig: FLUTICASONE PROPIONATE 50 MCG* Use 1 [place] in each nostril o * RANITIDINE 150 MG TABLET Take 1 tablet by mouth twice * LEVOTHYROXINE 75 MCG TABLET Take 1 tablet by mouth once d* LORAZEPAM 1 MG TABLET Take 1 tablet by mouth once d* BENZTROPINE 1 MG TABLET Take 1 tablet by mouth once d* RISPERIDONE 4 MG TABLET Take 1 tablet by mouth once d* CITALOPRAM 20 MG TABLET Take 1 tablet by mouth once d* ARISTADA 662 MG/2.4 ML SUSPEN* 2.4 mL q 4 WEEKS. Per Internetworking Technician * Problem List As Of Date 03/01/2019 Noted Resolved Acquired hypothyroidism [E03.9] INVALID FOR* Mixed hyperlipidemia [E78.2] INVALID FOR* History of seizures [Z87.898] INVALID FOR* More... Sebaceous cyst [L72.3] INVALID FOR*10/21/2010 Other Fall [R29.6] INVALID FOR*07/17/2009 History of hyperprolactinemia [Z86.39] INVALID FOR* Urethrocele(618.03) [N36.8] INVALID FOR* Female stress incontinence [N39.3] INVALID FOR* Screening for colon cancer [Z12.11] INVALID FOR*10/21/2010 Herpes [B00.9] INVALID FOR*06/14/2010 Sebaceous cyst [L72.3] INVALID FOR*09/13/2014 History of herpes genitalis [Z86.19] INVALID FOR* Schizo affective schizophrenia (HCC) [F25.0] INVALID FOR* More... Breast screening [Z12.39] INVALID FOR* Bipolar 1 disorder (HCC) [F31.9] OCD (obsessive compulsive disorder) [F42.9] Ex-smoker [Z87.891] INVALID FOR* More... Encounter for gynecological examination [Z01.41*INVALID FOR* More... Colon cancer screening [Z12.11] INVALID FOR* Medicare annual wellness visit, subsequent [Z00*INVALID FOR* More... Hoarseness of voice [R49.0] INVALID FOR* Fatty liver [K76.0] INVALID FOR* More... Elevated LFTs [R94.5] INVALID FOR* More... RBBB [I45.10] INVALID FOR* Encounter Status:Closed by KIARRA TORRES on 03/01/19 Vital Signs Vital Sign Description Value / Unit Date Location The following section is limited to 5 en tries per type and includes entries from the following time range: 20200113 - 20200213 3. Body weight 84.19 kg 02-25-2020 [facility] ([id number]) Body weight 80.11 kg 01-13-2020 [facility] ([id number]) BP Diastolic 78 mm[Hg] 02-25-2020 [facility] ([id number]) BP Diastolic 60 mm[Hg] 01-13-2020 [facility] ([id number]) BP Systolic 120 mm[Hg] 02-25-2020 [facility] ([id number]) BP Systolic 140 mm[Hg] 01-13-2020 [facility] ([id number]) Encounters Date Type Reason Provider Location 01-13-2020 [facility]ation [facility] - procedure Coordinator 01-13-2020 01-13-2020 Letter encounter [facility] Coordinator Department 02-25-2020 Patient encounter Postmenopausal Mary ([employer]) OB/Gynec ology - procedure bleeding [place] 02-25-2020 Comment: Postmenopausal bleeding (Leandra ruby Dx) 02-06-2020 - Patient encounter Diarrhea Yovany Castle [facility] Medicine 02-06-2020 procedure [place] Comment: Diarrhea 01-23-2020 - Patient encounter Postmenopausal bleeding [facility] Radiology 01-23-2020 procedure [place] 1 Comment: Radiology [place] 01-13-2020 - Patient encounter Postmenopausal Mary ([employer]) OB/Gynec ology 01-13-2020 procedure bleeding [place] Comment: PMB (postmenopausal bleeding ) (Primary Dx) 02-28-2020 - 02-28-2020 Telephone encounter Mary ([employer] ) [place] OB/Gynecology Comment: Results 02-25-2020 - 02-25-2020 Telephone encounter Mary ([employer] ) [place] OB/Gynecology Comment: Patient Update 02-17-2020 - Telephone Postmenopausal Sagrario (Cnm) OB/Gynecolog y 02-17-2020 encounter bleeding [place] Comment: ER F/U 01-24-2020 - 01-24-2020 Telephone encounter Mary ([employer] ) [place] OB/Gynecology Comment: Results 01-13-2020 - 01-13-2020 Telephone encounter Yovany Castle [facility] Luis Comment: Results Medication Question Procedures Procedure Name Date Provider Location Us transvaginal 01-23-2020 - 01-23-2020 Mary ([employer]) Reynaldo [facility] ([id number]) Mammography 01-13-2020 - 01-13-2020 [facility] ([id number]) Colonoscopy 07-16-2018 - 07-16-2018 [facility] ([id number]) Plan of Treatment Plan Description Date Location COLONOSCOPY COLONOSCOPY 07-16-2028 - [facility] 07-16-2028 ([id number]) LIPID SCREEN LIPID SCREEN 06-06-2024 - [facility] 06-06-2024 ([id number]) PAP TESTING PAP TESTING 06-13-2022 - [facility] 06-13-2022 ([id number]) DIABETES SCREEN DIABETES SCREEN 06-06-2022 - [facility] 06-06-2022 ([id number]) DTAP,TDAP,TD (2 - Td) DTAP,TDAP,TD (2 - Td) 04-22-2021 - [facility] 04-22-2021 ([id number]) MAMMOGRAM MAMMOGRAM 01-12-2021 - [facility] 01-12-2021 ([id number]) ANNUAL PCP TEAM CHRONIC ANNUAL PCP TEAM CHRONIC 12-03-2020 - [facility] DISEASE VISIT DISEASE VISIT 12-03-2020 ([id number]) HPV TESTING HPV TESTING 08-08-2013 - [facility] 08-08-2013 ([id number]) SHINGRIX VACCINE (1 of SHINGRIX VACCINE (1 of 2010 - [facility] 2) 2) 2010 (60220) ENDOMETRIAL BIOPSY no information [facility] ([id number]) Comment: Ordered: 02/17/2020 Ordered: 02/25/2020 SURGICAL PATHOLOGY SURGICAL PATHOLOGY Lab Routine Ordered: [facility] ([id number]) 02/25/2020 Comment: Ordered: 02/25/2020 US FEMALE PELVIS US FEMALE PELVIS TRANSVAG 02-11-2021 [facility] TRANSVAG Radiology Routine PMB ([id number]) (postmenopausal bleeding) 1 Occurrences starting 01/13/2020 until 02/11/2021 Comment: 1 Occurrences starting 01/12 until 02/11/2021 no information [facility] ([id number]) no information [facility] ([id number]) Immunizations Vaccine Notes Status Date Location Influenza Vaccine, influenza virus (completed) 03-08-2013 - [facility]Non Spec vaccine, unspecified 03-08-2013 (4419 5) formulation Influenza Vaccine, influenza virus (completed) 04-22-2011 - [facility]Non Spec vaccine, unspecified 04-22-2011 (4419 5) formulation Influenza Vaccine, influenza virus (completed) 04-22-2010 - [facility]Non Spec vaccine, unspecified 04-22-2010 (4419 5) formulation Influenza Vaccine, influenza virus (completed) 03-12-2009 - [facility]-Non Spec vaccine, unspecified 03-12-2009 (4419 5) formulation Influenza Seasonal influenza, injectable, (completed) 02-21-2019 - [facility] Inj Quad Age 6 Mo - quadrivalent, contains 02-21-2019 (83265) 64 Yrs preservative Tdap (Age 7+) tetanus toxoid, (completed) 04-22-2011 - [facility] linic reduced diphtheria 04-22-2011 (03694) toxoid, and acellular pertussis vaccine, adsorbed Payers Payer Name Policy Number Location [place]ICA[place] [id number] [facility] (44 195) MEDICARE [id number] [facility] (44 195) The following information is from the original human readable contentNo Payer Records FoundNo Payer Records FoundNo Payer Records Found Social History Type Social History Date Location Description Tobacco use and exposure Never used 01-13-2020 [facility] 02-25-2020 ([id number]) History SDOH Social 99 10-18-2019 - [facility] Meetings 10-18-2019 (33779) Alcohol intake Current non-drinker of 01-13-2020 [facility] alcohol (finding) 02-25-2020 (75857) History SDOH Social 1 10-18-2019 - [facility] Phone 10-18-2019 ([id number]) History SDOH Social 2 10-18-2019 [facility] Get Together 10-18-2019 (41157) Tobacco smoking status Former smoker 01-13-2020 [facility] NHIS 02-25-2020 ([id number]) History SDOH Social 5 10-18-2019 - [facility] Living 10-18-2019 (04784) History SDOH Physical 0 10-18-2019 [facility] Activity DPW 10-18-2019 ([id number]) History SDOH Education 13 10-18-2019 - [facility] 10-18-2019 (53287) Sex Assigned At Not on file [facility] ([id number]) Exposure to SARS-CoV-2 Not sure [facility] (event) ([id number]) The following information is from the original human readable contentNo Social History Records FoundNo Social History Records FoundNo Social History Records Found Goals Patient Goal Desired Goal History of Past Illness Problem Noted Date Resolved Date Sebaceous cyst 11/03/2010 09/13/2014 Herpes 06/14/2010 06/14/2010 Screening for colon cancer 06/01/2010 10/21/2010 Other fall06/07/2007 07/17/2009 Sebaceous cyst 07/17/2006 10/21/2010 Problem Noted Date Resolved Date Sebaceous cyst 11/03/2010 09/13/2014 Herpes 06/14/2010 06/14/2010 Screening for colon cancer 06/01/2010 10/21/2010 Other fall06/07/2007 07/17/2009 Sebaceous cyst 07/17/2006 10/21/2010 Problem Noted Date Resolved Date Sebaceous cyst 11/03/2010 09/13/2014 Herpes 06/14/2010 06/14/2010 Screening for colon cancer 06/01/2010 10/21/2010 Other fall06/07/2007 07/17/2009 Sebaceous cyst 07/17/2006 10/21/2010 Problem Noted Date Resolved Date Sebaceous cyst 11/03/2010 09/13/2014 Herpes 06/14/2010 06/14/2010 Screening for colon cancer 06/01/2010 10/21/2010 Other fall 06/07/2007 07/17/2009 Sebaceous cyst 07/17/2006 10/21/2010 Problem Noted Date Resolved Date Sebaceous cyst 11/03/2010 09/13/2014 Herpes 06/14/2010 06/14/2010 Screening for colon cancer 06/01/2010 10/21/2010 Other fall 06/07/2007 07/17/2009 Sebaceous cyst 07/17/2006 10/21/2010 Summary Purpose Family History No Family History Records FoundNo Family History Records Found Advance Directives No Advanced Directives Records FoundNo Advanced Directives Records Found History of Present Illness Sagrario Capone) - 01/23/2020 2:14 PM EDT Radiology Service Progress Note PATIENT NAME: Lisa Castro DATE OF SERVICE: January 23, 2020 TIME: 2:14 PM PATIENT IDENTITY VERIFICATION COMPLETED USING TWO (2) IDENTIFIERS: Name and Date of confirmed by patient verbally. FALL SCREENING: Has the patient had 2 falls in the last year or 1 fall with injury or currently using an Ambulatory Assistive Device (Walker, Cane, Wheelchair, Crutches, etc.)? No PATIENT GENDER DATA: Female. status: : No status: N/A PATIENT RELEVANT IMPLANT DATA REVIEWED: Not Applicable RADIOLOGY DEPARTMENT: Ultrasound PERIPHERAL IV DATA: Not applicable SIGNED BY: SAGRARIO CAPONE RDMS RVT January 23, 2020 2:14 PM documented in this encounterSagrario Capone) - 01/23/2020 2:14 PM EDT Radiology Service Progress Note PATIENT NAME: Lisa Castro DATE OF SERVICE: January 23, 2020 TIME: 2:14 PM PATIENT IDENTITY VERIFICATION COMPLETED USING TWO (2) IDENTIFIERS: Name and Date of confirmed by patient verbally. FALL SCREENING: Has the patient had 2 falls in the last year or 1 fall with injury or currently using an Ambulatory Assistive Device (Walker, Cane, Wheelchair, Crutches, etc.)? No PATIENT GENDER DATA: Female. status: : No status: N/A PATIENT RELEVANT IMPLANT DATA REVIEWED: Not Applicable RADIOLOGY DEPARTMENT: Ultrasound PERIPHERAL IV DATA: Not applicable SIGNED BY: SAGRARIO CAPONE RDMS RVT January 23, 2020 2:14 PM documented in this encounterMary Valdes ([employer]) - 01/13/2020 2:00 PM EDT Lisa Castro is a 59 year old female who presents for problem visit PMB x 2 episodes. HPI: pt states that a few weeks ago she noticed some spotting when wiping and a small amount on her underwear. Then had another episode last week. She states that she does not have any concerns for STDtoday, she has not been with anyone. Pt denies any pain. PAST MEDICAL HISTORY Diagnosis Date ? Acquired hypothyroidism 06/28/2005 ? Bipolar 1 disorder (HCC) ? Elevated LFTs 10/29/2018 ? Encounter for gynecological examination 05/31/2018 Sees [facility]. ? Ex-smoker 05/31/2018 Started at age 20 up to 3-4 cigs a day. Quit in early 's (may of smoked 1-2 yrs only. ? Fatty liver 06/01/2018 Elevated LFT's ? Female stress incontinence 02/19/2010 ? History of herpes genitalis 04/03/2014 ? History of hyperprolactinemia 03/10/2009 ? History of seizures 08/15/2005 Has not had an episode since and felt to be related to the haldol she was on. ? Hoarseness of voice 05/31/2018 ? Medicare annual wellness visit, subsequent 05/31/2018 Medicare Part B: 08/13/2005 Last Done: 06/06/2019 ? Mixed hyperlipidemia 06/28/2005 ? OCD (obsessive compulsive disorder) ? RBBB 02/21/2019 ? Schizo affective schizophrenia (HCC) 12/16/2014 ? Urethrocele(618.03) 02/19/2010 PAST SURGICAL HISTORY Procedure Laterality Date ? COLONOSCOP W/ OR W/O BRSH SPEC 07/02/10 ? COLONOSCOPY 07/16/2018 ? EGD 07/16/2018 ? EXERCISE ECG STRESS TEST 10/29/2019 negative ? LIGATE FALLOPIAN TUBE Tubal ligation ? REM LESIO TRUNK,ARM,LEG 1.1 -2.0CM 09/13/06 Exc. 4 separate chad cysts ? REM LESION FACE,EAR,EYE 0.6-1CM 11/03/10 FAMILY HISTORY Problem Relation Age of Onset ? Coronary Artery Disease Mother ? Breast Cancer Sister ? Diabetes Sister ? Diabetes Paternal Grandmother ? Colon Cancer No Family History ? Ovarian cancer No Family History ? Uterine Cancer No Family History ? Prostate Cancer No Family History ? Hypertension No Family History ? Hyperlipidemia No Family History ? Kidney Disease No Family History ? Seizures No Family History ? Stroke No Family History Social History Tobacco Use ? Smoking status: Former Smoker ? Smokeless tobacco: Never Used ? Tobacco comment: Quit in Substance Use Topics ? Alcohol use: No ? Drug use: No Current Outpatient Medications Medication Sig ? levothyroxine (SYNTHROID) 75 mcg tablet Take 1 tablet by mouth once daily. ? fluticasone (FLONASE) 50 mcg/actuation nasal spray Use 2 Sprays in each nostril once daily. Rinse mouth after use. ? Chlorhexidine Gluconate (PERIDEX) 0.12 % solution ? LORazepam (ATIVAN) 1 mg tablet Take 1 tablet by mouth once daily for 30 days. Twice daily, [facility] ? benztropine (COGENTIN) 1 mg tablet Take 1 tablet by mouth once daily. [facility] ? risperiDONE (RISPERDAL) 4 mg tablet Take 1 tablet by mouth once daily. [facility] ? citalopram (CELEXA) 20 mg tablet Take 1 tablet by mouth once daily. [facility] ? ARISTADA 662 mg/2.4 mL injection 2.4 mL q 4 WEEKS. [facility] No current facility-administered medications for this visit. Allergies As of Date: 01/13/2020 Allergen Noted Reaction HALDOL [HALOPERIDOL LACTATE] 05/31/2018 Other: See Comments CAFFEINE 03/04/2009 Other: See Comments CERTAIN DEORDORANTS [OTHER] 09/11/2008 Unknown CHOCOLATE 03/04/2009 Other: See Comments DILANTIN [PHENYTOIN SODIUM EXTEND*07/11/2006 Rash FRAGRANCES 08/30/2005 Rash GABAPENTIN 07/11/2006 Rash KEPPRA [LEVETIRACETAM] 07/11/2006 Rash LAMICTAL [LAMOTRIGINE] 10/25/2006 Intolerance LIPITOR [ATORVASTATIN] 10/08/2014 Other: See Comments PEANUTS 09/11/2008 Itching PHENERGAN PLAIN 03/04/2009 Unknown Fully Assessed 01/13/2020 REVIEW OF SYSTEMS Abdomen: No bloating, early satiety, indigestion, or increased flatulence. No abdominal pain, nausea, vomiting, diarrhea, or constipation. Bladder: No dysuria, gross hematuria, urinary frequency, urinary urgency, or incontinence. Expanded ROS: N/A Allergies and current medication updated:Yes EXAM: Wt 176 lb 9.6 oz (80.1kg) LMP 01/31/2012 GENERAL: pleasant, female in no apparent distress HEENT: Normocephalic, atraumatic, mucus membranes moist and no lesions CHEST: Normal inspiratory effort ABDOMEN: soft, non-tender and no masses PELVIC: external genitalia normal, normal Bartholin's glands, urethra, Williamson's glands, no vulvar lesions, no cervical lesions, physiologic discharge present, normal appearing perineal body and perianalregion, atrophic changes BIMANUAL: uterus normal size, shape and consistency, no adnexal masses, non- tender and no cervical motion tenderness NEURO: alert and oriented x3,exam grossly non-focal EXTREMITIES: normal ASSESSMENT/PLAN: 1. PMB (postmenopausal bleeding) - ICD9: 627.1, ICD10: N95.0 - US FEMALE PELVIS TRANSVAG Mary Valdes APRN.CNP documented in this encounterMary Valdes) - 02/25/2020 1:16 PM EDT Lisa Castro is a 59 year old female who presents today for an endometrial biopsy for post menopausal bleeding. test: n/a UNIVERSAL PROTOCOL / SAFETY CHECKLIST Procedure to be performed: EMB Sign in Communication: Completed Time Out: Team Confirms the Correct Patient, Correct Procedure, Correct Site and Site Marking, Correct Position (if applicable), Prep and Dry Time (if applicable). Time: 1335 Affirmation of Time Out: YES Sign Out Discussion: Completed PROCEDURE: EXTERNAL GENITALIA: Normal in appearance without lesions VAGINA: Normal in appearance without lesions BIOPSY: Speculum placed into the vagina with excellent visualization of the cervix. Cervix cleaned with betadine. Anterior lip of cervix grasped with single toothed tenaculum. Uterus sounded to 6.5 cm.Pipelle inserted into the uterus without difficulty and endometrial biopsy obtained. Specimen labeled and sent to pathology. Hemostasis achieved. Procedure Summary: Patient tolerated procedure well. ASSESSMENT: post menopausal bleeding PLAN: Specimens labeled and sent to Pathology. Will notify patient of results in 1-2 weeks. Post-procedureinstructions reviewed and written material given to the patient. Mary Valdes APRN.CNP documented in this encounter Assessments Diagnosis PMB (postmenopausal bleeding) Postmenopausal bleeding Diagnosis PMB (postmenopausal bleeding) - Primary Postmenopausal bleeding Diagnosis Postmenopausal bleeding - Primary Instructions Patient InstructionsEboni Carter LPN - 02/25/2020 1:17 PM EDT YOUR RECOVERY After your biopsy you may have: ? Vaginal bleeding (less than a normal menstrual period) ? Mild cramping Do NOT put anything in the vagina for 1 week after your endometrial biopsy. This includes: ? tampons ? douches ? and refraining from having sexual intercourse If you have any discomfort, you may take an over the counter pain medication (motrin, advil, ibuprofen, tylenol, etc). If this does not relieve your discomfort, contact the office. It is okay to wear a sanitary pad until the discharge and spotting stops. RISKS Although problems seldom occur with endometrial biopsies, there can be some complications. You may feel faint during and shortly after the procedure as well as have some bleeding after the procedure. There is also a risk of infection after the procedure. These complications are rare and can be easily treated. You should contact you doctor is you have any of the following: ? Heavy bleeding (more than your normal period) ? Bleeding with clots ? Severe abdominal pain ? Fever (more than 100.4F) ? Foul smelling vaginal discharge RESULTS We will have the results of your biopsy in 1-2 weeks. If you do not hear the results of your biopsy after 2 weeks, please contact the office for the results. If you have any additional questions or concerns please do not hesitate to contact the office. documented in this encounter Additional Source Comments FOR RECORDS PERTAINING TO PATIENTS WHO ARE OR HAVE BEEN ENROLLED IN A CHEMICAL DEPENDENCY/SUBSTANCE ABUSE PROGRAM, SOME INFORMATION MAY BE OMITTED. This clinical summary was aggregated from multiple sources. Caution should be exercised in using it in the provision of clinical care. This summary normalizes information from multiple sources, and as a consequence, information in this document may materially changethe coding, format and clinical context of patient data. In addition, data may be omittedin some cases. CLINICAL DECISIONS SHOULD BE BASED ON THE PRIMARY CLINICAL RECORDS. [facility] provides no warranty or guarantee of the accuracy or completeness of information in this document. UNRECOGNIZED CONTENT PROVIDED BELOW FOR UNRECOGNIZED SECTION Source Comments In the event this information is protected by the Federal Confidentiality of Alcohol and Drug Abuse Patient Records regulations: The Federal rules restrict any use of the information to criminally investigate or prosecute any alcohol or drug abuse patient.[facility] the event this information is protected by the Federal Confidentiality of Alcohol and Drug Abuse Patient Records regulations: The Federal rules restrict any use of the information to criminally investigate or prosecute any alcohol or drug abuse patient.[facility] HospitalIn the event this information is protected by the Federal Confidentiality of Alcohol and Drug Abuse Patient Records regulations: The Federal rules restrict any use of the information to criminally investigate or prosecute any alcohol or drug abuse patient.[facility] HospitalIn the event this information is protected by the Federal Confidentiality of Alcohol and Drug Abuse Patient Records regulations: The Federal rules restrict any use of the information to criminally investigate or prosecute any alcohol or drug abuse patient.[facility] HospitalIn the event this information is protected by the Federal Confidentiality of Alcohol and Drug Abuse Patient Records regulations: The Federal rules restrict any use of the information to criminally investigate or prosecute any alcohol or drug abuse patient.[facility] HospitalIn the event this information is protected by the Federal Confidentiality of Alcohol and Drug Abuse Patient Records regulations: The Federal rules restrict any use of the information to criminally investigate or prosecute any alcohol or drug abuse patient.[facility] HospitalIn the event this information is protected by the Federal Confidentiality of Alcohol and Drug Abuse Patient Records regulations: The Federal rules restrict any use of the information to criminally investigate or prosecute any alcohol or drug abuse patient.[facility] HospitalIn the event this information is protected by the Federal Confidentiality of Alcohol and Drug Abuse Patient Records regulations: The Federal rules restrict any use of the information to criminally investigate or prosecute any alcohol or drug abuse patient.[facility] HospitalIn the event this information is protected by the Federal Confidentiality of Alcohol and Drug Abuse Patient Records regulations: The Federal rules restrict any use of the information to criminally investigate or prosecute any alcohol or drug abuse patient.[facility] HospitalIn the event this information is protected by the Federal Confidentiality of Alcohol and Drug Abuse Patient Records regulations: The Federal rules restrict any use of the information to criminally investigate or prosecute any alcohol or drug abuse patient.[facility] HospitalIn the event this information is protected by the Federal Confidentiality of Alcohol and Drug Abuse Patient Records regulations: The Federal rules restrict any use of the information to criminally investigate or prosecute any alcohol or drug abuse patient.[facility] HospitalIn the event this information is protected by the Federal Confidentiality of Alcohol and Drug Abuse Patient Records regulations: The Federal rules restrict any use of the information to criminally investigate or prosecute any alcohol or drug abuse patient.[facility] UNRECOGNIZED CONTENT PROVIDED BELOW FOR UNRECOGNIZED SECTION Reason for Visit Reason Onset Date Comments Results 01/24/2020 Reason Onset Date Comments Results 01/13/2020 Reason Onset Date Comments Medication Question 01/13/2020 Reason Comments Radiology US Reason Comments STD check mouth area Reason Onset Date Comments Diarrhea 02/06/2020 Reason Comments ER F/U Reason Comments Endometrial Biopsy Reason Comments Patient Update Reason Comments Results UNRECOGNIZED CONTENT PROVIDED BELOW FOR UNRECOGNIZED SECTION Miscellaneous Notes Telephone Encounter - Calista Gtz RN - 01/24/2020 11:04 AM EDTPatient notified of results, verbalizes understanding of instructions. Calista Gtz RN elephone Encounter - Mary Valdes) - 01/24/2020 10:57 AM EDTPlease let the patient know that her ultrasound shows a uterine fibroid. No need currently for any fo llow-up unless she has more episodes of bleeding\spotting. If that does occur she will need an EMB along with Cytotec prior to procedure. Mary Valdes APRN.CNP documented in this encounterTelephone Encounter - Yovany Castle - 01/13/2020 4:30 PM EDTLet patient know mammogram was normal. documented in this encounterTelephone Encounter - Melisa Mayberry Ma - 01/14/2020 8:44 AM EDTPatient was notified Melisa Mayberry Ma Telephone Encounter - Yovany Castle - 01/13/2020 4:16 PM EDTLet patient know I do not know anything in particular about this med especially if it works or if itdoesn't. I have a few patient's that take it and they feel it has been beneficial. I have no idea if this may interact with the prescription meds she takes and would therefore advise her to review this with a pharmacist at the pharmacy where she gets her prescription meds. elephone Encounter - Caitlin Alejandro LPN - 01/13/2020 3:52 PM EDTPatient got an over the counter medication Neuriva which is a brain performance enhancer. She would like to know your opinion on this. Please advise patient. Caitlin Alejandro LPN documented in this encounterLetter - Coordinator, Mammography - 01/13/2020 3:43 PM [facility] P[facility]: [id number] Lisa Castro [address] [place] [address] [place] [address], [place] [address] Dear Ms. Castro, We are pleased to inform you that the results of your recent breast imaging exam on 01/13/2020 are normal. Early detection of cancer is very important. We also understand recommendations regarding breast cancer screening are controversial. Please discuss with your primary care provider which strategy is best for you and whether a mammogram is right for you. Your imaging studies and report will be kept on file at [facility] as part of your permanent medical record and are available for your continuing care. Thank you for allowing us to help in meeting your health care needs. Sincerely, Dr. Donnelly Interpreting Radiologist [facility] (Normal over 40) documented in this encounterTelephone Encounter - Jose Schmidt RN - 02/06/2020 9:41 AM EDTMild diarrhea last 2 days. Agreeable to home care instructions. Reason for Disposition ? MILD-MODERATE diarrhea (e.g., 1-6 times / day more than normal) Answer Assessment - Initial Assessment Questions 1. DIARRHEA SEVERITY: 1 or 2 2. ONSET: 2 days ago 3. BM CONSISTENCY: Loose/watery 4. VOMITING: No 5. ABDOMINAL PAIN: Was 10/10 Tues night, having BM gave relief- went away. 7. ORAL INTAKE: Drinking water. 8. HYDRATION: Dry lips. Last void little bit ago. 9. EXPOSURE: No spoiled food. No exposure to diarrhea. 10. ANTIBIOTIC USE: No 11. OTHER SYMPTOMS: No chills. Did not check temp. 12. : No Protocols used: [id number] documented in this encounterTelephone Encounter - Eboni Carter LPN - 02/17/2020 3:39 PM EDTNoted. Eboni Carter LPN elephone Encounter - Sagrario Cabello ([facility]) - 02/17/2020 3:38 PM EDTOrder signed. Thank you, Sagrario Cabello APRN.CNM elephone Encounter - Eboni Carter LPN - 02/17/2020 3:31 PM EDTPt is scheduled for 02/25/20 with . Pt uses pharmacy listed below. Call only if problems. Logan ORTEGA elephone Encounter - Sagrario Cabello ([facility]) - 02/17/2020 2:32 PM EDTRecords reviewed. Please schedule patient for EMB with Mary upon her return if she wishes to have done with her. Please assist in scheduling. Cytotec 200mcg intravaginally the night before procedure and 200mcg PO the morning of procedure. Unable to send Rx, no pharmacy listed. Please find out pharmacy and I can send medication. Thank you, Sagrario Cabello APRN.CNM elephone Encounter - Alize Newby RN - 02/17/2020 9:19 AM EDTPatient of RM. Went to [facility] ER 02/14/20 because she had some spotting with wiping once. Last saw RM 01/13/20 for PMB. Had u/s on 01/23/20 an RM stated after the u/s No need currently for any follow-up unless she has more episodes of bleeding\spotting. If that does occur she will need an EMB along with Cytotec prior to procedure. She has not had any further bleeding since Monday. ER records to [facility] to review. Please advise in RM absence. Alize Newby RN documented in this encounterTelephone Encounter - Alize Newby RN - 02/25/2020 4:46 PM EDTPatient calling regarding bleeding. States she started again this afternoon after EMB. Advised this can be normal. She is not currently wearing a pad, only noticed a little on underwear. Encouraged to wear maxi pad and reviewed heavy bleeding precautions with her. She also was questioning hysterectomy. Advised once results come back from EMB we will call her with those and recommendations at that point. Patient agreed. FYI. Alize Newby RN documented in this encounterTelephone Encounter - Nona Reich RN - 02/28/2020 11:27 AM EDTPatient notified. Voiced understanding. Nona Reich RN elephone Encounter - Mary Valdes ([facility]) - 02/28/2020 11:16 AM EDTPlease let the pt know that her EMB was normal. If she has anymore bleeding she will need to see oneof the doctors for an Endosee. Mary Valdes APRN.CNP documented in this encounter UNRECOGNIZED CONTENT PROVIDED BELOW FOR UNRECOGNIZED SECTION INFORMATION SOURCE DATE CREATED AUTHOR AUTHOR'S ORGANIZATIO N 03/01/2019 [facility] DATE CREATED AUTHOR AUTHOR'S ORGANIZATIO N 02/28/2020 [facility]
== END | disposition home or self-care (01) ==
LOC: CVS 11:10
PROVIDERS: PCP Family Medicine; Referring Provider Family Medicine; Visit Provider Family Medicine
DX: R07.89 Other chest pain (principal); I45.10 Unspecified right bundle-branch block
CPT/HCPCS: 93017

== ENCOUNTER 2020-02-14 19:15 | Emergency (ER) | payer MEDICARE, MEDICAID, SELFPAY ==
[2020-02-14 19:16] VITALS: BP 157/85; PULSE 90; RESP 16; TEMP 36.6; O2SAT 94; BMI 31.2
--- NOTE | 2020-02-14 19:39 | ED.DCSUM_ITS ---
History of Present Illness Chief Complaint: Vag Bleeding Informant: Patient Narrative: 59-year-old female presenting with small amount of vaginal bleeding which she noticed when she wiped today after urinating. She states she is had this problem a few times in the past and that her INVOICE CHECKER just told her to monitor it. If she continues to have symptoms she is to go back to the INVOICE CHECKER. She is not having any pelvic pain. She feels otherwise well. She denies dysuria or hematuria. She is eating and drinking normally. He is making normal urine and stool. She states that she has had normal Pap smears in the past. She is postmenopausal and on concerned for . - Past Medical History (1) HLD (hyperlipidemia) Status: Chronic Past Medical History - Allergies and Home Meds Allergies/Adverse Reactions: Allergies peanut Allergy (Verified 02/14/20 19:21) Hives promethazine HCl [From Phenergan] Allergy (Verified 02/14/20 19:21) Other chocolate flavor Adverse Reaction (Verified 02/14/20 19:21) Unknown gabapentin [From Neurontin] Adverse Reaction (Verified 02/14/20 19:21) Other Primary Care Physician: Yovany Omalley MD [Primary Care Provider] - Prior records reviewed: Yes Past Medical History: - - Reviewed in problem list Surgical History: noncontributory, - - pinning of her ankle for a fx, tubal ligation, colonoscopy, mesh in her urethra? Lives: Alone Smoking Status: Never smoker Alcohol: None Drugs: None - Family History Maternal Family History: Reports: Heart Disease - in her mother's family, - Paternal Family History: Reports: COPD - in her father who smokes Review of Systems General: Denies: Chills, Fever, Sweats Eyes: Denies: Visual changes - bilaterally, Diplopia ENT: Denies: Rhinorrhea, Sore throat Cardiovascular: Denies: Chest pain, Palpitations Respiratory: Denies: Dyspnea, Cough, Dyspnea on exertion Gastrointestinal: Denies: Abdominal pain, Nausea, Vomiting, Diarrhea, Melena, Hematochezia Genitourinary: Denies: Dysuria, Hematuria, Frequency - Vaginal bleeding described as spotting. Musculoskeletal: Denies: Back pain, Extremity Pain Skin: Denies: Rash, Wounds Neurological: Denies: Headache, Weakness, Numbness Physical Exam Vital Signs/Narrative: Vital Signs Temp Pulse Resp BP Pulse Ox 02/14/20 19:16 98 F 90 16 157/85 H 94 Inital Vital Signs reviewed: Yes General: Well nourished, Well developed, No Acute Distress Head: Normocephalic, Atraumatic Eyes: Perrl, EOMI ENT: Moist mucous membranes, No rhinorrhea Cardiovascular: Regular rate, Regular rhythm, No murmurs Respiratory: No distress, CTA bilaterally, Chest nontender Abdomen: Soft, Nontender, Nondistended, Normal bowel sounds : - - Cervical office is closed. There appears to be no abnormalities. There are some scant old blood in the posterior fornix. There is no lesions. Back: Nontender, Normal Inspection Extremities: Nontender, No edema Skin: Normal color, No rash Neurological: Alert, Oriented x3, Cranial nerves II-XII grossly intact, Normal Strength, Normal Sensation Psychological: Normal affect, Normal Mood Diagnostic/Tx/Re-eval - Medical Decision Making Patient presents with concern for vaginal spotting. She is not having any other symptoms. She is had this in the past and was told to follow-up with her INVOICE CHECKER if she has it again. She wants to be evaluated in the ED. Her physical exam is otherwise benign. She has some old blood in the posterior fornix with no other lesions identified. Vital signs are stable and she is afebrile. I believe she is safe to follow-up on an outpatient basis with her INVOICE CHECKER. She is amenable to this plan. Patient stable for discharge. Impression: 1. Vaginal bleeding ED Disposition - Plan for ED Patient: Disposition: Home or Assisted Living Instructions: ED Bleed Irregular Vaginal Referrals: Yovany Omalley MD [Primary Care Provider] -
== END 2020-02-14 20:39 | disposition home or self-care (01) ==
PROVIDERS: Emergency Provider Student in an Organized Health Care Education/Training Program; PCP Family Medicine
DX: N93.9 Abnormal uterine and vaginal bleeding, unspecified (principal); E78.5 Hyperlipidemia, unspecified
CPT/HCPCS: 99284

== ENCOUNTER 2020-07-31 12:03 | Emergency (ER) | payer MEDICARE, MEDICAID, SELFPAY ==
[2020-07-31 12:05] VITALS: BP 160/83; PULSE 73; RESP 17; TEMP 36.8; O2SAT 96; BMI 32.0
--- NOTE | 2020-07-31 12:24 | EKG12_ITS ---
Test Reason : ANXIETTY Blood Pressure : / mmHG Vent. Rate : 074 BPM Atrial Rate : 074 BPM P-R Int : 188 ms QRS Dur : 102 ms QT Int : 420 ms P-R-T Axes : 043 -06 021 degrees QTc Int : 466 ms Normal sinus rhythm Incomplete right bundle branch block Borderline ECG Confirmed by GUS XAVIER, SANDRO ([id number]), news editor SEDRICK MATTHEWS ([id number]) on 08/03/2020 10:53:35 A M Referred By: JELLY Confirmed By:FRANCISCO WEBER MD
--- NOTE | 2020-07-31 12:25 | ED.DCSUM_ITS ---
History of Present Illness Chief Complaint: Anxiety Informant: Patient Narrative: 60-year-old female tells me that she feels dizzy and hot. She tells me that she has been eating a lot of chocolate and protein bars and therefore her electrolytes are off. She tells me that she is feeling much better since she has gotten to the emergency department because she has IV fluids going. Unfortunately the IV fluids are not running and so she has not gotten any so she symptomatically has improved just by being here. She tells me that recently her psychiatrist stopped her Cogentin and Ativan. She takes Synthroid through his her primary care doctor. There is been no changes in those dosings. No syncope. No chest pains. - Past Medical History (1) HLD (hyperlipidemia) Status: Chronic (2) Psychosis Status: Chronic Past Medical History - Allergies and Home Meds Allergies/Adverse Reactions: Allergies peanut Allergy (Verified 07/31/20 12:11) Hives promethazine HCl [From Phenergan] Allergy (Verified 07/31/20 12:11) Other chocolate flavor Adverse Reaction (Verified 07/31/20 12:11) Unknown gabapentin [From Neurontin] Adverse Reaction (Verified 07/31/20 12:11) Other Primary Care Physician: Yovany Omalley MD [Primary Care Provider] - 1 Week Past Medical History: - - Hypothyroidism Surgical History: noncontributory, - - pinning of her ankle for a fx, tubal ligation, colonoscopy, mesh in her urethra? Smoking Status: Former smoker Alcohol: None Drugs: None - Family History Maternal Family History: Reports: Heart Disease - in her mother's family, - Paternal Family History: Reports: COPD - in her father who smokes Review of Systems General: Reports: Malaise, - - Dizziness hot flashes. Denies: Chills, Fever, Sweats Eyes: Denies: Visual changes - bilaterally, Diplopia ENT: Denies: Rhinorrhea, Sore throat Cardiovascular: Denies: Chest pain, Palpitations Respiratory: Denies: Dyspnea, Cough, Dyspnea on exertion Gastrointestinal: Denies: Abdominal pain, Nausea, Vomiting, Diarrhea, Melena, Hematochezia Genitourinary: Denies: Dysuria, Hematuria, Frequency Musculoskeletal: Denies: Back pain, Extremity Pain Skin: Denies: Rash, Wounds Neurological: Denies: Headache, Weakness, Numbness Psych: Reports: Anxiety Physical Exam Vital Signs/Narrative: Vital Signs Temp Pulse Resp BP Pulse Ox 07/31/20 12:05 98.3 F 73 17 160/83 H 96 Inital Vital Signs reviewed: Yes General: Well nourished, Well developed, Obese, No Acute Distress Head: Normocephalic, Atraumatic Eyes: Perrl, EOMI ENT: Moist mucous membranes, No rhinorrhea Neck: Supple, Nontender Cardiovascular: Regular rate, Regular rhythm, No murmurs Respiratory: No distress, CTA bilaterally, Chest nontender Abdomen: Soft, Nontender, Nondistended, Normal bowel sounds Back: Nontender, Normal Inspection Extremities: Nontender, No edema Skin: Normal color, No rash Neurological: Alert, Oriented x3, Cranial nerves II-XII grossly intact, Normal Strength, Normal Sensation Psychological: - - Anxious mood Diagnostic/Tx/Re-eval Laboratory Last Values WBC 8.1 K/mm3 (4.4-11.0) 07/31/20 12:14 RBC 4.78 M/mm3 (4.2-5.4) 07/31/20 12:14 Hgb 14.3 g/dL (12.0-15.0) 07/31/20 12:14 Hct 43.6 % (37-47) 07/31/20 12:14 MCV 91.2 fL (81-99) 07/31/20 12:14 MCH 29.9 pg (27.0-32.0) 07/31/20 12:14 MCHC 32.8 g/dL (32-36) 07/31/20 12:14 RDW Std Deviation 42.2 fl (35.1-43.9) 07/31/20 12:14 RDW Coeff of Taryn 12.5 % (11.6-14.6) 07/31/20 12:14 Plt Count 270 K/mm3 (150-450) 07/31/20 12:14 MPV 10.1 fl (6.2-12.0) 07/31/20 12:14 Immature Gran % (Auto) 0.400 % (0.0-0.9) 07/31/20 12:14 Neut % (Auto) 78.6 % (47-70) H 07/31/20 12:14 Lymph % (Auto) 13.5 % (19-41) L 07/31/20 12:14 [place] % (Auto) 5.8 % (0-10) 07/31/20 12:14 Eos % (Auto) 1.1 % (0-5) 07/31/20 12:14 Baso % (Auto) 0.6 % (0-1) 07/31/20 12:14 Absolute Neuts (auto) 6.4 X10^3/uL (2.0-7.7) 07/31/20 12:14 Absolute Lymphs (auto) 1.09 X10^3/uL (0.83-4.51) 07/31/20 12:14 Nucleated RBC % 0 % (0-5) 07/31/20 12:14 Sodium 141 mmol/L (136-145) 07/31/20 12:14 Potassium 3.6 mmol/L (3.5-5.1) 07/31/20 12:14 Chloride 107 mmol/L (98-107) 07/31/20 12:14 Carbon Dioxide 29.0 mmol/L (21.0-32.0) 07/31/20 12:14 Anion Gap 5 (5-15) 07/31/20 12:14 BUN 15 mg/dL (7-18) 07/31/20 12:14 Creatinine 0.79 mg/dL (0.55-1.02) 07/31/20 12:14 Estim Creat Clear Calc 68.14 ml/min 07/31/20 12:14 Est GFR (MDRD) Af Amer 95 mL/min (>60) 07/31/20 12:14 Est GFR (MDRD) Non-Af 79 mL/min (>60) 07/31/20 12:14 BUN/Creatinine Ratio 18.9 RATIO (10-20) 07/31/20 12:14 Glucose 128 mg/dL (74-106) H 07/31/20 12:14 Calcium 9.1 mg/dL (8.5-10.1) 07/31/20 12:14 Total Bilirubin 0.40 mg/dL (0.20-1.00) 07/31/20 12:14 AST 34 U/L (15-37) 07/31/20 12:14 ALT 77 U/L (13-56) H 07/31/20 12:14 Alkaline Phosphatase 116 U/L (45-117) 07/31/20 12:14 Total Protein 7.6 g/dL (6.4-8.2) 07/31/20 12:14 Albumin 3.6 g/dL (3.2-5.0) 07/31/20 12:14 Globulin 4.0 g/dL (2.2-4.2) 07/31/20 12:14 Albumin/Globulin Ratio 0.9 RATIO (0.9-2.4) 07/31/20 12:14 TSH 0.81 uIU/mL (0.358-3.74) 07/31/20 12:14 Urine Color Yellow (Yellow) 07/31/20 13:36 Urine Clarity Cloudy (Clear) 07/31/20 13:36 Urine pH 8.0 (5.0 - 8.0) 07/31/20 13:36 Ur Specific [place] 1.015 (1.002-1.030) 07/31/20 13:36 Urine Protein Negative mg/dl (Negative) 07/31/20 13:36 Urine Glucose (UA) Normal mg/dl (Normal) 07/31/20 13:36 Urine Ketones Negative mg/dl (Negative) 07/31/20 13:36 Urine Occult Blood Negative /ul (Negative) 07/31/20 13:36 Urine Nitrite Negative (Negative) 07/31/20 13:36 Urine Bilirubin Negative mg/dL (Negative) 07/31/20 13:36 Urine Urobilinogen Normal mg/dl (Normal) 07/31/20 13:36 Ur Leukocyte Esterase Negative /ul (Negative) 07/31/20 13:36 - EKG Initial EKG Interpretation: Sinus Rhythm - EKG demonstrates a normal sinus rhythm at a rate of 74 there is no concerning features of ACS or ectopy - Medical Decision Making Patient's blood work is normal. Urinalysis is normal. Think the patient symptomology may be related towards her mental health. She has an upcoming appoint with her psychiatrist encouraged her to keep it. ED Disposition - Plan for ED Patient: Disposition: Home or Assisted Living Diagnosis: Dizziness, Anxiety Instructions: ED Dizziness, Uncertain Cause Referrals: Yovany Omalley MD [Primary Care Provider] - 1 Week
[2020-07-31 12:58] LABS: Absolute Lymphocyte Count 1.09 X10^3/uL (0.83-4.51); Absolute Neutrophil Count 6.4 X10^3/uL (2.0-7.7); Basophil# 0.05 X10^3/uL; Basophil% 0.6 % (0-1); Eosinophil# 0.09 X10^3/uL; Eosinophils% 1.1 % (0-5); Hematocrit 43.6 % (37-47); Hemoglobin 14.3 g/dL (12.0-15.0); Lymphocyte # 1.09 X10^3/ul (4.0); Lymphocyte % 13.5 % (19-41); Mean Corp Hgb Conc 32.8 g/dL (32-36); Mean Corpuscular Hgb 29.9 pg (27.0-32.0); Mean Corpuscular Volume 91.2 fL (81-99); Mean Platelet Vol. 10.1 fl (6.2-12.0); Monocyte# 0.47 X10^3/uL; Monocyte% 5.8 % (0-10); NRBC Flagged by Analyzer 0 % (0-5); Neutrophil # 6.36 X10^3/uL (2.7-7.7); Neutrophil % 78.6 % (47-70); Platelet Count 270 K/mm3 (150-450); RBC Distribution Width CV 12.5 % (11.6-14.6); RBC Distribution Width SD 42.2 fl (35.1-43.9); Red Blood Count 4.78 M/mm3 (4.2-5.4); White Blood Count 8.1 K/mm3 (4.4-11.0)
[2020-07-31 13:14] LABS: ALB/GLOB Ratio 0.9 RATIO (0.9-2.4); AST(SGOT) 34 U/L (15-37); Alanine Aminotransfer ALT/SGPT 77 U/L (13-56); Albumin, Serum 3.6 g/dL (3.2-5.0); Alkaline Phosphatase 116 U/L (45-117); Anion Gap 5 (5-15); BUN 15 mg/dL (7-18); BUN/Creat Ratio 18.9 RATIO (10-20); Calcium,Total 9.1 mg/dL (8.5-10.1); Chloride 107 mmol/L (98-107); Creatinine, Serum 0.79 mg/dL (0.55-1.02); EST Glomerular Filtration Rate 79 mL/min (>60); Est Glom Filt Rate - Afr Amer 95 mL/min (>60); Estimated Creatinine Clearance 68.14 ml/min; Glucose 128 mg/dL (74-106); Potassium 3.6 mmol/L (3.5-5.1); Protein, Total 7.6 g/dL (6.4-8.2); Sodium Level 141 mmol/L (136-145); Thyroid Stim Hormone (TSH) 0.81 uIU/mL (0.358-3.74)
[2020-07-31 13:51] LABS: Bacteria 0 SEEN /hpf (None Seen); Mucous, Urine 0 SEEN /hpf (<or=2+)
[2020-07-31 13:58] LABS: Color, Urine Yellow (Yellow); Glucose, Dipstick Normal (Normal); Ketone-Dipstick Negative (Negative); Leukocyte Esterase-Dipstick Negative /ul (Negative); Nitrite-Dipstick Negative (Negative); Occult Blood-Urine Negative /ul (Negative); Protein-Dipstick Negative (Negative); Specific Gravity, Urine 1.015 (1.002-1.030); Urine Bilirubin Dipstick Negative (Negative); Urine Clarity Cloudy (Clear); Urine Urobilinogen Normal (Normal)
[2020-07-31 14:09] LABS: Squamous Epithelial Cells - UA 0-5 SEEN /hpf (5-10); White Blood Cells 0-5 SEEN /hpf (0-5)
[2020-07-31 14:10] LABS: Amorphous Sediment 1+; Red Blood Cells-Urine 0-5 SEEN /hpf (0-5)
[2020-07-31 14:16] VITALS: BP 134/100; PULSE 67; RESP 15; O2SAT 97
== END 2020-07-31 14:23 | disposition home or self-care (01) ==
PROVIDERS: Emergency Provider Emergency Medicine; PCP Family Medicine
DX: F41.9 Anxiety disorder, unspecified (principal); R42 Dizziness and giddiness; E78.5 Hyperlipidemia, unspecified; E03.9 Hypothyroidism, unspecified; E66.9 Obesity, unspecified; Z87.891 Personal history of nicotine dependence; Z79.899 Other long term (current) drug therapy
CPT/HCPCS: 80053; 81001; 84443; 85025; 93005; 99285; J7030

== ENCOUNTER 2020-08-02 08:37 | Emergency (ER) | payer MEDICARE, MEDICAID, SELFPAY ==
[2020-08-02 08:38] VITALS: BP 157/92; PULSE 78; RESP 15; TEMP 36.9; O2SAT 95; BMI 31.6
--- NOTE | 2020-08-02 08:38 | EKG12_ITS ---
Test Reason : CP Blood Pressure : / mmHG Vent. Rate : 077 BPM Atrial Rate : 077 BPM P-R Int : 178 ms QRS Dur : 100 ms QT Int : 412 ms P-R-T Axes : 038 -13 017 degrees QTc Int : 466 ms Normal sinus rhythm Incomplete right bundle branch block Borderline ECG Confirmed by PRAVIN XAVIER, BETH ([id number]), school photograph editor SEDRICK MATTHEWS ([id number]) on 08/04/2020 8:59:11 AM Referred By: AKIL Confirmed By:BETH COSTELLO MD
--- NOTE | 2020-08-02 08:43 | ED.RN ---
pt has recent in the family that has been hard on her. she has been having a lot of anxiety. she stopped her anxiety meds. pt not eating well.
--- NOTE | 2020-08-02 08:46 | ED.RN ---
Addendum entered by Teresita Bearden 08/02/20 08:51: pt reports that her ativan was dc by psychiatrist. and that she needs it Original Note: pt reports lorazepam is what she toom for anxiety
--- NOTE | 2020-08-02 09:36 | ED.VIS.GEN ---
History of Present Illness Chief Complaint: Abd Pain Informant: Patient, Senior Information Security Consultant Narrative: 60-year-old female presenting with abdominal pain via EMS. Patient tells me she got up this morning and have any cereal so she ate some spicy food for breakfast. She states that she had then developed upper abdominal discomfort described as heartburn took a couple Tums and it resolved but she felt so poorly that she thought she may so she called the ambulance. Now she states she is weak and dizzy. She tells me that she is this way because she is not sleeping and eating as much because her anxiety is high and her neighbors are keeping her up at night. This appears to be a common theme with the patient per crisis. Patient was seen in the emergency department Monday with normal labs with the complaint that he is weak and dizzy. She had a normal SH CBC and CMP. She told me at that time that her Ativan and Cogentin have been stopped and she does not have any. She states she did not want it stopped but her psychiatrist stopped it. She has appointment on Monday with her psychiatrist. She spoke with crisis yesterday. Past Medical History - Allergies and Home Meds Allergies/Adverse Reactions: Allergies peanut Allergy (Verified 07/31/20 12:11) Hives promethazine HCl [From Phenergan] Allergy (Verified 07/31/20 12:11) Other chocolate flavor Adverse Reaction (Verified 07/31/20 12:11) Unknown gabapentin [From Neurontin] Adverse Reaction (Verified 07/31/20 12:11) Other Primary Care Physician: Yovany Omalley MD [Primary Care Provider] - Past Medical History: - - Schizophrenia depression anxiety hypothyroidism Surgical History: noncontributory, - - pinning of her ankle for a fx, tubal ligation, colonoscopy, mesh in her urethra? Lives: Alone Smoking Status: Former smoker Drugs: None - Family History Maternal Family History: Reports: Heart Disease - in her mother's family, - Paternal Family History: Reports: COPD - in her father who smokes Review of Systems General: Reports: Malaise. Denies: Chills, Fever, Sweats Eyes: Denies: Visual changes - bilaterally, Diplopia ENT: Denies: Rhinorrhea, Sore throat Cardiovascular: Denies: Chest pain, Palpitations Respiratory: Denies: Dyspnea, Cough, Dyspnea on exertion Gastrointestinal: Reports: Abdominal pain. Denies: Nausea, Vomiting, Diarrhea, Melena, Hematochezia Genitourinary: Denies: Dysuria, Hematuria, Frequency Musculoskeletal: Denies: Back pain, Extremity Pain Skin: Denies: Rash, Wounds Neurological: Reports: - - Reported dizziness. Denies: Headache, Weakness, Parasthesia, Numbness Psych: Reports: Anxiety. Denies: Suicidal thoughts, Suicidal ideations Physical Exam Vital Signs/Narrative: Vital Signs Temp Pulse Resp BP Pulse Ox 08/02/20 08:38 98.4 F 78 15 157/92 H 95 Inital Vital Signs reviewed: Yes General: Well nourished, Well developed, No Acute Distress Head: Normocephalic, Atraumatic Eyes: Perrl, EOMI ENT: Moist mucous membranes, No rhinorrhea Neck: Supple, Nontender Cardiovascular: Regular rate, Regular rhythm, No murmurs Respiratory: No distress, CTA bilaterally, Chest nontender Abdomen: Soft, Nontender, Nondistended, Normal bowel sounds Back: Nontender, Normal Inspection Extremities: Nontender, No edema Skin: Normal color, No rash Neurological: Alert, Oriented x3, Cranial nerves II-XII grossly intact, Normal Strength, Normal Sensation Psychological: - - Blunted affect appears mildly anxious Diagnostic/Tx/Re-eval - Medical Decision Making I spoke with crisis and reviewed her last psychiatry appointment notes. It does not appear that the Ativan or Cogentin was to be discontinued. I looked at her OAR[facility] report and she has not filled any since the beginning of June. I can write for a few days of these medications until she can see her psychiatrist. Crisis will inform her psychiatrist of the past several days. Patient was advised to take an Ativan tonight to see if that can help her get some sleep. ED Disposition - Plan for ED Patient: Disposition: Home or Assisted Living Diagnosis: Anxiety, GERD (gastroesophageal reflux disease), Fatigue Instructions: ED Anxiety Reaction, ED GERD (Adult) Prescriptions: Lorazepam [Ativan] 1 mg PO BID PRN #8 tab PRN Reason: Anxiety Prescription Printed Benztropine [Cogentin] 1 mg PO DAILY #4 tab Prescription Printed Referrals: Yovany Omalley MD [Primary Care Provider] - 1 Week Peggy Perry MD [NON-STAFF] - Keep Vickie appointment
[2020-08-02 09:53] VITALS: BP 160/85; PULSE 87; RESP 16; O2SAT 99
== END 2020-08-02 10:00 | disposition home or self-care (01) ==
PROVIDERS: Emergency Provider Emergency Medicine; PCP Family Medicine
DX: K21.9 Gastro-esophageal reflux disease without esophagitis (principal); R53.83 Other fatigue; F41.9 Anxiety disorder, unspecified; F20.9 Schizophrenia, unspecified; E03.9 Hypothyroidism, unspecified; Z79.899 Other long term (current) drug therapy; Z87.891 Personal history of nicotine dependence
CPT/HCPCS: 93005; 99284

== ENCOUNTER → 2021-02-25 08:18 | Outpatient (CLI) | payer MEDICARE, MEDICAID, SELFPAY ==
--- NOTE | 2021-02-25 | IMM_PTH ---
PATIENT: GINNY CASTRO LOC: [facility] U#:[id number] AGE/SX: 65/F ROOM: RE02/25/[address]: Dr. Nini Ribera MD : 1960 BED: DIS: SPEC #: [id number] RECD: 02/26/21 11:30 STATUS: KAMINI REQ #: [id number] ALBER: 02/25/21 00:[address]: Nini Ribera DEPT: IMMUNOHISTOCHEMISTRY RECD BY: Kathryn Tovar ENTERED: 02/26/21 11:32 SP TYPE: IMMUNO OTHR DR: Dr. Yovany Omalley MD Tissues: Right breast, NOS Procedures: CALPONIN-1 (add) CK5-6 (add) CK8 (add) E-CAD (add) HER2 DANDRE (add) KI-67 (add) P53 (add) SD (add) P40 (add) ER (initial) PHYSICIAN & INSTITUTION [address] [address] SPECIMEN INFORMATION: Tissue Source: Right breast, 8 o?clock middle depth, stereotactic core biopsy Clinical Info: 0.8 cm oval focal asymmetry in right breast at 8 o?clock middle depth Specimen Number: [id number] #1 CPT code: 01750, 83444 x6, 42170 x3 METHODOLOGY: Deparaffinized sections of prefer/formalin-fixed tissue or PAP/DQ stained slides are incubated with monoclonal/polyclonal antibodies/oligonucleotide probes. Localization is made via biotin free immunoperoxidase method. Appropriate controls are performed and reacted as expected. Results on target cell population are indicated in the following table: RESULTS: ANTIBODY / CLONE RESULT Block 1 E-Cad (ECH-6) positive CK8 (25wlxoJ44) positive Calponin-1 (MM791O) negative CK5-6 (D5 & 1684) negative P40 (BC28) negative P53 (DO-7) negative Ki-67 (30-9) positive, low to moderate MORPHOMETRIC ANALYSIS ER (clone 6F11) >95%, strong intensity SD (clone 16/1E2) >95%, strong intensity Her-2Neu (clone CB11) 0 The prognostic test for HER2 is performed on formalin-fixed paraffin embedded tissue. A 3+ (positive) staining pattern is defined as intense, homogeneous, complete, circumferential membranous staining in >10% of contiguous tumor cells. A similar weak (2+) staining pattern is interpreted as equivocal. TANJA follow-up testing is recommended for all equivocal cases. Positivity/negativity for ER/SD is reported if > or < 1% of the tumor cells are immuno- reactive, respectively. The ASCO/CAP criteria is used for scoring. Reference: Journal of Clinical Oncology, 2013; 31:4425-9844 & 2010; 16:0136-5060. Duration of fixation: 10 Hrs; Sample Adequate: Yes. These assays have not been validated on decalcified tissues. Results should be interpreted with caution given the likelihood of false negativity on decalcified specimens. These tests were developed and their performance characteristics determined by [facility]. They may not have been cleared or approved by the U.S. Food and Drug Administration. The FDA has determined that such clearance or approval is not necessary. The above immunohistochemical/dualISH markers are ordered and reviewed by the Pathologist. INTERPRETATION: Right breast, 8 o?clock middle depth, stereotactic core biopsy: Invasive ductal carcinoma. Positive for estrogen receptors (favorable prognostic indicator). Positive for progesterone receptors (favorable prognostic indicator). Negative for overexpression of BFF2baz. SJ:linda 02/26/2021
--- NOTE | 2021-02-25 09:30 | BRBX_PTH ---
PATIENT: GINNY CASTRO LOC: [facility] U#:[id number] AGE/SX: 65/F ROOM: RE02/25/[address]: Dr. Nini Ribera MD : 1960 BED: DIS: SPEC #: [id number] RECD: 02/25/21 10:28 STATUS: KAMINI RE #: [id number] ALBER: 02/25/21 09:[address]: Nini Ribera DEPT: SURGICAL PATHOLOGY RECD BY: Cornelia Sewell ENTERED: 02/25/21 11:45 SP TYPE: BREAST BX RICKIE DR: Dr. Yovany Omalley MD Tissues: Right breast, NOS Procedures: Surgery Specimen Level IV HEADER OPERATION: Right breast stereotactic biopsy PRE-OP DIAGNOSIS: 0.8 cm oval focal asymmetry in the right breast at 8 o?clock middle depth TISSUE SUBMITTED: Right breast core tissue ISCHEMIC TIME: 1 minute FIXATION TIME: 10 hours MICROSCOPIC DIAGNOSIS Right breast, 8 o?clock middle depth, stereotactic core biopsy: Invasive ductal carcinoma, nuclear grade 1 (0.5 cm in greatest length). See comment. 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 Ductal carcinoma in situ comprise <5% of total tumor volume. Immunohistochemistry ([id number]) supports the above diagnosis. ER/MD/Kmm7zjd studies are being performed on sections of tumor and the results from this study will be reported separately ([id number]). MICROSCOPIC DESCRIPTION Slides are reviewed. GROSS DESCRIPTION Received in fixative is one container labeled with the patient's name and designated right breast. The specimen consists of multiple elongated fragments of mahmood-yellow fibroadipose tissue that in aggregate measure 5 x 2.5 x 0.3 cm. The entire specimen is submitted in two cassettes. / BOLIVAR:linda 02/25/21 TC:0 CPT: 48385
--- NOTE | 2021-02-25 10:16 | OP.PCM_ITS ---
Report of Operation Date of Procedure: 02/25/21 Pre-Operative Diagnosis: abnormal density of right breast, known right breast c ancer (different location) Post-Operative Diagnosis: same Surgery/Procedure Performed:: right stereotactic breast biopsy Description of Surgical Findings:: very inferior and lateral right breast lesion Surgeon: Nini Ribera Type of Anesthesia: Local Specimen's removed: right breast tissue Estimated Blood Loss (mL): < 1 ml Description of Procedure: After informed consent was given, the patient was brought into the Breast Biopsy suite. Appropriate time out protocol was followed. The patient was placed in the prone position on the stereotactic biopsy table. The patient?s right breast was then placed in the opening at the head of the biopsy table. A vacuum cleaner operator compression mammogram was then obtained in the laterall view. The suspicious radiological lesion was thus identified. Stereo pictures of the lesion were then taken for XYZ coordinates. The Mammotome biopsy stylus was then positioned where it would be entering into the patient?s breast. The skin at this site was then cleansed with a surgical skin preparation. The skin and subcutaneous tissues at this site were then infiltrated with 1% xylocaine. A small skin incision was made with an 11 blade scalpel. The biopsy stylus was then positioned into the patient?s breast at the proper coordinates of depth. Using the Mammotome vacuum-assist device, several core samples of breast tissue were obtained. Of note, this lesion is superficial at this location. A hemostatic marker clip was then placed into the biopsy cavity and a vacuum cleaner operator film revealed that it was properly deployed. A suture was placed to reapproximated the skin incision. The patient was then placed in the supine position and pressure was applied to the breast until no active bleeding was noted. Sterile opsite dressing was applied over the incision site. A unilateral mammogram in the CC and MLO view were then taken which revealed that the marker clip was in the same area as the previous suspicious lesion. The patient tolerated the procedure well and was discharged from the Breast Biopsy suite in good condition. Complications none noted
== END ==
PROVIDERS: PCP Family Medicine; Referring Provider Surgery; Visit Provider Surgery
DX: C50.511 Malignant neoplasm of lower-outer quadrant of right female breast (principal); Z17.0 Estrogen receptor positive status [ER+]; E03.8 Other specified hypothyroidism; F31.9 Bipolar disorder, unspecified; Z87.891 Personal history of nicotine dependence; E78.2 Mixed hyperlipidemia; Z79.899 Other long term (current) drug therapy
CPT/HCPCS: 19081; 88305; 88341; 88342; J7050

== ENCOUNTER 2021-12-06 19:20 | Emergency (ER) | payer MEDICARE, MEDICAID, SELFPAY ==
[2021-12-06 19:21] VITALS: BP 152/102; PULSE 78; RESP 16; TEMP 36.4; O2SAT 98; BMI 32.3
--- NOTE | 2021-12-06 19:49 | EKG12_ITS ---
Test Reason : DYSRHYTHMIA Blood Pressure : / mmHG Vent. Rate : 068 BPM Atrial Rate : 068 BPM P-R Int : 190 ms QRS Dur : 102 ms QT Int : 430 ms P-R-T Axes : 041 -05 004 degrees QTc Int : 457 ms Normal sinus rhythm Normal ECG Confirmed by BRISEIDA XAVIER, JAMIE ([id number]), brands editor SEDRICK MATTHEWS ([id number]) on 12/07/2021 11:38:33 AM Referred By: DC Confirmed By:JAMIE GOINS MD
--- NOTE | 2021-12-06 19:53 | ED.VIS.CHEST ---
HPI History of Present Illness Chief Complaint: Chest Pain Informant: patient Narrative Narrative: 61-year-old female arriving to the emergency department the chief complaint of chest pain. Patient states that before 9 AM today after she ate eggs and a breakfast sausage sandwich she had 4 to 5 minutes of a central chest discomfort. She states that she felt very nauseous and her mouth was watering. This resolved. She made an appointment and was seen at [facility] and was sent to the emergency department this evening for further evaluation. She has not been experiencing any discomfort with eating. She did not take anything to relieve the symptoms. She notes that she has no known coronary artery disease. She does note a history of hyperlipidemia and a familial history of coronary artery disease. She has been asymptomatic the rest of the day. [facility] Medical History Breast cancer Home Medications aripiprazole lauroxil 662 mg/2.4 mL suspension, ext.rel. IM syringe (Aristada) 1 injectable IM Q30D 12/20/17 [History Last Taken 03/11/19] citalopram 20 mg tablet 20 mg PO DAILY 12/20/17 [History Last Taken 03/13/19] levothyroxine 75 mcg tablet 75 mcg PO DAILY 12/20/17 [History Last Taken 03/12/19] risperidone 4 mg tablet (Risperdal) 4 mg PO QHS 12/20/17 [History Last Taken 03/12/19] benztropine 2 mg tablet 1 mg PO DAILY #4 TABLETS 08/02/20 [Rx Last Taken Unknown] lorazepam 1 mg tablet 1 mg PO BID PRN Anxiety #8 TABLETS 08/02/20 [Rx Last Taken Unknown] Allergy/AdvReac Type Severity Reaction Status Date / Time peanut Allergy Hives Verified 12/06/21 19:23 promethazine HCl Allergy Other Verified 12/06/21 19:23 [From Phenergan] chocolate flavor AdvReac Unknown Verified 12/06/21 19:23 gabapentin [From Neurontin] AdvReac Other Verified 12/06/21 19:23 Surgical History H/O total mastectomy of right breast Social History Smoking Status: Former smoker ROS ROS ED Constitutional Constitutional ED: Denies chills, fever(s) or weight loss Eyes Eyes: Denies change in vision or diplopia ENT ENT ED: Denies ear pain, rhinorrhea or sore throat Cardiovascular Cardiovascular: Reports chest pain; Denies orthopnea, palpitations or racing heartbeat Respiratory/Chest Respiratory/Chest: Denies cough, dyspnea or orthopnea Gastrointestinal Gastrointestinal: Reports nausea; Denies abdominal pain, diarrhea or vomiting Genitourinary Genitourinary ED: Denies dysuria, hematuria or urinary frequency Musculoskeletal Musculoskeletal: Denies arthralgias or myalgias Integumentary Denies abscess or rash Neurologic Neurologic: Denies headache(s) or weakness Psychiatric Psychiatric: Denies anxiety, depression, suicidal ideation or suicidal thoughts Endocrine Endocrinology: Denies polydipsia, polyphagia or polyuria Allergic/Immunologic Allergic/Immunologic ED: Denies mouth swelling, tongue swelling or urticaria EXAM Physical Exam Const Vital Signs: 12/06/21 19:21 Temperature 97.6 F L Temperature Source Temporal Pulse Rate 78 Respiratory Rate 16 Blood Pressure 152/102 H Blood Pressure Mean 118 Pulse Ox 98 Oxygen Delivery Method Room Air Positive well nourished and well developed General Appearance ED: well developed HEENT Reports normocephalic, head/scalp atraumatic and moist mucous membranes Eyes PERRL and EOMs intact bilaterally Neck no lymphadenopathy, supple and no JVD Resp normal respiratory effort and clear to auscultation bilaterally Cardio regular rate, regular rhythm and no murmurs GI normal to inspection, nondistended, normoactive bowel sounds and non-tender Palpation: soft Back/Spine no CVA tenderness and normal ROM Extremity normal to inspection General Extremety ED: Negative for edema General Extremity: Negative for edema Neuro oriented x3 and CN's II-XII intact bilaterally Sensorium / Orientation: alert Motor Exam: strength 5/5 throughout Psych Mood & Affect: anxious; Negative for depressed or tearful Skin no rashes or lesions noted and no wounds Heart Score History: Slightly/Non-Suspicious ECG: Normal Age: >/= 65 years Risk Factors: 1 or 2 Risk Factors Troponin: </= Normal Limit Score: 3 MDM MDM MDM Narrative Medical decision making narrative: My interpretation of the chest x-ray is no acute process. CBC and BMP are negative. Patient's troponin is 5. This represents a greater then 8 hours since the symptom onset. Therefore I think it is very unlikely that this is ACS. I think this is most likely indigestion or esophageal spasm or reflux from the breakfast that she ate. Follow-up as needed return if worsening or concerns Lab Data Attestation: I reviewed the patient's lab results. Labs: Laboratory Results - last 24 hr 12/06/21 12/06/21 19:51 19:51 WBC 6.7 RBC 4.31 Hgb 13.1 Hct 39.6 MCV 91.9 MCH 30.4 MCHC 33.1 RDW Std Deviation 43.2 RDW Coeff of Taryn 12.8 Plt Count 237 MPV 10.3 Immature Gran % (Auto) 0.400 Neut % (Auto) 52.0 Lymph % (Auto) 35.9 Dawes % (Auto) 8.0 Eos % (Auto) 3.0 Baso % (Auto) 0.7 Absolute Neuts (auto) 3.5 Absolute Lymphs (auto) 2.42 Nucleated RBC % 0 Sodium 141 Potassium 3.6 Chloride 106 Carbon Dioxide 29.0 Anion Gap 6 BUN 16 Creatinine 0.78 Estim Creat Clear Calc 68.15 Est GFR (MDRD) Af Amer 97 Est GFR (MDRD) Non-Af 80 BUN/Creatinine Ratio 20.6 H Glucose 91 Calcium 9.0 Troponin I High Sens 5 EKG Initial EKG: Attestation: I personally reviewed and interpreted this EKG as follows: Comments: Normal sinus rhythm ventricular rate of 68 bpm. Discharge Plan Triage Chief Complaint: Chest Pain ED Provider: Brian Rodas Dx/Rx/DC Orders Clinical Impression: HLD (hyperlipidemia), Chest pain Instructions: ED Chest Pain, Noncardiac Prescriptions: No Action risperidone [Risperdal] 4 MG tablet 4 mg PO QHS levothyroxine 75 MCG tablet 75 mcg PO DAILY citalopram 20 MG tablet 20 mg PO DAILY Aristada 662 mg/2.4 mL suspension,extended rel syring 1 injectable IM Q30D Label Comments: Inject 662 mg intramuscularly every four weeks lorazepam 1 MG tablet 1 mg PO BID PRN (Reason: Anxiety) Qty: 8 0RF benztropine 2 MG tablet 1 mg PO DAILY Qty: 4 0RF Primary Care Provider: Yovany Omalley Referrals: Yovany Omalley MD [Primary Care Provider] - As Needed Disposition Disposition: Home, Self Care
[2021-12-06 20:00] LABS: Absolute Lymphocyte Count 2.42 X10^3/uL (0.83-4.51); Absolute Neutrophil Count 3.5 X10^3/uL (2.0-7.7); Basophil# 0.05 X10^3/uL; Basophil% 0.7 % (0-1); Hematocrit 39.6 % (37-47); Hemoglobin 13.1 g/dL (12.0-15.0); Lymphocyte # 2.42 X10^3/ul (0.83-4.51); Lymphocyte % 35.9 % (19-41); Mean Corp Hgb Conc 33.1 g/dL (32-36); Mean Corpuscular Hgb 30.4 pg (27.0-32.0); Mean Corpuscular Volume 91.9 fL (81-99); Mean Platelet Vol. 10.3 fl (6.2-12.0); Monocyte# 0.54 X10^3/uL; NRBC Flagged by Analyzer 0 % (0-5); Platelet Count 237 K/mm3 (150-450); RBC Distribution Width CV 12.8 % (11.6-14.6); RBC Distribution Width SD 43.2 fl (35.1-43.9); Red Blood Count 4.31 M/mm3 (4.2-5.4); White Blood Count 6.7 K/mm3 (4.4-11.0)
--- NOTE | 2021-12-06 20:01 | RAD_ITS ---
INDICATION: chest pain EXAMINATION/TECHNIQUE: X-RAY - XR Chest 1 View COMPARISON: June 13, 2019. FINDINGS: LINES/DEVICES: None. LUNGS: No consolidation, edema or effusion. No pneumothorax. MEDIASTINUM AND CARDIOVASCULAR STRUCTURES: Cardiac silhouette not enlarged. Central airways and mediastinal contour are unremarkable. BONES AND SOFT TISSUES: Unremarkable. Right lateral chest wall skin nataly. RAD/Chest 1 View (Portable) IMPRESSION: No radiographic evidence of acute cardiopulmonary disease. Electronically Signed: Simeon Jett MD at 21:32 EDT ,
[2021-12-06 20:23] LABS: Anion Gap 6 (5-15); BUN 16 mg/dL (7-18); BUN/Creat Ratio 20.6 RATIO (10-20); Chloride 106 mmol/L (98-107); Creatinine, Serum 0.78 mg/dL (0.55-1.02); EST Glomerular Filtration Rate 80 mL/min (>60); Est Glom Filt Rate - Afr Amer 97 mL/min (>60); Estimated Creatinine Clearance 68.15 ml/min; Glucose 91 mg/dL (74-106); Potassium 3.6 mmol/L (3.5-5.1); Sodium Level 141 mmol/L (136-145); Troponin-I HS (w/2H Reflex) 5 pg/mL (3.0-54.0)
[2021-12-06 20:49] VITALS: BP 148/60; PULSE 75; RESP 16; O2SAT 96
[2021-12-06 21:57] LABS: Reflex Troponin-HS? (from REC) Y
== END 2021-12-06 20:51 | disposition home or self-care (01) ==
PROVIDERS: Emergency Provider Emergency Medicine; PCP Family Medicine; Visit Provider Emergency Medicine
DX: R07.9 Chest pain, unspecified (principal); E78.5 Hyperlipidemia, unspecified; Z87.891 Personal history of nicotine dependence
CPT/HCPCS: 71045; 80048; 84484; 85025; 93005; 99283

== ENCOUNTER → 2023-08-30 | Outpatient (CLI) | payer MEDICARE, MEDICAID, SELFPAY ==
--- NOTE | 2023-08-30 15:59 | MRI_ITS ---
HISTORY: COMPRESSION FX TECHNIQUE: Multiplanar and multisequence MR images of the lumbar spine were obtained without intravenous contrast. 183 images. COMPARISON: None. FINDINGS: VERTEBRAE: Chronic L1 compression fracture with 50-60% loss of height and minimal retropulsion into the spinal canal resulting in minimal narrowing of the thecal sac. Mild degenerative endplate changes at T12-L1. L2 vertebral body hemangioma present. L5 spondylolysis. ALIGNMENT: No anterior or posterior subluxation. CONUS: Normal morphology and position of the conus medullaris at L2. INTERVERTEBRAL DISCS: T10-11: No significant posterior disc protrusion, central canal stenosis, or foraminal narrowing. T11-12: Mild disc bulge with facet arthropathy. No significant central canal or foraminal stenosis. T12-L1, L1-2, L2-3, L3-4, L4-5: No significant posterior disc protrusion, central canal stenosis, or foraminal narrowing. L5-S1: Disc bulge and mild facet arthropathy resulting in minimal left foraminal narrowing. No significant central canal stenosis. SOFT TISSUES: No paraspinal fluid collection. MRI/Spine Lumbar (Routine) IMPRESSION: Chronic L1 compression fracture. Very mild degenerative disc disease of the lumbar spine without significant spinal canal stenosis. L5 spondylolysis without spondylolisthesis. Electronically Signed: Katya Martinez MD at 16:01 EDT ,
== END | disposition home or self-care (01) ==
LOC: MRI 15:45
PROVIDERS: PCP Family Medicine; Referring Provider Orthopaedic Surgery; Visit Provider Orthopaedic Surgery
DX: S32.010D Wedge compression fracture of first lumbar vertebra, subsequent encounter for fracture with routine healing (principal); M48.061 Spinal stenosis, lumbar region without neurogenic claudication; M47.896 Other spondylosis, lumbar region; X58.XXXD Exposure to other specified factors, subsequent encounter
CPT/HCPCS: 72148

== ENCOUNTER → 2024-01-11 | Outpatient (CLI) | payer MEDICARE, MEDICAID, SELFPAY ==
--- NOTE | 2024-01-11 10:00 | RAD_ITS ---
INDICATION: BACK PAIN EXAMINATION/TECHNIQUE: X-RAY - XR Spine Lumbar Comp W/ Bending Min 6 Views COMPARISON: MRI examination dated 08/30/2023 FINDINGS: VERTEBRAE: Vertebral body height and alignment are unchanged. There is loss of vertebral body height at L1 without interval change consistent with chronic or remote compression deformity. No subluxation. There is a mild grade 1 anterolisthesis of L5 on S1, and pars defects noted. There is a coarse trabecular pattern at L2 consistent with a intraosseous hemangioma. Preservation of the normal lumbar lordosis. No significant facet arthropathy. DISCS: Disc space narrowing at T12-L1. Grade 1 anterolisthesis of L5 on S1. INCLUDED ABDOMEN: Included bowel gas pattern is non-obstructive. RAD/L/S Spine w Bend Min 6 Vw IMPRESSION: 1. Grade 1 anterolisthesis of L5 on S1 with pars defects noted. 2. Remote compression deformity of L1 which appears stable. 3. No acute bony changes fracture or subluxation. Electronically Signed: Dariusz Tucker MD at 22:12 EDT ,
== END | disposition home or self-care (01) ==
PROVIDERS: PCP Family Medicine; Referring Provider Anesthesiology Pain Medicine; Visit Provider Anesthesiology Pain Medicine
DX: M54.9 Dorsalgia, unspecified (principal); M81.0 Age-related osteoporosis without current pathological fracture
CPT/HCPCS: 72114

== ENCOUNTER 2024-04-08 19:52 | Emergency (ER) | payer MEDICARE, MEDICAID, SELFPAY ==
[2024-04-08 19:56] VITALS: BP 155/78; PULSE 82; RESP 18; TEMP 36.8; O2SAT 91; BMI 32.9
--- NOTE | 2024-04-08 20:11 | ED.VIS.GI ---
HPI HPI - GI History of Present Illness Chief Complaint: Abd Pain Informant: patient and EMS Narrative Narrative: 64-year-old female states she started having periumbilical/epigastric abdominal pain an hour ago while she was eating a [employer] pizza. She states this started before she was done eating. She denies any nausea, vomiting, diarrhea, problems with urination, chest discomfort, dyspnea, lightheadedness or syncope. She is very poor historian and then states I think I may be getting Alzheimer's, but not dementia. She does not think she has ever had any abdominal surgeries before. She states that she lives alone. [facility] Medical History (Updated 04/08/24 @ 21:[address] Juan Maloney MD) HLD (hyperlipidemia) Psychosis Breast cancer Home Medications ?Medication ?Instructions ?Recorded ?Last Taken ?Type aripiprazole lauroxil 662 mg/2.4 1 injectable IM Q30D 12/20/17 03/11/19 History mL suspension, ext.rel. IM syringe (Aristada) citalopram 20 mg tablet 20 mg PO DAILY 12/20/17 03/13/19 History levothyroxine 75 mcg tablet 75 mcg PO DAILY 12/20/17 03/12/19 History risperidone 4 mg tablet (Risperdal) 4 mg PO QHS 12/20/17 03/12/19 History benztropine 2 mg tablet 1 mg (1/2 x 2 mg) PO DAILY #4 08/02/20 Unknown Rx TABLETS lorazepam 1 mg tablet 1 mg PO BID PRN Anxiety #8 TABLETS 08/02/20 Unknown Rx Allergy/AdvReac Type Severity Reaction Status Date / Time peanut Allergy Hives Verified 04/08/24 19:53 promethazine HCl (From Allergy Other Verified 04/08/24 19:53 Phenergan) chocolate flavor AdvReac Unknown Verified 04/08/24 19:53 gabapentin (From Neurontin) AdvReac Other Verified 04/08/24 19:53 Surgical History H/O total mastectomy of right breast Social History Smoking Status: Former smoker ROS ROS ED Constitutional Constitutional ED: Denies chills or fever(s) Eyes Eyes: Denies change in vision or diplopia ENT ENT ED: Denies rhinorrhea or sore throat Cardiovascular Cardiovascular: Denies chest pain or palpitations Respiratory/Chest Respiratory/Chest: Denies cough or dyspnea Gastrointestinal Gastrointestinal: Reports abdominal pain; Denies diarrhea, nausea or vomiting Genitourinary Genitourinary ED: Denies dysuria or hematuria Musculoskeletal Musculoskeletal: Reports back pain and other Details: Back pain chronic from remote injury, nothing acute or different ; Denies neck pain Integumentary Denies abscess or rash Neurologic Neurologic: Denies headache(s), paresthesias or weakness EXAM Physical Exam Const Vital Signs: 04/08/24 19:56 Temperature 98.3 F Temperature Source Oral Pulse Rate 82 Respiratory Rate 18 Blood Pressure 155/78 H Blood Pressure Mean 103 Pulse Ox 91 Oxygen Delivery Method Room Air Positive well nourished, well developed and obese General Appearance ED: well developed and NAD Nutritional Appearance: obese HEENT Reports moist mucous membranes normocephalic and atraumatic Eyes PERRL and EOMs intact bilaterally Neck full ROM and supple Resp normal respiratory effort and clear to auscultation bilaterally Cardio regular rate, regular rhythm and no murmurs GI non-distended GI Narrative: Diffuse abdominal tenderness without guarding or rebound. No Ortiz's. Patient subjectively states that the tenderness is worse in the epigastrium. Auscultation: normoactive bowel sounds Palpation: soft Back/Spine no CVA tenderness General Back: other FROM Extremity normal to inspection General Extremety ED: Negative for edema, pulses abnormal or tenderness General Extremity: Negative for edema or pulses abnormal Neuro oriented x3, CN's II-XII intact bilaterally and no sensory deficits noted Sensorium / Orientation: awake and alert Motor Exam: strength 5/5 throughout Psych Psych Narrative: flat affect Skin no rashes or lesions noted and no wounds MDM MDM MDM Narrative Medical decision making narrative: Differential is wide here, considering the patient's age and diffuse nature of her pain and tenderness, and includes appendicitis, cholecystitis, pancreatitis, bowel inflammation or obstruction, and also intraluminal disease such as dyspepsia, peptic ulcer disease, and this is not an exclusive list of possibilities. Therefore we started with a CT since she is not focally tender in the right upper quadrant, in addition to labs. Patient did not need to urinate while she was here getting the other test, and although she was initially treated with prophylactic Zofran and some morphine, she requested some Pepto-Bismol thinking maybe this felt like indigestion. Since we do not have that she was given Mylanta advanced, and she states that significantly helped her discomfort and she felt a whole lot better, asymptomatic. On reexamination she is nontender throughout. Her labs are unremarkable, I reviewed the CT images and result which I agree with, it shows a lot of incidental findings but essentially negative for anything acute. I asked her if she had any family nearby, she does in the region but not locally, and when asked if she was to call one of them for a ride home she states no she prefers to call a cab. She states she is already on omeprazole advised to continue this and follow-up with her doctor if she has any other persistent abdominal issues she is comfortable with that plan. Lab Data Attestation: I reviewed the patient's lab results. Labs: Laboratory Results - last 24 hr 04/08/24 20:13 WBC 11.2 H RBC 4.65 Hgb 14.0 Hct 42.6 MCV 91.6 MCH 30.1 MCHC 32.9 RDW Std Deviation 43.8 RDW Coeff of Tarny 13.1 Plt Count 272 MPV 10.0 Immature Gran % (Auto) 0.400 Neut % (Auto) 71.8 H Lymph % (Auto) 18.9 L [place]bon % (Auto) 7.2 Eos % (Auto) 1.3 Baso % (Auto) 0.4 Absolute Neuts (auto) 8.0 H Absolute Lymphs (auto) 2.11 Nucleated RBC % 0 Sodium 142 Potassium 3.6 Chloride 106 Carbon Dioxide 29.0 Anion Gap 7 BUN 18 Creatinine 0.77 Estim Creat Clear Calc 82.03 Est GFR (MDRD) Af Amer 98 Est GFR (MDRD) Non-Af 81 BUN/Creatinine Ratio 23.5 H Glucose 109 H Lactic Acid 1.2 Calcium 9.2 Total Bilirubin 0.70 AST 27 ALT 60 H Alkaline Phosphatase 94 Total Protein 7.5 Albumin 3.7 Globulin 3.8 Albumin/Globulin Ratio 1.0 Lipase 45 Radiography Diagnostic Testing: Clinical Impression(s) from Imaging Studies Abdomen/Pelvis CT 04/08/24 20:50 IMPRESSION: 1. Low-attenuation throughout the liver consistent with fatty infiltration. Relative hyperdensity at the gallbladder fossa is likely focal fatty sparing. 4.6 cm region of relative hyperdensity near the mary hepatis with ill-defined margins may also be a large area of fatty sparing. No suspicious features. Given the history of malignancy, consider follow-up hepatic MRI or multiphasic hepatic CT. 2. Degenerative changes in the axial and appendicular skeletal structures. L2 vertebral body hemangioma. Chronic appearing compression deformity of the superior endplate of L1. 3. Small bilateral pleural effusions and associated airspace disease which may be atelectasis rather than pneumonia. 4. Right lower pole nonobstructing 3 mm calyceal stone. No hydronephrosis or ureteral stones and no additional renal pathology. 5. No bowel obstruction. 6. Likely injection related changes within the soft tissues of the bilateral buttocks to include small foci of air within the left subcutaneous adipose. Correlate on exam. Electronically Signed: Blu Cheng, at 21:17 EST , Discharge Plan Triage Chief Complaint: Abd Pain ED Provider: Juan Maloney Dx/Rx/DC Orders Clinical Impression: Dyspepsia, Diffuse abdominal pain Instructions: Abdominal Pain, Understanding Functional Dyspepsia Prescriptions: No Action risperidone [Risperdal] 4 MG tablet 4 mg PO QHS levothyroxine 75 MCG tablet 75 mcg PO DAILY citalopram 20 MG tablet 20 mg PO DAILY Aristada 662 mg/2.4 mL suspension,extended rel syring 1 injectable IM Q30D Patient Comments: Inject 662 mg intramuscularly every four weeks lorazepam 1 MG tablet 1 mg PO BID PRN (Reason: Anxiety) Qty: 8 0RF benztropine 2 MG tablet 1 mg PO DAILY Qty: 4 0RF Primary Care Provider: Yovany Omalley Referrals: Yovany Omalley MD [Primary Care Provider] - 3-5 Days if not improving Activity Restrictions/Additional Instructions: If you are not already on omeprazole, start taking 40 mg daily. It is available [id number], or you may take equivalent esomeprazole or lansoprazole. Print Language: Bermudian Disposition Disposition: Home, Self Care
[2024-04-08 20:24] LABS: Absolute Lymphocyte Count 2.11 X10^3/uL (0.83-4.51); Basophil# 0.05 X10^3/uL; Basophil% 0.4 % (0-1); Eosinophil# 0.14 X10^3/uL; Eosinophils% 1.3 % (0-5); Hematocrit 42.6 % (37-47); Lymphocyte # 2.11 X10^3/ul (0.83-4.51); Lymphocyte % 18.9 % (19-41); Mean Corp Hgb Conc 32.9 g/dL (32-36); Mean Corpuscular Hgb 30.1 pg (27.0-32.0); Mean Corpuscular Volume 91.6 fL (81-99); Monocyte% 7.2 % (0-10); NRBC Flagged by Analyzer 0 % (0-5); Neutrophil # 8.03 X10^3/uL (2.7-7.7); Neutrophil % 71.8 % (47-70); Platelet Count 272 K/mm3 (150-450); RBC Distribution Width CV 13.1 % (11.6-14.6); RBC Distribution Width SD 43.8 fl (35.1-43.9); Red Blood Count 4.65 M/mm3 (4.2-5.4); White Blood Count 11.2 K/mm3 (4.4-11.0)
[2024-04-08 20:41] LABS: AST(SGOT) 27 U/L (15-37); Alanine Aminotransfer ALT/SGPT 60 U/L (13-56); Albumin, Serum 3.7 g/dL (3.2-5.0); Alkaline Phosphatase 94 U/L (45-117); Anion Gap 7 (5-15); BUN 18 mg/dL (7-18); BUN/Creat Ratio 23.5 RATIO (10-20); Calcium,Total 9.2 mg/dL (8.5-10.1); Chloride 106 mmol/L (98-107); Creatinine, Serum 0.77 mg/dL (0.55-1.02); EST Glomerular Filtration Rate 81 mL/min (>60); Est Glom Filt Rate - Afr Amer 98 mL/min (>60); Estimated Creatinine Clearance 82.03 ml/min; Globulin 3.8 g/dL (2.2-4.2); Glucose 109 mg/dL (74-106); Lipase 45 U/L (13-75); Potassium 3.6 mmol/L (3.5-5.1); Protein, Total 7.5 g/dL (6.4-8.2); Sodium Level 142 mmol/L (136-145)
--- NOTE | 2024-04-08 20:46 | ED.RN ---
Patient transported to CT
[2024-04-08 20:48] LABS: Lactic Acid 1.2 mmol/L (0.4-1.9)
--- NOTE | 2024-04-08 20:50 | CT_ITS ---
EXAM: CT ABDOMEN AND PELVIS WITH INTRAVENOUS CONTRAST CLINICAL INDICATION: diffuse abd pain TECHNIQUE: Helically acquired images were obtained of the abdomen and pelvis with intravenous contrast. This CT exam was performed using one or more of the following dose reduction techniques: automated exposure control, adjustment of the mA and/or kV according to patient size, and/or use of iterative reconstruction technique. CONTRAST: IV 100mL [id number] COMPARISON: No relevant prior studies available. FINDINGS: LOWER THORAX: Small bilateral pleural effusions and associated airspace disease which may be atelectasis rather than pneumonia. No cardiomegaly. ABDOMEN: LIVER: Low-attenuation throughout the liver consistent with fatty infiltration. Relative hyperdensity at the gallbladder fossa is likely focal fatty sparing. 4.6 cm region of relative hyperdensity near the mary hepatis with ill-defined margins may also be a large area of fatty sparing. No suspicious features. GALLBLADDER AND BILE DUCTS: No significant abnormality. No calcified gallstones. No gallbladder distention or wall edema. No intra- or extrahepatic biliary ductal dilation. PANCREAS: No significant abnormality. No focal cystic or solid mass. SPLEEN: No significant abnormality. Normal size without focal cystic or solid mass. ADRENALS: No significant abnormality. No nodules. KIDNEYS AND URETERS: Right lower pole nonobstructing 3 mm calyceal stone. No hydronephrosis or ureteral stones and no additional renal pathology. STOMACH AND BOWEL: No significant abnormality. No stomach or bowel distention. No focal inflammatory change. PELVIS: APPENDIX: Normal appendix in the right lower quadrant. BLADDER: No significant abnormality. REPRODUCTIVE: Normal as visualized. No mass. ABDOMEN and PELVIS: INTRAPERITONEAL SPACE: No significant abnormality. No ascites or other fluid collection. No free air. BONES/JOINTS: Degenerative changes in the axial and appendicular skeletal structures. L2 vertebral body hemangioma. Chronic appearing compression deformity of the superior endplate of L1. No suspicious lytic or blastic abnormality. SOFT TISSUES: Right-sided breast mammoplasty implant. Likely injection related changes within the soft tissues of the bilateral buttocks to include small foci of air within the left subcutaneous adipose. No discrete abdominal or pelvic wall hernia. VASCULATURE: No significant abnormality. Abdominal aorta is non-dilated. LYMPH NODES: No significant abnormality. No enlarged lymph nodes. CT/Abdomen/Pelvis W IV Cont ONLY IMPRESSION: 1. Low-attenuation throughout the liver consistent with fatty infiltration. Relative hyperdensity at the gallbladder fossa is likely focal fatty sparing. 4.6 cm region of relative hyperdensity near the mary hepatis with ill-defined margins may also be a large area of fatty sparing. No suspicious features. Given the history of malignancy, consider follow-up hepatic MRI or multiphasic hepatic CT. 2. Degenerative changes in the axial and appendicular skeletal structures. L2 vertebral body hemangioma. Chronic appearing compression deformity of the superior endplate of L1. 3. Small bilateral pleural effusions and associated airspace disease which may be atelectasis rather than pneumonia. 4. Right lower pole nonobstructing 3 mm calyceal stone. No hydronephrosis or ureteral stones and no additional renal pathology. 5. No bowel obstruction. 6. Likely injection related changes within the soft tissues of the bilateral buttocks to include small foci of air within the left subcutaneous adipose. Correlate on exam. Electronically Signed: Blu Cheng DO at 21:17 EST ,
[2024-04-08] MEDS: Dicyclomine 10 MG Capsule PO (20:59)
[2024-04-08] MEDS: Mag Hydrox/Al Hydrox/Simeth 30 ML UDC PO (21:00)
--- NOTE | 2024-04-08 21:02 | ED.RN ---
Patient prompted for a urine sample. Patient states maybe in a little bit.
--- NOTE | 2024-04-08 21:20 | ED.RN ---
Patient ambulated to bathroom
[2024-04-08 21:52] VITALS: PULSE 93; RESP 19
[2024-04-08 21:55] VITALS: BP 155/78; PULSE 93; RESP 19; TEMP 36.8; O2SAT 91
== END 2024-04-08 22:05 | disposition home or self-care (01) ==
PROVIDERS: Emergency Provider Emergency Medicine; PCP Family Medicine; Referring Provider Emergency Medicine; Visit Provider Emergency Medicine
DX: R10.13 Epigastric pain (principal); E78.5 Hyperlipidemia, unspecified; R10.84 Generalized abdominal pain; Z87.891 Personal history of nicotine dependence; E66.9 Obesity, unspecified
CPT/HCPCS: 74177; 80053; 83605; 83690; 85025; 99285; Q9967; A4216; J2405